=== PATIENT | male | born 1960 | race Caucasian/White ===

== ENCOUNTER 2022-05-19 11:29 | Outpatient (CLI) | payer OTHER, SELFPAY ==
--- NOTE | ~2022-05-19 | US_ITS ---
EXAMINATION: US venous doppler LE RT DATE: 05/19/2022 12:19 INDICATION: Right calf pain. TECHNIQUE: Grayscale ultrasound images without and with compression and Doppler ultrasound images of the right lower extremity veins were obtained. COMPARISON: None. FINDINGS: The visualized portions of right common femoral vein, profunda (deep) femoral vein, and greater saphe nous vein outflow are patent. There is thrombus in right femoral, popliteal, posterior tibial, and pe roneal veins. IMPRESSION: 1. Deep vein thrombosis involving right femoral, popliteal, posterior tibial, and peroneal veins. Reviewed, dictated and finalized at location A.
== END 2022-05-19 11:30 | disposition home or self-care (01) ==
PROVIDERS: PCP Internal Medicine; Visit Provider Nurse Practitioner
DX: I82.411 Acute embolism and thrombosis of right femoral vein (principal); I82.431 Acute embolism and thrombosis of right popliteal vein; I82.441 Acute embolism and thrombosis of right tibial vein; I82.451 Acute embolism and thrombosis of right peroneal vein
CPT/HCPCS: 93971

== ENCOUNTER 2024-09-23 10:22 | Emergency (ER) | payer OTHER, SELFPAY ==
--- NOTE | ~2024-09-23 | CT_ITS ---
CT of the Abdomen and Pelvis: Indication: Abdominal pain Technique: 2.5 mm axial scans were obtained through the abdomen and pelvis following intravenous adm inistration of 100 cc of Omnipaque 350. Dose reduction technique was used on this scan by utilizing a utomated exposure control and iterative reconstruction technique. The dose-length product (DLP) was 1 303.71 mGy-cm. Findings: Scans through the lung bases are unremarkable. Probable diffuse hepatic steatosis. The spleen, pancreas, gallbladder, adrenals and left kidney are w ithin normal limits. 12 mm nonobstructing right renal stone present. No evidence of aortic aneurysm. No lymphadenopathy. No bowel obstruction or bowel wall thickening. There are multiple significantly radiodense structures or material within small bowel loops, which could reflect ingested material versus ingested foreign bodies.. Images through the pelvis were performed. Urinary bladder unremarkable. No pelvic mass seen. No ascit es. Impression: Multiple markedly radiodense ingested materials versus possibly ingested foreign bodies in the proxim al small bowel. Correlate with relevant clinical history/ingestion history. Diffuse hepatic steatosis. Reviewed, dictated and finalized at location . HEDIS Impression: Multiple markedly radiodense ingested materials versus possibly ingested foreig n bodies in the proximal small bowel. Correlate with relevant clinical history/ ingestion history. Diffuse hepatic steatosis.
[2024-09-23 10:27] VITALS: BP 185/88; PULSE 63; RESP 18; TEMP 36.6; O2SAT 99
[2024-09-23 11:05] LABS: Basophils Absolute Auto 0.1 K/mm3 (0.0-0.1); Basophils Percent Auto 0.6 % (0.2-1.2); Eosinophils Absolute Auto 0.1 K/mm3 (0-0.3); Eosinophils Percent Auto 0.4 % (0-4.4); Hematocrit 55.3 % (42.0-52.0); Hemoglobin 18.9 g/dL (14.0-18.0); Immature Granulocyte Absolute 0.04 K/mm3 (0.00-0.031); Immature Granulocyte Percent A 0.4 % (0-0.5); Immature Platelet Fraction Pct 5.5 % (0.9-11.2); Lymphocytes Absolute Auto 1.17 K/mm3 (0.9-3.2); Lymphocytes Percent Auto 10.2 % (18.3-44.2); Mean Corpuscular HGB Conc 34.2 g/dl (32-36); Mean Corpuscular Hemoglobin 31.7 pg (26-34); Mean Corpuscular Volume 92.8 fl (80-100); Mean Platelet Volume 10.9 fl (7.4-10.4); Monocytes Absolute Auto 0.3 K/mm3 (0.1-0.6); Neutrophils Absolute Auto 9.8 K/mm3 (1.3-6.7); Neutrophils Percent Auto 85.4 % (45.5-73.1); Platelet Count Result 114 k/mm3 (150-375); Red Blood Count 5.96 M/mm3 (4.6-6.20); Red Cell Distribution Width 12.3 % (11.5-14.5); White Blood Count 11.4 K/mm3 (4.5-10.0)
[2024-09-23 11:13] LABS: Alanine Aminotransferase 42 U/L (6-50); Albumin Level 4.8 g/dL (3.5-5.1); Alkaline Phosphatase 86 U/L (38-126); Anion Gap 6 mmol/L (4-12); Aspartate Amino Transferase 29 U/L (17-59); Bilirubin,Total 0.6 mg/dL (0.2-1.3); Blood Urea Nitrogen 14 mg/dL (9-20); Calcium 9.9 mg/dL (8.4-10.2); Carbon Dioxide 28 mmol/L (22-30); Chloride 107 mmol/L (98-107); Estimated CRCL calculation 106 ml/min; Estimated Glomerular Filt Rate > 60; Glucose 156 mg/dL (65-110); Lipase 223 U/L (23-300); Potassium 4.7 mmol/L (3.4-5.0); Sodium 141 mmol/L (137-145)
--- NOTE | 2024-09-23 12:12 | ED.ABDPAIN ---
HPI - Abdominal Pain General Chief Complaint: Abdominal Pain <Ninoska Goldman PA-C - Last Filed: 09/23/24 12:15> Stated Complaint: abd pain and vomiting <Ninoska Goldman PA-C - Last Filed: 09/23/24 12:15> Time Seen by Provider: 09/23/24 14:58 <Ninoska Goldman PA-C - Last Filed: 09/23/24 12:15> Focused HPI: 64-year-old male with history of hypertension, diabetes, DVT several years ago on anticoagulant presents to the emergency department for upper abdominal pain, nausea and vomiting since 4:00 a.m. this morning. Denies fever, diarrhea, cough or congestion, chest pain or shortness of breath, dysuria or hematuria. Denies recent sick contacts. GENERAL: Well-appearing, well-nourished, and in no acute distress. HEAD: Normocephalic, atraumatic. CHEST: Clear to auscultation. ?No respiratory distress. ABD: Diffuse abdominal tenderness with no rebound or rigidity HEART: Regular rate and rhythm.? NEURO: ?Alert and oriented x3. Patient screened in triage and initial orders placed.? ?Additional care and disposition to be based upon?diagnostic testing and treatment. <Ninoska Goldman PA-C - Last Filed: 09/23/24 12:15> History of Present Illness HPI narrative: Agree with the above with the following additions/corrections: Patient had initially presented with epigastric abdominal pain and vomiting associated with chills that started approximately 4:00 a.m.. He did previously drink alcohol regularly, less so recently. Last bowel movement was this morning and he states that there was not diarrhea although he has been somewhat constipated. He denies bloody stools. No nausea. He denies any fevers, dysuria, or hematuria. Denies any penile discharge. He does use marijuana regularly. At the time of my exam he states he already feels better. Patient does have a primary care physician. <Lauren Owens MD - Last Filed: 09/25/24 06:34> Related Data Allergies/Adverse Reactions: Allergies Allergy/AdvReac Type Severity Reaction Status Date / Time No Known Allergies Allergy Mild Verified 09/23/24 16:19 <Ninoska Goldman PA-C - Last Filed: 09/23/24 12:15> [facility] Social History Social History: Social History Alcohol intake: current Alcohol use details: previously regular consumption Substance use type: marijuana Other substance usage details: regularly Living arrangements: with family Additional living arrangements comments: <Ninoska Goldman PA-C - Last Filed: 09/23/24 12:15> Exam Narrative: GENERAL: Well-appearing, well-nourished, and in no acute distress. HEAD: Normocephalic, atraumatic. EYES: Non injected, non icteric ENT: Nares clear, no rhinorrhea or epistaxis. NECK: Supple. CHEST: Speaking in full sentences. No respiratory distress. HEART: Regular rate and rhythm. . ABDOMEN: Soft, nondistended. No tenderness to palpation. No rigidity or guarding. Not peritoneal. EXTREMITIES: Normal range of motion. No lower extremity edema. SKIN: Warm, dry, no rash. NEURO: No focal deficits. Alert and oriented x3. PSYCH: Normal mood and affect. Pleasant. Engaged in care. <Lauren Owens MD - Last Filed: 09/25/24 06:34> Course Vital Signs Vital signs: Vital Signs Temperature 97.8 F 09/23/24 10:27 Pulse Rate 63 09/23/24 10:27 Respiratory Rate 18 09/23/24 10:27 Blood Pressure 185/88 H 09/23/24 10:27 Pulse Oximetry 99 09/23/24 10:27 Temperature 98.1 F 09/23/24 17:09 Pulse Rate 87 09/23/24 17:09 Respiratory Rate 16 09/23/24 17:09 Blood Pressure 121/82 09/23/24 17:09 Pulse Oximetry 95 09/23/24 17:09 <Ninoska Goldman PA-C - Last Filed: 09/23/24 12:15> Vital Signs Temperature 97.8 F 09/23/24 10:27 Pulse Rate 63 09/23/24 10:27 Respiratory Rate 18 09/23/24 10:27 Blood Pressure 185/88 H 09/23/24 10:27 Pulse Oximetry 99 12/31/24 10:27 Temperature 98.1 F 09/23/24 17:09 Pulse Rate 87 09/23/24 17:09 Respiratory Rate 16 09/23/24 17:09 Blood Pressure 121/82 09/23/24 17:09 Pulse Oximetry 95 09/23/24 17:09 <Lauren Owens MD - Last Filed: 09/25/24 06:34> MDM - Abdominal Pain MDM Narrative Medical decision making narrative: This is an exceedingly pleasant Patient who had presented with acute onset abdominal pain and vomiting associated chills starting approximately 4:00 a.m. He does he is somewhat constipated but rest review of systems is relatively unremarkable. In the emergency department he is afebrile vital signs notable for hypertension. MSE and work up started in triage. At the time of my exam he states that he is already feeling better. Labs show leukocytosis. His hemoglobin hematocrit are elevated, likely due to hemoconcentration although no prior for comparison. He also thrombocytopenia. Hyperglycemia without anion gap acidosis. CT imaging as below with radiodense material seen in small bowel. Patient reviewed multiple food items that he has ingested recently but all appear to be standard/typical. Denies any ingestion of non-food items. We discussed the relative uncertainty of his symptoms especially given that they have resolved. Discussed the fact that the material that is seen in his small-bowel should pass without complication. Patient discharged with prescriptions for ondansetron acetaminophen. He is advised to follow-up with his primary care physician and given strict emergency department return precautions with she and his verifies understanding. They are in agreement. Stable for discharge. <Lauren Owens MD - Last Filed: 09/25/24 06:34> Differential Diagnosis Differential diagnosis: Likely abdominal pain, acute appendicitis, calculus of kidney, constipation, diverticulitis, pancreatitis and small bowel obstruction <Lauren Owens MD - Last Filed: 09/25/24 06:34> Lab Data Attestation: I reviewed the patient's lab results. <Lauren Owens MD - Last Filed: 09/25/24 06:34> Lab results narrative: Trace ketonuria <Lauren Owens MD - Last Filed: 09/25/24 06:34> Result diagrams: 09/23/24 10:57 09/23/24 10:57 <Ninoska Goldman PA-C - Last Filed: 09/23/24 12:15> Labs: Lab Results 09/23/24 09/23/24 09/23/24 Range/Units 10:57 10:57 12:41 WBC 11.4 H (4.5-10.0) K/mm3 RBC 5.96 (4.6-6.20) M/mm3 Hgb 18.9 H (14.0-18.0) g/dL Hct 55.3 H (42.0-52.0) % MCV 92.8 (80-100) fl MCH 31.7 (26-34) pg MCHC 34.2 (32-36) g/dl RDW 12.3 (11.5-14.5) % Plt Count 114 L (150-375) k/mm3 MPV 10.9 H (7.4-10.4) fl Immature Gran % (Auto) 0.4 (0-0.5) % Neut % (Auto) 85.4 H (45.5-73.1) % Lymph % (Auto) 10.2 L (18.3-44.2) % [place] % (Auto) 3.0 (2.6-8.5) % Eos % (Auto) 0.4 (0-4.4) % Baso % (Auto) 0.6 (0.2-1.2) % Lymph # (Auto) 1.17 (0.9-3.2) K/mm3 [place] # (Auto) 0.3 (0.1-0.6) K/mm3 Eos # (Auto) 0.1 (0-0.3) K/mm3 Baso # (Auto) 0.1 (0.0-0.1) K/mm3 Abs Immat Gran (auto) 0.04 H (0.00-0.031) K/mm3 Absolute Neuts (auto) 9.8 H (1.3-6.7) K/mm3 Absolute Nucleated RBC 0.000 (0.0-0.012) K/mm3 Nucleated RBC % 0.0 (0.0-0.2) % % Immature Plt Fraction 5.5 (0.9-11.2) % Sodium 141 (137-145) mmol/L Potassium 4.7 (3.4-5.0) mmol/L Chloride 107 (98-107) mmol/L Carbon Dioxide 28 (22-30) mmol/L Anion Gap 6 (4-12) mmol/L BUN 14 (9-20) mg/dL Creatinine 0.70 (0.7-1.3) mg/dL Estim Creat Clear Calc 106 ml/min Estimated GFR > 60 (59 - ) Glucose 156 H (65-110) mg/dL Calcium 9.9 (8.4-10.2) mg/dL Total Bilirubin 0.6 (0.2-1.3) mg/dL AST 29 (17-59) U/L ALT 42 (6-50) U/L Alkaline Phosphatase 86 (38-126) U/L Total Protein 8.0 (6.3-8.2) g/dL Albumin 4.8 (3.5-5.1) g/dL Lipase 223 208 (23-300) U/L Urine Color Yellow (Yellow) Urine Appearance Clear (Clear) Urine pH 5.0 (5.0-9.0) Ur Specific [place] 1.024 (1.001-1.035) Urine Protein Negative (Negative) mg/dL Urine Glucose (UA) Negative (Negative) mg/dL Urine Ketones 1+ H (Negative) mg/dL Ur Blood (Man) Trace (Negative) Urine Nitrate Negative (Negative) Urine Bilirubin Negative (Negative) Urine Urobilinogen 0.2 (<2.0) mg/dL Leukocyte Esterase Rfl Negative (Negative) MANJTI/UL Urine RBC 0-2 (0-2) /hpf Urine WBC 0-5 (0-3) /hpf Ur Squamous Epith Cells None seen (Few) /hpf Urine Bacteria None seen /hpf Urine Casts 0-2 Influenza A (RT-PCR) Negative (Negative) Influenza B (RT-PCR) Negative (Negative) RSV (RT-PCR) Negative (Negative) SARS-CoV-2 RNA (RT-PCR) Negative (Negative) <Ninoska Goldman PA-C - Last Filed: 09/23/24 12:15> Lab Results 09/23/24 09/23/24 09/23/24 Range/Units 10:57 10:57 12:41 WBC 11.4 H (4.5-10.0) K/mm3 RBC 5.96 (4.6-6.20) M/mm3 Hgb 18.9 H (14.0-18.0) g/dL Hct 55.3 H (42.0-52.0) % MCV 92.8 (80-100) fl MCH 31.7 (26-34) pg MCHC 34.2 (32-36) g/dl RDW 12.3 (11.5-14.5) % Plt Count 114 L (150-375) k/mm3 MPV 10.9 H (7.4-10.4) fl Immature Gran % (Auto) 0.4 (0-0.5) % Neut % (Auto) 85.4 H (45.5-73.1) % Lymph % (Auto) 10.2 L (18.3-44.2) % [place] % (Auto) 3.0 (2.6-8.5) % Eos % (Auto) 0.4 (0-4.4) % Baso % (Auto) 0.6 (0.2-1.2) % Lymph # (Auto) 1.17 (0.9-3.2) K/mm3 [place] # (Auto) 0.3 (0.1-0.6) K/mm3 Eos # (Auto) 0.1 (0-0.3) K/mm3 Baso # (Auto) 0.1 (0.0-0.1) K/mm3 Abs Immat Gran (auto) 0.04 H (0.00-0.031) K/mm3 Absolute Neuts (auto) 9.8 H (1.3-6.7) K/mm3 Absolute Nucleated RBC 0.000 (0.0-0.012) K/mm3 Nucleated RBC % 0.0 (0.0-0.2) % % Immature Plt Fraction 5.5 (0.9-11.2) % Sodium 141 (137-145) mmol/L Potassium 4.7 (3.4-5.0) mmol/L Chloride 107 (98-107) mmol/L Carbon Dioxide 28 (22-30) mmol/L Anion Gap 6 (4-12) mmol/L BUN 14 (9-20) mg/dL Creatinine 0.70 (0.7-1.3) mg/dL Estim Creat Clear Calc 106 ml/min Estimated GFR > 60 (59 - ) Glucose 156 H (65-110) mg/dL Calcium 9.9 (8.4-10.2) mg/dL Total Bilirubin 0.6 (0.2-1.3) mg/dL AST 29 (17-59) U/L ALT 42 (6-50) U/L Alkaline Phosphatase 86 (38-126) U/L Total Protein 8.0 (6.3-8.2) g/dL Albumin 4.8 (3.5-5.1) g/dL Lipase 223 208 (23-300) U/L Urine Color Yellow (Yellow) Urine Appearance Clear (Clear) Urine pH 5.0 (5.0-9.0) Ur Specific [place] 1.024 (1.001-1.035) Urine Protein Negative (Negative) mg/dL Urine Glucose (UA) Negative (Negative) mg/dL Urine Ketones 1+ H (Negative) mg/dL Ur Blood (Man) Trace (Negative) Urine Nitrate Negative (Negative) Urine Bilirubin Negative (Negative) Urine Urobilinogen 0.2 (<2.0) mg/dL Leukocyte Esterase Rfl Negative (Negative) MANJIT/UL Urine RBC 0-2 (0-2) /hpf Urine WBC 0-5 (0-3) /hpf Ur Squamous Epith Cells None seen (Few) /hpf Urine Bacteria None seen /hpf Urine Casts 0-2 Influenza A (RT-PCR) Negative (Negative) Influenza B (RT-PCR) Negative (Negative) RSV (RT-PCR) Negative (Negative) SARS-CoV-2 RNA (RT-PCR) Negative (Negative) <Lauren Owens MD - Last Filed: 09/25/24 06:34> Imaging Data Attestation: I personally reviewed and interpreted this imaging study as follows: <Lauren Owens MD - Last Filed: 09/25/24 06:34> My impression: I do appreciate the presence of bright white matter in small bowel, not clearly a discretely identifiable object or with smooth well defined shape <Lauren Owens MD - Last Filed: 09/25/24 06:34> Radiologist's impression: ITS Impressions Abdomen/Pelvis CT 09/23/24 13:38 Impression: Multiple markedly radiodense ingested materials versus possibly ingested foreign bodies in the proximal small bowel. Correlate with relevant clinical history/ingestion history. Diffuse hepatic steatosis. <Ninoska Goldman PA-C - Last Filed: 09/23/24 12:15> ITS Impressions Abdomen/Pelvis CT 09/23/24 13:38 Impression: Multiple markedly radiodense ingested materials versus possibly ingested foreign bodies in the proximal small bowel. Correlate with relevant clinical history/ingestion history. Diffuse hepatic steatosis. <Lauren Owens MD - Last Filed: 09/25/24 06:34> Discharge Plan Discharge Clinical Impression: Vomiting, Leukocytosis, Elevated hemoglobin, Thrombocytopenia, Hyperglycemia, Hepatic steatosis, Abnormal CT of the abdomen, Epigastric abdominal pain <Ninoska Goldman PA-C - Last Filed: 09/23/24 12:15> Patient Disposition: Home, Self-Care <Ninoska Goldman PA-C - Last Filed: 09/23/24 12:15> Condition: Stable <Ninoska Goldman PA-C - Last Filed: 09/23/24 12:15> Instructions: Antibiotic Form, Acute Nausea and Vomiting (DC), Leukocytosis (ED), Thrombocytopenia (ED), Epigastric Pain (ED) <Ninoska Goldman PA-C - Last Filed: 09/23/24 12:15> Additional Instructions: As we discussed, unclear etiology for your symptoms. I am reassured the or feeling better. Follow-up with your primary care physician regarding the finding of the fatty liver/hepatic steatosis seen on CT. Is also unclear what the radio-opaque material seen on CT in the small intestine was. It is safe to take acetaminophen/Tylenol with the anti-medication also prescribed. Return to the emergency department any new or worsening symptoms. <Ninoska Goldman PA-C - Last Filed: 09/23/24 12:15> Patient Language: Wolof <Ninoska Goldman PA-C - Last Filed: 09/23/24 12:15> Prescriptions: New acetaminophen 500 mg capsule 1,000 mg PO Q6H PRN (Reason: pain) Qty: 20 0RF ondansetron 4 mg tablet,disintegrating 4 mg PO Q8H PRN (Reason: nausea and vomiting) Qty: 7 0RF <Ninoska Goldman PA-C - Last Filed: 09/23/24 12:15> Follow-up/Referrals: Omid,Ajay Booker MD [Primary Care Provider] - <Ninoska Goldman PA-C - Last Filed: 09/23/24 12:15> Stand Alone Forms: Work/School Release IP <Ninoska Goldman PA-C - Last Filed: 09/23/24 12:15> Time of Disposition: 16:57 <Ninoska Goldman PA-C - Last Filed: 09/23/24 12:15> 16:57 <Lauren Owens MD - Last Filed: 09/25/24 06:34>
[2024-09-23 12:54] LABS: Add Urine Microscopic? YES; Appearance Urine Clear (Clear); Bacteria Urine None Seen /hpf; Bilirubin Urine Negative (Negative); Blood Urine Trace (Negative); Color Urine Yellow (Yellow); Glucose Urine UA Negative (Negative); Ketones Urine 1+ mg/dL (Negative); Leukocyte Esterase Ur Negative LEU/UL (Negative); Nitrate Urine Negative (Negative); Non Pathogenic Casts 0-2; Protein Urine Negative (Negative); RBC Urine 0-2 /hpf (0-2); Specific Grav Ur 1.024 (1.001-1.035); Squamous Epithelial Cell Urine None Seen /hpf (Few); Urobilinogen Urine 0.2 mg/dL (<2.0); WBC Urine 0-5 /hpf (0-3)
[2024-09-23 12:59] LABS: Lipase 208 U/L (23-300)
[2024-09-23 13:25] LABS: Influenza A QL RT-PCR Negative (Negative); Influenza B QL RT-PCR Negative (Negative); RSV RNA, RT-PCR Negative (Negative); SARS-CoV-2 RNA PCR Negative (Negative)
[2024-09-23] MEDS: ONDANSETRON INJ 4 MG/2 ML VIAL IV PUSH (16:20)
[2024-09-23] MEDS: MORPHINE SULFATE (*CRX) 4 MG/ML INJ IV PUSH (16:21)
[2024-09-23 16:22] VITALS: BP 145/82; PULSE 94; RESP 16; O2SAT 96
[2024-09-23 17:09] VITALS: BP 121/82; PULSE 87; RESP 16; TEMP 36.7; O2SAT 95
--- OUTSIDE RECORDS SUMMARY | 2024-09-30 23:16 | XMS_ITS | Encounter Summary ---
Author Organization [facility] Address [address] [place] [address]. [place], [place] [id number] [place] [id number] Care Team Providers Care Territory Representative Name Role Phone Ajay Anne MD Primary Care Provider [phone] Reason for Visit * Reason Onset Date Comments Medication Problem 07/24/2024 Encounter Details Date Type Department Care Team (Late st Contact Info) Description 07/24/2024 Telephone [facility] Family & Internal Medicine [facility] [address] [place] [address] Ajay Anne MD [address] [place] [address] Medication Problem Social History Tobacco Use Types Packs/Day Years Used Date Smoking Tobacco: Never Smokeless Tobacco: Never Alcohol Use Standard Drinks/Week Comments Yes 5 (1 standard drink = 0.6 oz pur e alcohol) 3-4 drinks per week PHQ-2 Answer Date Recorded Patient Health Questionnaire-2 Score 0 12/18/2023 Sex and Gender Information Value Date Recorded Sex Assigned at Not on file Legal Sex Male 5:32 PM CDT Gender Identity Not on file Sexual Orientation Not on file documented as of this encounter Progress Notes * Latanya Lopez MA - 07/25/2024 10:03 AM CDT Rx sent to pharmacy. 07/25/2024 10:03 AM * Ajay Anne MD - 07/24/2024 4:41 PM CDT Okay to change. * Latanya Lopez MA - 07/24/2024 2:31 PM CDT Okay to change? * ROXANA Mcknight - 07/24/2024 12:42 PM CDT FREESTYLE MAX 3 SENSOR Hello! We're having a hard time getting the max 3 in, can we dispense the max 3 PLUS instead? Please let us know, thanks! documented in this encounter Plan of Treatment Not on file documented as of this encounter Visit Diagnoses Diagnosis Type 2 diabetes mellitus, without long-term current use of insulin ([facility])- Primary documented in this encounter Additional Health Concerns Assessment Noted Time PHQ-9 Depression Total Score: 0 12/18/19 24 10:55 AM CDT documented as of this encounter Care Teams Territory Representative Relationship Specialty Start Date End Date Ajay Anne MD [address] [place] [id number] PCP - General INTERNAL MEDICINE 10/07/18 documented as of this encounter
--- OUTSIDE RECORDS SUMMARY | 2024-09-30 23:16 | XMS_ITS | Encounter Summary ---
Author Organization [facility] Address [address] [place] [address]. [place], [place] [id number] [place] [id number] Care Team Providers Care Representative Personal Service Name Role Phone Ajay Anne MD Primary Care Provider [phone] Encounter Details Date Type Department Care Team (Latest Contact Info) Description 12/10/2023 Travel Social History Tobacco Use Types Packs/Day Years Used Date Smoking Tobacco: Never Smokeless Tobacco: Never Alcohol Use Standard Drinks/Week Comments Not Currently 0 (1 standard drink = 0.6 oz pure alcohol) not in the last couple of months PHQ-2 Answer Date Recorded PHQ-2 Score - If the patient scores above 3, please move on to questions 3-9 1 04/05/2022 Sex and Gender Information Value Date Recorded Sex Assigned at Not on file Legal Sex Male 5:32 PM CDT Gender Identity Not on file Sexual Orientation Not on file documented as of this encounter Plan of Treatment Not on file documented as of this encounter Visit Diagnoses Not on filedocumented in this encounter Additional Health Concerns Assessment Noted Time PHQ-9 Depression Total Score: 5 04/05/20 22 3:05 PM CDT documented as of this encounter Care Teams Representative Personal Service Relationship Specialty Start Date End Date Ajay Anne MD [address] [place] [id number] PCP - General INTERNAL MEDICINE 10/07/18 documented as of this encounter
--- OUTSIDE RECORDS SUMMARY | 2024-09-30 23:16 | XMS_ITS | Encounter Summary ---
Author Organization [facility] Address [address] [place] [address]. [place], [place] [id number] [place] [address] Care Team Providers Care Cash Register Balancer Name Role Phone Ajay Anne MD Primary Care Provider [phone] Reason for Visit * Reason Comments Follow Up Diabetes Encounter Details Date Type Department Care Team (Late st Contact Info) Description 01/30/2024 10:00 AM CDT Office Visit [facility] Family & Internal Medicine [facility] [address] [place] [address] Ajay Anne MD [address] [place] [address] [phone] Follow Up; Diabetes Social History Tobacco Use Types Packs/Day Years [...] on file documented as of this encounter Last Filed Vital Signs Vital Sign Reading Time Taken Comments Blood Pressure 134/82 01/30/2024 10:39 AM CDT Pulse 78 01/30/2024 10:39 AM CDT Temperature 37.1 ??C (98.8 ??F) 01/30/2024 1 0:39 AM CDT Respiratory Rate 18 01/30/2024 10:3 9 AM CDT Oxygen Saturation 95% 01/30/2024 10: 39 AM CDT Inhaled Oxygen Concentration - - Weight 108.6 kg (239 lb 6.4 oz) 024 10:39 AM CDT Height 167.6 cm (5' 6 ) 01/30/2024 10:3 9 AM CDT Body Mass Index 38.64 01/30/2024 10:39 AM CDT documented in this encounter Progress Notes * Ajay Anne MD - 01/30/2024 10:00 AM CDT Images from the original note were not included. Office Progress Note Reason for Visit: Follow Up and Diabetes History of Present Illness: He is here today for routine follow-up. Diabetes mellitus, type II: Doing well on Mounjaro 5 mg with hemoglobin A1c of 7.0%. He denies hypoglycemic episodes. He has been trying to watch his diet much more closely and feels that he is doingwell. He has lost about 10 pounds since his last visit. We discussed increasing Mounjaro and he would like to increase this if it would help with weight loss and also his blood sugars. Hypertension: Well-controlled on current medications. He is compliant with medication without medication side effects. He denies chest pain, shortness of breath, headaches, lightheadedness or dizziness. He does not check his blood sugar regularly at home. Obesity: Doing well with Mounjaro and continues to lose weight. He is trying to watch his diet moreclosely and exercise on a more regular basis. ROS: Review of Systems All other systems reviewed and are negative. Medications: Current Outpatient Medications on File Prior to Visit Medication Sig ARIPiprazole (ABILIFY) 2 MG tablet Take 1 tablet (2 mg total) by mouth every evening. buPROPion XL 150 MG 24 hr tablet Take 1 tablet (150 mg total) by mouth every morning. Continuous Blood Gluc Sensor (FREESTYLE LIAM 3 SENSOR) [facility] Monitor blood sugar before meals and as needed. fluticasone propionate 50 MCG/ACT nasal spray 2 sprays by Each Nostril route daily. hydrOXYzine (ATARAX) 25 MG tablet Take 1 tablet (25 mg total) by mouth 2 (two) times daily as needed. ipratropium 0.06 % nasal spray 2 sprays by Nasal route 4 (four) times daily. lisinopril (PRINIVIL) 20 MG tablet TAKE 1 TABLET(20 MG) BY MOUTH DAILY rivaroxaban (XARELTO) 20 MG Tab tablet Take 1 tablet (20 mg total) by mouth daily with breakfast. Take with food sildenafil 50 MG tablet Take 1 tablet (50 mg total) by mouth daily as needed. VIIBRYD 40 MG tablet Take 1 tablet (40 mg total) by mouth every evening. No current facility-administered medications on file prior to visit. Allergies: No Known Allergies Medical History: Past Medical History: Diagnosis Date Calf pain Depression Fatigue Headache Hip injury Hip pain Hypertension Insomnia Joint pain Left leg DVT (CMS/HCC HHS/HCC) Low vitamin D level Lower back pain Neck pain Onychomycosis Polyarthralgia Tinnitus Weight loss Surgical History: Past Surgical History: Procedure Laterality Date COLONOSCOPY STOMA DX INCLUDING COLLJ SPEC SPX Social History: Social History Socioeconomic History Marital status: Tobacco Use Smoking status: Never Smokeless tobacco: Never Vaping Use Vaping status: Never Used Substance and Sexual Activity Alcohol use: Yes Alcohol/week: 5.0 - 6.7 standard drinks of alcohol Types: 3 - 4 Cans of beer per week Comment: 3-4 drinks per week Drug use: Yes Frequency: 4.0 times per week Types: Marijuana Comment: 3-4 times per week Sexual activity: Yes Partners: Female control/protection: None Family History: Family History Problem Relation Name Age of Onset Cancer Mother Varsha roger Malignant neoplasm Hypertension Other Family History PE: Physical Exam Vitals and nursing note reviewed. Constitutional: Appearance: Normal appearance. He is well-developed. HENT: Head: Normocephalic and atraumatic. Eyes: Extraocular Movements: Extraocular movements intact. Conjunctiva/sclera: Conjunctivae normal. Pupils: Pupils are equal, round, and reactive to light. Neck: Vascular: Normal carotid pulses. No carotid bruit. Cardiovascular: Rate and Rhythm: Normal rate and regular rhythm. Heart sounds: Normal heart sounds. No murmur heard. No friction rub. No gallop. Pulmonary: Effort: Pulmonary effort is normal. No respiratory distress. Breath sounds: Normal breath sounds. No wheezing. Skin: General: Skin is warm and dry. Neurological: Mental Status: He is alert and oriented to person, place, and time. Psychiatric: Behavior: Behavior normal. Judgment: Judgment normal. Filed Vitals: 01/30/24 1039 BP: 134/82 Pulse: 78 Resp: 18 Temp: 98.8 ??F (37.1 ??C) TempSrc: Skin SpO2: 95% Weight: 108.6 kg (239 lb 6.4 oz) Height: 1.676 m (5' 6 ) Diagnoses/Impression: 1. Type 2 diabetes mellitus, without long-term current use of insulin ([facility]) Chronic HEMOGLOBIN, GLYCOSYLATED COLLECT.CAPILLARY (FNGR,HEEL,EAR) tirzepatide (MOUNJARO) 7.5 MG/0.5ML injection 2. Benign essential hypertension Chronic 3. Class 2 severe obesity due to excess calories with serious comorbidity and body mass index (BMI)of 38.0 to 38.9 in adult ([facility]) 4. Need for prophylactic vaccination against Streptococcus pneumoniae (pneumococcus) [85744] Prevnar 20 (Pneumococcal) Recommendations and Plan: 1. Type 2 diabetes mellitus, without long-term current use of insulin ([facility]) Increase Mounjaro to 7.5mg weekly encouraged diet and exercise. Follow up in 1 month. - HEMOGLOBIN, GLYCOSYLATED - COLLECT.CAPILLARY (FNGR,HEEL,EAR) - tirzepatide (MOUNJARO) 7.5 MG/0.5ML injection; Inject 1 Pen into the skin every 7 days. Dispense:2 mL; Refill: 3 2. Benign essential hypertension Well controlled, continue with present management. 3. Class 2 severe obesity due to excess calories with serious comorbidity and body mass index (BMI)of 38.0 to 38.9 in adult ([facility]) Doing well with mounjaro, diet and exercise. 4. Need for prophylactic vaccination against Streptococcus pneumoniae (pneumococcus) - [15830] Prevnar 20 (Pneumococcal) Orders Placed This Encounter COLLECT.CAPILLARY (FNGR,HEEL,EAR) HEMOGLOBIN, GLYCOSYLATED [21278] Prevnar 20 (Pneumococcal) tirzepatide (MOUNJARO) 7.5 MG/0.5ML injection PCP: AJAY ANNE MD 01/30/2024 documented in this encounter Plan of Treatment Not on file documented as of this encounter Procedures Procedure Name Priority Date/Time Associated Diagnosis Comments COLLECT.CAPILLARY (FNGR,HEEL,EAR) Routine 01/30/2024 10:39 AM CDT Type 2 diabetes mellitus with other circulatory complication, without long-term current use of insulin ([facility]) HEMOGLOBIN, GLYCOSYLATED Routine 01/30/2024 Type 2 diabetes mellitus with other circulatory complication, without long-term current use of insulin ([facility]) documented in this encounter Results * (ABNORMAL) HEMOGLOBIN, GLYCOSYLATED (01/30/2024) HGB A1C 7.0(A) % [facility] 01/30/2024 us Ajay Anne MD LABORATORY [place] [address], documented in this encounter Visit Diagnoses Diagnosis Type 2 diabetes mellitus with other circulatory complication, without long-term current use of insulin ([facility])- Primary Benign essential hypertension Essential hypertension, benign Class 2 severe obesity due to excess calories with serious comorbidity and body mass index (BMI) of 38.0 to 38.9 in adult ([facility]) Need for prophylactic vaccination against Streptococcus pneumoniae (pneumococcus) Need for prophylactic vaccination against streptococcus pneumoniae (pneumococcus) documented in this encounter Additional Health Concerns Assessment Noted Time PHQ-9 Depression Total Score: 0 12/18/19 24 10:55 AM CDT documented as of this encounter Care Teams Cash Register Balancer Relationship Specialty Start Date End Date Ajay Anne MD [address] [place] [address] PCP - General INTERNAL MEDICINE 10/07/18 documented as of this encounter
--- OUTSIDE RECORDS SUMMARY | 2024-09-30 23:16 | XMS_ITS | Encounter Summary ---
Author Organization [facility] Address [address] [place] [address]. [place], [place] [id number] [place] [address] Care Team Providers Care Floor Surfacer Name Role Phone Ajay Anne MD Primary Care Provider [phone] Reason for Visit * Reason Onset Date Comments Record Request 12/18/2023 Encounter Details Date Type Department Care Team (Late st Contact Info) Description 12/18/2023 Telephone [facility] Medical Group Family & Internal Medicine [facility] [address] [place] [address] Ajay Anne MD [address] [place] [address] Record Request Social History Tobacco Use Types Packs/Day Years Used Date Smoking Tobacco: Never Smokeless Tobacco: Never Alcohol Use Standard Drinks/Week Comments Not Currently 0 (1 standard drink = 0.6 oz pure alcohol) not in the last couple of months PHQ-2 Answer Date Recorded Patient Health Questionnaire-2 Score 0 12/18/2023 Sex and Gender Information Value Date Recorded Sex Assigned at Not on file Legal Sex Male 5:32 PM CDT Gender Identity Not on file Sexual Orientation Not on file documented as of this encounter Progress Notes * Tram Cash MA - 12/19/2023 3:13 PM CDT Received eye exam, dos: 09/21/22 and sent to PCP * Tram Cash MA - 12/18/2023 1:42 PM CDT I have faxed [facility] in [place] for DM eye exam report documented in this encounter Plan of Treatment Not on file documented as of this encounter Visit Diagnoses Not on filedocumented in this encounter Additional Health Concerns Assessment Noted Time PHQ-9 Depression Total Score: 0 12/18/19 24 10:55 AM CDT documented as of this encounter Care Teams Floor Surfacer Relationship Specialty Start Date End Date Ajay Anne MD [address] [place] [address] PCP - General INTERNAL MEDICINE 10/07/18 documented as of this encounter
--- OUTSIDE RECORDS SUMMARY | 2024-09-30 23:16 | XMS_ITS | Encounter Summary ---
Author Organization [facility] Address [address] [place] [address]. [place], [place] [address] [place] [address] Care Team Providers Care Lcac Operator Name Role Phone Ajay Anne MD Primary Care Provider [phone] Encounter Details Date Type Department Care Team (Latest Contact Info) Description 12/18/2023 Travel Social History Tobacco Use Types Packs/Day [...] documented as of this encounter Care Teams Lcac Operator Relationship Specialty Start Date End Date Ajay Anne MD [address] [place] [address] PCP - General INTERNAL MEDICINE 10/07/18 documented as of this encounter
--- OUTSIDE RECORDS SUMMARY | 2024-09-30 23:16 | XMS_ITS | Clinical Summary ---
Author Organization [facility] Address [facility] [facility] [place] [address] [place] [address] Care Team Providers Care Back Up Worker Name Role Phone Ajay Anne MD Primary Care Provider [phone] Allergies No known active allergies Medications VIIBRYD 40 MG tablet Take 1 tablet (40 mg total) by mouth every evening. 11/09/19 22 Active buPROPion XL 150 MG 24 hr tablet Take 1 tablet (150 mg total) by mouth every morning. 11/08/19 22 Active fluticasone propionate 50 MCG/ACT nasal spray 2 sprays by Each Nostril route daily. 10/31/19 22 Active sildenafil 50 MG tablet Take 1 tablet (50 mg total) by mouth daily as needed. 10/31/19 22 Active ipratropium 0.06 % nasal sprayIndication s:Smell disturbance 2 sprays by Nasal route 4 (four) times daily. 15 mL 2 11/24/19 22 Active ARIPiprazole (ABILIFY) 2 MG tablet Take 1 tablet (2 mg total) by mouth every evening. 10/03/19 24 Active hydrOXYzine (ATARAX) 25 MG tablet Take 1 tablet (25 mg total) by mouth 2 (two) times daily as needed. 12/05/19 23 Active rivaroxaban (XARELTO) 20 MG Tab tabletIndicatio ns:Acute deep vein thrombosis (DVT) of other specified vein of right lower extremity (CMS/HCC HHS/HCC) Take 1 tablet (20 mg total) by mouth daily with breakfast. Take with food 90 tablet 1 11/30/19 24 Active lisinopril (PRINIVIL) 20 MG tabletIndicatio ns:Benign essential hypertension TAKE 1 TABLET(20 MG) BY MOUTH DAILY 90 tablet 1 06/09/20 24 Active Continuous Glucose Sensor (FREESTYLE LIAM 3 PLUS SENSOR) MiscIndications :Type 2 diabetes mellitus, without long-term current use of insulin ([facility]) 1 Device by Does not apply route every 14 (fourteen) days. 2 each 12 07/25/20 24 Active tirzepatide (MOUNJARO) 7.5 MG/0.5ML injectionIndica tions:Type 2 diabetes mellitus with other circulatory complication, without long-term current use of insulin ([facility]) INJECT 7.5 MG SUBCUTANEOUS EVERY 7 DAYS 2 mL 09/23/20 24 Active MOUNJARO 7.5 MG/0.5ML injectionIndica tions:Type 2 diabetes mellitus with other circulatory complication, without long-term current use of insulin ([facility]) INJECT 7.5 MG SUBCUTANEOUS EVERY 7 DAYS 2 mL 3 05/27/20 24 2023 Discontinued Active Problems Problem Noted Date Diagnosed Date Type 2 diabetes mellitus, wi thout long-term current use of insulin ([facility]) 11/20/2023 Acute deep vein thrombosis ( DVT) of other specified vein of right lower extremity ([facility]) 05/19/2022 Left leg DVT ([facility]) 06/06/2018 Calf pain 05/08/2018 Low vitamin D level 02/05/2018 Class 2 severe obesity due t o excess calories with serious comorbidity and body mass index (BMI) of 38.0 to 38.9 in adult ([facility]) 01/31/2018 Severe depression ([facility]) 12/14/2016 Tinnitus 12/14/2016 Fatigue 10/25/2016 Hip injury 06/05/2016 Hip pain, acute, left 06/05/2016 Polyarthralgia 06/05/2016 Insomnia 12/30/2015 Onychomycosis 10/21/2012 Benign essential hypertension 05/20/2012 Resolved Problems Problem Noted Date Diagnosed Date Resolved Date Chronic pansinusitis 04/18/2021 024 Left leg swelling 05/08/2018 12/18/2023 Weight loss 12/14/2016 12/18/2023 Neck pain on right side 10/25/2016/02/2024 Lower back pain 08/28/2012 12/18/2023 Encounters Date Type Department Care Team Description 09/25/2024 Telephone [facility] Family & Internal [address] [address] Ajay Anne MD Information 09/25/2024 Telephone [facility] Family Internal [address] [address] Ajay Anne MD Prior Authorization (Mounjaro 7.5mg ) 07/24/2024 Telephone [facility] Family & Internal [address] [address] Ajay Anne MD Medication Problem from Last 3 Months Immunizations Name Administration Dates Next Due Fluzone 6 Months+ Quad (0.5 mL Prefilled Syringe ) 08/16/2020 Influenza Adult (Generic) 10/06/2021 Pneumococcal (Prevnar 20) 01/30/2024 Family History Medical History Relation Comments Cancer Mother Malignant neopla sm Hypertension Other Relation Status Comments Mother Other Alive Social History Tobacco Use Types Packs/Day Years Used Date Smoking Tobacco: Never Smokeless Tobacco: Never Tobacco Cessation:Counseling Given: Not Answered Alcohol Use Standard Drinks/Week Comments Yes 5 (1 standard drink = 0.6 oz pur e alcohol) 3-4 drinks per week PHQ-2 Answer Date Recorded Patient Health Questionnaire-2 Score 0 12/18/2023 Sex and Gender Information Value Date Recorded Sex Assigned at Not on file Legal Sex Male 5:32 PM CDT Gender Identity Not on file Sexual Orientation Not on file Last Filed Vital Signs Vital Sign Reading Time Taken Comments Blood Pressure 134/82 01/30/2024 10:39 AM CDT Pulse 78 01/30/2024 10:39 AM CDT Temperature 37.1 ??C (98.8 ??F) 01/30/2024 1 0:39 AM CDT Respiratory Rate 18 01/30/2024 10:3 9 AM CDT Oxygen Saturation 95% 01/30/2024 10: 39 AM CDT Inhaled Oxygen Concentration - - Weight 108.6 kg (239 lb 6.4 oz) 05/08/2 024 10:39 AM CDT Height 167.6 cm (5' 6 ) 01/30/2024 10:3 9 AM CDT Body Mass Index 38.64 01/30/2024 10:39 AM CDT Plan of Treatment Health Maintenance Due Date Last Done Comments Annual Physical 1965 Hepatitis C 1980 DTaP, Tdap and Td Vaccines (1 - Tdap) 1981 Zoster Vaccines (1 of 2) 2012 RSV Immunization or 60+ Years (1 - Risk 60-74 years 1-dose series) 2022 COVID-19 Vaccine ( - season) 2024 11/03/2021, 10/06/2021 Influenza Adult (#1) 2024 10/06/2021, 08/16/20 20 Hemoglobin A1C 08/01/2024 01/30/2024, 10/26, 04/05/2022, Additional history exists Diabetes: Retinopathy Eye Exam 09/21/2024 09/21/2022 Kidney Health Evaluation 12/09/2024 12/10/2023 Lipid Panel 12/09/2024 12/10/2023, 03/10/2021, 08/27/2020, Additional history exists Colorectal Cancer Screening Colonoscopy (10 Years) 11/21/2026 11/21/2016 Pneumococcal Vaccine: Pediatrics (0 to 5 Years) and At-Risk Patients (6 to 64 Years) Completed 01/30/2024 Meningococcal Vaccine Aged Out No mark dominga eligible based on patient's age to complete this topic RSV Immunizations Under 20 Months Aged Out No longer eligible based on patient's age to complete this topic Procedures Procedure Name Priority Date/Time Associated Diagnosis Comments HEMOGLOBIN, GLYCOSYLATED Routine 01/30/2024 Type 2 diabetes mellitus with other circulatory complication, without long-term current use of insulin ([facility]) LIPID PANEL Routine 12/10/2023 8:35 AM CDT Type 2 diabetes mellitus, without long-term current use of insulin ([facility]) Benign essential hypertension Obesity, morbid, BMI 40.0-49.9 ([facility]) DIABETIC RETINOPATHY EXAM (NEGATIVE)(SCAN ORDER) Routine 09/21/2022 COLONOSCOPY Routine 11/21/2016 12:00 AM HVAC SALES ENGINEER from Last 3 Months or Most Recently Relevant to Health Maintenance Results * (ABNORMAL) HEMOGLOBIN, GLYCOSYLATED (01/30/2024) HGB A1C 7.0(A) % [facility] 01/30/2024 Ajay Anne MD LABORATORY Final Result [facility] [address] [place] [address], * (ABNORMAL) LIPID PANEL (12/10/2023 8:35 AM CDT) CHOLESTEROL 176 <200 MG/DL 12/10/2023 3:44 PM CDT [facility] TRIGLYCERIDES 282(H) <150 MG/DL 12/10/2023 3:44 PM CDT [facility] HDL 47 >40 MG/DL 12/10/2023 3:44 PM CDT [facility] LDL-C 73 <100 MG/DL 12/10/2023 3:44 PM CDT [facility] VLDL CALCULATION 56(H) 5 - 28 MG/DL 12/10/2023 3:44 PM CDT [facility] CHOL/HDL RATIO 3.7 0.0 - 4.0 12/10/2023 3:44 PM CDT [facility] LDL/HDL 1.6 0.41 - 2.13 12/10/2023 3:44 PM CDT [facility] NON HDL CHOLESTEROL 129 <140 MG/DL 12/10/2023 3:44 PM CDT [facility] 12/10/2023 8:35 AM CDT Ajay Anne MD LABORATORY Final Result Performing Organization Address City/[facility] Co de Phone Number [facility] [address] [place] [address], [place] [phone] * DIABETIC RETINOPATHY EXAM (NEGATIVE) (09/21/2022) [facility] Scanned SCANNING Final Resu lt Performing Organization Address [facility] Co de Phone Number [facility] * Colonoscopy (11/21/2016 12:00 AM HVAC SALES ENGINEER) 11/21/2016 11/21/2016 Narrative [facility] TO EPIC CONVERSION - 11/21/2016 12:00 AM HVAC SALES ENGINEER Documented hx of procedure Procedure Note Duane Rodarte MD - 07/28/2018 Documented hx of procedure Generic Conversion Md RODARTE GI PROCEDURE ORDERABLES Final Result Performing Organization Address [facility] Co de Phone Number [facility] TO EPIC CONVERSION from Last 3 Months or Most Recently Relevant to Health Maintenance Insurance GENERIC - COMMERCIAL Care Teams Back Up Worker Relationship Specialty Start Date End Date Ajay Anne MD [address] [place], [place] [id number] PCP - General INTERNAL MEDICINE 10/07/18
--- OUTSIDE RECORDS SUMMARY | 2024-09-30 23:16 | XMS_ITS | Encounter Summary ---
Author Organization [facility] Address [address] [place] [address]. [place], [place] [id number] [place] [address] Care Team Providers Care Administrative Clerk Name Role Phone Ajay Anne MD Primary Care Provider [phone] Encounter Details Date Type Department Care Team (Latest Contact Info) Description 01/30/2024 Travel Social History Tobacco Use Types Packs/Day [...] documented as of this encounter Care Teams Administrative Clerk Relationship Specialty Start Date End Date Ajay Anne MD [address] [place] [address] PCP - General INTERNAL MEDICINE 10/07/18 documented as of this encounter
--- OUTSIDE RECORDS SUMMARY | 2024-09-30 23:16 | XMS_ITS | Encounter Summary ---
Author Organization [facility] Address [address] [place] [address]. [place], [place] [id number] [place] [address] Care Team Providers Care Care Advocate Name Role Phone Ajay Anne MD Primary Care Provider [phone] Encounter Details Date Type Department Care Team (Late st Contact Info) Description 12/10/2023 8:20 AM CDT Laboratory Only [facility] Medical [facility] [id number] [place] [address] Ajay Anne MD [facility] [place], [place] [id number] Social History Tobacco Use Types Packs/Day Years [...] as of this encounter Progress Notes * Ajay Anne MD - 12/10/2023 8:20 AM CDT Labs review, will review with the patient at his next appointment. Future Appointments 12/18/2023 9:20 AM Ajay Anne MD [facility] documented in this encounter Plan of Treatment Not on file documented as of this encounter Procedures Procedure Name Priority Date/Time Associated Diagnosis Comments URINALYSIS WI REFLEX TO CULTURE Routine 12/10/2023 8:35 AM CDT Type 2 diabetes mellitus, without long-term current use of insulin (CMS/HCC HHS/HCC) Benign essential hypertension Obesity, morbid, BMI 40.0-49.9 (CMS/HCC HHS/HCC) TSH W/REFLEX Routine 12/10/2023 8:35 AM CDT Type 2 diabetes mellitus, without long-term current use of insulin (CMS/HCC HHS/HCC) Benign essential hypertension Obesity, morbid, BMI 40.0-49.9 (CMS/HCC HHS/HCC) PROSTATE SPECIFIC ANTIGEN,SCREENING Routine 12/10/2023 8:35 AM CDT Screening for prostate cancer ALBUMIN URINE RANDOM W/CREATININE Routine 12/10/2023 8:35 AM CDT Type 2 diabetes mellitus, without long-term current use of insulin (CMS/HCC HHS/HCC) Benign essential hypertension Obesity, morbid, BMI 40.0-49.9 (CMS/HCC HHS/HCC) COMPREHENSIVE METABOLIC PANEL Routine 12/10/2023 8:35 AM CDT Type 2 diabetes mellitus, without long-term current use of insulin (CMS/HCC HHS/HCC) Benign essential hypertension Obesity, morbid, BMI 40.0-49.9 (CMS/HCC HHS/HCC) LIPID PANEL Routine 12/10/2023 8:35 AM CDT Type 2 diabetes mellitus, without long-term current use of insulin (CMS/HCC HHS/HCC) Benign essential hypertension Obesity, morbid, BMI 40.0-49.9 (CMS/HCC HHS/HCC) CBC W/DIFF AUTOMATED Routine 12/10/2023 8:35 AM CDT Type 2 diabetes mellitus, without long-term current use of insulin (CMS/HCC HHS/HCC) Benign essential hypertension Obesity, morbid, BMI 40.0-49.9 (CMS/HCC HHS/HCC) VITAMIN D, 25 OH Routine 12/10/2023 8:35 AM CDT Obesity, morbid, BMI 40.0-49.9 ([facility] HHS/HCC) Low vitamin D level URIC ACID BLOOD Routine 12/10/2023 8:35 AM CDT Type 2 diabetes mellitus, without long-term current use of insulin ([facility] HHS/HCC) Benign essential hypertension Obesity, morbid, BMI 40.0-49.9 ([facility] HHS/HCC) COLLECTION VENOUS BLOOD VENIPUNCTURE Routine 12/10/2023 8:23 AM CDT Type 2 diabetes mellitus, without long-term current use of insulin ([facility] HHS/HCC) Benign essential hypertension Obesity, morbid, BMI 40.0-49.9 ([facility] HHS/HCC) documented in this encounter Results * URIC ACID BLOOD (12/10/2023 8:35 AM CDT) URIC ACID 7.0 3.5 - 7.2 MG/DL 12/10/2023 2:27 PM CDT [facility] 12/10/2023 8:35 AM CDT us Ajay Anne MD LABORATORY Final Result Performing Organization Address [facility]/State/[facility] Co de Phone Number [facility] [address] [place] [address], * PROSTATE SPECIFIC ANTIGEN,SCREENING (12/10/2023 8:35 AM CDT) PSA 1.01 <4.00 NG/ML 12/10/2023 2:45 PM CDT [facility] Comment: ASSAY PERFORMED BY [employer] METHODOLOGY USING Mango DSP DIMENSION REAGENT. PATIENT RESULTS DETERMINED BY ASSAYS FROM DIFFERENT MANUFACTURERS AND/OR BY DIFFERENT METHODS MAY NOT BE COMPARABLE. 12/10/2023 8:35 AM CDT us Ajay Anne MD LABORATORY Final Result Performing Organization Address [facility] Co de Phone Number [facility] [address] [place] [address], * ALBUMIN URINE RANDOM (12/10/2023 8:35 AM CDT) MICROALBUMIN (U) 8.7 <20 MG/L 12/10/19 3:01 PM CDT [facility] CREATININE RANDOM (U) 95.7 MG/DL 12/10/2023 3:01 PM CDT [facility] ALBUMIN/CREAT RATIO 9.1 <30 MG/G 12/10/2023 3:01 PM CDT [facility] URINE SPECIMEN / Unknown 12/10/2023 8:35 AM CDT Ajay Anne MD URINE ORDERABLES Final Result Performing Organization Address [facility] de Phone Number [address] [address], * VITAMIN D, 25 OH (12/10/2023 8:35 AM CDT) VITAMIN D 25 HYDROXY TOTAL S/P/B 35.4 30 - 100 NG/ML 12/10/2023 3:44 PM CDT [facility] Comment: ? DEFICIENT ??<20 ?INSUFFICIENT 20-30 ?SUFFICIENT 30-100 12/10/2023 8:35 AM CDT Ajay Anne MD LABORATORY Final Result Performing Organization Address City/[facility] Co de Phone Number [facility] [address] [place] [address], * URINALYSIS WI REFLEX TO CULTURE (12/10/2023 8:35 AM CDT) COLOR (U) YELLOW 12/10/2023 3:42 PM CDT [facility] TRANSPARENCY CLEAR CLEAR 12/10/2023 3:42 PM CDT [facility] SPECIFIC GRAVITY (U) 1.025 1.003 - 1.040 12/10/2023 3:42 PM CDT [facility] U PH 6.0 5.0 - 9.0 12/10/2023 3:42 PM T [facility] PROTEIN RANDOM (U) NEGATIVE NEGATIVE 12/10/2023 3:42 PM T [facility] GLUCOSE (U) NEGATIVE NEGATIVE 12/10/2023 3:42 PM T [facility] KETONES MG/DL (U) NEGATIVE NEGATIVE 12/10/2023 3:42 PM CDT [facility] BILIRUBIN (U) NEGATIVE NEGATIVE 12/10/2023 3:42 PM T [facility] BLOOD (U) NEGATIVE NEGATIVE 12/10/2023 3:42 PM CDT [facility] UROBILINOGEN 0.2 0.0 - 2.0 EU/DL 12/10/2023 3:42 PM T [facility] NITRITES NEGATIVE NEGATIVE 12/10/2023 3:42 PM CDT [facility] LEUKOCYTES (U) NEGATIVE NEGATIVE 12/10/2023 3:42 PM CDT [facility] REFLEX URINE CULTURE: CULTURE IS NOT INDICATED 12/10/2023 3:42 PM [facility] RBC/HPF 0-3 0 - 3 /HPF 12/10/2023 3:42 PM CDT [facility] WBC/HPF 0-3 0 - 3 /HPF 12/10/2023 3:42 PM CDT [facility] EPI/HPF 0-3 /HPF 12/10/2023 3:42 PM CDT [facility] BACTERIA (U) NONE SEEN NONE SEEN 12/10/2023 3:42 PM CDT [facility] URINE SPECIMEN OBTAINED BY CLEAN CATCH PROCEDURE / Unknown 12/10/2023 8:35 AM CDT us Ajay Anne MD URINE ORDERABLES Final Result Performing Organization Address City/[facility]/ZIP Co de Phone Number [facility] [address] [place] [address], [place] [phone] * TSH W/REFLEX (12/10/2023 8:35 AM CDT) TSH 1.607 0.358 - 3.740 uIU/ML 12/10/2023 3:44 PM CDT [facility] 12/10/2023 8:35 AM CDT us Ajay Anne MD LABORATORY Final Result Performing Organization Address [facility]/ZIP Co de Phone Number [address] [place] [address], [place] [phone] * (ABNORMAL) LIPID PANEL (12/10/2023 8:35 AM CDT) CHOLESTEROL 176 <200 MG/DL 12/10/2023 3:44 PM CDT [facility] TRIGLYCERIDES 282(H) <150 MG/DL 12/10/2023 3:44 PM CDT [facility] HDL 47 >40 MG/DL 12/10/2023 3:44 PM CDT [facility] LDL-C 73 <100 MG/DL 12/10/2023 3:44 PM CDT [facility] VLDL CALCULATION 56(H) 5 - 28 MG/DL 12/10/2023 3:44 PM CDT [facility] CHOL/HDL RATIO 3.7 0.0 - 4.0 12/10/2023 3:44 PM CDT [facility] LDL/HDL 1.6 0.41 - 2.13 12/10/2023 3:44 PM CDT [facility] NON HDL CHOLESTEROL 129 <140 MG/DL 12/10/2023 3:44 PM CDT [facility] 12/10/2023 8:35 AM CDT Ajay Anne MD LABORATORY Final Result [facility] [place] [address] [place] [address], * (ABNORMAL) COMPREHENSIVE METABOLIC PANEL (12/10/2023 8:35 AM CDT) [facility] SODIUM S/P/B 140 136 - 145 MMOL/L 12/10/2023 3:44 PM CDT -[facility] POTASSIUM S/P/B 4.7 3.5 - 5.1 MMOL/L 12/10/2023 3:44 PM CDT [facility] CHLORIDE S/P/B 102 98 - 107 MMOL/L 12/10/2023 3:44 PM CDT -[facility] CO2 29.5 21 - 32 MMOL/L 12/10/2023 3:44 PM CDT [facility] GLUCOSE 170(H) 70 - 99 MG/DL 12/10/2023 3:44 PM CDT [facility] BUN 13 7 - 18 MG/DL 12/10/2023 3:44 PM CDT [facility] CREATININE S/P/B 0.87 0.70 - 1.30 MG/DL 12/10/2023 3:44 PM CDT [facility] CALCIUM S/P/B 9.5 8.4 - 10.5 MG/DL 12/10/2023 3:44 PM T [facility] BILIRUBIN TOTAL S/P/B 0.4 0.2 - 1.0 MG/DL 12/10/2023 3:44 PM CDT [facility] ALKALINE PHOSPHATASE S/P/B 78 45 - 115 U/L 12/10/2023 3:44 PM CDT [facility] [place] AST 19 15 - 37 U/L 12/10/2023 3:44 PM CDT [facility] [place] ALT 50 16 - 63 U/L 12/10/2023 3:44 PM T [facility] TOTAL PROTEIN S/P/B 6.8 6.4 - 8.2 G/DL 12/10/2023 3:44 PM T [facility] ALBUMIN S/P/B 3.8 3.4 - 5.0 G/DL 12/10/2023 3:44 PM T [facility] ANION GAP 8.5 5 - 15 MMOL/L 12/10/2023 3:44 PM T [facility] Comment:REFERENCE RANGE NOT ESTABLISHED OSMOLALITY (CALC) 294 MOSM/KG 024 3:44 PM T [facility] Comment:REFERENCE RANGE NOT ESTABLISHED GFR ESTIMATE >90 >90 ML/MIN/1. 73 M2 12/10/2023 3:44 PM T [facility] GFR NOTES GFR REFERENCE S: 12/10/2023 3:44 PM CDT [facility] Comment: THE ESTIMATED GFR IS CALCULATED USING THE 2020 CKD-EPI EQUATION. THE FOLLOWING CATEGORIES FOR GRADING RENAL FUNCTION ARE RECOMMENDED BY THE INTERNATIONAL SOCIETY OF NEPHROLOGY (KDIGO 2012 CLINICAL PRACTICE GUIDELINE). G1,NORMAL OR HIGH: >89 ml/min/1.73 m2 G2,MILDLY DECREASED: 60-89 ml/min/1.73 m2 G3A,MILDLY TO MODERATELY DECREASED: 45-59 ml/min/1.73 m2 G3B,MODERATELY TO SEVERELY DECREASED: 30-44 ml/min/1.73 m2 G4,SEVERELY DECREASED: 15-29 ml/min/1.73 m2 G5,KIDNEY FAILURE: <15 ml/min/1.73 m2 12/10/2023 8:35 AM CDT Ajay Anne MD LABORATORY Final Result [facility] [address] [place] [address], * (ABNORMAL) CBC W/DIFF AUTOMATED (12/10/2023 8:35 AM CDT) WBC 8.98 4.00 - 10.80 x10'3/uL 12/10/2023 3:11 PM CDT [facility] RBC 5.28 4.50 - 6.10 x10'6/uL 12/10/2023 3:11 PM CDT [facility] HGB 16.6 13.0 - 18.0 G/DL 12/10/2023 3:11 PM CDT [facility] HCT 49.5 37.0 - 52.0 % 12/10/2023 3:11 PM CDT [facility] MCV 93.8 78.0 - 100.0 FL 12/10/2023 3:11 PM CDT [facility] MCH 31.4(H) 27.0 - 31.0 PG 12/10/2023 3:11 PM CDT [facility] MCHC 33.5 33.0 - 36.0 G/DL 12/10/2023 3:11 PM CDT [facility] RDW 12.2 11.5 - 14.5 % 12/10/2023 3:11 PM CDT [facility] PLT 134(L) 150 - 350 x10'3/uL 12/10/2023 3:11 PM CDT [facility] MPV 11.8(H) 7.4 - 10.4 FL 12/10/2023 3:11 PM CDT -[facility] DIFFERENTIAL TYPE AUTOMATED DIFFERENTIAL 12/10/2023 3:12 PM CDT -[facility] NEUTROPHILS % 73.1 % 12/10/2023 3:12 PM CDT [facility] LYMPHOCYTES % 18.2 % 12/10/2023 3:12 PM CDT -[facility] MONOCYTES % 5.9 % 12/10/2023 3:12 PM CDT -[facility] EOSINOPHILS % 1.9 % 12/10/2023 3:12 PM CDT -[facility] BASOPHILS % 0.6 % 12/10/2023 3:12 PM CDT [facility] IMMATURE GRANS % 0.3 % 12/10/2023 3:12 PM CDT -[facility] ABS. NEUTROPHILS 6.57 1.60 - 8.30 x10'3/uL 12/10/2023 3:12 PM CDT -[facility] ABS. LYMPHOCYTES 1.63 0.80 - 4.70 x10'3/uL 12/10/2023 3:12 PM CDT -[facility] ABS. MONOCYTES 0.53 0.00 - 1.50 x10'3/uL 12/10/2023 3:12 PM CDT -[facility] ABS. EOSINOPHILS 0.17 0.00 - 0.40 x10'3/uL 12/10/2023 3:12 PM CDT [facility] ABS. BASOPHILS 0.05 0.00 - 0.20 x10'3/uL 12/10/2023 3:12 PM CDT [facility] ABS. IMMATURE GRANULOCYTES 0.03 0.00 - 0.03 x10'3/uL 12/10/2023 3:12 PM CDT [facility] 12/10/2023 8:35 AM CDT Ajay Anne MD LABORATORY Final Result [facility] [address] [place] [address], [place] [phone] documented in this encounter Visit Diagnoses Diagnosis Type 2 diabetes mellitus, without long-term current use of insulin ([facility])- Primary Benign essential hypertension Essential hypertension, benign Obesity, morbid, BMI 40.0-49.9 ([facility]) Screening for prostate cancer Special screening for malignant neoplasm of prostate Low vitamin D level documented in this encounter Additional Health Concerns Assessment Noted Time PHQ-9 Depression Total Score: 5 04/05/20 22 3:05 PM CDT documented as of this encounter Care Teams Care Advocate Relationship Specialty Start Date End Date Ajay Anne MD [address] [place] [address] PCP - General INTERNAL MEDICINE 10/07/18 documented as of this encounter
--- OUTSIDE RECORDS SUMMARY | 2024-09-30 23:16 | XMS_ITS | Encounter Summary ---
Author Organization [facility] Address [address] [place] [address]. [place], [place] [address] [place] [address] Care Team Providers Care Director Gift Name Role Phone Ajay Anne MD Primary Care Provider [phone] Reason for Visit * Reason Comments Follow Up Diabetes 2 days early for A1C . Encounter Details Date Type Department Care Team (Late st Contact Info) Description 12/18/2023 9:20 AM CDT Office Visit [facility] Family & Internal Medicine [address] [phone] Ajay Anne MD [address] [place] [address] Follow Up; Diabetes (2 days early for A1C.) Social History Tobacco Use Types Packs/Day Years [...] Sign Reading Time Taken Comments Blood Pressure 138/86 12/18/2023 9:40 AM CDT Pulse 80 12/18/2023 9:40 AM CDT Temperature 37.1 ??C (98.8 ??F) 12/18/2023 9:40 AM CD T Respiratory Rate 20 12/18/2023 9:40 AM CDT Oxygen Saturation 96% 12/18/2023 9:40 AM CDT Inhaled Oxygen Concentration - - Weight 113 kg (249 lb 1.6 oz) 12/18/2023 9:40 AM CDT Height 167.6 cm (5' 6 ) 12/18/2023 9:40 AM CDT Body Mass Index 40.21 12/18/2023 9:40 AM CDT documented in this encounter Progress Notes * Ajay Anne MD - 12/18/2023 9:20 AM CDT Office Progress Note Reason for Visit: Follow Up and Diabetes (2 days early for A1C.) History of Present Illness: He is here today for 1 month follow-up. Diabetes mellitus, type II: Doing well on Mounjaro 2.5 mg. He states that this really cut his appetite back and he has been watching his sugars more closely. He really likes using the radu monitor and has noticed foods that really send his sugars up and has been trying to avoid these. He denies hypoglycemic episodes. He has no nausea, vomiting or constipation. We discussed going up on medications and he would like to go up on the dosage if this will help him with weight loss. Hypertension: Well-controlled on current medications. He is compliant with medication no medicationside effects. He denies chest pain, shortness of breath, headaches, lightheadedness or dizziness. Depression: Doing well and following with psychiatry on a regular basis. He denies suicidal thoughts. ROS: Review of Systems All other systems reviewed and are negative. Medications: Current Outpatient Medications on File Prior to Visit Medication Sig ARIPiprazole (ABILIFY) 2 MG tablet Take 1 tablet (2 mg total) by mouth every evening. buPROPion XL 150 MG 24 hr tablet Take 1 tablet (150 mg total) by mouth every morning. Continuous Blood Gluc Sensor (FREESTYLE RADU 3 SENSOR) [facility] Monitor blood sugar before meals and as [...] Hypertension Insomnia Joint pain Left leg DVT ([facility]) Low vitamin D level Lower back pain Neck pain Onychomycosis Polyarthralgia Tinnitus Weight loss Surgical History: Past Surgical History: Procedure Laterality Date COLONOSCOPY Social History: Social History Socioeconomic History Marital status: Tobacco Use Smoking status: Never Smokeless tobacco: Never Vaping Use Vaping Use: Never used Substance and Sexual Activity Alcohol use: Not Currently Comment: not in the last couple of months Drug use: No Sexual activity: Yes Partners: Female control/protection: None Family History: Family History Problem Relation Name Age of Onset Cancer Mother Varsha roger Malignant neoplasm Hypertension Other Family History PE: Physical Exam Vitals and nursing note reviewed. Constitutional: General: He is awake. Appearance: Normal appearance. He is well-developed. HENT: Head: Normocephalic and atraumatic. Eyes: General: Lids are normal. Vision grossly intact. Extraocular Movements: Extraocular movements intact. Conjunctiva/sclera: Conjunctivae normal. Pupils: Pupils are equal, round, and reactive to light. Neurological: Mental Status: He is alert and oriented to person, place, and time. Psychiatric: Speech: Speech normal. Behavior: Behavior normal. Behavior is cooperative. Thought Content: Thought content normal. Judgment: Judgment normal. Filed Vitals: 12/18/23 0940 BP: 138/86 Pulse: 80 Resp: 20 Temp: 98.8 ??F (37.1 ??C) TempSrc: Skin SpO2: 96% Weight: 113 kg (249 lb 1.6 oz) Height: 1.676 m (5' 6 ) Diagnoses/Impression: 1. Type 2 diabetes mellitus without complication, without long-term current use of insulin ([facility]) Chronic tirzepatide (MOUNJARO) 5 MG/0.5ML injection 2. Benign essential hypertension Chronic 3. Severe depression (CMS/HCC HHS/HCC) Chronic Recommendations and Plan: 1. Type 2 diabetes mellitus without complication, without long-term current use of insulin (CMS/HCCHHS/HCC) Increase mounjaro to 5mg weekly Encouraged diet and exercise Continue with Radu monitor. - tirzepatide (MOUNJARO) 5 MG/0.5ML injection; Inject 1 Pen into the skin once a week. Dispense: 2 mL; Refill: 3 2. Benign essential hypertension Well controlled, continue with present management. 3. Severe depression (CMS/HCC HHS/HCC) Management as per psychiatry. Follow up in 1 month. Orders Placed This Encounter tirzepatide (MOUNJARO) 5 MG/0.5ML injection PCP: AJAY ANNE MD 12/18/2023 documented in this encounter Plan of Treatment Not on file documented as of this encounter Visit Diagnoses Diagnosis Type 2 diabetes mellitus without complication, without long-term current use of insulin (CMS/HCC HHS/HCC)- Primary Benign essential hypertension Essential hypertension, benign Severe depression (CMS/HCC HHS/HCC) Depressive disorder, not elsewhere classified documented in this encounter Additional Health Concerns Assessment Noted Time PHQ-9 Depression Total Score: 0 12/18/19 24 10:55 AM CDT documented as of this encounter Care Teams Director Gift Relationship Specialty Start Date End Date Ajay Anne MD [address] [place] [id number] PCP - General INTERNAL MEDICINE 10/07/18 documented as of this encounter
--- OUTSIDE RECORDS SUMMARY | 2024-09-30 23:17 | XMS_ITS | Encounter Summary ---
Author Organization [facility] Address [address] [place] [address]. [place], [place] [address] [place] [address] Care Team Providers Care Bundle Tier Name Role Phone Ajay Anne MD Primary Care Provider [phone] Reason for Visit * Reason Onset Date Comments Medication 11/22/2023 Encounter Details Date Type Department Care Team (Late st Contact Info) Description 11/22/2023 Telephone [facility] Family & Internal Medicine [facility] [address] [place] [address] [facility] [place] [address] Medication Social History Tobacco Use Types Packs/Day Years [...] as of this encounter Progress Notes * ROXANA Felton - 11/22/2023 9:25 AM CST ROCHELLE approved for [employer] documented in this encounter Plan of Treatment Not on file documented as of this encounter Visit Diagnoses Not on filedocumented in this encounter Additional Health Concerns Assessment Noted Time PHQ-9 Depression Total Score: 5 04/05/20 22 3:05 PM CDT documented as of this encounter Care Teams Bundle Tier Relationship Specialty Start Date End Date Ajay Anne MD [address] [place] [address] PCP - General INTERNAL MEDICINE 10/07/18 documented as of this encounter
--- OUTSIDE RECORDS SUMMARY | 2024-09-30 23:17 | XMS_ITS | Encounter Summary ---
Author Organization [facility] Address [address] [place] [address]. [place], [place] [address] [place] [address] Care Team Providers Care Mortgage Accounting Clerk Name Role Phone Ajay Anne MD Primary Care Provider [phone] Reason for Visit * Reason Onset Date Comments Medication Request 11/30/2023 Encounter Details Date Type Department Care Team (Late st Contact Info) Description 11/30/2023 Telephone [facility] Family & Internal Medicine [facility] [address] [place] [address] Ajay Anne MD [address] [place] [address] Medication Request Social History Tobacco Use Types Packs/Day [...] as of this encounter Progress Notes * Марина Cooney - 11/30/2023 10:28 AM CST Refill request received from Patient Medication: XARELTO 20 MG Tab tablet Pharmacy: [id number] - [place], [place] - [address] [facility] [address] Last visit with AJAY ANNE in FAMILY PRACTICE was on[facility] 11/20/2023 in [facility] Future Appointments Date Time Provider Department Center 12/[facility] 8[facility] 12/18/2023 9:20 AM Ajay Anne MD [facility] NSED PROSTHETIST/ORTHOTIST documented in this encounter Plan of Treatment Not on file documented as of this encounter Visit Diagnoses Diagnosis Acute deep vein thrombosis (DVT) of other specified vein of right lower extremity (CMS/HCC HHS/HCC) documented in this encounter Additional Health Concerns Assessment Noted Time PHQ-9 Depression Total Score: 5 04/05/20 22 3:05 PM CDT documented as of this encounter Care Teams Mortgage Accounting Clerk Relationship Specialty Start Date End Date Ajay Anne MD [address] [place] [address] PCP - General INTERNAL MEDICINE 10/07/18 documented as of this encounter
--- OUTSIDE RECORDS SUMMARY | 2024-09-30 23:17 | XMS_ITS | Encounter Summary ---
Author Organization [facility] Address [facility]. [place], [place] [id number] [place] [id number] Care Team Providers Care Cork Insulation Installer Name Role Phone Ajay Anne MD Primary Care Provider [phone] Reason for Visit * Reason Comments Rash B/L arms and legs. P atient has been apply antifungal cream BID x 6 months. Mouth Problem Patient can not tast e or smell. Patient saw ENT and was rx'ed Flonase, this has not helped. He is wondering if he can be referred to olfactory traning Blood Pressure Patient notes BP has been elevated the last few times he was seen by psychiatrist Encounter Details Date Type Department Care Team (Late st Contact Info) Description 11/23/2021 9:00 AM PRINT PRODUCER Office Visit [facility] Family & Internal Medicine [address] [phone] Ajay Anne MD [address] [place] [address] [id number] Rash (B/L arms and legs. Patient has been apply antifungal cream BID x 6 months. ); Mouth Problem (Patient can not taste or smell. Patient saw ENT and was rx'ed Flonase, this has not helped. He is wondering if he can be referred to olfactory traning); Blood Pressure (Patient notes BP has been elevated the last few times he was seen by psychiatrist) Social History Tobacco Use Types Packs/Day Years Used Date Smoking Tobacco: Never Smokeless Tobacco: Never Alcohol Use Standard Drinks/Week Comments Not Currently 0 (1 standard drink = 0.6 oz pure alcohol) not in the last couple of months PHQ-2 Answer Date Recorded PHQ-2 Score - If the patient scores above 3, please move on to questions 3-9 6 08/16/2020 Sex and Gender Information Value Date Recorded Sex Assigned at Not on file Legal Sex Male 5:32 PM CDT Gender Identity Not on file Sexual Orientation Not on file COVID-19 Exposure Response Date Recorded In the last 10 days, have yo u been in contact with someone who was confirmed or suspected to have Coronavirus/COVID-19? No / Unsure 11/23/2021 8:51 AM PRINT PRODUCER documented as of this encounter Last Filed Vital Signs Vital Sign Reading Time Taken Comments Blood Pressure 132/96 11/23/2021 9:44 AM PRINT PRODUCER Pulse 83 11/23/2021 9:44 AM PRINT PRODUCER Temperature 36.7 ??C (98.1 ??F) 11/23/2021 9:44 AM CS T Respiratory Rate 16 11/23/2021 9:44 AM PRINT PRODUCER Oxygen Saturation 96% 11/23/2021 9:44 AM PRINT PRODUCER Inhaled Oxygen Concentration - - Weight 109.8 kg (242 lb) 11/23/2021 9:44 AM PRINT PRODUCER Height 167.6 cm (5' 6 ) 11/23/2021 9:44 AM PRINT PRODUCER Body Mass Index 39.06 11/23/2021 9:44 AM PRINT PRODUCER documented in this encounter Progress Notes * Ajay Anne MD - 11/23/2021 9:00 AM CST Images from the original note were not included. Office Progress Note Reason for Visit: Rash (B/L arms and legs. Patient has been apply antifungal cream BID x 6 months. ), Mouth Problem (Patient can not taste or smell. Patient saw ENT and was rx'ed Flonase, this has not helped. He is wondering if he can be referred to olfactory traning), and Blood Pressure (Patient notes BP has been elevated the last few times he was seen by psychiatrist) History of Present Illness: He is here today for follow-up. He has had a rash on his upper and lower extremities that has been going on for approximately 6 months. He has been trying antifungal cream without resolution of his rash. He denies itching of the rash. He denies breakdown of skin. He has not noticed pustules or raised lesions. He denies shortness of breath. He has been having a decreased amount of smell that has been going on for a couple of years. He does not recall having Covid and has never tested positive. He has heard about olfactory training he iswondering how he goes about doing this. He was seen by ENT and was given Flonase which is not helped with his symptoms. Hypertension: Patient's blood pressure has been running high. He is compliant with medication no medication side effects. He denies chest pain, shortness of breath, headaches, lightheadedness or dizziness. ROS: Review of Systems Constitutional: Negative for malaise/fatigue and weight loss. HENT: Negative for congestion, ear pain, hearing loss, sore throat and tinnitus. Eyes: Negative for blurred vision. Respiratory: Negative for cough, shortness of breath and wheezing. Cardiovascular: Negative for chest pain, palpitations, claudication, leg swelling and PND. Gastrointestinal: Negative for abdominal pain, heartburn and vomiting. Genitourinary: Negative for dysuria and frequency. Musculoskeletal: Negative for back pain, joint pain and myalgias. Skin: Positive for rash. Negative for itching. Neurological: Negative for weakness and headaches. Psychiatric/Behavioral: Negative for depression. The patient does not have insomnia. Medications: Current Outpatient Medications on File Prior to Visit Medication Sig ??? buPROPion XL 150 MG 24 hr tablet Take 150 mg by mouth every morning. ??? fluticasone propionate 50 MCG/ACT nasal spray 2 sprays by Each Nostril route daily. ??? rivaroxaban (XARELTO) 20 MG Tab tablet Take 1 tablet (20 mg total) by mouth daily with supper. Patient must be seen for further refills ??? sildenafil 50 MG tablet Take 50 mg by mouth daily as needed. ??? VIIBRYD 40 MG tablet Take 40 mg by mouth every evening. No current facility-administered medications on file prior to visit. Allergies: No Known Allergies Medical History: Past Medical History: Diagnosis Date ??? Calf pain ??? Depression ??? Fatigue ??? Headache ??? Hip injury ??? Hip pain ??? Hypertension ??? Insomnia ??? Joint pain ??? Left leg DVT (CMS/HCC) ??? Low vitamin D level ??? Lower back pain ??? Neck pain ??? Onychomycosis ??? Polyarthralgia ??? Tinnitus ??? Weight loss Surgical History: Past Surgical History: Procedure Laterality Date ??? COLONOSCOPY Social History: Social History Socioeconomic History ??? Marital status: Spouse name: Not on file ??? Number of children: Not on file ??? Years of education: Not on file ??? Highest education level: Not on file Occupational History ??? Not on file Tobacco Use ??? Smoking status: Never Smoker ??? Smokeless tobacco: Never Used Vaping Use ??? Vaping Use: Never used Substance and Sexual Activity ??? Alcohol use: Not Currently Comment: not in the last couple of months ??? Drug use: No ??? Sexual activity: Not on file Other Topics Concern ??? Not on file Social History Narrative ??? Not on file Social Determinants of Health Financial Resource Strain: Not on file Food Insecurity: Not on file Transportation Needs: Not on file Physical Activity: Not on file Stress: Not on file Social Connections: Not on file Intimate Partner Violence: Not on file Family History: Family History Problem Relation Name Age of Onset ??? Cancer Mother Malignant neoplasm ??? Hypertension Other Family History PE: Physical Exam Constitutional: Appearance: He is well-developed. HENT: Head: Normocephalic and atraumatic. Eyes: Conjunctiva/sclera: Conjunctivae normal. Pupils: Pupils are equal, [...] Skin: General: Skin is warm and dry. Comments: Rash on bilateral upper and lower extremities, erythematous and easily blanches. No skin breakdown. Neurological: Mental Status: He is alert and oriented to person, place, and time. Psychiatric: Behavior: Behavior normal. Judgment: Judgment normal. Filed Vitals: 11/23/21 0944 BP: (!) 132/96 Pulse: 83 Resp: 16 Temp: 98.1 ??F (36.7 ??C) TempSrc: Skin SpO2: 96% Weight: 109.8 kg (242 lb) Height: 5' 6 (1.676 m) Diagnoses/Impression: 1. Benign essential hypertension amLODIPine 5 MG tablet CBC W/DIFF AUTOMATED LIPID PANEL TSH W/REFLEX VITAMIN D, 25 OH URINALYSIS WI REFLEX TO CULTURE URIC ACID BLOOD COMPREHENSIVE METABOLIC PANEL 2. Rash 3. Smell disturbance ipratropium 0.06 % nasal spray 4. Screening for prostate cancer PROSTATE SPECIFIC ANTIGEN,SCREENING Recommendations and Plan: 1. Benign essential hypertension Stop lisinopril and start amlodipine as prescribed. Rash possibly due to ACEI - amLODIPine 5 MG tablet; Take 1 tablet (5 mg total) by mouth daily. Dispense: 30 tablet; Refill: 2 - CBC W/DIFF AUTOMATED; Future - LIPID PANEL; Future - TSH W/REFLEX; Future - VITAMIN D, 25 OH; Future - URINALYSIS WI REFLEX TO CULTURE; Future - URIC ACID BLOOD; Future - COMPREHENSIVE METABOLIC PANEL; Future - COMPREHENSIVE METABOLIC PANEL - URIC ACID BLOOD - URINALYSIS WI REFLEX TO CULTURE - VITAMIN D, 25 OH - TSH W/REFLEX - LIPID PANEL - CBC W/DIFF AUTOMATED 2. Rash Likely secondary to ACEI Change medicationsas prescribed. 3. Smell disturbance Trial of ipratropium as prescribed. - ipratropium 0.06 % nasal spray; 2 sprays by Nasal route 4 (four) times daily. Dispense: 15 mL; Refill: 2 4. Screening for prostate cancer - PROSTATE SPECIFIC ANTIGEN,SCREENING; Future - PROSTATE SPECIFIC ANTIGEN,SCREENING I spent 35 minutes today reviewing the patient's medical record, obtaining history, performing an exam, ordering medications, tests, and/or procedures, documenting in the medical record and counseling and educating the patient/family/caregiver. Orders Placed This Encounter ??? CBC W/DIFF AUTOMATED ??? LIPID PANEL ??? TSH W/REFLEX ??? PROSTATE SPECIFIC ANTIGEN,SCREENING ??? VITAMIN D, 25 OH ??? URINALYSIS WI REFLEX TO CULTURE ??? URIC ACID BLOOD ??? COMPREHENSIVE METABOLIC PANEL ??? VIIBRYD 40 MG tablet ??? buPROPion XL 150 MG 24 hr tablet ??? fluticasone propionate 50 MCG/ACT nasal spray ??? sildenafil 50 MG tablet ??? amLODIPine 5 MG tablet ??? ipratropium 0.06 % nasal spray PCP: AJAY ANNE MD 11/26/2021 T PRODUCER * Ajay Anne MD - 11/23/2021 9:00 AM CST Glucose is elevated, check HgA1C. Cholesterol is slightly elevated, diet and exercise Rx. Other labs are good. T PRODUCER documented in this encounter Plan of Treatment Not on file documented as of this encounter Procedures Procedure Name Priority Date/Time Associated Diagnosis Comments URINALYSIS WI REFLEX TO CULTURE Routine 11/23/2021 10:23 AM PRINT PRODUCER Benign essential hypertension TSH W/REFLEX Routine 11/23/2021 10:23 AM PRINT PRODUCER Benign essential hypertension PROSTATE SPECIFIC ANTIGEN,SCREENING Routine 11/23/2021 10:23 AM PRINT PRODUCER Screening for prostate cancer COMPREHENSIVE METABOLIC PANEL Routine 11/23/2021 10:23 AM PRINT PRODUCER Benign essential hypertension LIPID PANEL Routine 11/23/2021 10:23 AM PRINT PRODUCER Benign essential hypertension CBC W/DIFF AUTOMATED Routine 11/23/2021 10:23 AM PRINT PRODUCER Benign essential hypertension VITAMIN D, 25 OH Routine 11/23/2021 10:2 3 AM PRINT PRODUCER Benign essential hypertension URIC ACID BLOOD Routine 11/23/2021 10:23 AM PRINT PRODUCER Benign essential hypertension documented in this encounter Results * (ABNORMAL) COMPREHENSIVE METABOLIC PANEL (11/23/2021 10:23 AM PRINT PRODUCER) SODIUM S/P/B 138 136 - 145 MMOL/L 11/23/2021 3:07 PM PRINT PRODUCER [facility] POTASSIUM S/P/B 4.7 3.5 - 5.1 MMOL/L 11/23/2021 3:07 PM PRINT PRODUCER [facility] CHLORIDE S/P/B 102 98 - 107 MMOL/L 11/23/2021 3:07 PM [facility] CO2 27.8 21 - 32 MMOL/L 11/23/2021 3:07 PM [facility] GLUCOSE 135(H) 70 - 99 MG/DL 11/23/2021 3:07 PM [facility] BUN 13 6 - 24 MG/DL 11/23/2021 3:07 PM [facility] CREATININE S/P/B 0.84 0.70 - 1.30 MG/DL 11/23/2021 3:07 PM [facility] CALCIUM S/P/B 9.2 8.4 - 10.5 MG/DL 11/23/2021 3:07 PM [facility] BILIRUBIN TOTAL S/P/B 0.5 0.2 - 1.0 MG/DL 11/23/2021 3:07 PM [facility] ALKALINE PHOSPHATASE S/P/B 85 45 - 115 U/L 11/23/2021 3:07 PM [facility] AST 27 15 - 37 U/L 11/23/2021 3:07 PM [facility] ALT 61 16 - 63 U/L 11/23/2021 3:07 PM [facility] TOTAL PROTEIN S/P/B 7.3 6.4 - 8.2 G/DL 11/23/2021 3:07 PM [facility] ALBUMIN S/P/B 4.2 3.4 - 5.0 G/DL 11/23/2021 3:07 PM [facility] ANION GAP 8.2 5 - 15 MMOL/L 11/23/2021 3:07 PM [facility] Comment:REFERENCE RANGE NOT ESTABLISHED OSMOLALITY (CALC) 288 MOSM/KG 11/23/2021 3:07 PM [facility] Comment:REFERENCE RANGE NOT ESTABLISHED EGFR NON-AFR. AMER. >90 >90 ML/MIN/1 .73 M2 11/23/2021 3:07 PM PRINT PRODUCER [facility] EGFR AFR. AMER. >90 >90 ML/MIN/1 .73 M2 11/23/2021 3:07 PM PRINT PRODUCER [facility] [place] GFR NOTES THE ESTIMATED GFR IS CALCULATED USING THE 2009 CKD-EPI EQUATION. THE FOLLOWING CATEGORIES FOR GRADING RENAL FUNCTION ARE RECOMMENDED BY THE INTERNATIONAL SOCIETY OF NEPHROLOGY (KDIGO 2012 CLINICAL PRACTICE GUIDELINE). 11/23/2021 3:07 PM PRINT PRODUCER [facility] Comment: G1,NORMAL OR HIGH: >89 ml/min/1.73 m2 G2,MILDLY DECREASED: 60-89 ml/min/1.73 m2 G3A,MILDLY TO MODERATELY DECREASED: 45-59 ml/min/1.73 m2 G3B,MODERATELY TO SEVERELY DECREASED: 30-44 ml/min/1.73 m2 G4,SEVERELY DECREASED: 15-29 ml/min/1.73 m2 G5,KIDNEY FAILURE: <15 ml/min/1.73 m2 11/23/2021 10:2 3 AM PRINT PRODUCER us Ajay Anne MD LABORATORY Final Result [facility] [address] [facility] [place] [address], [place] [phone] * URIC ACID BLOOD (11/23/2021 10:23 AM PRINT PRODUCER) URIC ACID 6.2 3.5 - 7.2 MG/DL 11/23/2021 10:39 PM PRINT PRODUCER [facility] 11/23/2021 10:2 3 AM PRINT PRODUCER us Ajay Anne MD LABORATORY Final Result [facility] [address] [place] [address], [place] [phone] [id number] * (ABNORMAL) URINALYSIS WI REFLEX TO CULTURE (11/23/2021 10:23 AM PRINT PRODUCER) [facility] Signature COLOR (U) YELLOW 11/23/2021 4:55 PM [facility] TRANSPARENCY CLEAR CLEAR 11/23/2021 4:55 PM [facility] SPECIFIC GRAVITY (U) 1.025 1.003 - 1.040 11/23/2021 4:55 PM [facility] U PH 6.0 5.0 - 9.0 11/23/2021 4:55 PM PRINT PRODUCER [facility] PROTEIN (U) NEGATIVE NEGATIVE 11/23/2021 4:55 PM [facility] URINE GLUCOSE NEGATIVE NEGATIVE 11/23/2021 4:55 PM [facility] KETONES MG/DL (U) NEGATIVE NEGATIVE 11/23/2021 4:55 PM [facility] BILIRUBIN (U) NEGATIVE NEGATIVE 11/23/2021 4:55 PM [facility] BLOOD (U) NEGATIVE NEGATIVE 11/23/2021 4:55 PM [facility] UROBILINOGEN 0.2 0.0 - 2.0 EU/DL 11/23/2021 4:55 PM [facility] NITRITES NEGATIVE NEGATIVE 11/23/2021 4:55 PM [facility] LEUKOCYTES (U) NEGATIVE NEGATIVE 11/23/2021 4:55 PM [facility] REFLEX URINE CULTURE: CULTURE IS NOT INDICATED 11/23/2021 4:55 PM [facility] RBC/HPF 0-3 0 - 3 /HPF 11/23/2021 4:55 PM [facility] WBC/HPF 0-3 0 - 3 /HPF 11/23/2021 4:55 PM [facility] EPI/HPF 0-3 /HPF 11/23/2021 4:55 PM [facility] BACTERIA (U) TRACE(A) NONE SEEN 11/23/2021 4:55 PM PRINT PRODUCER [facility] URINE SPECIMEN OBTAINED BY CLEAN CATCH PROCEDURE / Unknown 11/23/2021 10:23 AM PRINT PRODUCER us Ajay Anne MD URINE ORDERABLES Final Result Performing Organization Address City/[facility]/ZIP Co de Phone Number [facility] [address] [place] [address], * VITAMIN D, 25 OH (11/23/2021 10:23 AM PRINT PRODUCER) VITAMIN D 25 HYDROXY TOTAL S/P/B 41.8 20 - 50 NG/ML 11/23/2021 3:07 PM PRINT PRODUCER [facility] Comment: <10 ng/mL (Severe deficiency) 10 TO 19 ng/mL (Mild to Moderate deficiency) 20 TO 50 ng/mL (Optimum levels) 51 TO 80 ng/mL (Increased risk of hypercalciuria) >80 ng/mL (Toxicity possible) 11/23/2021 10:2 3 AM PRINT PRODUCER us Ajay Anne MD LABORATORY Final Result Performing Organization Address [facility] Co de Phone Number [address] [phone], * PROSTATE SPECIFIC ANTIGEN,SCREENING (11/23/2021 10:23 AM PRINT PRODUCER) PSA 1.30 <4.00 NG/ML 11/23/2021 4:18 PM PRINT PRODUCER [facility] Comment:Assay Method: Enzyme Immunoassay 11/23/2021 10:2 3 AM PRINT PRODUCER us Ajay Anne MD LABORATORY Final Result Performing Organization Address City/[facility]/ZIP Co de Phone Number [facility] [address] [place] [address], * TSH W/REFLEX (11/23/2021 10:23 AM PRINT PRODUCER) TSH 0.795 0.358 - 3.740 uIU/ML 11/23/2021 3:07 PM PRINT PRODUCER [facility] 11/23/2021 10:2 3 AM PRINT PRODUCER Ajay Anne MD LABORATORY Final Result [facility] [address] [place] [address], * (ABNORMAL) LIPID PANEL (11/23/2021 10:23 AM PRINT PRODUCER) CHOLESTEROL 199 <200 MG/DL 11/23/2021 3:07 PM [facility] TRIGLYCERIDES 151(H) <150 MG/DL 11/23/2021 3:07 PM [facility] HDL 57 >40 MG/DL 11/23/2021 3:07 PM [facility] LDL-C 112(H) <100 MG/DL 11/23/2021 3:07 PM [facility] VLDL CALCULATION 30(H) 5 - 28 MG/DL 11/23/2021 3:07 PM [facility] CHOL/HDL RATIO 3.5 0.0 - 4.0 11/23/2021 3:07 PM [facility] LDL/HDL 2.0 0.41 - 2.13 11/23/2021 3:07 PM [facility] NON HDL CHOLESTEROL 142(H) <140 MG/DL 11/23/2021 3:07 PM [facility] 11/23/2021 10:2 3 AM PRINT PRODUCER us Ajay Anne MD LABORATORY Final Result [facility] [place] [address] [place] [address], * (ABNORMAL) CBC W/DIFF AUTOMATED (11/23/2021 10:23 AM PRINT PRODUCER) [facility] Signature WBC 8.7 4.0 - 10.8 x10'3/uL 11/23/2021 2:03 PM [facility] RBC 5.57 4.50 - 6.10 x10'6/uL 11/23/2021 2:03 PM [facility] HGB 17.3 13.0 - 18.0 G/DL 11/23/2021 2:03 PM [facility] HCT 51.0 37.0 - 52.0 % 11/23/2021 2:03 PM [facility] MCV 91.6 78.0 - 100.0 FL 11/23/2021 2:03 PM [facility] MCH 31.1(H) 27.0 - 31.0 PG 11/23/2021 2:03 PM [facility] MCHC 33.9 33.0 - 36.0 G/DL 11/23/2021 2:03 PM [facility] RDW 12.5 11.5 - 14.5 % 11/23/2021 2:03 PM [facility] PLT 133(L) 150 - 350 x10'3/uL 11/23/2021 2:03 PM [facility] MPV 11.2(H) 7.4 - 10.4 FL 11/23/2021 2:03 PM [facility] DIFFERENTIAL TYPE AUTOMATED DIFFERENTIAL 11/23/2021 2:04 PM [facility] NEUTROPHILS % 59.8 % 11/23/2021 2:04 PM [facility] LYMPHOCYTES % 29.5 % 11/23/2021 2:04 PM PRINT PRODUCER [facility] MONOCYTES % 7.1 % 11/23/2021 2:04 PM PRINT PRODUCER [facility] EOSINOPHILS % 2.4 % 11/23/2021 2:04 PM PRINT PRODUCER [facility] BASOPHILS % 0.9 % 11/23/2021 2:04 PM PRINT PRODUCER [facility] IMMATURE GRANS % 0.3 % 11/23/2021 2:04 PM PRINT PRODUCER [facility] ABS. NEUTROPHILS 5.18 1.60 - 8.30 x10'3/uL 11/23/2021 2:04 PM PRINT PRODUCER [facility] ABS. LYMPHOCYTES 2.56 0.80 - 4.70 x10'3/uL 11/23/2021 2:04 PM PRINT PRODUCER [facility] ABS. MONOCYTES 0.62 0.00 - 1.50 x10'3/uL 11/23/2021 2:04 PM PRINT PRODUCER [facility] ABS. EOSINOPHILS 0.21 0.00 - 0.40 x10'3/uL 11/23/2021 2:04 PM PRINT PRODUCER [facility] ABS. BASOPHILS 0.08 0.00 - 0.20 x10'3/uL 11/23/2021 2:04 PM PRINT PRODUCER [facility] ABS. IMMATURE GRANULOCYTES 0.03 0.00 - 0.03 x10'3/uL 11/23/2021 2:04 PM PRINT PRODUCER [facility] 11/23/2021 10:2 3 AM PRINT PRODUCER us Ajay Anne MD LABORATORY Final Result [facility] [place] [address] [place] [address], [place] [phone] documented in this encounter Visit Diagnoses Diagnosis Benign essential hypertension- Primary Essential hypertension, benign Rash Rash and other nonspecific skin eruption Smell disturbance Disturbances of sensation of smell and taste Screening for prostate cancer Special screening for malignant neoplasm of prostate documented in this encounter Additional Health Concerns Assessment Noted Time PHQ-9 Depression Total Score: 25 020 2:57 PM PRINT PRODUCER documented as of this encounter Care Teams Cork Insulation Installer Relationship Specialty Start Date End Date Ajay Anne MD [address] [place] [id number] PCP - General INTERNAL MEDICINE 10/07/18 documented as of this encounter
--- OUTSIDE RECORDS SUMMARY | 2024-09-30 23:17 | XMS_ITS | Encounter Summary ---
Author Organization [facility] Address [address] [place] [address]. [place], [place] [address] [place] [address] Care Team Providers Care Fly Fishing Guide Name Role Phone Ajay Anne MD Primary Care Provider [phone] Reason for Visit * Reason Onset Date Comments Leg Pain 05/19/2022 Error 05/19/2022 Encounter Details Date Type Department Care Team (Late st Contact Info) Description 05/19/2022 Telephone [facility] Family & Internal Medicine [facility] [address] [place] [phone] Ajay Anne MD [facility] [place] [address] Leg Pain; Error Social History Tobacco Use Types Packs/Day Years [...] Progress Notes * Latanya Lopez MA - 05/19/2022 9:58 AM CDT This MA spoke to patient regarding leg pain. 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 He is having calf pain, no redness, swelling, SOB, or CP. Patient is scheduled with JAZMYNE Alvarado at [facility] at 11:40. * Amy Carr - 05/19/2022 9:49 AM CDT Encounter opened in error. documented in this encounter Plan of Treatment Not on file documented as of this encounter Visit Diagnoses Diagnosis ERRONEOUS ENCOUNTER--DISREGARD- Primary documented in this encounter Additional Health Concerns Assessment Noted Time PHQ-9 Depression Total Score: 5 04/05/20 22 3:05 PM CDT documented as of this encounter Care Teams Fly Fishing Guide Relationship Specialty Start Date End Date Ajay Anne MD [address] [place] [id number] PCP - General INTERNAL MEDICINE 10/07/18 documented as of this encounter
--- OUTSIDE RECORDS SUMMARY | 2024-09-30 23:17 | XMS_ITS | Encounter Summary ---
Author Organization [facility] Address [address] [place] [address]. [place], [place] [address] [place] [address] Care Team Providers Care Rn Manager Name Role Phone Ajay Anne MD Primary Care Provider [phone] Encounter Details Date Type Department Care Team (Latest Contact Info) Description 04/11/2021 Scan [facility] Scanned, Documents Social History Tobacco Use Types Packs/Day Years [...] Depression Total Score: 25 020 2:57 PM ASSOCIATE PROFESSOR OF COMMUNICATION documented as of this encounter Care Teams Rn Manager Relationship Specialty Start Date End Date Ajay Anne MD [address] [place] [id number] PCP - General INTERNAL MEDICINE 10/07/18 documented as of this encounter
--- OUTSIDE RECORDS SUMMARY | 2024-09-30 23:17 | XMS_ITS | Encounter Summary ---
Author Organization [facility] Address [address] [place] [address]. [place], [place] [address] [place] [address] Care Team Providers Care Home Care Chaplain Name Role Phone Ajay Anne MD Primary Care Provider [phone] Encounter Details Date Type Department Care Team (Latest Contact Info) Description 09/20/2020 Travel Social History Tobacco Use Types Packs/Day [...] Exposure Response Date Recorded In the last month, have you been in contact with someone who was confirmed or suspected to have Coronavirus / COVID-19? No / Unsure 09/20/2020 1:30 PM SENIOR ENERGY ANALYST documented as of this encounter Plan of Treatment Not on file documented as of this encounter Visit Diagnoses Not on filedocumented in this encounter Additional Health Concerns Assessment Noted Time PHQ-9 Depression Total Score: 25 020 2:57 PM SENIOR ENERGY ANALYST documented as of this encounter Care Teams Home Care Chaplain Relationship Specialty Start Date End Date Ajay Anne MD [address] [place] [address] PCP - General INTERNAL MEDICINE 10/07/18 documented as of this encounter
--- OUTSIDE RECORDS SUMMARY | 2024-09-30 23:17 | XMS_ITS | Encounter Summary ---
Author Organization [facility] Address [address] [place] [address]. [place], [place] [address] [place] [address] Care Team Providers Care Traffic Maintenance Officer Name Role Phone Ajay Anne MD Primary Care Provider [phone] Reason for Visit * Reason Comments Vascular Lab Study (SCAN) Encounter Details Date Type Department Care Team ([facility] Contact Info) Description 05/19/2022 Scan HEALTH INFO SRVCS Scanned, Documents Vascular Lab Study (SCAN) Social History Tobacco Use Types Packs/Day Years [...] suspected to have Coronavirus/COVID-19? No / Unsure 05/19/2022 10:26 AM CDT documented as of this encounter Plan of Treatment Not on file documented as of this encounter Procedures Procedure Name Priority Date/Time Associated Diagnosis Comments VASCULAR LAB GENERIC (SCAN ORDER) 05/19/2022 documented in this encounter Results * VASCULAR LAB GENERIC (05/19/2022) 05/19/2022 Narrative 05/19/2022 Ordered by an unspecified provider. us Documents Scanned SCANNING Final Result documented in this encounter Visit Diagnoses Not on filedocumented in this encounter Additional Health Concerns Assessment Noted Time PHQ-9 Depression Total Score: 5 04/05/20 22 3:05 PM CDT documented as of this encounter Care Teams Traffic Maintenance Officer Relationship Specialty Start Date End Date Ajay Anne MD [address] [place] [address] [id number] PCP - General INTERNAL MEDICINE 10/07/18 documented as of this encounter
--- OUTSIDE RECORDS SUMMARY | 2024-09-30 23:17 | XMS_ITS | Encounter Summary ---
Author Organization [facility] Address [address] [place] [address]. [place], [place] [address] [place] [address] Care Team Providers Care Cut Off Machine Operator Name Role Phone Ajay Anne MD Primary Care Provider Encounter Details Date Type Department Care Team (Latest Contact Info) Description 05/19/2022 Travel Social History Tobacco Use Types Packs/Day [...] documented as of this encounter Care Teams Cut Off Machine Operator Relationship Specialty Start Date End Date Ajay Anne MD [address] [place] [address] PCP - General INTERNAL MEDICINE 10/07/18 documented as of this encounter
--- OUTSIDE RECORDS SUMMARY | 2024-09-30 23:17 | XMS_ITS | Encounter Summary ---
Author Organization [facility] Address [address] [place] [address]. [place], [place] [address] [place] [address] Care Team Providers Care Sock Mender Name Role Phone Ajay Anne MD Primary Care Provider [phone] Reason for Referral * Consultation (Routine) - Closed Specialty Diagnoses / Procedures Referred By Contkrystle t Referred To Contact OTOLARYNGOLOGY Diagnoses Smell or taste problem Ajay Anne MD [address] [place] [address] Phone: tel: fax: Sj Mohamud MD [address] [place] [address] Phone: tel: fax: Referral ID Status Reason Start Date Expiration Date Visits Re quested Visits Authorized [id number] Closed 02/22/2021 03/24/2022 1 1 Reason for Visit * Reason Onset Date Comments Follow Up Call 02/22/2021 Encounter Details Date Type Department Care Team (Late st Contact Info) Description 02/22/2021 Telephone [facility] Family & Internal Medicine - [place] [address] [place] [address] Ajay Anne MD [address] [place], [place] [id number] Follow Up Call Social History Tobacco Use Types Packs/Day Years [...] Progress Notes * Latanya Lopez MA - 02/22/2021 5:18 PM CDT Patient informed and v/u. Referral ordered. * Ajay Anne MD - 02/22/2021 12:55 PM CDT Would refer to ENT for further evaluation. * Alyson Pang RN - 02/22/2021 12:13 PM CDT Patient called stating he is smelling and tasting something burnt. Patient stated this has been going on for 2 months now. Patient denies having covid. Patient also denies fever, chills, headache, orany other s/s of covid. Patient denies any known exposure to covid 19. Patient has not received theCovid vaccine. Patient is wondering if there is anything he can do or should do related to his taste or smell. Please advise. LL-02/22/21 * Keri Schmidt - 02/22/2021 10:35 AM CDT Patient called in asking to speak to a clinical logistics team leader, nobody was free. I advised the patientthat we would call him back. documented in this encounter Plan of Treatment Scheduled Referrals Name Type Priority Associated Diagnoses Orde r Schedule Ambulatory referral to ENT Referral Routine Smell or taste problem Ordered: 02/22/2021 documented as of this encounter Visit Diagnoses Diagnosis Smell or taste problem- Primary Problems with smell and taste documented in this encounter Additional Health Concerns Assessment Noted Time PHQ-9 Depression Total Score: 25 020 2:57 PM MANAGER ETL documented as of this encounter Care Teams Sock Mender Relationship Specialty Start Date End Date Ajay Anne MD [address] [place] [address] PCP - General INTERNAL MEDICINE 10/07/18 documented as of this encounter
--- OUTSIDE RECORDS SUMMARY | 2024-09-30 23:17 | XMS_ITS | Encounter Summary ---
Author Organization [facility] Address [address] [place] [address]. [place], [place] [address] [place] [address] Care Team Providers Care Vessel Builder Name Role Phone Ajay Anne MD Primary Care Provider [phone] Reason for Visit * Reason Onset Date Comments Medication Request 11/20/2023 Encounter Details Date Type Department Care Team (Late st Contact Info) Description 11/20/2023 Telephone [facility] Medical Group Family & Internal Medicine [facility] [address] [place] [address] Ajay Anne MD [address] [place] [address] Medication Request Social History Tobacco [...] as of this encounter Progress Notes * Alyson Pang RN - 11/22/2023 10:13 AM CST Patient will come up to the office to strip picker. Opportunity given for all questions to be answered, no further needs voiced at this time. LL-11/22/23 SITION RN * Ajay Anne MD - 11/21/2023 11:04 AM CST Can we get him sample of the Radu 3 SITION RN * Марина Cooney - 11/21/2023 8:01 AM CST Pt called stated he saw Dr Diaz 11/20/23 they spoke about getting started on the Freestyle Radu 3 sensors. Please advise. SITION RN documented in this encounter Plan of Treatment Not on file documented as of this encounter Visit Diagnoses Not on filedocumented in this encounter Additional Health Concerns Assessment Noted Time PHQ-9 Depression Total Score: 5 04/05/20 22 3:05 PM CDT documented as of this encounter Care Teams Vessel Builder Relationship Specialty Start Date End Date Ajay Anne MD [address] [place] [address] PCP - General INTERNAL MEDICINE 10/07/18 documented as of this encounter
--- OUTSIDE RECORDS SUMMARY | 2024-09-30 23:17 | XMS_ITS | Encounter Summary ---
Author Organization [facility] Address [address] [place] [address]. [place], [place] [address] [place] [address] Care Team Providers Care Automobile Or Truck Rental Dispatcher Name Role Phone Ajay Anne MD Primary Care Provider [phone] Reason for Referral * Consultation (Routine) - Closed Specialty Diagnoses / Procedures Referred By Contact Referred To Contact DIABETES EDUCATION / ENDOCRINOLOGY Diagnoses Diabetes mellitus ([facility]) Ajay Anne MD [address] [place] [address] Phone: tel:[phone] fax:[phone] [facility] Diabetes and Endocrinology [address] [address] Phone: tel: fax: Referral ID Status Reason Start Date Expiration Date V isits Requested Visits Authorized [id number] Closed Specialty Services 12/01/2021 12/01/2022 25 25 D CARE SUPERVISOR Reason for Visit * Reason Onset Date Comments Results 12/01/2021 Encounter Details Date Type Department Care Team (Late st Contact Info) Description 12/01/2021 Telephone [facility] Medical [facility] Family & Internal Medicine [place] [address] [place] [address] Ajay Anne MD [address] [place] [address] Results Social History Tobacco Use Types Packs/Day Years [...] Coronavirus/COVID-19? No / Unsure 11/23/2021 8:51 AM CHILD CARE SUPERVISOR documented as of this encounter Progress Notes * Clarita Leon MA - 12/01/2021 9:43 AM CST Patient notified and v/u D CARE SUPERVISOR * Clarita Leon MA - 12/01/2021 9:39 AM CST ----- Message from Ajay Anne MD sent at 11/30/2021 3:26 PM CHILD CARE SUPERVISOR ----- HgA1C is elevated. Recommend starting on metformin 500mg daily and refer to network lead at [facility]. Would have him follow up in 3 months D CARE SUPERVISOR documented in this encounter Plan of Treatment Scheduled Referrals Name Type Priority Associated Diagnoses Orde r Schedule Ambulatory Referral to Diabetes Education and/or Medical Nutrition Therapy Referral Routine Diabetes mellitus ([facility]) Ordered: 12/01/2021 documented as of this encounter Visit Diagnoses Diagnosis Diabetes mellitus ([facility])- Primary Type II or unspecified type diabetes mellitus without mention of complication, not stated as uncontrolled documented in this encounter Additional Health Concerns Assessment Noted Time PHQ-9 Depression Total Score: 25 020 2:57 PM CHILD CARE SUPERVISOR documented as of this encounter Care Teams Automobile Or Truck Rental Dispatcher Relationship Specialty Start Date End Date Ajay Anne MD [address] [place], [place] [id number] PCP - General INTERNAL MEDICINE 10/07/18 documented as of this encounter
--- OUTSIDE RECORDS SUMMARY | 2024-09-30 23:17 | XMS_ITS | Encounter Summary ---
Author Organization [facility] Address [address] [place] [address]. [place], [place] [address] [place] [address] Care Team Providers Care Manager Diabetes Name Role Phone Ajay Anne MD Primary Care Provider [phone] Reason for Visit * Reason Onset Date Comments Medication Problem 07/03/2022 Nail Fungus 07/03/2022 Encounter Details Date Type Department Care Team (Late st Contact Info) Description 07/03/2022 Telephone [facility] Medical Group Family & Internal Medicine [facility] [address] [place] [address] Ajay Anne MD [place] [facility] [place] [address] Medication Problem; Nail Fungus Social History Tobacco Use Types Packs/Day Years [...] Progress Notes * Latanya Lopez MA - 07/05/2022 9:43 AM CDT Patient informed and v/u. Patient is requesting a prescription for toenail fungus on big toe. Patient has not been using any OTC treatment, but states he has in the past which did not help. * Ajay Anne MD - 07/04/2022 5:31 PM CDT Okay to change to ER formulation, same dosage. * Clarita Leon MA - 07/03/2022 10:13 AM CDT Patient would like to switch metformin to the ER formulation , the one he takes now is giving him really bad diarrhea. maxwell cv belt line Cb#[phone] documented in this encounter Plan of Treatment Not on file documented as of this encounter Visit Diagnoses Diagnosis Type 2 diabetes mellitus without complication, with long-term current use of insulin ([facility])- Primary documented in this encounter Additional Health Concerns Assessment Noted Time PHQ-9 Depression Total Score: 5 04/05/20 22 3:05 PM CDT documented as of this encounter Care Teams Manager Diabetes Relationship Specialty Start Date End Date Ajay Anne MD [address] [place] [address] PCP - General INTERNAL MEDICINE 10/07/18 documented as of this encounter
--- OUTSIDE RECORDS SUMMARY | 2024-09-30 23:17 | XMS_ITS | Encounter Summary ---
Author Organization [facility] Address [address] [place] [address]. [place], [place] [address] [place] [address] Care Team Providers Care Banking Pin Adjuster Name Role Phone Ajay Anne MD Primary Care Provider [phone] Encounter Details Date Type Department Care Team (Latest Contact Info) Description 05/04/2021 - 05/04/2021 11:59 PM CDT Hospital Encounter [facility] [address] [facility] [place] [address] Ajay Anne MD [address] [place] [address] Discharge Disposition: Home or Self Care (Routine Discharge) Social History Tobacco Use Types Packs/Day Years [...] or suspected to have Coronavirus / COVID-19? Unable to assess 05/04/2021 1:18 PM CDT documented as of this encounter Medications at Time of Discharge DULoxetine 30 MG capsule Take 30 mg by mouth daily. 09/13/2020 11/23/2021 LISINOPRIL 10 MG tabletIndications: Benign essential hypertension TAKE 1 TABLET BY MOUTH EVERY DAY 90 tablet 3 11/01/2020 11/23/2021 XARELTO 20 MG Tab tabletIndications: Chronic deep vein thrombosis (DVT) of proximal vein of left lower extremity (CMS/HCC HHS/HCC) TAKE 1 TABLET BY MOUTH EVERY DAY WITH SUPPER 30 tablet 5 02/07/2021 09/07/2021 documented as of this encounter Plan of Treatment Not on file documented as of this encounter Visit Diagnoses Not on filedocumented in this encounter Additional Health Concerns Infection Onset Date Last Indicated Resolved Time COVID-19 Rule Out 05/04/2021 05/04/2021 05/04/2021 2:06 PM CDT COVID-19 Rule Out 05/04/2021 05/04/2021 05/06/2021 11:39 AM CDT Assessment Noted Time PHQ-9 Depression Total Score: 25 020 2:57 PM SENIOR CARE ASSISTANT documented as of this encounter Care Teams Banking Pin Adjuster Relationship Specialty Start Date End Date Ajay Anne MD [address] [place] [address] PCP - General INTERNAL MEDICINE 10/07/18 documented as of this encounter
--- OUTSIDE RECORDS SUMMARY | 2024-09-30 23:17 | XMS_ITS | Encounter Summary ---
Author Organization [facility] Address [address] [place] [address]. [place], [place] [address] [place] [address] Care Team Providers Care Turkish Line Attendant Name Role Phone Ajay Anne MD Primary Care Provider [phone] Encounter Details Date Type Department Care Team (Latest Contact Info) Description 11/23/2021 - 11/23/2021 11:59 PM AUDIO DIRECTOR Hospital [facility] [address] [place] [address] Ajay Anne MD [address] [place] [address] [id number] Discharge Disposition: Home or Self Care (Routine [...] Coronavirus/COVID-19? No / Unsure 11/23/2021 8:51 AM AUDIO DIRECTOR documented as of this encounter Medications at Time of Discharge buPROPion XL 150 MG 24 hr tablet Take 1 tablet (150 mg total) by mouth every morning. 11/08/2021 fluticasone propionate 50 MCG/ACT nasal spray 2 sprays by Each Nostril route daily. 10/31/2021 ipratropium 0.06 % nasal sprayIndications:S hermila disturbance 2 sprays by Nasal route 4 (four) times daily. 15 mL 2 11/23/2021 sildenafil 50 MG tablet Take 1 tablet (50 mg total) by mouth daily as needed. 10/31/2021 VIIBRYD 40 MG tablet Take 1 tablet (40 mg total) by mouth every evening. 11/09/2021 amLODIPine 5 MG tabletIndications: Benign essential hypertension Take 1 tablet (5 mg total) by mouth daily. 30 tablet 2 11/23/2021 2 rivaroxaban (XARELTO) 20 MG Tab tabletIndications: Chronic deep vein thrombosis (DVT) of proximal vein of left lower extremity (CMS/HCC HHS/HCC) Take 1 tablet (20 mg total) by mouth daily with supper. Patient must be seen for further refills 30 tablet 09/07/2021 2 documented as of this encounter Plan of Treatment Not on file documented as of this encounter Visit Diagnoses Not on filedocumented in this encounter Additional Health Concerns Assessment Noted Time PHQ-9 Depression Total Score: 25 020 2:57 PM AUDIO DIRECTOR documented as of this encounter Care Teams Turkish Line Attendant Relationship Specialty Start Date End Date Ajay Anne MD [address] [place] [address] PCP - General INTERNAL MEDICINE 10/07/18 documented as of this encounter
--- OUTSIDE RECORDS SUMMARY | 2024-09-30 23:17 | XMS_ITS | Encounter Summary ---
Author Organization [facility] Address [address] [place] [address]. [place], [place] [address] [place] [address] Care Team Providers Care Scientific Publications Editor Name Role Phone Ajay Anne MD Primary Care Provider [phone] Reason for Visit * Reason Comments Dilated Eye Exam (SCAN) Encounter Details Date Type Department Care Team ([facility] Contact Info) Description 09/21/2022 Scan HEALTH INFO SRVCS Scanned, Doc Med Group Dilated Eye Exam (SCAN) Social History Tobacco Use Types Packs/Day [...] Procedure Name Priority Date/Time Associated Diagnosis Comments DIABETIC RETINOPATHY EXAM (NEGATIVE)(SCAN ORDER) Routine 09/21/2022 documented in this encounter Results * DIABETIC RETINOPATHY EXAM (NEGATIVE) (09/21/2022) us Doc Med Group Scanned SCANNING Final Resu lt [facility] ON[facility] documented in this encounter Visit Diagnoses Not on filedocumented in this encounter Additional Health Concerns Assessment Noted Time PHQ-9 Depression Total Score: 5 04/05/20 22 3:05 PM CDT documented as of this encounter Care Teams Scientific Publications Editor Relationship Specialty Start Date End Date Ajay Anne MD [address] [place] [address] PCP - General INTERNAL MEDICINE 10/07/18 documented as of this encounter
--- OUTSIDE RECORDS SUMMARY | 2024-09-30 23:17 | XMS_ITS | Encounter Summary ---
Author Organization [facility] Address [address] [place] [address]. [place], [place] [address] [place] [address] Care Team Providers Care Direct Care Staffer Name Role Phone Ajay Anne MD Primary Care Provider [phone] Encounter Details Date Type Department Care Team (Latest Contact Info) Description 12/28/2021 Travel Social History Tobacco Use Types Packs/Day [...] suspected to have Coronavirus/COVID-19? No / Unsure 12/28/2021 10:00 AM CDT documented as of this encounter Plan of Treatment Not on file documented as of this encounter Visit Diagnoses Not on filedocumented in this encounter Additional Health Concerns Assessment Noted Time PHQ-9 Depression Total Score: 25 020 2:57 PM MUSIC GRAPHER documented as of this encounter Care Teams Direct Care Staffer Relationship Specialty Start Date End Date Ajay Anne MD [address] [place] [address] PCP - General INTERNAL MEDICINE 10/07/18 documented as of this encounter
--- OUTSIDE RECORDS SUMMARY | 2024-09-30 23:17 | XMS_ITS | Encounter Summary ---
Author Organization [facility] Address [address] [place] [address]. [place], [place] [address] [place] [address] Care Team Providers Care Bridge Construction Inspector Name Role Phone Ajay Anne MD Primary Care Provider [phone] Reason for Visit * Reason Comments Follow Up Hypertension Depression Diabetes Blood Clot Patient is wondering if he needs to continue taking Xarelto Encounter Details Date Type Department Care Team (Late st Contact Info) Description 11/20/2023 10:00 AM SIZE CUTTER Office Visit [facility] Family & Internal Medicine [address] [address] Ajay Anne MD [address] [place] [address] Follow Up; Hypertension; Depression; Diabetes; Blood Clot (Patient is wondering if he needs to continue taking Xarelto) Social History Tobacco Use Types Packs/Day Years Used Date Smoking Tobacco: Never Smokeless Tobacco: Never Tobacco Cessation:Counseling Given: Not Answered Alcohol Use Standard Drinks/Week Comments Not Currently [...] Sign Reading Time Taken Comments Blood Pressure 132/84 11/20/2023 10:38 AM SIZE CUTTER Pulse 83 11/20/2023 10:38 AM SIZE CUTTER Temperature 36.8 ??C (98.2 ??F) 11/20/2023 10:[address] Respiratory Rate 20 11/20/2023 10:38 AM SIZE CUTTER Oxygen Saturation 94% 11/20/2023 10:38 AM SIZE CUTTER Inhaled Oxygen Concentration - - Weight 115 kg (253 lb 8 oz) 11/20/2023 10:38 AM SIZE CUTTER Height 167.6 cm (5' 6 ) 11/20/2023 10:38 AM SIZE CUTTER Body Mass Index 40.92 11/20/2023 10:38 AM SIZE CUTTER documented in this encounter Progress Notes * Ajay Anne MD - 11/20/2023 10:00 AM CST Images from the original note were not included. Office Progress Note Reason for Visit: Follow Up, Hypertension, Depression, Diabetes, and Blood Clot (Patient is wondering if he needs to continue taking Xarelto) History of Present Illness: He is here today for routine follow-up. Diabetes mellitus, type II: Poorly controlled at this time. He states that he has not been taking metformin and has not been watching his diet closely. He does not check his blood sugars regularly. Hypertension: Well-controlled on current medications. He is compliant with medication no medicationside effects. He denies chest pain, shortness of breath, headaches, lightheadedness or dizziness. Obesity: Patient's not been watching his diet not been exercising on a regular basis. ROS: Review of Systems All other systems reviewed and are negative. Medications: Current Outpatient Medications on File Prior to Visit Medication Sig ARIPiprazole (ABILIFY) 2 MG tablet Take 1 tablet (2 mg total) by mouth every evening. buPROPion XL 150 MG 24 hr tablet Take 1 tablet (150 mg total) by mouth every morning. fluticasone propionate 50 MCG/ACT nasal spray 2 sprays by Each Nostril route daily. hydrOXYzine (ATARAX) 25 MG tablet Take 1 tablet (25 mg total) by mouth 2 (two) times daily as needed. ipratropium 0.06 % nasal spray 2 sprays by Nasal route 4 (four) times daily. lisinopril (PRINIVIL) 20 MG tablet TAKE 1 TABLET(20 MG) BY MOUTH DAILY sildenafil 50 MG tablet Take 1 tablet (50 mg total) by mouth daily as needed. VIIBRYD 40 MG tablet Take 1 tablet (40 mg total) by mouth every evening. XARELTO 20 MG Tab tablet TAKE 1 TABLET(20 MG) BY MOUTH DAILY WITH FOOD No current facility-administered medications on file prior to visit. Allergies: No Known Allergies Medical History: Past Medical History: Diagnosis Date Calf pain Depression Fatigue Headache Hip injury Hip pain Hypertension Insomnia Joint pain Left leg DVT ([facility]) ([facility]) Low vitamin D level Lower back pain [...] Behavior normal. Judgment: Judgment normal. Filed Vitals: 11/20/23 1038 BP: 132/84 Pulse: 83 Resp: 20 Temp: 98.2 ??F (36.8 ??C) TempSrc: Skin SpO2: 94% Weight: 115 kg (253 lb 8 oz) Height: 1.676 m (5' 6 ) Diagnoses/Impression: 1. Type 2 diabetes mellitus, without long-term current use of insulin ([facility]) ([facility]) HEMOGLOBIN, GLYCOSYLATED COLLECT.CAPILLARY (FNGR,HEEL,EAR) tirzepatide (MOUNJARO) 2.5 MG/0.5ML injection 2. Type 2 diabetes mellitus without complication, with long-term current use of insulin ([facility]) ([facility]) tirzepatide (MOUNJARO) 2.5 MG/0.5ML injection 3. Benign essential hypertension Chronic 4. Need for immunization against influenza CANCELED: [45122] FLU VACC QUAD 6 MONTHS+ 0.5 ML (SINGLEDOSE SYRINGE FLUZONE, FLUARIX, FLULAVAL OR SINGLE DOSE VIAL FLUZONE) 5. Obesity, morbid, BMI 40.0-49.9 ([facility]) Recommendations and Plan: 1. Type 2 diabetes mellitus, without long-term current use of insulin ([facility]) ([facility]) Start Mounjaro 2.5mg daily Discussed medication side effects. Discussed diet - low calorie higher protein Follow up in 1 month - HEMOGLOBIN, GLYCOSYLATED - COLLECT.CAPILLARY (FNGR,HEEL,EAR) - tirzepatide (MOUNJARO) 2.5 MG/0.5ML injection; Inject 2.5 mg into the skin every 7 days. Dispense: 2 mL; Refill: 1 2. Type 2 diabetes mellitus without complication, with long-term current use of insulin ([facility]) ([facility]) - tirzepatide (MOUNJARO) 2.5 MG/0.5ML injection; Inject 2.5 mg into the skin every 7 days. Dispense: 2 mL; Refill: 1 3. Benign essential hypertension Doing well, continue with same medications. 4. Need for immunization against influenza 5. Obesity, morbid, BMI 40.0-49.9 ([facility]) Start Mounjaro Discussed diet and exercise. Orders Placed This Encounter COLLECT.CAPILLARY (FNGR,HEEL,EAR) HEMOGLOBIN, GLYCOSYLATED ARIPiprazole (ABILIFY) 2 MG tablet hydrOXYzine (ATARAX) 25 MG tablet tirzepatide (MOUNJARO) 2.5 MG/0.5ML injection PCP: AJAY ANNE MD 11/20/2023 CUTTER * Ajay Anne MD - 11/20/2023 10:00 AM CST Labs reviewed with patient at the time of office visit. CUTTER documented in this encounter Plan of Treatment Not on file documented as of this encounter Procedures Procedure Name Priority Date/Time Associated Diagnosis Comments COLLECT.CAPILLARY (FNGR,HEEL,EAR) Routine 11/20/2023 10:37 AM SIZE CUTTER Type 2 diabetes mellitus without complication, without long-term current use of insulin ([facility]) HEMOGLOBIN, GLYCOSYLATED Routine 11/20/2023 Type 2 diabetes mellitus without complication, without long-term current use of insulin ([facility]) documented in this encounter Results * (ABNORMAL) HEMOGLOBIN, GLYCOSYLATED (11/20/2023) HGB A1C 9.4(A) % [facility] 11/20/2023 us Ajay Anne MD LABORATORY Final Result [address] [address], documented in this encounter Visit Diagnoses Diagnosis Type 2 diabetes mellitus without complication, without long-term current use of insulin ([facility])- Primary Benign essential hypertension Essential hypertension, benign Need for immunization against influenza Need for prophylactic vaccination and inoculation against influenza Obesity, morbid, BMI 40.0-49.9 ([facility]) documented in this encounter Additional Health Concerns Assessment Noted Time PHQ-9 Depression Total Score: 5 04/05/20 22 3:05 PM CDT documented as of this encounter Care Teams Bridge Construction Inspector Relationship Specialty Start Date End Date Ajay Anne MD [address] [place] [id number] PCP - General INTERNAL MEDICINE 10/07/18 documented as of this encounter
--- OUTSIDE RECORDS SUMMARY | 2024-09-30 23:17 | XMS_ITS | Encounter Summary ---
Author Organization [facility] Address [facility]. [place], [place] [address] [place] [address] Care Team Providers Care Patternmaker Helper Name Role Phone Ajay Anne MD Primary Care Provider [phone] Reason for Referral * Physical Medicine (Routine) - Closed Specialty Diagnoses / Procedures Referred By Contac t Referred To Contact PHYSICAL THERAPY Diagnoses Acute pain of left shoulder Ajay Anne MD [address] [place] [address] Phone: tel: fax: [facility] [address] [place] [address] Phone: tel: fax: Referral ID Status Reason Start Date Expiration Date V isits Requested Visits Authorized [id number] Closed Physical Therapy 04/05/2022 05/06/2023 99 99 * Consultation (Routine) - Closed Specialty Diagnoses / Procedures Referred By Contac t Referred To Contact DERMATOLOGY Diagnoses Rash Ajay Anne MD [address] [place] [address] Phone: tel: fax: [facility] [address] [place] [phone] Phone: tel: fax: Referral ID Status Reason Start Date Expiration Date V isits Requested Visits Authorized [id number] Closed Specialty Services 04/05/2022 05/05/2023 99 99 Reason for Visit * Reason Comments Follow Up Diabetes Hypertension Depression Shoulder Pain Left shoulder pain, Patient is wondering if he could get a trigger point injection Encounter Details Date Type Department Care Team (Late st Contact Info) Description 04/05/2022 12:00 PM CDT Office Visit [facility] Family & Internal Medicine [place] [id number] [place] [address] Ajay Anne MD [address] [place], [place] [id number] Follow Up; Diabetes; Hypertension; Depression; Shoulder Pain (Left shoulder pain, Patient is wondering if he could get a trigger point injection) Social History Tobacco Use Types Packs/Day Years [...] suspected to have Coronavirus/COVID-19? No / Unsure 04/05/2022 11:54 AM CDT documented as of this encounter Last Filed Vital Signs Vital Sign Reading Time Taken Comments Blood Pressure 128/84 04/05/2022 12:02 PM CDT Pulse 86 04/05/2022 12:02 PM CDT Temperature 37.1 ??C (98.7 ??F) 04/05/2022 12:02 PM C DT Respiratory Rate 16 04/05/2022 12:02 PM CDT Oxygen Saturation 97% 04/05/2022 12:02 PM CDT Inhaled Oxygen Concentration - - Weight 105.7 kg (233 lb) 04/05/2022 12:02 PM CDT Height 167.6 cm (5' 6 ) 04/05/2022 12:02 PM CDT Body Mass Index 37.61 04/05/2022 12:02 PM CDT documented in this encounter Progress Notes * Ajay Anne MD - 04/05/2022 12:00 PM CDTAssociated Order(s): Lesion Destruction Post-Procedure Diagnose(s): Acrochordon Images from the original note were not included. Office Progress Note Reason for Visit: Follow Up, Diabetes, Hypertension, Depression, and Shoulder Pain (Left shoulder pain, Patient is wondering if he could get a trigger point injection) History of Present Illness: He is here today for follow-up. Diabetes mellitus, type II: He has not been consistent with taking metformin but recently he has been on top of this more and has been taking this daily. He has noticed his blood sugars have improved. He states he is feeling better overall. He has been trying to watch his diet closely and has lost weight. He has not been exercising on a daily basis but he is active most of the day. Hypertension: Doing well on current medications. He is compliant with medication medication side effects. He denies chest pain, shortness of breath, headaches, lightheadedness or dizziness. He continues to have a rash over his entire body. He does not feel anything has helped with this including topical creams or oral medications. He has not seen dermatology. We will make a referral to dermatology. He is having pain in his left posterior shoulder. He states that he has had this injected with steroids in the past and this has helped. The pain is between his shoulder blade and his neck. No numbness or tingling. No radiation of his pain. He does have 2 skin tags that bother him 1 is on his rightposterior neck and the other is in his left inner thigh. They do get inflamed at times and catch onhis clothing. ROS: Review of Systems Constitutional: Negative for malaise/fatigue and weight loss. HENT: Negative for congestion, ear pain, hearing loss and tinnitus. Eyes: Negative for blurred vision. Respiratory: Negative for cough, shortness of breath and wheezing. Cardiovascular: Negative for chest pain, palpitations, claudication, leg swelling and PND. Gastrointestinal: Negative for abdominal pain, heartburn and vomiting. Genitourinary: Negative for dysuria and frequency. Musculoskeletal: Positive for joint pain. Negative for back pain and myalgias. Skin: Negative for itching and rash. Neurological: Negative for weakness and headaches. Psychiatric/Behavioral: Negative for depression. The patient does not have insomnia. Medications: Current Outpatient Medications on File Prior to Visit Medication Sig ??? buPROPion XL 150 MG 24 hr tablet Take 150 mg by mouth every morning. ??? fluticasone propionate 50 MCG/ACT nasal spray 2 sprays by Each Nostril route daily. ??? ipratropium 0.06 % nasal spray 2 sprays by Nasal route 4 (four) times daily. ??? lisinopril 20 MG tablet Take 1 tablet (20 mg total) by mouth daily. ??? METFORMIN 500 MG tablet TAKE 1 TABLET(500 MG) BY MOUTH DAILY WITH BREAKFAST ??? sildenafil 50 MG tablet Take 50 [...] Social History Socioeconomic History ??? Marital status: Tobacco Use ??? Smoking status: Never Smoker ??? Smokeless tobacco: Never Used Vaping Use ??? Vaping Use: Never used Substance and Sexual Activity ??? Alcohol use: Not Currently Comment: not in the last couple of months ??? Drug use: No Family History: Family History Problem Relation Name Age of Onset ??? Cancer Mother Malignant neoplasm ??? Hypertension Other Family History PE: Physical Exam Vitals and nursing note reviewed. Constitutional: Appearance: He is well-developed. HENT: Head: [...] Psychiatric: Behavior: Behavior normal. Judgment: Judgment normal. Lesion Destruction Date/Time: 04/05/2022 2:10 PM Performed by: Ajay Anne MD Authorized by: Ajay Anne MD Number of Lesions: 2 Lesion 1: Body area: head/neck Head/neck location: neck Initial size (mm): 3 Final defect size (mm): 3 Malignancy: benign lesion Destruction method: cryotherapy Lesion 2: Body area: lower extremity Lower extremity location: L upper leg Initial size (mm): 7 Final defect size (mm): 7 Malignancy: benign lesion Destruction method: cryotherapy Filed Vitals: 04/05/22 1202 BP: 128/84 Pulse: 86 Resp: 16 Temp: 98.7 ??F (37.1 ??C) TempSrc: Skin SpO2: 97% Weight: 105.7 kg (233 lb) Height: 5' 6 (1.676 m) Office Visit on 04/05/2022 Component Date Value Ref Range Status ??? HGB A1C 04/05/2022 7.1 (A) % Final ] Diagnoses/Impression: 1. Type 2 diabetes mellitus without complication, with long-term current use of insulin (CMS/HCC) A1C (BACK OFFICE) COLLECT.CAPILLARY (FNGR,HEEL,EAR) 2. Benign essential hypertension Chronic 3. Rash Ambulatory referral to Dermatology 4. Acute pain of left shoulder Ambulatory referral to Physical Therapy 5. Acrochordon Recommendations and Plan: 1. Type 2 diabetes mellitus without complication, with long-term current use of insulin (CMS/HCC) Doing well, continue with same medications Follow up in 3 months with A1C at time of visit. - A1C (BACK OFFICE) - COLLECT.CAPILLARY (FNGR,HEEL,EAR) 2. Benign essential hypertension Well controlled, continue with present management. 3. Rash Refer to Dermatology - Ambulatory referral to Dermatology 4. Acute pain of left shoulder Refer to physical therapy - Ambulatory referral to Physical Therapy 5. Acrochordon Treated in office as above. Follow up in 3 months. Orders Placed This Encounter ??? COLLECT.CAPILLARY (FNGR,HEEL,EAR) ??? A1C (BACK OFFICE) ??? Ambulatory referral to Dermatology ??? Ambulatory referral to Physical Therapy PCP: AJAY ANNE MD 04/05/2022 * Ajay Anne MD - 04/05/2022 12:00 PM CDT Labs reviewed with patient at the time of office visit. documented in this encounter Plan of Treatment Scheduled Referrals Name Type Priority Associated Diagnoses Orde r Schedule Ambulatory referral to Dermatology Referral Routine Rash Ordered: 04/05/2022 Ambulatory referral to Physical Therapy Referral Routine Acute pain of left shoulder Ordered: 04/05/2022 documented as of this encounter Procedures Procedure Name Priority Date/Time Associated Diagnosis Comments DESTRUCTION BY NEUROLYTIC AGENT Routine 04/05/2022 2:10 PM CDT Acrochordon COLLECT.CAPILLARY (FNGR,HEEL,EAR) Routine 04/05/2022 12:06 PM CDT Type 2 diabetes mellitus without complication, with long-term current use of insulin ([facility]) HEMOGLOBIN, GLYCOSYLATED Routine 04/05/2022 Type 2 diabetes mellitus without complication, with long-term current use of insulin ([facility]) documented in this encounter Results * Lesion Destruction (04/05/2022 2:10 PM CDT) Ajay Gaytan MD - 04/05/2022 2:10 PM CDT Ajay Anne MD ? 04/05/2022 ??2:12 PM Lesion Destruction Date/Time: 04/05/2022 2:10 PM Performed by: Ajay Anne MD Authorized by: Ajay Anne MD Number of Lesions: 2 Lesion 1: ??Body area: head/neck ??Head/neck location: neck ??Initial size (mm): 3 ??Final defect size (mm): 3 ??Malignancy: benign lesion ?Destruction method: cryotherapy ?? Lesion 2: ??Body area: lower extremity ??Lower extremity location: L upper leg ??Initial size (mm): 7 ??Final defect size (mm): 7 ??Malignancy: benign lesion ?Destruction method: cryotherapy ?? Ajay Anne MD NEUROLOGY ORDERABLES Final Res ult * (ABNORMAL) A1C (BACK OFFICE) (04/05/2022) HGB A1C 7.1(A) % [facility] 04/05/2022 Ajay Anne MD LABORATORY Final Result Performing Organization Address City/State/[facility] Co de Phone Number [address] documented in this encounter Visit Diagnoses Diagnosis Type 2 diabetes mellitus without complication, with long-term current use of insulin ([facility])- Primary Benign essential hypertension Essential hypertension, benign Rash Rash and other nonspecific skin eruption Acute pain of left shoulder Acrochordon Unspecified hypertrophic and atrophic condition of skin documented in this encounter Additional Health Concerns Assessment Noted Time PHQ-9 Depression Total Score: 5 04/05/20 22 3:05 PM CDT documented as of this encounter Care Teams Patternmaker Helper Relationship Specialty Start Date End Date Ajay Anne MD [address] [place] [address] PCP - General INTERNAL MEDICINE 10/07/18 documented as of this encounter
--- OUTSIDE RECORDS SUMMARY | 2024-09-30 23:17 | XMS_ITS | Encounter Summary ---
Author Organization [facility] Address [address] [place] [address]. [place], [place] [id number] [place] [address] Care Team Providers Care Riverboat Captain Name Role Phone Ajay Anne MD Primary Care Provider Reason for Visit * Reason Onset Date Comments Dental Problem 10/03/2021 Encounter Details Date Type Department Care Team (Late st Contact Info) Description 10/03/2021 Telephone [facility] Family & Internal Medicine [facility] [address] [place] [address] Ajay Anne MD [address] [place] [address] Dental Problem Social History Tobacco Use Types Packs/Day [...] Progress Notes * Latanya Lopez MA - 10/03/2021 3:45 PM CST Patient reached out to Dr. Anne c/o dental infection. Received a verbal order from Dr. Anne to Rx Keflex 500mg TID x 7 days. Rx sent to pharmacy RTS ANALYST documented in this encounter Plan of Treatment Not on file documented as of this encounter Visit Diagnoses Diagnosis Dental infection- Primary Acute apical periodontitis of pulpal origin documented in this encounter Additional Health Concerns Assessment Noted Time PHQ-9 Depression Total Score: 25 020 2:57 PM REPORTS ANALYST documented as of this encounter Care Teams Riverboat Captain Relationship Specialty Start Date End Date Ajay Anne MD [address] [place] [address] PCP - General INTERNAL MEDICINE 10/07/18 documented as of this encounter
--- OUTSIDE RECORDS SUMMARY | 2024-09-30 23:17 | XMS_ITS | Encounter Summary ---
Author Organization [facility] Address [address] [place] [address]. [place], [place] [address] [place] [address] Care Team Providers Care Board Member Name Role Phone Ajay Anne MD Primary Care Provider [phone] Reason for Visit * Reason Onset Date Comments Results 11/28/2021 Encounter Details Date Type Department Care Team (Late st Contact Info) Description 11/28/2021 Telephone [facility] Family & Internal Medicine [facility] [address] [place] [address] Ajay Anne MD [facility] [place] [address] Results Social History Tobacco Use Types [...] Coronavirus/COVID-19? No / Unsure 11/23/2021 8:51 AM BOTTLE BLOWING MACHINE TENDER documented as of this encounter Progress Notes * Clarita Leon MA - 11/28/2021 10:21 AM CST A1c added per Saurabh at lab. Patient notified and v/u LE BLOWING MACHINE TENDER * Clarita Leon MA - 11/28/2021 10:21 AM CST ----- Message from Ajay Anne MD sent at 11/27/2021 11:31 AM BOTTLE BLOWING MACHINE TENDER ----- Glucose is elevated, check HgA1C. Cholesterol is slightly elevated, diet and exercise Rx. Other labs are good. LE BLOWING MACHINE TENDER documented in this encounter Plan of Treatment Not on file documented as of this encounter Results * (ABNORMAL) HEMOGLOBIN, GLYCOSYLATED (11/23/2021 10:58 AM BOTTLE BLOWING MACHINE TENDER) HGB A1C 7.4(H) 3.80 - 5.60 % 11/29/2021 2:54 AM BOTTLE BLOWING MACHINE TENDER [facility] BRAD [place] ESTIMATED AVG GLUCOSE 166(H) 74 - 106 MG/DL 11/29/2021 2:54 AM BOTTLE BLOWING MACHINE TENDER [facility] [place] 11/23/2021 10:5 8 AM BOTTLE BLOWING MACHINE TENDER us Ajay Anne MD LABORATORY Final Result [facility] TONI [place] [address] [place] [address], documented in this encounter Visit Diagnoses Diagnosis Blood glucose elevated- Primary Other abnormal glucose documented in this encounter Additional Health Concerns Assessment Noted Time PHQ-9 Depression Total Score: 25 020 2:57 PM BOTTLE BLOWING MACHINE TENDER documented as of this encounter Care Teams Board Member Relationship Specialty Start Date End Date Ajay Anne MD [address] [place] [id number] PCP - General INTERNAL MEDICINE 10/07/18 documented as of this encounter
--- OUTSIDE RECORDS SUMMARY | 2024-09-30 23:17 | XMS_ITS | Encounter Summary ---
Author Organization [facility] Address [address] [place] [address]. [place], [place] [address] [place] [address] Care Team Providers Care Light Armored Vehicle Officer Name Role Phone Ajay Anne MD Primary Care Provider [phone] Reason for Visit * Reason Onset Date Comments Medication Problem 07/07/2022 Encounter Details Date Type Department Care Team (Late st Contact Info) Description 07/07/2022 Telephone [facility] Medical Group Family & Internal Medicine [facility] [address] [place] [address] Ajay Anne MD [address] [place] [address] Medication Problem Social History Tobacco [...] as of this encounter Progress Notes * Brenda Warner MA - 07/11/2022 4:12 PM CDT LM for patient to call the office * Elian Spear DO - 07/07/2022 3:49 PM CDT Pt was specifically changed away from IR metformin due to diarrhea. Will try to send out different ER version of metformin to see if this is better covered. * Amy Carr - 07/07/2022 1:29 PM CDT Pharmacy states that per patients insurance they will not cover the Modified version but they will cover the regular version. Ok to change? documented in this encounter Plan of Treatment Not on file documented as of this encounter Visit Diagnoses Diagnosis Type 2 diabetes mellitus without complication, with long-term current use of insulin ([facility])- Primary documented in this encounter Additional Health Concerns Assessment Noted Time PHQ-9 Depression Total Score: 5 04/05/20 22 3:05 PM CDT documented as of this encounter Care Teams Light Armored Vehicle Officer Relationship Specialty Start Date End Date Ajay Anne MD [address] [place] [address] PCP - General INTERNAL MEDICINE 10/07/18 documented as of this encounter
--- OUTSIDE RECORDS SUMMARY | 2024-09-30 23:17 | XMS_ITS | Encounter Summary ---
Author Organization [facility] Address [address] [place] [address]. [place], [place] [address] [place] [address] Care Team Providers Care Director Of Business Applications Name Role Phone Ajay Anne MD Primary Care Provider [phone] Encounter Details Date Type Department Care Team (Latest Contact Info) Description 04/05/2022 Travel Social History Tobacco Use Types Packs/Day [...] as of this encounter Care Teams Director Of Business Applications Relationship Specialty Start Date End Date Ajay Anne MD [address] [place] [address] PCP - General INTERNAL MEDICINE 10/07/18 documented as of this encounter
--- OUTSIDE RECORDS SUMMARY | 2024-09-30 23:17 | XMS_ITS | Encounter Summary ---
Author Organization [facility] Address [address] [place] [address]. [place], [place] [address] [place] [address] Care Team Providers Care Mud Mixer Operator Name Role Phone Ajay Anne MD Primary Care Provider [phone] Reason for Visit * Reason Onset Date Comments Refill Request 12/03/2023 FreeArcivre 3 Encounter Details Date Type Department Care Team (Late st Contact Info) Description 12/03/2023 Telephone [facility] Medical Group Family & Internal Medicine [facility] [address] [place] [address] Ajay Anne MD [facility] [place] [address] Refill Request ([employer] Radu 3) Social History Tobacco Use Types Packs/Day Years [...] Progress Notes * Alyson Pang RN - 12/03/2023 10:58 AM CDT RX sent. LL-12/03/23 * Oriana Edmond MA - 12/03/2023 10:41 AM CDT Refill request received from Patient- Patient stated was originally given samples and unsure if comes in to get more or needs a prescription. Patient told would need a prescription. Explained per Alyson will send out his prescription but insurance may not cover the Radu 3 since he is not using insulin. Kev-vz-ullpug cost could be around $75. May have to send to a medical supply pharmacy also. Patient verbalized understanding that these issues may arise/la,rma Medication: Freestyle Radu 3 Pharmacy: [id number] [place], [place] - [address] [place] [address] RD AT [facility] 159 [[id number]] Last visit with AJAY ANNE in FAMILY PRACTICE was on: 11/20/[address] [facility] Future Appointments Date Time Provider Department Center 12/10/2023 8:[address] [facility] 12/18/2023 9:20 AM Ajay Anne MD [facility] documented in this encounter Plan of Treatment Not on file documented as of this encounter Visit Diagnoses Diagnosis Type 2 diabetes mellitus, without long-term current use of insulin ([facility])- Primary documented in this encounter Additional Health Concerns Assessment Noted Time PHQ-9 Depression Total Score: 5 04/05/20 22 3:05 PM CDT documented as of this encounter Care Teams Mud Mixer Operator Relationship Specialty Start Date End Date Ajay Anne MD [address] [place] [address] PCP - General INTERNAL MEDICINE 10/07/18 documented as of this encounter
--- OUTSIDE RECORDS SUMMARY | 2024-09-30 23:17 | XMS_ITS | Encounter Summary ---
Author Organization [facility] Address [address] [place] [address]. [place], [place] [address] [place] [address] Care Team Providers Care Business Services Officer Name Role Phone Ajay Anne MD Primary Care Provider [phone] Encounter Details Date Type Department Care Team (Late st Contact Info) Description 11/28/2021 Orders Only [facility] Medical Group Family & Internal Medicine [place] [address] [place] [address] Ajay Anne MD [facility] [place], [place] [id number] Social History Tobacco Use Types Packs/Day Years [...] Coronavirus/COVID-19? No / Unsure 11/23/2021 8:51 AM PUMP OPERATOR documented as of this encounter Progress Notes * Ajay Anne MD - 11/30/2021 3:26 PM CST HgA1C is elevated. Recommend starting on metformin 500mg daily and refer to bulldozer mechanic at [facility]. Would have him follow up in 3 months OPERATOR documented in this encounter Plan of Treatment Not on file documented as of this encounter Procedures Procedure Name Priority Date/Time Associated Diagnosis Comments HEMOGLOBIN, GLYCOSYLATED Routine 11/23/2021 10:58 AM PUMP OPERATOR Blood glucose elevated documented in this encounter Results * (ABNORMAL) HEMOGLOBIN, GLYCOSYLATED (11/23/2021 10:58 AM PUMP OPERATOR) HGB A1C 7.4(H) 3.80 - 5.60 % 11/29/2021 2:54 AM PUMP OPERATOR [facility] TONI, [place] ESTIMATED AVG GLUCOSE 166(H) 74 - 106 MG/DL 11/29/2021 2:54 AM PUMP OPERATOR [facility] [place] 11/23/2021 10:5 8 AM PUMP OPERATOR us Ajay Anne MD LABORATORY Final Result [facility] [address] [place] [address], documented in this encounter Visit Diagnoses Diagnosis Blood glucose elevated Other abnormal glucose documented in this encounter Additional Health Concerns Assessment Noted Time PHQ-9 Depression Total Score: 25 020 2:57 PM PUMP OPERATOR documented as of this encounter Care Teams Business Services Officer Relationship Specialty Start Date End Date Ajay Anne MD [address] [place] [address] PCP - General INTERNAL MEDICINE 10/07/18 documented as of this encounter
--- OUTSIDE RECORDS SUMMARY | 2024-09-30 23:17 | XMS_ITS | Encounter Summary ---
Author Organization [facility] Address [address] [place] [address]. [place], [place] [address] [place] [address] Care Team Providers Care Asbestos Brake Lining Finisher Name Role Phone Ajay Anne MD Primary Care Provider [phone] Encounter Details Date Type Department Care Team (Latest Contact Info) Description 11/20/2023 Travel Social History Tobacco Use Types Packs/Day [...] documented as of this encounter Care Teams Asbestos Brake Lining Finisher Relationship Specialty Start Date End Date Ajay Anne MD [address] [place] [address] PCP - General INTERNAL MEDICINE 10/07/18 documented as of this encounter
--- OUTSIDE RECORDS SUMMARY | 2024-09-30 23:17 | XMS_ITS | Encounter Summary ---
Author Organization [facility] Address [address] [place] [address]. [place], [place] [address] [place] [address] Care Team Providers Care Towboat Operator Name Role Phone Ajay Anne MD Primary Care Provider [phone] Reason for Visit * Reason Comments COVID-19 Encounter Details Date Type Department Care Team (Late st Contact Info) Description 05/04/2021 1:40 PM CDT Allied Health/Nurse Visit [facility] Medical Group Family & Internal Medicine [address] [address] COVID-19 Social History Tobacco Use Types Packs/Day Years [...] PM CDT documented as of this encounter Progress Notes * Lisa Baltazar RRT - 05/04/2021 1:40 PM CDTAddended by: LISA BALTAZAR on: 05/04/2021 02:10 PM Modules accepted: Orders * Ajay Anne MD - 05/04/2021 1:40 PM CDT Negative COVID antigen documented in this encounter Plan of Treatment Not on file documented as of this encounter Procedures Procedure Name Priority Date/Time Associated Diagnosis Comments CORONAVIRUS (COVID 19) PCR Routine 05/04/2021 2:10 PM CDT Cough CORONAVIRUS (COVID-19) ANTIGEN Routine 05/04/2021 Cough documented in this encounter Results * CORONAVIRUS (COVID 19) PCR ([facility]) (05/04/2021 2:10 PM CDT) SPEC DESCRIPTION NASOPHARYNGEAL SWAB 05/04/2021 2:10 PM CDT [facility] CORONAVIRUS SARS COV 2 PCR (RESP) NEGATIVE NEGATIVE 05/06/2021 11:39 AM CDT [facility] Comment: THE SARS-CoV-2 TEST HAS BEEN AUTHORIZED BY THE FDA UNDER AN EUA FOR USE BY AUTHORIZED LABORATORIES. PERFORMED BY NUCLEIC ACID AMPLIFICATION PCR FIRST TEST YES 05/04/2021 2:10 PM CDT [facility] EMPLOYED IN HEALTHCARE NO 05/04/2021 2:10 PM CDT [facility] SYMPTOMATIC DEFINED BY CDC YES 05/04/2021 2:10 PM CDT [facility] DATE OF SYMPTOM ONSET [id number]/04/2021 2:10 PM CDT [facility] HOSPITALIZATION STATUS NO 05/04/2021 2:10 PM CDT [facility] PATIENT IN ICU NO 05/04/2021 2:10 PM CDT [facility] RESIDENT OF [facility] NO 05/04/2021 2:10 PM CDT [facility] NASOPHARYNGEAL SWAB / Unknown 05/04/2021 2:10 PM CDT Ajay Anne MD MICROBIOLOGY - GENERAL ORDERAB LES Final Result [facility] [address] [place] [address], * CORONAVIRUS (COVID-19) ANTIGEN (05/04/2021) CORONAVIRUS ANTIGEN IA NEGATIVE NEGATIVE [facility] Internal Control: VALID VALID [facility] Specimen from nose (specimen) NASAL STRUCTURE / Unknown 05/04/2021 Ajay Anne MD MICROBIOLOGY - GENERAL ORDERAB LES Final Result Performing Organization Address [facility] Co de Phone Number [facility] [address] [place] [address], documented in this encounter Visit Diagnoses Diagnosis Cough- Primary documented in this encounter Additional Health Concerns Infection Onset Date Last Indicated Resolved Time COVID-19 Rule Out 05/04/2021 05/04/2021 05/04/2021 2:06 PM CDT COVID-19 Rule Out 05/04/2021 05/04/2021 05/06/2021 11:39 AM CDT Assessment Noted Time PHQ-9 Depression Total Score: 25 020 2:57 PM LEATHER NOVELTY PARTS CUTTER documented as of this encounter Care Teams Towboat Operator Relationship Specialty Start Date End Date Ajay Anne MD [address] [place] [address] PCP - General INTERNAL MEDICINE 10/07/18 documented as of this encounter
--- OUTSIDE RECORDS SUMMARY | 2024-09-30 23:17 | XMS_ITS | Encounter Summary ---
Author Organization [facility] Address [address] [place] [address]. [place], [place] [address] [place] [address] Care Team Providers Care Clear Coat Sprayer Name Role Phone Ajay Anne MD Primary Care Provider [phone] Encounter Details Date Type Department Care Team (Latest Contact Info) Description 05/04/2021 Travel Social History Tobacco Use Types Packs/Day [...] PM CDT documented as of this encounter Plan [...] Depression Total Score: 25 020 2:57 PM FIELD HANDYMAN documented as of this encounter Care Teams Clear Coat Sprayer Relationship Specialty Start Date End Date Ajay Anne MD [address] [place] [address] PCP - General INTERNAL MEDICINE 10/07/18 documented as of this encounter
--- OUTSIDE RECORDS SUMMARY | 2024-09-30 23:17 | XMS_ITS | Encounter Summary ---
Author Organization [facility] Address [address] [place] [address]. [place] [address] [place] [address] Care Team Providers Care Editor Managing Newspaper Name Role Phone Ajay Anne MD Primary Care Provider [phone] Reason for Referral * Imaging (Emergency) - Closed Specialty Diagnoses / Procedures Referred By Sarmad caldwell Referred To Contact RADIOLOGY Diagnoses Right calf pain Procedures US TUAN DUPLEX LOW EXT RT US TUAN DUPLEX LOW EXT RT Jenny Bush NP [address] [place] [address] Phone: tel: fax: [facility] [address] [facility] [address] [place] [address] Phone: tel: fax: Referral ID Status Reason Start Date Expiration Date V isits Requested Visits Authorized [id number] Closed Ultrasound 05/19/2022 06/19/2023 1 1 Reason for Visit * Reason Comments Leg Pain Right leg pain was t aken off Xalralto 6 months. Encounter Details Date Type Department Care Team (Late st Contact Info) Description 05/19/2022 11:40 AM CDT Office Visit [facility] Medical Group Family Medicine - [place] [address] [facility] [address] [place], [place] [address] Jenny Bush NP [address] [place] [address] Leg Pain (Right leg pain was taken off Xalralto 6 months.) Social History Tobacco Use Types Packs/Day Years [...] Sign Reading Time Taken Comments Blood Pressure 122/90 05/19/2022 10:47 AM CDT Pulse 85 05/19/2022 10:29 AM CDT Temperature 37 ??C (98.6 ??F) 05/19/2022 10: 29 AM CDT Respiratory Rate 16 05/19/2022 10:2 9 AM CDT Oxygen Saturation 98% 05/19/2022 10: 29 AM CDT Inhaled Oxygen Concentration - - Weight 107.2 kg (236 lb 6.4 oz) 022 10:29 AM CDT Height 167.6 cm (5' 6 ) 05/19/2022 10:2 9 AM CDT Body Mass Index 38.16 05/19/2022 10:29 AM CDT documented in this encounter Progress Notes * Jenny Bush NP - 05/19/2022 11:40 AM CDT Reason for Visit: Leg Pain (Right leg pain was taken off Xalralto 6 months.) History of Present Illness: Sivakumar is a 61- year old male pt of Dr. Anne who presents to office with complaints of right calf pain for the past 4 to 5 days. Pt has hx of DVT in left lower extremity secondary too being very sedentary he tells me d/t severe depression. He tells me he did develop a cramp in his right calf a couple week ago so he initally thought that is why his calf was hurting but has not gotten any better. Previously had been taking Xaralto d/t left leg DVT but was taken off six months ago. Denies chest pain, palpitations, cough, shortness of breath, fever, chills, redness, or warmth to his right calf. Does report swelling States his right calf feels similar to his left lower extremity when he had a DVT but not as severe. 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 Medications: Current Outpatient Medications: ??? buPROPion XL 150 MG 24 hr tablet, Take 150 mg by mouth every morning., Disp: , Rfl: ??? fluticasone propionate 50 MCG/ACT nasal spray, 2 sprays by Each Nostril route daily., Disp: , Rfl: ??? ipratropium 0.06 % nasal spray, 2 sprays by Nasal route 4 (four) times daily., Disp: 15 mL, Rfl: 2 ??? lisinopril 20 MG tablet, Take 1 tablet (20 mg total) by mouth daily., Disp: 90 tablet, Rfl: 3 ??? metFORMIN (GLUCOPHAGE) 500 MG tablet, TAKE 1 TABLET(500 MG) BY MOUTH DAILY WITH BREAKFAST, Disp: 90 tablet, Rfl: 1 ??? sildenafil 50 MG tablet, Take 50 mg by mouth daily as needed., Disp: , Rfl: ??? VIIBRYD 40 MG tablet, Take 40 mg by mouth every evening., Disp: , Rfl: No Known Allergies Past Medical History: Diagnosis Date ??? Calf pain ??? Depression ??? Fatigue ??? Headache ??? Hip injury ??? Hip pain ??? Hypertension ??? Insomnia ??? Joint pain ??? Left leg DVT (CMS/HCC) ??? Low vitamin D level ??? Lower back pain ??? Neck pain ??? Onychomycosis ??? Polyarthralgia ??? Tinnitus ??? Weight loss Past Surgical History: Procedure Laterality Date ??? COLONOSCOPY Social History Tobacco Use ??? Smoking status: Never Smoker ??? Smokeless tobacco: Never Used Vaping Use ??? Vaping Use: Never used Substance Use Topics ??? Alcohol use: Not Currently Comment: not in the last couple of months ??? Drug use: No Family History Problem Relation Name Age of Onset ??? Cancer Mother Malignant neoplasm ??? Hypertension Other Family History ROS: Review of Systems Respiratory: Negative for shortness of breath. Cardiovascular: Negative for chest pain and palpitations. Musculoskeletal: Positive for joint pain (right calf pain and swelling ). Physical Exam Cardiovascular: Rate and Rhythm: Normal rate and regular rhythm. Pulses: Dorsalis pedis pulses are 1+ on the right side and 1+ on the left side. Posterior tibial pulses are 1+ on the right side and 1+ on the left side. Pulmonary: Effort: Pulmonary effort is normal. Breath sounds: Normal breath sounds. Musculoskeletal: Right lower leg: No edema. Left lower leg: No edema. Comments: Bilateral calfs measured and right calf is 1cm larger then left. Positive Matilde's sign. No redness or warmth noted to right calf. No pedal edema noted. Skin: General: Skin is warm and dry. Findings: No rash. Neurological: Mental Status: He is alert. Filed Vitals: 05/19/22 1029 05/19/22 1047 BP: (!) 144/90 (!) 122/90 Pulse: 85 Resp: 16 Temp: 98.6 ??F (37 ??C) TempSrc: Temporal SpO2: 98% Weight: 107.2 kg (236 lb 6.4 oz) Height: 5' 6 (1.676 m) Assessment/Recommendations/Plan Encounter Diagnose(s) ICD-10-CM ICD-9-CM SNOMED CT(R) 1. Right calf pain M79.661 729.5 PAIN OF RIGHT CALF US TUAN DUPLEX LOW EXT RT US TUAN DUPLEX LOW EXT RT STAT US of right lower extremity ordered. Pt sent to [facility] per his request. Instructed to hold and call Will notify pt once I receive his results. Follow up: with PCP next week JENNY BUSH NP 05/19/2022 10:54 AM Cosigned by Ajay Anne MD at 05/25/2022 8:08 AM CDT documented in this encounter Plan of Treatment Not on file documented as of this encounter Procedures Procedure Name Priority Date/Time Associated Diagnosis Comments US TUAN DUPLEX LOW EXT RT STAT 05/19/2022 12:00 AM CDT Right calf pain documented in this encounter Results * US TUAN DUPLEX LOW EXT RT (05/19/2022 12:00 AM CDT) Anatomical Region Laterality Modality NA Ultrasound 05/19/2022 us Jenny Bush SURVEY ASSOCIATE ULTRASOUND Final Res ult documented in this encounter Visit Diagnoses Diagnosis Right calf pain documented in this encounter Additional Health Concerns Assessment Noted Time PHQ-9 Depression Total Score: 5 04/05/20 22 3:05 PM CDT documented as of this encounter Care Teams Editor Managing Newspaper Relationship Specialty Start Date End Date Ajay Anne MD [address] [place] [address] PCP - General INTERNAL MEDICINE 10/07/18 documented as of this encounter
--- OUTSIDE RECORDS SUMMARY | 2024-09-30 23:17 | XMS_ITS | Encounter Summary ---
Author Organization [facility] Address [address] [place] [address]. [place], [place] [address] [place] [address] Care Team Providers Care Drill Instructor Name Role Phone Ajay Anne MD Primary Care Provider [phone] Encounter Details Date Type Department Care Team (Latest Contact Info) Description 04/14/2022 Scan [facility] Scanned, Documents [...] documented as of this encounter Care Teams Drill Instructor Relationship Specialty Start Date End Date Ajay Anne MD [address] [place] [address] PCP - General INTERNAL MEDICINE 10/07/18 documented as of this encounter
--- OUTSIDE RECORDS SUMMARY | 2024-09-30 23:17 | XMS_ITS | Encounter Summary ---
Author Organization [facility] Address [address] [place] [address]. 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
--- OUTSIDE RECORDS SUMMARY | 2024-09-30 23:17 | XMS_ITS | Encounter Summary ---
Author Organization [facility] Address [address] [place] [address]. [place], [place] [address] [place] [address] Care Team Providers Care Turntable Operator Name Role Phone Ajay Anne MD Primary Care Provider [phone] Reason for Visit * Reason Onset Date Comments Error 12/03/2023 Encounter Details Date Type Department Care Team (Late st Contact Info) Description 12/03/2023 Telephone [facility] Medical Group Family & Internal Medicine [facility] [address] [place] [address] Ajay Anne MD [address] [place] [address] Error Social History Tobacco Use Types Packs/Day [...] Notes * Alyson Pang RN - 12/03/2023 10:47 AM CDT Error LL-12/03/23 documented in this encounter Plan of Treatment Not on file documented as of this encounter Visit Diagnoses Not on filedocumented in this encounter Additional Health Concerns Assessment Noted Time PHQ-9 Depression Total Score: 5 04/05/20 22 3:05 PM CDT documented as of this encounter Care Teams Turntable Operator Relationship Specialty Start Date End Date Ajay Anne MD [address] [place] [address] PCP - General INTERNAL MEDICINE 10/07/18 documented as of this encounter
--- OUTSIDE RECORDS SUMMARY | 2024-09-30 23:17 | XMS_ITS | Encounter Summary ---
Author Organization [facility] Address [address] [place] [address]. [place], [place] [address] [place] [address] Care Team Providers Care Leather Stamper Name Role Phone Ajay Anne MD Primary Care Provider [phone] Reason for Visit * Reason Comments Follow Up Hypertension 1 [address] up af [address] changing Lisinopril to Amlodipine d/t rash Rash Patient reports rash is no better Encounter Details Date Type Department Care Team (Late st Contact Info) Description 12/28/2021 10:00 AM CDT Office Visit [facility] Family & Internal Medicine [address] [address] Ajay Anne MD [address] [place] [address] Follow Up; Hypertension (1 month follow up after changing Lisinopril to Amlodipine d/t rash); Rash (Patient reports rash is no better ) Social History Tobacco Use Types Packs/Day Years [...] Sign Reading Time Taken Comments Blood Pressure 162/104 12/28/2021 10:05 AM CDT Pulse 97 12/28/2021 10:05 AM CDT Temperature 36.9 ??C (98.5 ??F) 12/28/2021 10:05 AM C DT Respiratory Rate 12 12/28/2021 10:05 AM CDT Oxygen Saturation 97% 12/28/2021 10:05 AM CDT Inhaled Oxygen Concentration - - Weight 108.9 kg (240 lb) 12/28/2021 10:05 AM CDT Height 167.6 cm (5' 6 ) 12/28/2021 10:05 AM CDT Body Mass Index 38.74 12/28/2021 10:05 AM CDT documented in this encounter Progress Notes * Ajay Anne MD - 12/28/2021 10:00 AM CDT Images from the original note were not included. Office Progress Note Reason for Visit: Follow Up, Hypertension (1 month follow up after changing Lisinopril to Amlodipine d/t rash), and Rash (Patient reports rash is no better ) History of Present Illness: He is here today for 1 month follow-up. Hypertension: Patient was changed from lisinopril to amlodipine to see if his rash was potentially from KASEY inhibitor. Patient has not noticed a difference in his rash and has noticed that his blood pressure has been elevated since he changed to amlodipine. Patient denies chest pain, shortness of breath, headaches, lightheadedness or dizziness. He is compliant with medication without medication side effects. Rash: Patient continues to have a rash and has not made much of a difference with changing of medications from lisinopril to amlodipine. We also discussed that this could be due to his anticoagulation is there are reports of people having a rash from Xarelto. We discussed stopping these medicationsbeen over 12 months since he has been on this for a DVT. Patient is in agreement. DVT: Patient has been on Xarelto for over 12 months and is willing to stop this to see if this willhelp with the rash. Patient has no lower extremity swelling. He denies chest pains. ROS: Review of Systems Constitutional: Negative for [...] Nasal route 4 (four) times daily. ??? metFORMIN 500 MG tablet Take 1 tablet (500 mg total) by mouth daily with breakfast. ??? rivaroxaban (XARELTO) 20 MG Tab tablet [...] General: Skin is warm and dry. Comments: Diffuse circular rash on upper extremities and trunk. Neurological: Mental Status: He is alert and oriented to person, place, and time. Psychiatric: Behavior: Behavior normal. Judgment: Judgment normal. Filed Vitals: 12/28/21 1005 BP: (!) 162/104 Pulse: 97 Resp: 12 Temp: 98.5 ??F (36.9 ??C) TempSrc: Skin SpO2: 97% Weight: 108.9 kg (240 lb) Height: 5' 6 (1.676 m) Diagnoses/Impression: 1. Benign essential hypertension lisinopril 20 MG tablet 2. Chronic deep vein thrombosis (DVT) of proximal vein of left lower extremity (CMS/HCC) 3. Rash Recommendations and Plan: 1. Benign essential hypertension Stop amlodipine Restart Lisinopril Follow up in 1 month for blood pressure recheck. - lisinopril 20 MG tablet; Take 1 tablet (20 mg total) by mouth daily. Dispense: 90 tablet; Refill:3 2. Chronic deep vein thrombosis (DVT) of proximal vein of left lower extremity (CMS/HCC) Stop Xarelto as it has been over 12 months since his first DVT 3. Rash Stop Xarelto to see if his rash will respond If not improving we will refer to Dermatology. Orders Placed This Encounter ??? 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
--- OUTSIDE RECORDS SUMMARY | 2024-09-30 23:17 | XMS_ITS | Encounter Summary ---
Author Organization [facility] Address [address] [place] [address]. [place], [place] [address] [place] [address] Care Team Providers Care Military Personnel Specialist Name Role Phone Ajay Anne MD Primary Care Provider [phone] Reason for Visit * Reason Onset Date Comments Question 04/19/2021 Encounter Details Date Type Department Care Team (Late st Contact Info) Description 04/19/2021 Telephone [facility] Family & Internal Medicine [facility] [address] [place] [address] Ajay Anne MD [address] [place] [address] Question Social History Tobacco Use Types Packs/Day Years [...] as of this encounter Progress Notes * Ernestina Hay MA - 04/19/2021 11:53 AM CDT Just an FYI! Left ankle is swollen the pain is so bad he cant stand it. He did not twist it or anything. Pt said it started yesterday. Pt denies the swelling of starting at the ankle and does not extend above the knee. Pt denies sweeling in hot humid weather and senies it happening with certain medications. Pt voiced concern of a blood clot. I advised pt to go to ER or an urgent care. Informed pt that we do not have any slots open today or tomorrow. 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
--- OUTSIDE RECORDS SUMMARY | 2024-09-30 23:17 | XMS_ITS | Encounter Summary ---
Author Organization [facility] Address [address] [place] [address]. [place] [address] [place] [address] Care Team Providers Care Machine Container Washer Name Role Phone Ajay Anne MD Primary Care Provider [phone] Reason for Visit * Reason Onset Date Comments Results 05/19/2022 Called pt to inf orm of venous doppler result and plan. Positive for DVT's. Encounter Details Date Type Department Care Team (Late st Contact Info) Description 05/19/2022 Telephone [facility] Family Medicine - [place] [address] [id number] Jenny Bush NP [address] [place] [address] Results (Called pt to inform of venous doppler result and plan. Positive for DVT's.) Social History Tobacco Use Types Packs/Day Years [...] AM CDT documented as of this encounter Progress Notes * Meenakshi Crespo MA - 05/31/2022 1:06 PM CDTAddended by: MEENAKSHI CRESPO on: 05/31/2022 01:06 PM Modules accepted: Orders * Jenny Bush NP - 05/19/2022 12:56 PM CDT Called pt to inform that his venous doppler of RLE noted DVT involving the right femoral, popliteal, posterior tibial, and peroneal veins. For acute DVT will order xarelto 15mg to take twice a day for 21 days then pt will need to begin 20mg daily. Pt to avoid aspirin/NSAIDS with use of Xarelto. Pt may take Tylenol. Pt has been on Xarelto before and is aware of side effects that can occur. Pt to follow up with pcp next week. Further testing maybe warranted d/t recurrent DVT d/t unknown cause. I informed pt if he were to develop any chest pain or shortness of breath to call 911. I reached out to pt's PCP Dr. Anne On [facility] so he is aware of test results and treatment. documented in this encounter Plan of Treatment Not on file documented as of this encounter Visit Diagnoses Diagnosis Acute deep vein thrombosis (DVT) of other specified vein of right lower extremity ([facility])- Primary documented in this encounter Additional Health Concerns Assessment Noted Time PHQ-9 Depression Total Score: 5 04/05/20 22 3:05 PM CDT documented as of this encounter Care Teams Machine Container Washer Relationship Specialty Start Date End Date Ajay Anne MD [address] [place] [address] PCP - General INTERNAL MEDICINE 10/07/18 documented as of this encounter
--- OUTSIDE RECORDS SUMMARY | 2024-09-30 23:17 | XMS_ITS | Encounter Summary ---
Author Organization [facility] Address [address] [place] [address]. [place], [place] [address] [place] [address] Care Team Providers Care Cistern Room Operator Name Role Phone Ajay Anne MD Primary Care Provider [phone] Encounter Details Date Type Department Care Team (Latest Contact Info) Description 11/23/2021 Travel Social History Tobacco Use Types Packs/Day [...] Coronavirus/COVID-19? No / Unsure 11/23/2021 8:51 AM CUSTOMS COMPLIANCE MANAGER documented as of this encounter Plan of Treatment Not on file documented as of this encounter Visit Diagnoses Not on filedocumented in this encounter Additional Health Concerns Assessment Noted Time PHQ-9 Depression Total Score: 25 020 2:57 PM CUSTOMS COMPLIANCE MANAGER documented as of this encounter Care Teams Cistern Room Operator Relationship Specialty Start Date End Date Ajay Anne MD [address] [place] [address] PCP - General INTERNAL MEDICINE 10/07/18 documented as of this encounter
--- OUTSIDE RECORDS SUMMARY | 2024-09-30 23:17 | XMS_ITS | Encounter Summary ---
Author Organization [facility] Address [address] [place] [address]. [place], [place] [address] [place] [address] Care Team Providers Care Lottery Manager Name Role Phone Ajay Anne MD Primary Care Provider [phone] Reason for Visit * Reason Onset Date Comments Appointment Request 12/06/2021 Encounter Details Date Type Department Care Team (Late st Contact Info) Description 12/06/2021 Telephone [facility] Diabetes and Endocrinology - [address] Appointment Request Social History Tobacco Use Types Packs/Day [...] Coronavirus/COVID-19? No / Unsure 11/23/2021 8:51 AM CHIEF COMMUNICATIONS OFFICER documented as of this encounter Progress Notes * Candace Deluca RD - 12/06/2021 8:45 AM CDT Called patient to schedule an appt with me for diabetes education. 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 He wants to wait until after his nextappt with Dr. Anne, in December, to see if the medication is working. documented in this encounter Plan of Treatment Not on file documented as of this encounter Visit Diagnoses Not on filedocumented in this encounter Additional Health Concerns Assessment Noted Time PHQ-9 Depression Total Score: 25 020 2:57 PM CHIEF COMMUNICATIONS OFFICER documented as of this encounter Care Teams Lottery Manager Relationship Specialty Start Date End Date Ajay Anne MD [address] [place] [address] PCP - General INTERNAL MEDICINE 10/07/18 documented as of this encounter
--- OUTSIDE RECORDS SUMMARY | 2024-09-30 23:18 | XMS_ITS | Encounter Summary ---
Author Organization [facility] Address [address] [place] [address]. [place], [place] [address] [place] [address] Care Team Providers Care Director Of Home Health Services Name Role Phone Ajay Anne MD Primary Care Provider [phone] Reason for Visit * Reason Onset Date Comments Lab Results 09/06/2020 Encounter Details Date Type Department Care Team (Late st Contact Info) Description 09/06/2020 Telephone [facility] Family & Internal Medicine [facility] [address] [place] [address] Ajay Anne MD [facility] [place] [address] Lab Results Social History Tobacco Use Types Packs/Day [...] have Coronavirus / COVID-19? No / Unsure 08/16/2020 1:34 PM SWIMMING INSTRUCTOR documented as of this encounter Progress Notes * Meenakshi Crespo MA - 09/06/2020 11:17 AM CST Patient informed of results and Vitamin d recommendations. tn MING INSTRUCTOR * Meenakshi Crespo MA - 09/06/2020 11:16 AM CST ----- Message from Ajay Anne MD sent at 09/04/2020 10:10 PM SWIMMING INSTRUCTOR ----- Vitamin D is low, start on Vitamin D3 5000 IU daily. Other labs are good. MING INSTRUCTOR documented in this encounter Plan of Treatment Not on file documented as of this encounter Visit Diagnoses Not on filedocumented in this encounter Additional Health Concerns Assessment Noted Time PHQ-9 Depression Total Score: 25 020 2:57 PM SWIMMING INSTRUCTOR documented as of this encounter Care Teams Director Of Home Health Services Relationship Specialty Start Date End Date Ajay Anne MD [address] [place] [address] PCP - General INTERNAL MEDICINE 10/07/18 documented as of this encounter
--- OUTSIDE RECORDS SUMMARY | 2024-09-30 23:18 | XMS_ITS | Encounter Summary ---
Author Organization [facility] Address [address] [place] [address]. [place], [place] [phone] [place] [address] Care Team Providers Care Electromedical Equipment Repairer Name Role Phone Unavailable Primary Care Provider Unavailabl e Encounter Details Date Type Department Care Team (Latest Contact Info) Description 07/30/2018 Scan [facility] , Duane Spence MD Social History Tobacco Use Types Packs/Day Years Used Date Smoking Tobacco: Never Assessed Sex and Gender Information Value Date Recorded Sex Assigned at Not on file Legal Sex Male 5:32 PM CDT Gender Identity Not on file Sexual Orientation Not on file documented as of this encounter Plan of Treatment Not on file documented as of this encounter Visit Diagnoses Not on filedocumented in this encounter
--- OUTSIDE RECORDS SUMMARY | 2024-09-30 23:18 | XMS_ITS | Encounter Summary ---
Author Organization [facility] Address [address] [place] [address]. [place], [place] [id number] [place] [address] Care Team Providers Care Hydraulic Modeling Engineer Name Role Phone Ajay Anne MD Primary Care Provider [phone] Reason for Referral * (Routine) - Closed Specialty Diagnoses / Procedures Referred By Sarmad t Referred To Contact Diagnoses Acute bursitis of left shoulder Procedures Joint Aspiration/Injection Elian Spear DO [address] [place] [address] Phone: tel: fax: Referral ID Status Reason Start Date Expiration Date Visits Re quested Visits Authorized [id number] Closed 01/27/2019 02/28/2020 1 1 Reason for Visit * Reason Comments Shoulder Pain Injection Encounter Details Date Type Department Care Team (Late st Contact Info) Description 01/27/2019 1:00 PM CDT Office Visit [facility] Family & Internal Medicine [facility] [address] [place] [address] Elian Spear DO [address] [place], [place] [id number] Shoulder Pain (Injection) Social History Tobacco Use Types Packs/Day Years Used Date Smoking Tobacco: Never Smokeless Tobacco: Never Alcohol Use Standard Drinks/Week Comments Yes 1.7 (1 standard drink = 0.6 oz p ure alcohol) Occ Sex and Gender Information Value Date Recorded Sex Assigned at Not on file Legal Sex Male 5:32 PM CDT Gender Identity Not on file Sexual Orientation Not on file documented as of this encounter Last Filed Vital Signs Vital Sign Reading Time Taken Comments Blood Pressure 110/78 01/27/2019 1:21 PM CDT Pulse 98 01/27/2019 1:21 PM CDT Temperature - - Respiratory Rate 16 01/27/2019 1:21 PM CDT Oxygen Saturation 97% 01/27/2019 1:21 PM CDT Inhaled Oxygen Concentration - - Weight 113.4 kg (250 lb) 01/27/2019 1:21 PM CDT Height 165.1 cm (5' 5 ) 01/27/2019 1:21 PM CDT Body Mass Index 41.6 01/27/2019 1:21 PM CDT documented in this encounter Progress Notes * Elian Spear, - 01/27/2019 1:00 PM CDTAssociated Order(s): Joint Aspiration/Injection Post-Procedure Diagnose(s): Acute bursitis of left shoulder Images from the original note were not included. GENERAL OFFICE VISIT Encounter Date: 01/27/2019 Chief Complaint: 58-year-old male presents for Shoulder Pain (Injection) HPI: Pt presents for left shoulder injection. No other issues noted. Review of Systems Constitutional: Negative for fever. Musculoskeletal: See HPI Patient Active Problem List Diagnosis ??? Benign essential hypertension ??? Calf pain ??? Severe depression (CMS/HCC) ??? Fatigue ??? Hip injury ??? Hip pain, acute, left ??? Insomnia ??? Left leg DVT (CMS/HCC) ??? Left leg swelling ??? Low vitamin D level ??? Lower back pain ??? Neck pain on right side ??? Obesity, morbid, BMI 40.0-49.9 (CMS/HCC) ??? Onychomycosis ??? Polyarthralgia ??? Tinnitus ??? Weight loss Past Medical History: Diagnosis Date ??? Calf pain ??? Depression ??? Fatigue ??? Headache ??? Hip injury ??? Hip pain ??? Hypertension ??? Insomnia ??? Joint pain ??? Left leg DVT (CMS/HCC) ??? Low vitamin D level ??? Lower back pain ??? Neck pain ??? Onychomycosis ??? Polyarthralgia ??? Tinnitus ??? Weight loss Past Surgical History: Procedure Laterality Date ??? COLONOSCOPY Family History Problem Relation Name Age of Onset ??? Cancer Mother Malignant neoplasm ??? Hypertension Other Family History Social History Socioeconomic History ??? Marital status: Spouse name: Not on file ??? Number of children: Not on file ??? Years of education: Not on file ??? Highest education level: Not on file Occupational History ??? Not on file Social Needs ??? Financial resource strain: Not on file ??? Food insecurity: Worry: Not on file Inability: Not on file ??? Transportation needs: Medical: Not on file Non-medical: Not on file Tobacco Use ??? Smoking status: Never Smoker ??? Smokeless tobacco: Never Used Substance and Sexual Activity ??? Alcohol use: Yes Alcohol/week: 1.0 oz Types: 1 Cans of beer per week Comment: Occ ??? Drug use: No ??? Sexual activity: Not on file Lifestyle ??? Physical activity: Days per week: Not on file Minutes per session: Not on file ??? Stress: Not on file Relationships ??? Social connections: Talks on phone: Not on file Gets together: Not on file Attends mu-ism service: Not on file Active member of club or organization: Not on file Attends meetings of clubs or organizations: Not on file Relationship status: Not on file ??? Intimate partner violence: Fear of current or ex partner: Not on file Emotionally abused: Not on file Physically abused: Not on file Forced sexual activity: Not on file Other Topics Concern ??? Not on file Social History Narrative ??? Not on file There is no immunization history on file for this patient. Current Outpatient Medications Medication Sig Dispense Refill ??? ARIPIPRAZOLE 10 MG tablet TAKE 1 TABLET(10 MG) BY MOUTH DAILY 30 tablet 5 ??? cyclobenzaprine 5 MG tablet Take 1-2 tabs TID prn muscle spasm 60 tablet 0 ??? desvenlafaxine ER 50 MG 24 hr tablet Take 1 tablet by mouth daily. ??? lisinopril 10 MG tablet TK 1 T PO D 1 ??? rivaroxaban (XARELTO) 20 MG Tab tablet Take 1 tablet (20 mg total) by mouth daily. 30 tablet 5 ??? buPROPion 24 hr 300 MG 24 hr tablet TK 1 T PO D 3 ??? cholecalciferol (VITAMIN D3) 5000 units Tab Take by mouth daily. Current Facility-Administered Medications Medication Dose Route Frequency Provider Last Rate Last Dose ??? lidocaine (XYLOCAINE) 1 % injection SOLN 4 mL 4 mL Other Once Elian Spear DO ??? triamcinolone acetonide (KENALOG-40) injection 40 mg 40 mg Other Once Elian Spear DO Current Outpatient Medications on File Prior to Visit Medication Sig ??? ARIPIPRAZOLE 10 MG tablet TAKE 1 TABLET(10 MG) BY MOUTH DAILY ??? cyclobenzaprine 5 MG tablet Take 1-2 tabs TID prn muscle spasm ??? desvenlafaxine ER 50 MG 24 hr tablet Take 1 tablet by mouth daily. ??? lisinopril 10 MG tablet TK 1 T PO D ??? rivaroxaban (XARELTO) 20 MG Tab tablet Take 1 tablet (20 mg total) by mouth daily. ??? buPROPion 24 hr 300 MG 24 hr tablet TK 1 T PO D ??? cholecalciferol (VITAMIN D3) 5000 units Tab Take by mouth daily. No current facility-administered medications on file prior to visit. No Known Allergies Objective: Filed Vitals: 01/27/19 1321 BP: 110/78 Pulse: 98 Resp: 16 SpO2: 97% Weight: 113.4 kg (250 lb) Height: 5' 5 (1.651 m) Physical Exam Constitutional: He is well-developed, well-nourished, and in no distress. Cardiovascular: Normal rate, regular rhythm and normal heart sounds. Pulmonary/Chest: Effort normal and breath sounds normal. Joint Aspiration/Injection Date/Time: 01/27/2019 2:03 PM Performed by: Elian Spear DO Authorized by: Elian Spear DO Indications: pain Body area: shoulder Joint: left acromioclavicular joint Local anesthesia used: yes Anesthesia: Local anesthesia used: yes Local Anesthetic: topical anesthetic Sedation: Patient sedated: no Preparation: Patient was prepped and draped in the usual sterile fashion. Needle gauge: 25 G. Ultrasound guidance: no Approach: posterior Triamcinolone amount: 40 mg Lidocaine 1% amount: 4 mL Patient tolerance: Patient tolerated the procedure well with no immediate complications Comments: Written consent obtained. Reviewed risks and benefits prior to consent being obtained. Assessment & Plan: Sivakumar was seen today for shoulder pain. Diagnoses and all orders for this visit: Acute bursitis of left shoulder - triamcinolone acetonide (KENALOG-40) injection 40 mg - lidocaine (XYLOCAINE) 1 % injection SOLN 4 mL - DRAIN/INJECT LARGE JOINT/BURSA Other orders - Joint Aspiration/Injection Discussion/Summary: Procedure tolerated without complication. Will have pt f/u after PT. Expected management discussed.Pt f/u. Elian Spear DO documented in this encounter Plan of Treatment Scheduled Orders Name Type Priority Associated Diagnoses Orde r Schedule DRAIN/INJECT LARGE JOINT/BURSA Procedures Routine Acute bursitis of left shoulder Ordered: 01/27/2019 documented as of this encounter Procedures Procedure Name Priority Date/Time Associated Diagnosis Comments JOINT ASPIRATION/INJECTIO N Routine 01/27/2019 1:00 PM CDT Acute bursitis of left shoulder documented in this encounter Results * Joint Aspiration/Injection (01/27/2019 1:00 PM CDT) Narrative Elian Spear DO - 01/27/2019 1:00 PM CDT Elian Spear DO ? 01/27/2019 ??2:10 PM Joint Aspiration/Injection Date/Time: 01/27/2019 2:03 PM Performed by: Elian Spear DO Authorized by: Elian Spear DO Indications: pain Body area: shoulder Joint: left acromioclavicular joint Local anesthesia used: yes Anesthesia: Local anesthesia used: yes Local Anesthetic: topical anesthetic Sedation: Patient sedated: no Preparation: Patient was prepped and draped in the usual sterile fashion. Needle gauge: 25 G. Ultrasound guidance: no Approach: posterior Triamcinolone amount: 40 mg Lidocaine 1% amount: 4 mL Patient tolerance: Patient tolerated the procedure well with no immediate complications Comments: Written consent obtained. ??Reviewed risks and benefits prior to consent being obtained. ?? Elian Spear DO PROCEDURE/MINOR SURGICAL ORDERABLES Final Result documented in this encounter Visit Diagnoses Diagnosis Acute bursitis of left shoulder- Primary documented in this encounter Administered Medications Inactive Administered Medications - up to 3 most recent administrations Medication Order MAR Action Action Date Dose Rate Site lidocaine (XYLOCAINE) 1 % injection SOLN 4 mL 4 mL, Other, Once, 1 dose, On Sun01/27/19 at 1430Indications:Acute bursitis of left shoulder Given 01/27/2019 3:29 PM CDT 4 mLs triamcinolone acetonide (KENALOG-40) injection 40 mg 40 mg, Other, Once, 1 dose, On Sun01/27/19 at 1430, Isaiaske WellIndications:Acute bursitis of left shoulder Given 01/27/2019 3:31 PM CDT 40 mg documented in this encounter Care Teams Hydraulic Modeling Engineer Relationship Specialty Start Date End Date Ajay Anne MD [address] [place] [id number] PCP - General INTERNAL MEDICINE 10/07/18 documented as of this encounter
--- OUTSIDE RECORDS SUMMARY | 2024-09-30 23:18 | XMS_ITS | Encounter Summary ---
Author Organization [facility] Address [facility]. [place], [place] [address] [place] [address] Care Team Providers Care Seed Technician Name Role Phone Unavailable Primary Care Provider Unavailabl e Encounter Details Date Type Department Care Team (Late st Contact Info) Description 12/21/[address] [facility] Family & Internal Medicine [address] [phone] Ajay Anne MD [address] [place] [address] Social History Tobacco Use Types Packs/Day Years Used Date Smoking Tobacco: Never Assessed Sex and Gender Information Value Date Recorded Sex Assigned at Not on file Legal Sex Male 5:32 PM CDT Gender Identity Not on file Sexual Orientation Not on file documented as of this encounter Last Filed Vital Signs Vital Sign Reading Time Taken Comments Blood Pressure 130/86 12/21/2016 12:15 PM CDT Pulse 105 12/21/2016 12:15 PM CDT Temperature - - Respiratory Rate - - Oxygen Saturation - - Inhaled Oxygen Concentration - - Weight 93.4 kg (206 lb) 12/21/2016 12:15 PM CDT Height 165.1 cm (5' 5 ) 12/21/2016 12:15 PM CDT Body Mass Index 34.28 12/21/2016 12:15 PM CDT documented in this encounter Progress Notes * Ajay Anne MD - 12/21/2016 11:30 AM CDT Reason For Visit Chronic Recheck Visit Chief Complaint Patient is following up for severe depression History of Present Illness HPI Free Text: He is here for a one week follow up after increasing Wellbutrin and adding Pristiq. He has not noticed any side effects from the medications. He does note that he has had a couple of days in which hehas forced himself to get out and work and things have gone well when he did this. He was also given a prescription for Nuvigil which he has taken twice and it did seem to help him not feel as fatigued when he takes that medication. Review of Systems Constitutional, Eyes, ENT, Cardiovascular, Respiratory, Gastrointestinal, Genitourinary, Musculoskeletal, Integumentary, Neurological, Endocrine and Hematologic review of systems normal except as noted. Psychiatric: sleep disturbances and depression, but not suicidal. Active Problems 1. Benign essential hypertension (401.1) (I10) 2. Depression (311) (F32.9) 3. Fatigue (780.79) (R53.83) 4. Headache (784.0) (R51) 5. Hip injury (959.6) (S79.919A) 6. Hip pain, acute, left (719.45) (M25.552) 7. Insomnia (780.52) (G47.00) 8. Joint pain (719.40) (M25.50) 9. Lower back pain (724.2) (M54.5) 10. Neck pain on right side (723.1) (M54.2) 11. Onychomycosis (110.1) (B35.1) 12. Polyarthralgia (719.49) (M25.50) 13. Screening for endocrine, nutritional, metabolic and immunity disorder (V77.99) (Z13.29,Z13.0,Z13.21,Z13.228) 14. Screening for heart disease (V81.2) (Z13.6) 15. Screening for prostate cancer (V76.44) (Z12.5) 16. Severe depression (311) (F32.2) 17. Tinnitus (388.30) (H93.19) 18. Weight loss (783.21) (R63.4) Surgical History 1. History of Colonoscopy 2. Denied: History of Surgery Family History 1. Family history of malignant neoplasm (V16.9) (Z80.9) 2. Family history of hypertension (V17.49) (Z82.49) Social History ?? Never a smoker Current Meds 1. Armodafinil 150 MG Oral Tablet; TAKE 1 TABLET Every morning PRN; Therapy: 14Dec2016 to (Last Rx:14Dec2016) Ordered 2. Armodafinil 50 MG Oral Tablet; TAKE 2 TABLET Daily; Therapy: 12Dec2016 to (Evaluate:[id number]); Last Rx:12Dec2016 Ordered 3. Baclofen 10 MG Oral Tablet; TAKE 1 TABLET 3 TIMES DAILY NEEDED FOR MUSCLE SPASM; Therapy: 05Jun2016 to (Evaluate:[id number]) Requested for: 33Gnb2036; Last Rx:[id number] Ordered 4. BuPROPion HCl ER (XL) 300 MG Oral Tablet Extended Release 24 Hour; Take 1 tablet daily; Therapy: 14Dec2016 to (Last Rx:14Dec2016) Requested for: 14Dec2016 Ordered 5. Desvenlafaxine Succinate ER 50 MG Oral Tablet Extended Release 24 Hour; TAKE 1 TABLET BY MOUTH DAILY; Therapy: 14Dec2016 to (Evaluate:[id number]); Last Rx:14Dec2016 Ordered 6. Hydrocodone-Acetaminophen 5-325 MG Oral Tablet; TAKE 1 TABLET Every 6 hours; Therapy: 06Euu4220 to (Evaluate:81Ygm5622); Last Rx:[id number] Ordered 7. Lisinopril 10 MG Oral Tablet; TAKE 1 TABLET DAILY; Therapy: 14Dec2016 to (Evaluate:[id number]) Requested for: 14Dec2016; Last Rx:14Dec2016 Ordered 8. Zolpidem Tartrate 10 MG Oral Tablet; TAKE 1 TABLET BY MOUTH EVERY NIGHT AT BEDTIME NEEDED FOR INSOMNIA; Therapy: 30Dec2015 to (Evaluate:36Idv4123) Requested for: 03Aug2016; Last Rx:03Aug2016 Ordered Allergies 1. No Known Drug Allergies Vitals Recorded: 21Dec2016 12:15PM Heart Rate 105 Respiration 18 Systolic 130 Diastolic 86 O2 Saturation 94 Height 5 ft 5 in Weight 206 lb BMI Calculated 34.28 BSA Calculated 2 Physical Exam Constitutional General appearance: No acute distress, well appearing and well nourished. Pulmonary Respiratory effort: No increased work of breathing or signs of respiratory distress. Auscultation of lungs: Clear to auscultation. Cardiovascular Palpation of heart: Normal PMI, no thrills. Auscultation of heart: Normal rate and rhythm, normal S1 and S2, without murmurs. Results/Data QU-RPR ( DX ) W/REFL TITER AND CONFIRMATORY TESTING [id number] 18Dec2016 01:24PM Ajay Anne Test Name Result Flag Reference RPR (DX) W/REFL TITER AND CONFIRMATORY TESTING NON-REACTIVE NON-REACTIVE Test Performed at: [facility] [place] [address] [place] [address] REBEKAH MCPHERSON DO,MPH Assessment 1. Depression (311) (F32.9) Plan Benign essential hypertension, Depression 1. Follow-up visit in 3 weeks Outpatient Follow-up Status: Hold For - Scheduling Requested for: 21Dec2016 Ordered; For: Benign essential hypertension, Depression; Ordered By: Ajay Anne Performed: Due: 04Jan2017 Follow-up visit in 3 weeks Outpatient Follow-up Status: Hold For - Scheduling Requested for: 21Dec2016 Ordered; For: Health Maintenance; Ordered By: Ajay Anne Performed: Due: 04Jan2017; Last Updated By: Shawnee Jones; 12/21/2016 12:53:23 PM Signatures Electronically signed by : Ajay Anne M.D.; Dec 21 2016 9:06PM UX INFORMATION ARCHITECT (Author) * Generic Conversion MD Marquise - 12/21/2016 10:45 AM CDT Message Recorded as Task Date: 12/20/2016 02:28 PM, Created By: Myesha Alcantar Task Name: Referral Assigned To: [facility] [place] Patient: Sivakumar Kinsey, Status: Complete Comment: Myesha Alcantar - 20 Dec 2016 2:28 PM TASK CREATED Caller: Rodrigo anderson; Referral Request [facility] called and stated that the Brain MRI has to say MRI W and W/O for them to do scan. so a new order and referral is needed. Myesha Alcantar - 21 Dec 2016 8:43 AM TASK EDITED Марина from [facility] called and the pt appt is 12/22/2016 if we dont get the referral today we needto call justin and have them reschedule. CB: [phone] ext:[phone] Alcantar,Myesha - 21 Dec 2016 10:41 AM TASK EDITED Марина mixed it up and it is [facility]. auth is good just need new order. Brain w/without KatharineMyesha - 21 Dec 2016 10:42 AM TASK EDITED fax: [phone] KatharineMyesha - 21 Dec 2016 10:45 AM TASK COMPLETED Message: auth good. order updated Signatures Electronically signed by : Myesha Alcantar, ; Dec 21 2016 10:46AM UX INFORMATION ARCHITECT (Author) documented in this encounter Plan of Treatment Not on file documented as of this encounter Procedures Procedure Name Priority Date/Time Associated Diagnosis Comments RPR(MONITOR) RFLX TO TITER (QST) Routine 12/18/2016 1:24 PM CDT documented in this encounter Results * RPR(MONITOR) RFLX TO TITER (QST) (12/18/2016 1:24 PM CDT) RPR NON-REACT MANUEL NON-REACT MANUEL [facility] TO EPIC CONVERSION Comment: Result Comment: Test Performed at: [facility] [place] [id number] [place] [address] ??[id number] ? REBEKAH MCPHERSON DO,MPH 12/18/2016 1:24 PM CDT 12/18/2016 1:24 PM CDT Narrative [facility] TO EPIC CONVERSION - 12/19/2016 5:17 AM CDT Result Communication: Call patient with results us Ajay Anne MD LABORATORY Final Result [facility] TO EPIC CONVERSION documented in this encounter Visit Diagnoses Not on filedocumented in this encounter
--- OUTSIDE RECORDS SUMMARY | 2024-09-30 23:18 | XMS_ITS | Encounter Summary ---
Author Organization [facility] Address [address] [place] [address]. [place], [place] [address] [place] [address] Care Team Providers Care Door To Door Selling Distributor Name Role Phone Ajay Anne MD Primary Care Provider [phone] Reason for Referral * Physical Medicine (Routine) - Closed Specialty Diagnoses / Procedures Referred By Contkrystle t Referred To Contact PHYSICAL THERAPY / [facility] Physical Therapy Diagnoses Acute right-sided low back pain without sciatica Acute pain of left shoulder Elian Spear DO [address] [place] [address] Phone: tel: fax: [facility] [place] [address] Phone: tel: fax: Referral ID Status Reason Start Date Expiration Date V isits Requested Visits Authorized [id number] Closed Physical Therapy 01/15/2019 02/14/2020 12 12 Reason for Visit * Reason Comments Low Back Pain x 1 month no known i njury Shoulder Pain left x 1 month Encounter Details Date Type Department Care Team (Late st Contact Info) Description 01/15/2019 2:00 PM CDT Office Visit [facility] Medical Group Family & Internal Medicine [facility] [address] [place] [address] Elian Spear DO [address] [place] [address] Low Back Pain (x 1 month no known injury ); Shoulder Pain (left x 1 month ) Social History Tobacco Use Types Packs/Day [...] Sign Reading Time Taken Comments Blood Pressure 117/68 01/15/2019 2:02 PM CDT Pulse 84 01/15/2019 2:02 PM CDT Temperature 36.6 ??C (97.8 ??F) 01/15/2019 2:02 PM CD T Respiratory Rate 16 01/15/2019 2:02 PM CDT Oxygen Saturation 97% 01/15/2019 2:02 PM CDT Inhaled Oxygen Concentration - - Weight 112.5 kg (248 lb) 01/15/2019 2:02 PM CDT Height 165.1 cm (5' 5 ) 01/15/2019 2:02 PM CDT Body Mass Index 41.27 01/15/2019 2:02 PM CDT documented in this encounter Patient Instructions * Patient Instructions* Elian Spear DO - 01/15/2019 2:00 PM CDT [facility] Physical Therapy [address] [place] [address] documented in this encounter Progress Notes * Elian Spear DO - 01/15/2019 2:00 PM CDT Images from the original note were not included. GENERAL OFFICE VISIT Encounter Date: 01/15/2019 Chief Complaint: 58-year-old male presents for Low Back Pain (x 1 month no known injury ) and Shoulder Pain (left x 1 month ) HPI: Pt notes low back pain on the right side. It's worse with standing. The more active he is, the worse the pain is. No known injury. Saw the chiropractor for two weeks, but that seemed to make it worse. Some mild radiculopathy on the right. This has been a problem in the past but is worse today. Pt notes it as a stabbing pain. Doesn't hurt to sit. No saddle anesthesia; no bowel/bladder incontinence. No rash. Hasn't taken any meds. Notes left shoulder pain. Difficulty with ROM, overhead movement specifically. No new meds. Pt may have had shoulder pain in the past. No meds taken. No actual weakness. Review of Systems Constitutional: Negative for fever. HENT: Negative for congestion. Eyes: Negative for discharge. Respiratory: Negative for shortness of breath. Cardiovascular: Negative for chest pain. Gastrointestinal: Negative for abdominal pain, nausea and vomiting. Genitourinary: Negative for dysuria. Musculoskeletal: See HPI Skin: Negative for rash. Neurological: See HPI Endo/Heme/Allergies: Does not bruise/bleed easily. Patient Active Problem List Diagnosis ??? Benign [...] file Gets together: Not on file Attends rastafari service: Not on file Active member of [...] prn muscle spasm 60 tablet 0 ??? lisinopril 10 MG tablet TK 1 T PO D 1 ??? rivaroxaban (XARELTO) 20 MG Tab tablet Take 1 tablet (20 mg total) by mouth daily. 30 tablet 5 ??? buPROPion 24 hr 300 MG 24 hr tablet TK 1 T PO D 3 ??? cholecalciferol (VITAMIN D3) 5000 units Tab Take by mouth daily. ??? desvenlafaxine ER 50 MG 24 hr tablet Take 1 tablet by mouth daily. No current facility-administered medications for this visit. Current Outpatient Medications on File Prior to Visit Medication Sig ??? ARIPIPRAZOLE 10 MG tablet TAKE 1 TABLET(10 MG) BY MOUTH DAILY ??? lisinopril 10 MG tablet TK 1 T PO D ??? rivaroxaban (XARELTO) 20 MG Tab tablet Take 1 tablet (20 mg total) by mouth daily. ??? buPROPion 24 hr 300 MG 24 hr tablet TK 1 T PO D ??? cholecalciferol (VITAMIN D3) 5000 units Tab Take by mouth daily. ??? desvenlafaxine ER 50 MG 24 hr tablet Take 1 tablet by mouth daily. No current facility-administered medications on file prior to visit. No Known Allergies Objective: Filed Vitals: 01/15/19 1402 BP: 117/68 Pulse: 84 Resp: 16 Temp: 97.8 ??F (36.6 ??C) TempSrc: Oral SpO2: 97% Weight: 112.5 kg (248 lb) Height: 5' 5 (1.651 m) Physical Exam Constitutional: He is oriented to person, place, and time and well-developed, well-nourished, and in no distress. HENT: Head: Normocephalic and atraumatic. Right Ear: External ear normal. Left Ear: External ear normal. Eyes: Conjunctivae are normal. Neck: Neck supple. Cardiovascular: Normal rate, regular rhythm and normal heart sounds. Exam reveals no gallop and no friction rub. No murmur heard. Pulmonary/Chest: Effort normal and breath sounds normal. No respiratory distress. He has no wheezes. He has no rales. Abdominal: Soft. Bowel sounds are normal. There is no tenderness. Musculoskeletal: He exhibits no edema. Pain with palpation of paraspinal musculature on right lumbar spine, worse pain with flexion, straight leg negative, 2+ patellar b/l, 5/5 strength b/l Neurological: He is alert and oriented to person, place, and time. Gait normal. Skin: Skin is warm and dry. No rash noted. Psychiatric: Affect normal. Nursing note and vitals reviewed. Assessment & Plan: Sivakumar was seen today for low back pain and shoulder pain. Diagnoses and all orders for this visit: Acute right-sided low back pain without sciatica - AMB REFERRAL TO PHYSICAL THERAPY - cyclobenzaprine 5 MG tablet; Take 1-2 tabs TID prn muscle spasm Acute pain of left shoulder - AMB REFERRAL TO PHYSICAL THERAPY Discussion/Summary: Suspect back pain is more related to muscular origin; recommend tylenol, flexeril, and PT. Shoulderpain is likely bursitis; will have pt f/u next week for injection. Pt v/u. Elian Spear DO documented in this encounter Plan of Treatment Scheduled Referrals Name Type Priority Associated Diagnoses Orde r Schedule Ambulatory referral to Physical Therapy Referral Routine Acute right-sided low back pain without sciatica Acute pain of left shoulder Ordered: 01/15/2019 documented as of this encounter Visit Diagnoses Diagnosis Acute right-sided low back pain without sciatica- Primary Acute pain of left shoulder documented in this encounter Care Teams Door To Door Selling Distributor Relationship Specialty Start Date End Date Ajay Anne MD [address] [place] [address] PCP - General INTERNAL MEDICINE 10/07/18 documented as of this encounter
--- OUTSIDE RECORDS SUMMARY | 2024-09-30 23:18 | XMS_ITS | Encounter Summary ---
Author Organization [facility] Address [address] [place] [address]. [place], [place] [address] [place] [address] Care Team Providers Care Bowling Teacher Name Role Phone Unavailable Primary Care Provider Unavailabl e Encounter Details Date Type Department Care Team (Latest Contact Info) Description 12/27/2016 Abstract [facility] Medical Group Social History Tobacco Use Types Packs/Day Years Used Date Smoking Tobacco: Never Assessed Sex and Gender Information Value Date Recorded Sex Assigned at Not on file Legal Sex Male 5:32 PM CDT Gender Identity Not on file Sexual Orientation Not on file documented as of this encounter Progress Notes * Generic Conversion MD Marquise - 12/27/2016 8:39 AM CDT Message Recorded as Task Date: 12/26/2016 03:29 PM, Created By: Latanya Lopez Task Name: Medical Complaint Callback Assigned To: 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 would you like patient to remain on med, switch, or just D/C ( he will run out before appt on 01/11/17) Ajay Anne - 27 Dec 2016 7:08 AM TASK REASSIGNED: Previously Assigned To Ajay Anne I would recommend that he continue with the medication. Shawnee Jones - 27 Dec 2016 8:39 AM TASK IN PROGRESS Message: Pt updated by message left with -ivett Signatures Electronically signed by : Shawnee Jones R.N.; Dec 27 2016 8:42AM SHIFT PRODUCTION SUPERVISOR (Author) documented in this encounter Plan of Treatment Not on file documented as of this encounter Visit Diagnoses Not on filedocumented in this encounter
--- OUTSIDE RECORDS SUMMARY | 2024-09-30 23:18 | XMS_ITS | Encounter Summary ---
Author Organization [facility] Address [address] [place] [address]. [place], [place] [address] [place] [address] Care Team Providers Care Pen Maker Name Role Phone Ajay Anne MD Primary Care Provider [phone] Encounter Details Date Type Department Care Team (Latest Contact Info) Description 08/16/2020 Travel Social History Tobacco Use Types Packs/Day [...] COVID-19? 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
--- OUTSIDE RECORDS SUMMARY | 2024-09-30 23:18 | XMS_ITS | Encounter Summary ---
Author Organization [facility] Address formerly [facility]. [place], [place] [address] [place] [address] Care Team Providers Care Technology Professional Name Role Phone Unavailable Primary Care Provider Unavailabl e Encounter Details Date Type Department Care Team (Late st Contact Info) Description 11/30/2016 Abstract [facility] Medical Group Family & Internal Medicine [address] [phone] Ajay Anne MD [address] [place] [address] Social History Tobacco Use Types Packs/Day Years Used Date Smoking Tobacco: Never Assessed Sex and Gender Information Value Date Recorded Sex Assigned at Not on file Legal Sex Male 5:32 PM CDT Gender Identity Not on file Sexual Orientation Not on file documented as of this encounter Last Filed Vital Signs Vital Sign Reading Time Taken Comments Blood Pressure 114/82 11/30/2016 10:05 AM VIDEO GAMES MECHANIC Pulse 91 11/30/2016 10:05 AM VIDEO GAMES MECHANIC Temperature - - Respiratory Rate - - Oxygen Saturation - - Inhaled Oxygen Concentration - - Weight 96.2 kg (212 lb) 11/30/2016 10:05 AM VIDEO GAMES MECHANIC Height 165.1 cm (5' 5 ) 11/30/2016 10:05 AM VIDEO GAMES MECHANIC Body Mass Index 35.28 11/30/2016 10:05 AM VIDEO GAMES MECHANIC documented in this encounter Progress Notes * Ajay Anne MD - 11/30/2016 9:45 AM CST Reason For Visit Chronic Recheck Visit Chief Complaint Patient is following up after starting citalopram and adding Wellbutrin, he's not feeling much better History of Present Illness HPI Free Text: He is here today for followup of his depression. He comes in with his today. He reports that he is still not feeling better. His states that he had been in bed for 19 hours last Sunday. In the last 2 months, he had only been out of the house 2 times. He has no appetite. He does not feelsick. He just does not feel like eating. He had been crying endlessly at times. 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 He cannot focus at workand forgetting things which he has never had before. We started him on Celexa the last time he was here. He thinks that this is not helping so we added Wellbutrin the other day. He denies any side effects from the Celexa. He has noticed a little bit of difference while on this medication. He statesthat he is now able to eat. He worked all day yesterday. He does not necessarily feel like his moodis under control with this medication. He denies any headaches. There are no suicidal thoughts or homicidal ideations. He was on fluoxetine in the past but it did not help him. He is willing to switch to a different medication as long as it could help him. He does not want to see a counselor. I encouraged him that he needs to see a counselor as I think this will be helpful. Review of Systems Constitutional, Eyes, ENT, Cardiovascular, Respiratory, Gastrointestinal, Genitourinary, Musculoskeletal, Integumentary, Neurological, Psychiatric, Endocrine and Hematologic review of systems normal except as noted. Active Problems 1. Benign essential hypertension (401.1) (I10) 2. Depression (311) (F32.9) 3. Fatigue (780.79) (R53.83) 4. Hip injury (959.6) (S79.919A) 5. Hip pain, acute, left (719.45) (M25.552) 6. Insomnia (780.52) (G47.00) 7. Joint pain (719.40) (M25.50) 8. Lower back pain (724.2) (M54.5) 9. Neck pain on right side (723.1) (M54.2) 10. Onychomycosis (110.1) (B35.1) 11. Polyarthralgia (719.49) (M25.50) 12. Screening for endocrine, nutritional, metabolic and immunity disorder (V77.99) (Z13.29,Z13.0,Z13.21,Z13.228) 13. Screening for heart disease (V81.2) (Z13.6) 14. Screening for prostate cancer (V76.44) (Z12.5) Surgical History 1. History of Colonoscopy 2. Denied: History of Surgery Family History 1. Family history of malignant neoplasm (V16.9) (Z80.9) 2. Family history of hypertension (V17.49) (Z82.49) Social History ?? Never a smoker Current Meds 1. Baclofen 10 MG Oral Tablet; TAKE 1 TABLET 3 TIMES DAILY NEEDED FOR MUSCLE SPASM; Therapy: 22Xne0671 to (Evaluate:11Tjf4341) Requested for: 62Vdj0293; Last Rx:[id number] Ordered 2. BuPROPion HCl ER (XL) 150 MG Oral Tablet Extended Release 24 Hour; TAKE 1 TABLET BY MOUTH EVERY DAY; Therapy: 71Xrn0580 to (Evaluate:17Zfd0122) Requested for: 27Jgc8633; Last Rx:[id number] Ordered 3. Citalopram Hydrobromide 40 MG Oral Tablet; TAKE 1 TABLET BY MOUTH EVERY DAY; Therapy: 07Kve0743 to (Evaluate:72Yzv3653) Requested for: 36Tkj3961; Last Rx:[id number] Ordered 4. Hydrocodone-Acetaminophen 5-325 MG Oral Tablet; TAKE 1 TABLET Every 6 hours; Therapy: 13Nxk9825 to (Evaluate:67Cxm5566); Last Rx:[id number] Ordered 5. Lisinopril 20 MG Oral Tablet; TAKE 1 TABLET BY MOUTH DAILY; Therapy: 79Kki3906 to (Evaluate:39Nsv4074) Requested for: 43Xst9173; Last Rx:[id number] Ordered 6. Zolpidem Tartrate 10 MG Oral Tablet; TAKE 1 TABLET BY MOUTH EVERY NIGHT AT BEDTIME NEEDED FOR INSOMNIA; Therapy: 23Rtz4531 to (Evaluate:67Wju9335) Requested for: 06Haq2585; Last Rx:[id number] Ordered Allergies 1. No Known Drug Allergies Vitals Recorded: 30Nov2016 10:05AM Recorded: 61Lff7503 08:58AM Heart Rate 91 84 Respiration 18 16 Systolic 114 Diastolic 82 O2 Saturation 96 97 Height 5 ft 5 in 5 ft 5 in Weight 212 lb 219 lb BMI Calculated 35.28 36.44 BSA Calculated 2.03 2.06 Physical Exam Constitutional General appearance: No acute distress, well appearing and well nourished. patient was observed to be moderately obese. Eyes Conjunctiva and lids: No swelling, erythema, or discharge. Pupils and irises: Equal, round and reactive to light. Ears, Nose, Mouth, and Throat External inspection of ears and nose: Normal. Otoscopic examination: Tympanic membrane translucent with normal light reflex. Canals patent without erythema. Oropharynx: Normal with no erythema, edema, exudate or lesions. Pulmonary Respiratory effort: No increased work of breathing or signs of respiratory distress. Auscultation of lungs: Clear to auscultation. Cardiovascular Palpation of heart: Normal PMI, no thrills. Auscultation of heart: Normal rate and rhythm, normal S1 and S2, without murmurs. Examination of extremities for edema and/or varicosities: Normal. Musculoskeletal Gait and station: Normal. Neurologic Cranial nerves: Cranial nerves 2-12 intact. Psychiatric Orientation to person, place and time: Normal. Mood and affect: Normal. Counseling The patient and patient's family was counseled regarding prognosis, impressions and risks and benefits of treatment options. total time of encounter was 25 minutes and 20 minutes was spent counseling. Assessment 1. Depression (311) (F32.9) Plan Depression 1. Trintellix 10 MG Oral Tablet; Take one tablet daily Rx By: Ajay Anne; Dispense: 0 Days ; #:14 Tablet; Refill: 0; For: Depression; TERRI = N; Dispense Sample; Last Updated By: Latanya Lopez; 11/30/2016 10:46:31 AM Formulary Override Reason: Drug has been unsuccessful in the past Signatures Electronically signed by : Ajay Anne M.D.; Dec 03 2016 10:20PM VIDEO GAMES MECHANIC (Author) documented in this encounter Plan of Treatment Not on file documented as of this encounter Visit Diagnoses Not on filedocumented in this encounter
--- OUTSIDE RECORDS SUMMARY | 2024-09-30 23:18 | XMS_ITS | Encounter Summary ---
Author Organization [facility] Address [address] [place] [address]. [place], [place] [address] [place] [address] Care Team Providers Care Referral Rn Name Role Phone Unavailable Primary Care Provider Unavailabl e Encounter Details Date Type Department Care Team (Latest Contact Info) Description 03/26/2017 Abstract [facility] Medical Group Social History Tobacco Use Types Packs/Day Years Used Date Smoking Tobacco: Never Assessed Sex and Gender Information Value Date Recorded Sex Assigned at Not on file Legal Sex Male 5:32 PM CDT Gender Identity Not on file Sexual Orientation Not on file documented as of this encounter Progress Notes * Generic Conversion MD Marquise - 03/26/2017 10:57 AM CDT Message Recorded as Task Date: 03/22/2017 09:55 AM, Created By: Jannie Schaffer Task Name: Medical Complaint Callback Assigned To: [facility] Team Omid Regarding Patient: MorganprosperSivakumar navarro, Status: Active Comment: Jannie Schaffer - 22 Mar 2017 9:55 AM TASK CREATED Caller: Self; Medical Complaint; Patient requesting medicine refill: Armodafinil 150 mg. Patient is having issues with insurance the cost of this medicine cost too much. He has received a letter from his insurance company saying they will not cover. Patient wants to know if another medicine would work that his insurance would cover. #[phone] Pharmacy: [facility] Latanya Otto - 22 Mar 2017 9:59 AM TASK REASSIGNED: Previously Assigned To [facility] Team Ajay Lugo - 25 Mar 2017 8:14 PM TASK REASSIGNED: Previously Assigned To Ajay Anne There are no other medications which would work similar. He can check with his psychiatrist to see if they have any recommendations. Message: Pt updated - V/U-ivett Signatures Electronically signed by : Shawnee Jones R.N.; Mar 26 2017 10:57AM DENTAL ASSISTANT INSTRUCTOR (Author) documented in this encounter Plan of Treatment Not on file documented as of this encounter Visit Diagnoses Not on filedocumented in this encounter
--- OUTSIDE RECORDS SUMMARY | 2024-09-30 23:18 | XMS_ITS | Encounter Summary ---
Author Organization [facility] Address Formerly [facility] [place] [address] [place] [address] Care Team Providers Care Client Account Assistant Name Role Phone Unavailable Primary Care Provider Unavailabl e Encounter Details Date Type Department Care Team (Late st Contact Info) Description 10/25/2016 Abstract [facility] Family & Internal Medicine [address] [id number] Ajay Anne MD [address] [place] [id number] Social History Tobacco Use Types Packs/Day Years Used Date Smoking Tobacco: Never Assessed Sex and Gender Information Value Date Recorded Sex Assigned at Not on file Legal Sex Male 5:32 PM CDT Gender Identity Not on file Sexual Orientation Not on file documented as of this encounter Last Filed Vital Signs Vital Sign Reading Time Taken Comments Blood Pressure 106/72 10/25/2016 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 He also c/o poor appetite, hard time sleeping, fatigue, and left side neck/shoulder pain History of Present Illness HPI Free Text: He comes in today for followup routine visit. He has been having problems with sleep and fatigue. He has a poor appetite and had lost 32 pounds since June 2016. He forces himself to eat. He goes to bed at 10 PM and wakes up at 2 AM then he would not be able to sleep. Hypertension (Follow-Up): The patient presents for follow-up of primary hypertension. The patient states he has been doing well with his blood pressure control since the last visit. He has no comorbid illnesses. He has no significant interval events. Symptoms: The patient is currently asymptomatic. Associated symptoms include no headache, no focal neurologic deficits and no memory loss. Home monitoring: The patient checks his blood pressure sporadically. Blood pressure control has been good. Medications: the patient is adherent with his medication regimen. He denies medication side effects. Disease Management: the patient is doing well with his blood pressure goals. Depression (Follow-Up): The patient states his depression has worsened since the last visit. They have had recurrent episodes of major depression. He describes this as moderate in severity. He has nocomorbid illnesses. He has had no significant interval events. Interval Symptoms: worsened depression, worsened depressed mood, worsened loss of interest or pleasure in activities and worsened insomnia. Associated symptoms include:. No associated symptoms are reported. Medications: The patient is not currently on any medications for his depression. Medication(s): a SSRI (Fluoxetine) (The patient reports that the medication is partially effective, but no medication side effects ). Review of Systems Eyes, ENT, Cardiovascular, Respiratory, Gastrointestinal, Genitourinary, Integumentary, Neurological, Psychiatric, Endocrine and Hematologic review of systems normal except as noted. Constitutional: lethargy. . The patient presents with complaints of 30 - 39 pound recent weight loss (loss of appetite). Musculoskeletal: shoulder pain. Active Problems 1. Benign essential hypertension (401.1) (I10) 2. Hip injury (959.6) (S79.919A) 3. Hip pain, acute, left (719.45) (M25.552) 4. Insomnia (780.52) (G47.00) 5. Joint pain (719.40) (M25.50) 6. Lower back pain (724.2) (M54.5) 7. Onychomycosis (110.1) (B35.1) 8. Polyarthralgia (719.49) (M25.50) 9. Screening for endocrine, nutritional, metabolic and immunity disorder (V77.99) (Z13.29,Z13.0,Z13.21,Z13.228) 10. Screening for heart disease (V81.2) (Z13.6) 11. Screening for prostate cancer (V76.44) (Z12.5) Surgical History 1. History of Colonoscopy 2. Denied: History of Surgery Family History 1. Family history of malignant neoplasm (V16.9) (Z80.9) 2. Family history of hypertension (V17.49) (Z82.49) Social History ?? Never a smoker Current Meds 1. Baclofen 10 MG Oral Tablet; TAKE 1 TABLET 3 TIMES DAILY NEEDED FOR MUSCLE SPASM; Therapy: 88Yyk1165 to (Evaluate:90Wph1044) Requested for: 88Xrb8735; Last Rx:[id number] Ordered 2. Hydrocodone-Acetaminophen 5-325 MG Oral Tablet; TAKE 1 TABLET Every 6 hours; Therapy: 88Zfw2946 to (Evaluate:18Kje0428); Last Rx:[id number] Ordered 3. Lisinopril 20 MG Oral Tablet; TAKE 1 TABLET BY MOUTH DAILY; Therapy: 01Oay2404 to (Evaluate:89Fli9726) Requested for: 02Aap9753; Last Rx:[id number] Ordered 4. PredniSONE 20 MG Oral Tablet; Take 2 tablets daily for 4 days, then 1 tablet daily for 3 days; Therapy: 38Qzf5432 to (Last Rx:[id number]) Requested for: 14Fib0736 Ordered 5. Zolpidem Tartrate 10 MG Oral Tablet; TAKE 1 TABLET BY MOUTH EVERY NIGHT AT BEDTIME NEEDED FOR INSOMNIA; Therapy: 94How9868 to (Evaluate:83Yrb7852) Requested for: 03Aug2016; Last Rx:[id number] Ordered Allergies 1. No Known Drug Allergies Vitals Recorded: 25Oct2016 08:58AM Heart Rate 84 Respiration 16 Systolic 106 Diastolic 72 O2 Saturation 97 Height 5 ft 5 in Weight 229 lb BMI Calculated 38.11 BSA Calculated 2.1 Physical Exam Constitutional General appearance: No acute [...] and time: Normal. Mood and affect: Normal. Results/Data 25 Oct 2016 2:45 PM *LIPID/Glucose Cholestech In Office Total Cholesterol 130 HDL 55 Triglycerides 66 LDL 62 Non-HDL 75 T. Chol/HDL Ratio 2.4 Glucose 110 25 Oct 2016 2:45 PM *Urine dip auto In Office Color Yellow Clarity Clear Glucose Negative Bilirubin Negative Ketones 15 mg/dL-Small Specific K[place]ley 1.015 Blood Negative pH 5.5 Protein Negative Urobilinogen 0.2 E.U./dL Nitrites neg Leukocytes Negative Counseling The patient was counseled regarding. total time of encounter was 25 minutes and 20 minutes was spent counseling. Assessment 1. Benign essential hypertension (401.1) (I10) 2. Fatigue (780.79) (R53.83) 3. Depression (311) (F32.9) 4. Neck pain on right side (723.1) (M54.2) Plan Benign essential hypertension, Fatigue, Screening for endocrine, nutritional, metabolic and immunity disorder, Screening for heart disease, Screening for prostate cancer 1. QU-CBC ( INCLUDES DIFF/PLT ) 6399; Status:In Progress - Specimen/Data Collected; Done: 25Oct2016 Perform:[facility]; Due:24Nov2016; Last Updated By:Abiola De La Rosa; 10/25/2016 10:32:14 AM;Ordered; For:Benign essential hypertension, Fatigue, Screening for endocrine, nutritional, metabolic and immunity disorder, Screening for heart disease, Screening for prostate cancer; Ordered By:Ajay Anne; 2. QU-COMPREHENSIVE METABOLIC PANEL 12588; Status:In Progress - Specimen/Data Collected; Done: 25Oct2016 Perform:[facility]; Due:24Nov2016; Last Updated By:Abiola De La Rosa; 10/25/2016 10:32:14 AM;Ordered; For:Benign essential hypertension, Fatigue, Screening for endocrine, nutritional, metabolic and immunity disorder, Screening for heart disease, Screening for prostate cancer; Ordered By:Ajay Anne; 3. QU-PSA, TOTAL 5363; Status:In Progress - Specimen/Data Collected; Done: 25Oct2016 Perform:[facility]; Due:24Nov2016; Last Updated By:Abiola De La Rosa; 10/25/2016 10:32:14 AM;Ordered; For:Benign essential hypertension, Fatigue, Screening for endocrine, nutritional, metabolic and immunity disorder, Screening for heart disease, Screening for prostate cancer; Ordered By:Ajay Anne; 4. QU-TESTOSTERONE, FREE AND TOTAL, LC/MS/MS 79082; Status:In Progress - Specimen/Data Collected; Done: 25Oct2016 Perform:[facility]; Due:24Nov2016; Last Updated By:Abiola De La Rosa; 10/25/2016 10:32:14 AM;Ordered; For:Benign essential hypertension, Fatigue, Screening for endocrine, nutritional, metabolic and immunity disorder, Screening for heart disease, Screening for prostate cancer; Ordered By:Ajay Anne; 5. QU-TSH W/REFLEX TO FT4 50571; Status:In Progress - Specimen/Data Collected; Done: 25Oct2016 Perform:[facility]; Due:24Nov2016; Last Updated By:Abiola De La Rosa; 10/25/2016 10:32:14 AM;Ordered; For:Benign essential hypertension, Fatigue, Screening for endocrine, nutritional, metabolic and immunity disorder, Screening for heart disease, Screening for prostate cancer; Ordered By:Ajay Anne; 6. QU-URIC ACID 905; Status:In Progress - Specimen/Data Collected; Done: 25Oct2016 Perform:[facility]; Due:24Nov2016; Last Updated By:Abiola De La Rosa; 10/25/2016 10:32:14 AM;Ordered; For:Benign essential hypertension, Fatigue, Screening for endocrine, nutritional, metabolic and immunity disorder, Screening for heart disease, Screening for prostate cancer; Ordered By:Ajay Anne; 7. QU-VITAMIN D, 25-HYDROXY, LC/MS/MS 46883; Status:In Progress - Specimen/Data Collected; Done: 25Oct2016 Perform:[facility]; Due:24Nov2016; Last Updated By:Abiola De La Rosa; 10/25/2016 10:32:14 AM;Ordered; For:Benign essential hypertension, Fatigue, Screening for endocrine, nutritional, metabolic and immunity disorder, Screening for heart disease, Screening for prostate cancer; Ordered By:Ajay Anne; Depression 8. Citalopram Hydrobromide 20 MG Oral Tablet; TAKE 1 TABLET BY MOUTH EVERY DAY DIRECTED Rx By: Ajay Anne; Dispense: 30 Days ; #:30 Tablet; Refill: 0; For: Depression; TERRI = N; Verified Transmission to [facility]; Last Updated By: Neftali Boyer; 10/25/2016 9:54:31 AM 9. Follow-up visit in 1 month Outpatient Follow-up Status: Complete Done: 25Oct2016 Ordered; For: Depression; Ordered By: Ajay Anne Performed: Due: 08Nov2016; Last Updated By: Brenda Ortez; 10/25/2016 10:01:21 AM Health Maintenance 10. Fluarix Quadrivalent 0.5 ML Intramuscular Suspension For: Health Maintenance; Ordered By:Ajay Anne; Effective Date:25Oct2016; Administered by: Latanya Lopez: 10/25/2016 2:49:00 PM; Last Updated By: Latanya Lopez; 10/25/2016 2:50:05 PM Patient tolerated well, no s/sx of rxn//af Joint pain 11. PredniSONE 20 MG Oral Tablet Rx By: Ajay Anne; Dispense: 0 Days ; #:11 Tablet; Refill: 0; For: Joint pain; TERRI = N; [place]: [facility] [place] [address] Neck pain on right side 12. MethylPREDNISolone Acetate 80 MG/ML Injection Suspension (DEPO-Medrol) Rx By: Ajay Anne; For: Neck pain on right side; Dose of 1 ML; Intramuscular; TERRI = N; Administered by: Latanya Lopez: 10/25/2016 2:47:00 PM; Last Updated By: Latanya Lopez; 10/25/2016 2:48:43 PM Formulary Override Reason: No Formulary Equivalent Exists Signatures Electronically signed by : Ajay Anne M.D.; Oct 27 2016 8:37AM NEW CAR SALESPERSON (Author) documented in this encounter Plan of Treatment Not on file documented as of this encounter Procedures Procedure Name Priority Date/Time Associated Diagnosis Comments COLONOSCOPY Routine 11/21/2016 12:00 AM NEW CAR SALESPERSON CHOLESTECH W GLUCOSE Routine 10/25/2016 2:45 PM NEW CAR SALESPERSON URINALYSIS AUTO DIP Routine 10/25/2016 2 :45 PM NEW CAR SALESPERSON documented in this encounter Results * Colonoscopy (11/21/2016 12:00 AM NEW CAR SALESPERSON) 11/21/2016 11/21/2016 Narrative [facility] TO EPIC CONVERSION - 11/21/2016 12:00 AM NEW CAR SALESPERSON Documented hx of procedure Procedure Note , Duane Spence MD - 07/28/2018 Documented hx of procedure us Generic Conversion Md [facility] PROCEDURE ORDERABLES Final Result [facility] TO [facility] CONVERSION * (ABNORMAL) CHOLESTECH W GLUCOSE (10/25/2016 2:45 PM NEW CAR SALESPERSON) CHOLESTEROL 130 < 200 mg/dL [facility] TO [facility] CONVERSION HDL 55 40 - 60 mg/dL [facility] CONVERSION TRIGLYCERIDES 66 < 150 mg/dL [facility] CONVERSION LDL (CALCULATED) 62 0 - 130 mg/dL [facility] TO [facility]IC CONVERSION NON HDL CHOLESTEROL 75 [facility] TO [facility] CONVERSION CHOL/HDL RATIO 2.4 < or =? ? ? 4.5 [facility] TO [facility]IC CONVERSION GLUCOSE 110(A) Normal < 100 mg/dL [facility] TO EPIC CONVERSION 10/25/2016 2:45 PM NEW CAR SALESPERSON 10/25/2016 2:45 PM NEW CAR SALESPERSON Narrative [facility] TO EPIC CONVERSION - 10/25/2016 2:45 PM NEW CAR SALESPERSON Result Communication: No patient communication needed at this time us Ajay Anne MD LABORATORY Final Result [facility] TO [facility] CONVERSION * (ABNORMAL) URINALYSIS AUTO DIP (10/25/2016 2:45 PM NEW CAR SALESPERSON) COLOR (U) Yellow [facility] T O EPIC CONVERSION TRANSPARENCY Clear [facility] P TO EPIC CONVERSION GLUCOSE Negative [facility] T O EPIC CONVERSION BILIRUBIN (U) Negative [facility] UP TO EPIC CONVERSION KETONE (U) 15 mg/dL-Small( A) [facility] TO [facility]IC CONVERSION SPECIFIC GRAVITY (U) 1.015 [facility] TO [facility]IC CONVERSION BLOOD (U) Negative [facility] T O EPIC CONVERSION PH (U) 5.5 5.0 - 7.0 [facility] T O EPIC CONVERSION PROTEIN (ELP) (U) Negative [facility] TO EPIC CONVERSION UROBILINOGEN 0.2 E.U./dL [facility] OUP TO EPIC CONVERSION NITRITES neg [facility] T O EPIC CONVERSION LEUKOCYTES (U) Negative [facility] OUP TO EPIC CONVERSION 10/25/2016 2:45 PM NEW CAR SALESPERSON 10/25/2016 2:45 PM NEW CAR SALESPERSON Narrative [facility] TO EPIC CONVERSION - 10/25/2016 2:45 PM NEW CAR SALESPERSON Result Communication: No patient communication needed at this time Ajay Anne MD URINE ORDERABLES Final Result [facility] TO [facility]IC CONVERSION documented in this encounter Visit Diagnoses Not on filedocumented in this encounter
--- OUTSIDE RECORDS SUMMARY | 2024-09-30 23:18 | XMS_ITS | Encounter Summary ---
Author Organization [facility] Address [address] [place] [address]. [place], [place] [id number] [place] [id number] Care Team Providers Care Zumba Instructor Name Role Phone Unavailable Primary Care Provider Unavailabl e Encounter Details Date Type Department Care Team (Latest Contact Info) Description 12/15/2016 Abstract [facility] Medical [facility] Social History Tobacco Use Types [...]
--- OUTSIDE RECORDS SUMMARY | 2024-09-30 23:18 | XMS_ITS | Encounter Summary ---
Author Organization [facility] Address Formerly [facility], [facility]. [place], [place] [address] [place] [address] Care Team Providers Care Accounting Specialist Name Role Phone Unavailable Primary Care Provider Unavailabl e Encounter Details Date Type Department Care Team (Late st Contact Info) Description 01/31/2018 Abstract [facility] Family & Internal Medicine [address] [id number] Ajay Anne MD [address] [place] [address] Social History Tobacco Use Types Packs/Day Years Used Date Smoking Tobacco: Never Assessed Sex and Gender Information Value Date Recorded Sex Assigned at Not on file Legal Sex Male 5:32 PM CDT Gender Identity Not on file Sexual Orientation Not on file documented as of this encounter Last Filed Vital Signs Vital Sign Reading Time Taken Comments Blood Pressure 134/89 01/31/2018 10:41 AM CDT Pulse 85 01/31/2018 10:41 AM CDT Temperature - - Respiratory Rate - - Oxygen Saturation - - Inhaled Oxygen Concentration - - Weight 112.5 kg (248 lb) 01/31/2018 10:41 AM CDT Height 165.1 cm (5' 5 ) 01/31/2018 10:41 AM CDT Body Mass Index 41.27 01/31/2018 10:41 AM CDT documented in this encounter Progress Notes * Ajay Anne MD - 01/31/2018 10:20 AM CDT Reason For Visit Chronic Recheck Visit Chief Complaint Patient is following up for HTN, depression, and insomnia History of Present Illness Depression (Follow-Up): The patient states his depression has been stable since the last visit. They have had recurrent episodes of major depression. He describes this as moderate in severity. He hasno comorbid illnesses. He has had no significant interval events. Interval Symptoms: stable depression and stable depressed mood. Associated symptoms include:. No associated symptoms are reported.. Social Support: the patient has good social support. Medications: the patient is adherent with his medication regimen. He denies medication side effects.. Hypertension (Follow-Up): The patient presents for follow-up of primary hypertension. Symptoms: Review of Systems Constitutional, Eyes, ENT, Cardiovascular, [...] ?? Never a smoker Current Meds 1. ARIPiprazole 5 MG Oral Tablet; TAKE 1 TABLET BY MOUTH DAILY; Therapy: 29Rxm5416 to (Evaluate:79Vxe4678) Requested for: 03Dgb6195; Last Rx:93Hxw4499 Ordered 2. Armodafinil 150 MG Oral Tablet; TAKE 1 TABLET Every morning PRN; Therapy: 14Dec2016 to (Last Rx:14Dec2016) Ordered 3. Armodafinil 50 MG Oral Tablet; TAKE 2 TABLET Daily; Therapy: 12Dec2016 to (Evaluate:86Qrn1104); Last Rx:12Dec2016 Ordered 4. Baclofen 10 MG Oral Tablet; TAKE 1 TABLET 3 TIMES DAILY NEEDED FOR MUSCLE SPASM; Therapy: 80Piy3480 to (Evaluate:03Zxa7527) Requested for: 40Vwa2865; Last Rx:32Upt2901 Ordered 5. BuPROPion HCl ER (XL) 300 MG Oral Tablet Extended Release 24 Hour; Take 1 tablet daily; Therapy: 14Dec2016 to (Last Rx:25Jan2017) Requested for: 71Brk2532 Ordered 6. Desvenlafaxine Succinate ER 50 MG Oral Tablet Extended Release 24 Hour; TAKE 1 TABLET BY MOUTH EVERY DAY; Therapy: 14Dec2016 to (Evaluate:87Zpa4383) Requested for: 24Jul2017; Last Rx:01Unp9092 Ordered 7. Hydrocodone-Acetaminophen 5-325 MG Oral Tablet; TAKE 1 TABLET Every 6 hours; Therapy: 90Euh8631 to (Evaluate:16Vdt4683); Last Rx:21Aqi0300 Ordered 8. Lisinopril 10 MG Oral Tablet; TAKE 1 TABLET BY MOUTH DAILY; Therapy: 14Dec2016 to (Evaluate:34Uai2454) Requested for: 12Opw5327; Last Rx:66Njj6167 Ordered 9. Zolpidem Tartrate 10 MG Oral Tablet; TAKE 1 TABLET BY MOUTH EVERY NIGHT AT BEDTIME NEEDED FOR INSOMNIA; Therapy: 90Nvf9326 to (Evaluate:90Dvc7390) Requested for: 03Aug2016; Last Rx:03Aug2016 Ordered Allergies 1. No Known Drug Allergies Vitals Recorded: 31Jan2018 10:41AM Heart Rate 85 Respiration 16 Systolic 134 Diastolic 89 O2 Saturation 95 Height 5 ft 5 in Weight 248 lb BMI Calculated 41.27 BSA Calculated 2.17 Physical Exam right 2+, no bruit heard over the right carotid, left 2+ and no bruit heard over the left carotid. Constitutional General appearance: No acute distress, well appearing and well nourished. Assessment 1. Benign essential hypertension (401.1) (I10) 2. Depression (311) (F32.9) 3. Obesity, morbid, BMI 40.0-49.9 (278.01) (E66.01) 4. Insomnia (780.52) (G47.00) Plan Benign essential hypertension, Depression, Insomnia, Obesity, morbid, BMI 40.0-49.9, Screening for endocrine, nutritional, metabolic and immunity disorder, Screening for heart disease, Screening for prostate cancer 1. LC-CBC With Differential/Platelet [id number]; Status:Complete; Done: 31Jan2018 11:30AM Performed:[facility]; Due:02Mar2018;Ordered; For:Benign essential hypertension, Depression, Insomnia, Obesity, morbid, BMI 40.0-49.9, Screening for endocrine, nutritional, metabolic and immunity disorder, Screening for heart disease, Screening for prostate cancer; Ordered By:Ajay Anne; 2. LC-Comp. Metabolic Panel ( CMP ) [id number]; Status:Complete; Done: 31Jan2018 11:30AM Performed:[facility]; Due:02Mar2018;Ordered; For:Benign essential hypertension, Depression, Insomnia, Obesity, morbid, BMI 40.0-49.9, Screening for endocrine, nutritional, metabolic and immunity disorder, Screening for heart disease, Screening for prostate cancer; Ordered By:Ajay Anne; 3. LC-Lipid Panel With LDL/HDL Ratio 517383; Status:Complete; Done: 31Jan2018 11:30AM Performed:[facility]; Due:02Mar2018;Ordered; For:Benign essential hypertension, Depression, Insomnia, Obesity, morbid, BMI 40.0-49.9, Screening for endocrine, nutritional, metabolic and immunity disorder, Screening for heart disease, Screening for prostate cancer; Ordered By:Ajay Anne; 4. LC-PSA Total ( Reflex To Free ) 528884; Status:Complete; Done: 31Jan2018 11:30AM Performed:[facility]; Due:02Mar2018;Ordered; For:Benign essential hypertension, Depression, Insomnia, Obesity, morbid, BMI 40.0-49.9, Screening for endocrine, nutritional, metabolic and immunity disorder, Screening for heart disease, Screening for prostate cancer; Ordered By:Ajay Anne; 5. LC-TSH reflex to T4F 517697; Status:Complete; Done: 31Jan2018 11:30AM Performed:[facility]; Due:02Mar2018;Ordered; For:Benign essential hypertension, Depression, Insomnia, Obesity, morbid, BMI 40.0-49.9, Screening for endocrine, nutritional, metabolic and immunity disorder, Screening for heart disease, Screening for prostate cancer; Ordered By:Ajay Anne; 6. LC-Uric Acid, Serum 229106; Status:Complete; Done: 31Jan2018 11:30AM Performed:[facility]; Due:02Mar2018;Ordered; For:Benign essential hypertension, Depression, Insomnia, Obesity, morbid, BMI 40.0-49.9, Screening for endocrine, nutritional, metabolic and immunity disorder, Screening for heart disease, Screening for prostate cancer; Ordered By:Ajay Anne; 7. LC-Urine with reflex to Culture, Routine [id number]; Status:Canceled - Manual Activation; Perform:[facility]; Due:02Mar2018; Last Updated By:Latanya Lopez; 01/31/2018 12:06:14 PM;Ordered; For:Benign essential hypertension, Depression, Insomnia, Obesity, morbid, BMI 40.0-49.9, Screening for endocrine, nutritional, metabolic and immunity disorder, Screening for heart disease, Screening for prostate cancer; Ordered By:Ajay Anne; 8. LC-Vitamin D, 25-Hydroxy 217415; Status:Complete; Done: 31Jan2018 11:30AM Performed:[facility]; Due:02Mar2018;Ordered; For:Benign essential hypertension, Depression, Insomnia, Obesity, morbid, BMI 40.0-49.9, Screening for endocrine, nutritional, metabolic and immunity disorder, Screening for heart disease, Screening for prostate cancer; Ordered By:Ajay Anne; Depression 9. ARIPiprazole 10 MG Oral Tablet (Abilify); TAKE 1 TABLET DAILY Rx By: Ajya Anne; Dispense: 30 Days ; #:30 Tablet; Refill: 3; For: Depression; ETRRI = N; Verified Transmission to [facility]; Last Updated By: Neftali Boyer; 01/31/2018 11:16:52 AM Obesity, morbid, BMI 40.0-49.9 10. Begin or continue regular aerobic exercise. Gradually work up to at least 3 sessions of 30 minutes of exercise a week.; Status:Complete; Done: 31Jan2018 Last Updated By:Latanya Lopez; 01/31/2018 10:44:28 AM;Ordered; For:Obesity, morbid, BMI 40.0-49.9; Ordered By:Ajay Anne; 11. We recommend that you change your eating habits slowly.; Status:Complete; Done: 31Jan2018 Last Updated By:Latanya Lopez; 01/31/2018 10:44:28 AM;Ordered; For:Obesity, morbid, BMI 40.0-49.9; Ordered By:Ajay Anne; Signatures Electronically signed by : Ajay Anne M.D.; Feb 04 2018 9:42PM HEAD PACKAGER (Author) documented in this encounter Plan of Treatment Not on file documented as of this encounter Procedures Procedure Name Priority Date/Time Associated Diagnosis Comments URINALYSIS AUTO DIP Routine 01/31/2018 1 2:13 PM CDT T4 AND TSH Routine 01/31/2018 11:30 AM CDT COMPREHENSIVE METABOLIC PANEL Routine 01/31/2018 11:30 AM CDT LIPID PANEL Routine 01/31/2018 11:30 AM CDT PSA, TOTAL AND FREE Routine 01/31/2018 1 1:30 AM CDT CBC W/DIFF AUTOMATED Routine 01/31/2018 11:30 AM CDT VITAMIN D, 25 OH Routine 01/31/2018 11:3 0 AM CDT URIC ACID BLOOD Routine 01/31/2018 11:30 AM CDT documented in this encounter Results * URINALYSIS AUTO DIP (01/31/2018 12:13 PM CDT) COLOR (U) Yellow [facility] T O EPIC CONVERSION TRANSPARENCY Clear [facility] P TO EPIC CONVERSION GLUCOSE Negative [facility] EPIC CONVERSION BILIRUBIN (U) Negative [facility] UP TO EPIC CONVERSION KETONE (U) Negative [facility] TO [facility]IC CONVERSION SPECIFIC GRAVITY (U) 1.015 [facility] TO EPIC CONVERSION BLOOD (U) Negative [facility] EPIC CONVERSION PH (U) 6.0 5.0 - 7.0 [facility] T O EPIC CONVERSION PROTEIN (ELP) (U) Negative [facility] TO EPIC CONVERSION UROBILINOGEN 0.2 E.U./dL [facility] OUP TO EPIC CONVERSION NITRITES neg [facility] T O EPIC CONVERSION LEUKOCYTES (U) Negative [facility] OUP TO EPIC CONVERSION 01/31/2018 12:1 3 PM CDT 01/31/2018 12:13 PM CDT Narrative [facility] TO EPIC CONVERSION - 01/31/2018 12:13 PM CDT Result Communication: No patient communication needed at this time Ajay Anne MD URINE ORDERABLES Final Result [facility] TO EPIC CONVERSION * LIPID PANEL (01/31/2018 11:30 AM CDT) CHOLESTEROL 169 100 - 199 mg/dL [facility] TO EPIC CONVERSION TRIGLYCERIDES 98 0 - 149 mg/dL [facility] TO [facility]IC CONVERSION HDL 53 >39 mg/dL [facility] EPIC CONVERSION VLDL CALCULATION 20 5 - 40 mg/dL [facility] TO EPIC CONVERSION LDL (CALCULATED) 96 0 - 99 mg/dL [facility] TO EPIC CONVERSION LDL/HDL 1.8 0.0 - 3.6 ratio [facility] TO EPIC CONVERSION Comment: Result Comment: ?LDL/HDL Ratio ? Men ??Women ? 1/2 Avg.Risk ??1.0 ?1.5 ? Avg.Risk ??3.6 ?3.2 ?2X Avg.Risk ??6.2 ?5.0 ?3X Avg.Risk ??8.0 ?6.1 COMMENT [facility] T O EPIC CONVERSION 01/31/2018 11:3 0 AM CDT 01/31/2018 11:30 AM CDT Narrative [facility] TO EPIC CONVERSION - 02/01/2018 8:36 AM CDT Result Communication: Call patient with results us Ajay Anne MD LABORATORY Final Result [facility] TO EPIC CONVERSION * (ABNORMAL) VITAMIN D, 25 OH (01/31/2018 11:30 AM CDT) VITAMIN D 25 HYDROXY S/P/B 28.0(L) 30.0 - 100.0 ng/mL [facility] TO EPIC CONVERSION Comment: Result Comment: Vitamin D deficiency has been defined by the [place] of [employer] and an Endocrine Society practice guideline as a level of serum 25-OH vitamin D less than 20 ng/mL (1,2). The Endocrine Society went on to further define vitamin D insufficiency as a level between 21 and 29 ng/mL (2). 1. IOM ([place] of [employer]). 2010. Dietary reference ?? intakes for calcium and D. [place]: The ?? National [employer]. 2. Isabel MF, Bandar GUTIÉRREZ, Warren RANDHAWA, et al. ?? Evaluation, treatment, and prevention of vitamin D ?? deficiency: an Endocrine Society clinical practice ?? guideline. JCEM. 2010; 96(1):1911-30. 01/31/2018 11:3 0 AM CDT 01/31/2018 11:30 AM CDT Narrative [facility] TO EPIC CONVERSION - 02/01/2018 8:36 AM CDT Result Communication: Call patient with results Ajay Anne MD LABORATORY Final Result Performing Organization Address [facility] Phone Number [facility] TO EPIC CONVERSION * URIC ACID BLOOD (01/31/2018 11:30 AM CDT) URIC ACID 6.3 3.7 - 8.6 mg/dL [facility] TO EPIC CONVERSION Comment: Result Comment: ? Therapeutic target for gout patients: <6.0 01/31/2018 11:3 0 AM CDT 01/31/2018 11:30 AM CDT Narrative [facility] TO EPIC CONVERSION - 02/01/2018 8:36 AM CDT Result Communication: Call patient with results Ajay Anne MD LABORATORY Final Result Performing Organization Address [facility] de Phone Number [facility] TO EPIC CONVERSION * PSA, TOTAL AND FREE (01/31/2018 11:30 AM CDT) PSA 0.9 0.0 - 4.0 ng/mL [facility] TO EPIC CONVERSION Comment: Result Comment: Bjorn ECLIA methodology. ? . According to the [place] [employer], Serum PSA should decrease and remain at undetectable levels after radical prostatectomy. The AUA defines biochemical recurrence as an initial PSA value 0.2 ng/mL or greater followed by a subsequent confirmatory PSA value 0.2 ng/mL or greater. Values obtained with different assay methods or kits cannot be used interchangeably. Results cannot be interpreted as absolute evidence of the presence or absence of malignant disease. COMMENT [facility] T O EPIC CONVERSION Comment: Result Comment: The percent free PSA is performed on a reflex basis only when the total PSA is between 4.0 and 10.0 ng/mL. 01/31/2018 11:3 0 AM CDT 01/31/2018 11:30 AM CDT Narrative [facility] TO EPIC CONVERSION - 02/01/2018 8:36 AM CDT Result Communication: Call patient with results Ajay Anne MD LABORATORY Final Result Performing Organization Address [facility] Phone Number [facility] TO EPIC CONVERSION * T4 AND TSH (01/31/2018 11:30 AM CDT) TSH 0.834 0.450 - 4.500 uIU/mL [facility] TO EPIC CONVERSION 01/31/2018 11:3 0 AM CDT 01/31/2018 11:30 AM CDT Narrative [facility] TO EPIC CONVERSION - 02/01/2018 8:36 AM CDT Result Communication: Call patient with results Ajay Anne MD LABORATORY Final Result Performing Organization Address [facility] de Phone Number [facility] TO EPIC CONVERSION * (ABNORMAL) CBC W/DIFF AUTOMATED (01/31/2018 11:30 AM CDT) WBC 8.1 3.4 - 10.8 x10E3/uL [facility] TO EPIC CONVERSION RBC 5.53 4.14 - 5.80 x10E6/uL [facility] TO EPIC CONVERSION HEMOGLOBIN MIXED VENOUS 17.3 13.0 - 17.7 g/dL [facility] TO EPIC CONVERSION HCT 51.1(H) 37.5 - 51.0 % [facility] TO EPIC CONVERSION MCV 92 79 - 97 fL [facility] TO EPIC CONVERSION MCH 31.3 26.6 - 33.0 pg [facility] TO EPIC CONVERSION MCHC 33.9 31.5 - 35.7 g/dL [facility] TO EPIC CONVERSION RDW 13.6 12.3 - 15.4 % [facility] TO EPIC CONVERSION PLT 131(L) 150 - 379 x10E3/uL [facility] TO [facility]IC CONVERSION SEG NEUTROPHILS 68 Not Estab. % [facility] TO EPIC CONVERSION LYMPHOCYTES 22 Not Estab. % [facility] TO EPIC CONVERSION MONOCYTES 7 Not Estab. % [facility] TO EPIC CONVERSION EOSINOPHILS 2 Not Estab. % [facility] TO EPIC CONVERSION BASOPHILS % 1 Not Estab. % [facility] TO EPIC CONVERSION IMMATURE CELLS [facility] OUP TO EPIC CONVERSION ABS. NEUTROPHILS 5.6 1.4 - 7.0 x10E3/uL [facility] TO EPIC CONVERSION ABS. LYMPHOCYTES 1.8 0.7 - 3.1 x10E3/uL [facility] TO EPIC CONVERSION ABS. MONOCYTES 0.6 0.1 - 0.9 x10E3/uL [facility] TO EPIC CONVERSION ABS. EOSINOPHILS 0.1 0.0 - 0.4 x10E3/uL [facility] TO EPIC CONVERSION ABS. BASOPHILS 0.1 0.0 - 0.2 x10E3/uL [facility] TO EPIC CONVERSION IMMATURE CELLS 0 Not Estab. % [facility] TO EPIC CONVERSION ABS. IMMATURE GRANULOCYTES 0.0 0.0 - 0.1 x10E3/uL [facility] TO EPIC CONVERSION NRBC [facility] T O EPIC CONVERSION CBC COMMENT [facility] TO EPIC CONVERSION 01/31/2018 11:3 0 AM CDT 01/31/2018 11:30 AM CDT Narrative [facility] TO EPIC CONVERSION - 02/01/2018 8:36 AM CDT Result Communication: Call patient with results us Ajay Anne MD LABORATORY Final Result [facility] TO EPIC CONVERSION * (ABNORMAL) COMPREHENSIVE METABOLIC PANEL (01/31/2018 11:30 AM CDT) Pathologist [facility] GLUCOSE 103(H) 65 - 99 mg/dL [facility] TO EPIC CONVERSION BUN 11 6 - 24 mg/dL [facility] TO EPIC CONVERSION CREATININE S/P/B 0.92 0.76 - 1.27 mg/dL [facility] TO EPIC CONVERSION EGFR NON-AFR. AMER. 93 >59 mL/min/1.7 3 [facility] TO EPIC CONVERSION EGFR AFR. AMER. 108 >59 mL/min/1.7 3 [facility] TO EPIC CONVERSION BUN CREATININE RATIO 12 9 - 20 [facility] TO EPIC CONVERSION SODIUM S/P/B 143 134 - 144 mmol/L [facility] TO EPIC CONVERSION POTASSIUM S/P/B 4.6 3.5 - 5.2 mmol/L [facility] TO EPIC CONVERSION CHLORIDE S/P/B 101 96 - 106 mmol/L [facility] TO EPIC CONVERSION TCO2 23 18 - 29 mmol/L [facility] TO EPIC CONVERSION CALCIUM S/P/B 9.8 8.7 - 10.2 mg/dL [facility] TO EPIC CONVERSION PROTEIN 7.3 6.0 - 8.5 g/dL [facility] TO EPIC CONVERSION ALBUMIN S/P/B 4.8 3.5 - 5.5 g/dL [facility] TO EPIC CONVERSION GLOBULIN 2.5 1.5 - 4.5 g/dL [facility] TO EPIC CONVERSION A/G RATIO 1.9 1.2 - 2.2 [facility] T O EPIC CONVERSION BILIRUBIN TOTAL (FLUID) 0.3 0.0 - 1.2 mg/dL [facility] TO EPIC CONVERSION ALKALINE PHOSPHATASE S/P/B 73 39 - 117 IU/L [facility] TO EPIC CONVERSION AST 25 0 - 40 IU/L [facility] TO EPIC CONVERSION ALT 44 0 - 44 IU/L [facility] TO EPIC CONVERSION 01/31/2018 11:3 0 AM CDT 01/31/2018 11:30 AM CDT Narrative [facility] TO EPIC CONVERSION - 02/01/2018 8:36 AM CDT Result Communication: Call patient with results us Ajay Anne MD LABORATORY Final Result [facility] TO EPIC CONVERSION documented in this encounter Visit Diagnoses Not on filedocumented in this encounter
--- OUTSIDE RECORDS SUMMARY | 2024-09-30 23:18 | XMS_ITS | Encounter Summary ---
Author Organization [facility] Address [address] [place] [address]. [place], [place] [address] [place] [address] Care Team Providers Care Actuary Name Role Phone Ajay Anne MD Primary Care Provider [phone] Encounter Details Date Type Department Care Team (Latest Contact Info) Description 09/13/2020 Scan HEALTH INFO SRVCS Scanned, Documents Social History [...] COVID-19? 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
--- OUTSIDE RECORDS SUMMARY | 2024-09-30 23:18 | XMS_ITS | Encounter Summary ---
Author Organization [facility] Address [address] [place] [address]. [place], [place] [address] [place] [address] Care Team Providers Care Utilities Operator Name Role Phone Ajay Anne MD Primary Care Provider [phone] Encounter Details Date Type Department Care Team (Latest Contact Info) Description 01/27/2019 Scan HEALTH INFO SRVCS Scanned, Documents Social [...] Diagnoses Not on filedocumented in this encounter Care Teams Utilities Operator Relationship Specialty Start Date End Date Ajay Anne MD [address] [place] [id number] PCP - General INTERNAL MEDICINE 10/07/18 documented as of this encounter
--- OUTSIDE RECORDS SUMMARY | 2024-09-30 23:18 | XMS_ITS | Encounter Summary ---
Author Organization [facility] Address [address] [place] [address]. [place], [place] [address] [place] [id number] Care Team Providers Care Casino Cage Supervisor Name Role Phone Ajay Anne MD Primary Care Provider [phone] Reason for Visit * Reason Comments Follow Up Depression Encounter Details Date Type Department Care Team (Late st Contact Info) Description 09/20/2020 1:40 PM HAND DEICER ELEMENT WINDER Office Visit [facility] Family & Internal Medicine [id number] [place] [address] Ajay Anne MD [address] [place] [address] Follow Up; Depression Social History Tobacco Use Types Packs/Day Years [...] COVID-19? No / Unsure 09/20/2020 1:30 PM HAND DEICER ELEMENT WINDER documented as of this encounter Last Filed Vital Signs Vital Sign Reading Time Taken Comments Blood Pressure 134/89 09/20/2020 1:42 PM HAND DEICER ELEMENT WINDER Pulse 101 09/20/2020 1:42 PM HAND DEICER ELEMENT WINDER Temperature 36.9 ??C (98.4 ??F) 09/20/2020 1:42 PM CS T Respiratory Rate 16 09/20/2020 1:42 PM HAND DEICER ELEMENT WINDER Oxygen Saturation 96% 09/20/2020 1:42 PM HAND DEICER ELEMENT WINDER Inhaled Oxygen Concentration - - Weight 114.8 kg (253 lb) 09/20/2020 1:42 PM HAND DEICER ELEMENT WINDER Height 167.6 cm (5' 6 ) 09/20/2020 1:42 PM HAND DEICER ELEMENT WINDER Body Mass Index 40.84 09/20/2020 1:42 PM HAND DEICER ELEMENT WINDER documented in this encounter Progress Notes * Ajay Anne MD - 09/20/2020 1:40 PM CST Images from the original note were not included. Office Progress Note Reason for Visit: Follow Up and Depression History of Present Illness: He is here today for 1 month follow-up. Depression: Patient was started on Vraylar and then was subsequently seen by psychiatry. Vraylar was stopped at that time and he was transitioned to Cymbalta. States that he is doing well on this dosage and no longer is having suicidal thoughts or even suicidal ideations. He has no side effects from the medication. He has not yet started therapy but does have plans to start this after the first of the year. Hypertension: Well-controlled on current medications. He is compliant with medication no medicationside effects. He denies chest pain, shortness of breath, headaches, lightheadedness or dizziness. He has having problems with erectile function. He is able to obtain an erection but not to sustain the erection. He is wondering if he is a candidate to use medication to help with erectile function.We discussed pluses and minuses of medication no prescriptions written for sildenafil. ROS: Review of Systems Constitutional: Negative for [...] back pain, joint pain and myalgias. Skin: Negative for itching and rash. Neurological: Negative for weakness and headaches. Psychiatric/Behavioral: Positive for depression. Negative for substance abuse and suicidal ideas. The patient does not have insomnia. Medications: Current Outpatient Medications on File Prior to Visit Medication Sig ??? DULoxetine 30 MG capsule Take 30 mg by mouth daily. ??? lisinopril 10 MG tablet Take 1 tablet (10 mg total) by mouth daily. Patient must be seen for further refills. Virtual Visits now available ??? rivaroxaban (XARELTO) 20 MG Tab tablet Take 1 tablet (20 mg total) by mouth daily with supper. Administer with food Patient must be seen for further refills, virtual visits now available No current facility-administered medications on file prior [...] resource strain: Not on file ??? Food insecurity Worry: Not on file Inability: Not on file ??? Transportation needs Medical: Not on file Non-medical: Not on file Tobacco Use ??? Smoking status: Never Smoker ??? Smokeless tobacco: Never Used Substance and Sexual Activity ??? Alcohol use: Not Currently Comment: not in the last couple of months ??? Drug use: No ??? Sexual activity: Not on file Lifestyle ??? Physical activity Days per week: Not on file Minutes per session: Not on file ??? Stress: Not on file Relationships ??? Social connections Talks on phone: Not on file Gets together: Not on file Attends episcopal service: Not on file Active member of club or organization: Not on file Attends meetings of clubs or organizations: Not on file Relationship status: Not on file ??? Intimate partner violence Fear of current or ex partner: Not on file Emotionally abused: Not on file Physically abused: Not on file Forced sexual activity: Not on file Other Topics Concern ??? Not on file Social History Narrative ??? Not on file Family History: Family History Problem Relation Name Age of Onset ??? Cancer Mother Malignant neoplasm ??? Hypertension Other Family History PE: Physical Exam Constitutional: He is oriented to person, place, and time. He appears well- developed and well-nourished. HENT: Head: Normocephalic and atraumatic. Eyes: Pupils are equal, round, and reactive to light. Conjunctivae and EOM are normal. Cardiovascular: Normal rate, regular rhythm and normal heart sounds. Exam reveals no gallop and no friction rub. No murmur heard. Pulmonary/Chest: Effort normal and breath sounds normal. No respiratory distress. He has no wheezes. Neurological: He is alert and oriented to person, place, and time. Skin: Skin is warm and dry. Psychiatric: He has a normal mood and affect. His behavior is normal. Judgment normal. Filed Vitals: 09/20/20 1342 BP: 134/89 Pulse: 101 Resp: 16 Temp: 98.4 ??F (36.9 ??C) TempSrc: Skin SpO2: 96% Weight: 114.8 kg (253 lb) Height: 5' 6 (1.676 m) Diagnoses/Impression: 1. Erectile dysfunction, unspecified erectile dysfunction type sildenafil (VIAGRA) 50 MG tablet 2. Benign essential hypertension 3. Severe depression (CMS/HCC) Recommendations and Plan: 1. Erectile dysfunction, unspecified erectile dysfunction type Trial of Viagra on a prn basis - sildenafil (VIAGRA) 50 MG tablet; Take 1 tablet (50 mg total) by mouth daily as needed for Erectile Dysfunction. Dispense: 30 tablet; Refill: 3 2. Benign essential hypertension Well controlled, continue with the same medications. 3. Severe depression (CMS/HCC) Doing better on Cymbalta, keep follow up appointment with psychiatry Encouraged him to follow through with counseling. Orders Placed This Encounter ??? DULoxetine 30 MG capsule ??? sildenafil (VIAGRA) 50 MG tablet Cannot display discharge medications since this is not an admission. PCP: AJAY ANNE MD 09/20/2020 DEICER ELEMENT WINDER documented in this encounter Plan of Treatment Not on file documented as of this encounter Visit Diagnoses Diagnosis Erectile dysfunction, unspecified erectile dysfunction type- Primary Benign essential hypertension Essential hypertension, benign Severe depression ([facility]) Depressive disorder, not elsewhere classified documented in this encounter Additional Health Concerns Assessment Noted Time PHQ-9 Depression Total Score: 25 020 2:57 PM HAND DEICER ELEMENT WINDER documented as of this encounter Care Teams Casino Cage Supervisor Relationship Specialty Start Date End Date Ajay Anne MD [address] [place] [address] PCP - General INTERNAL MEDICINE 10/07/18 documented as of this encounter
--- OUTSIDE RECORDS SUMMARY | 2024-09-30 23:18 | XMS_ITS | Encounter Summary ---
Author Organization [facility] Address [address] [place] [address]. [place], [place] [id number] [place] [address] Care Team Providers Care College Sports Coach Name Role Phone Unavailable Primary Care Provider Unavailabl e Encounter Details Date Type Department Care Team (Latest Contact Info) Description 02/04/2018 Abstract [facility] Social History Tobacco Use Types Packs/Day Years Used Date Smoking Tobacco: Never Assessed Sex and Gender Information Value Date Recorded Sex Assigned at Not on file Legal Sex Male 5:32 PM CDT Gender Identity Not on file Sexual Orientation Not on file documented as of this encounter Progress Notes * Ajay Anne MD - 02/04/2018 5:19 PM CDT Message Vitamin D is low, start on Vitamin D3 5000 IU daily Other labs are good. patient informed - DX updated and recorded Rx- nw Verified Results LC-CBC With Differential/Platelet [id number] 11:30AM Ajay Anne Test Name Result Flag Reference WBC 8.1 x10E3/uL 3.4-10.8 RBC 5.53 x10E6/uL 4.14-5.80 Hemoglobin 17.3 g/dL 13.0-17.7 Hematocrit 51.1 % H 37.5-51.0 MCV 92 fL 79-97 MCH 31.3 pg 26.6-33.0 MCHC 33.9 g/dL 31.5-35.7 RDW 13.6 % 12.3-15.4 Platelets 131 x10E3/uL L 150-379 Neutrophils 68 % Not Estab. Lymphs 22 % Not Estab. Monocytes 7 % Not Estab. Eos 2 % Not Estab. Basos 1 % Not Estab. Immature Cells Neutrophils (Absolute) 5.6 x10E3/uL 1.4-7.0 Lymphs (Absolute) 1.8 x10E3/uL 0.7-3.1 Monocytes(Absolute) 0.6 x10E3/uL 0.1-0.9 Eos (Absolute) 0.1 x10E3/uL 0.0-0.4 Baso (Absolute) 0.1 x10E3/uL 0.0-0.2 Immature Granulocytes 0 % Not Estab. Immature Grans (Abs) 0.0 x10E3/uL 0.0-0.1 NRBC Hematology Comments: LC-Comp. Metabolic Panel ( CMP ) [id number] 31Jan2018 11:30AM Ajay Anne Test Name Result Flag Reference Glucose, Serum 103 mg/dL H 65-99 BUN 11 mg/dL 6-24 Creatinine, Serum 0.92 mg/dL 0.76-1.27 eGFR If NonAfricn Am 93 mL/min/1.73 >59 eGFR If Africn Am 108 mL/min/1.73 >59 BUN/Creatinine Ratio 12 9-20 Sodium, Serum 143 mmol/L 134-144 Potassium, Serum 4.6 mmol/L 3.5-5.2 Chloride, Serum 101 mmol/L 96-106 Carbon Dioxide, Total 23 mmol/L 18-29 Calcium, Serum 9.8 mg/dL 8.7-10.2 Protein, Total, Serum 7.3 g/dL 6.0-8.5 Albumin, Serum 4.8 g/dL 3.5-5.5 Globulin, Total 2.5 g/dL 1.5-4.5 A/G Ratio 1.9 1.2-2.2 Bilirubin, Total 0.3 mg/dL 0.0-1.2 Alkaline Phosphatase, S 73 IU/L 39-117 AST (SGOT) 25 IU/L 0-40 ALT (SGPT) 44 IU/L 0-44 LC-Lipid Panel With LDL/HDL Ratio [id number] 31Jan2018 11:30AM Ajay Anne Test Name Result Flag Reference Cholesterol, Total 169 mg/dL 100-199 Triglycerides 98 mg/dL 0-149 HDL Cholesterol 53 mg/dL >39 VLDL Cholesterol Miquel 20 mg/dL 5-40 LDL Cholesterol Calc 96 mg/dL 0-99 LDL/HDL Ratio 1.8 ratio 0.0-3.6 LDL/HDL Ratio Men Women 1/2 Avg.Risk 1.0 1.5 Avg.Risk 3.6 3.2 2X Avg.Risk 6.2 5.0 3X Avg.Risk 8.0 6.1 Comment: LC-PSA Total ( Reflex To Free ) [id number] 31Jan2018 11:30AM Ajay Anne Test Name Result Flag Reference Prostate Specific Ag, Serum 0.9 ng/mL 0.0-4.0 Bjorn ECLIA methodology. . According to the [place] [employer], Serum PSA should decrease and [...] the presence or absence of malignant disease. Reflex Criteria The percent free PSA is performed on a reflex basis only when the total PSA is between 4.0 and 10.0 ng/mL. LC-TSH reflex to [id number] [id number] 31Jan2018 11:30AM ElianeshirafreddyAjay Test Name Result Flag Reference TSH 0.834 uIU/mL 0.450-4.500 LC-Uric Acid, Serum [id number] 31Jan2018 11:30AM Ajay Anne Test Name Result Flag Reference Uric Acid, Serum 6.3 mg/dL 3.7-8.6 Therapeutic target for gout patients: <6.0 LC-Vitamin D, 25-Hydroxy [id number] 31Jan2018 11:30AM Ajay Anne Test Name Result Flag Reference Vitamin D, 25-Hydroxy 28.0 ng/mL L 30.0-100.0 Vitamin D deficiency has been defined by the [place] of [employer] and an Endocrine Society practice guideline as a level of serum 25-OH vitamin D less than 20 ng/mL (1,2). The Endocrine Society went on to further define vitamin D insufficiency as a level between 21 and 29 ng/mL (2). 1. IOM ([place] of [employer]). 2010. Dietary reference intakes for calcium and D. [place]: The National Academies Press. 2. Isabel MF, Bandar GUTIÉRREZ, Warren RANDHAWA, et al. Evaluation, treatment, and prevention of vitamin D deficiency: an Endocrine Society clinical practice guideline. JCEM. 2010; 96(7):1911-30. Plan Low vitamin D level ?? Vitamin D3 5000 UNIT Oral Tablet; Take 1 po qd documented in this encounter Plan of Treatment Not on file documented as of this encounter Visit Diagnoses Not on filedocumented in this encounter
--- OUTSIDE RECORDS SUMMARY | 2024-09-30 23:18 | XMS_ITS | Encounter Summary ---
Author Organization [facility] Address [address] [place] [address]. [place], [place] [address] [place] [address] Care Team Providers Care Production Graphic Designer Name Role Phone Unavailable Primary Care Provider Unavailabl e Encounter Details Date Type Department Care Team (Latest Contact Info) Description 03/07/2017 Abstract [facility] Social History Tobacco Use Types [...]
--- OUTSIDE RECORDS SUMMARY | 2024-09-30 23:18 | XMS_ITS | Encounter Summary ---
Author Organization [facility] Address [address] [place] [address]. [place], [place] [address] [place] [address] Care Team Providers Care Vault Installer Name Role Phone Unavailable Primary Care Provider Unavailabl e Encounter Details Date Type Department Care Team (Latest Contact Info) Description 12/13/2016 Abstract [facility] Social History Tobacco Use Types Packs/Day Years Used Date Smoking Tobacco: Never Assessed Sex and Gender Information Value Date Recorded Sex Assigned at Not on file Legal Sex Male 5:32 PM CDT Gender Identity Not on file Sexual Orientation Not on file documented as of this encounter Progress Notes * Ajay Anne MD - 12/13/2016 2:23 PM CDT Message Recorded as Task Date: 12/12/2016 01:28 PM, Created By: Myesha Alcantar Task Name: Medical Complaint Callback Assigned To: [facility] Team Omid Regarding Patient: Sivakumar Kinsey, Status: In Progress Comment: Myesha Alcantar - 12 Dec 2016 1:28 PM TASK CREATED Caller: Self; Medical Complaint; pt has a constant ringing in his ear for a few weeks afer he started trintellix and Bupropion and he wants to know if this could be a side effect is there any thing he can do? He also said he has no appetite at all. Pt does have an appointment on . Ajay Anne - 13 Dec 2016 8:46 AM TASK REASSIGNED: Previously Assigned To Ajay Anne Could be a side effect from the medications, not really sure what to do about this, we can discuss on . Shawnee Jones 13 Dec 2016 2:22 PM TASK IN PROGRESS Message: Pt updated-ivett Signatures Electronically signed by : Shawnee Jones R.N.; Dec 13 2016 2:24PM FOSTER CARE WORKER (Author) documented in this encounter Plan of Treatment Not on file documented as of this encounter Visit Diagnoses Not on filedocumented in this encounter
--- OUTSIDE RECORDS SUMMARY | 2024-09-30 23:18 | XMS_ITS | Encounter Summary ---
Author Organization [facility] Address [facility]. [place], [place] [address] [place] [id number] Care Team Providers Care Educational Therapy Teacher Name Role Phone Ajay Anne MD Primary Care Provider [phone] Reason for Referral * Consultation (Routine) - Closed Specialty Diagnoses / Procedures Referred By Contac t Referred To Contact Neurology Psychiatry Diagnoses Severe episode of recurrent major depressive disorder, without psychotic features ([facility]) Ajay Anne MD [address] [place] [address] Phone: tel: fax: Saw Dyer MD Phone: tel: fax: Referral ID Status Reason Start Date Expiration Date V isits Requested Visits Authorized [id number] Closed Specialty Services 08/16/2020 09/15/2021 100 100 Scheduling Instructions Refer to Dr. Saw Dyer in [place] [facility] Reason for Visit * Reason Comments Depression mood fluctuates freq uently. Patient was previously on aripiprazole, bupropion, and desvenlafaxin which were not effective. PHQ9 score: 25/30 Anxiety JACK 7 score: Encounter Details Date Type Department Care Team (Latest Contact Info) Description 08/16/2020 1:40 PM [facility] Office Visit [facility] Family [facility] Internal Medicine [address] [phone] Ajay Anne MD [address] [place] [phone] Depression (mood fluctuates frequently. Patient was previously on aripiprazole, bupropion, and desvenlafaxin which were not effective. PHQ9 score: 25/30); Anxiety (JACK 7 score: 19/21) Social History Tobacco Use Types Packs/Day Years [...] COVID-19? No / Unsure 08/16/2020 1:34 PM [facility] documented as of this encounter Last Filed Vital Signs Vital Sign Reading Time Taken Comments Blood Pressure 165/107 08/16/2020 1:49 PM [facility] Patient hasn't had BP medication in a few days Pulse 83 08/16/2020 1:49 PM [facility] Temperature 36.7 ??C (98.1 ??F) 08/16/2020 1 :49 PM [facility] Respiratory Rate 16 08/16/2020 1:49 PM [facility] Oxygen Saturation 96% 08/16/2020 1:4 9 PM [facility] Inhaled Oxygen Concentration - - Weight 111.1 kg (245 lb) 08/16/2020 1:4 9 PM [facility] Height 167.6 cm (5' 6 ) 08/16/2020 1:49 PM [facility] Body Mass Index 39.54 08/16/2020 1:49 PM [facility] documented in this encounter Progress Notes * Latanya Lopez MA - 08/16/2020 1:40 PM CSTSummary: Injection Note Injection Note: Patient was seated and procedure explained. After receiving informed consent, Fluzone Quadrivalent 0.5ml injected intramuscularly at left deltoid using aseptic technique. Site is clean and dry. Patient waited an appropriate amount of time, no s/sx of reaction observed, bandage applied. Patient tolerated well and voiced no concerns. Verified by [place]. [facility] * Ajay Anne MD - 08/16/2020 1:40 PM CST Images from the original note were not included. Office Progress Note Reason for Visit: Depression (mood fluctuates frequently. Patient was previously on aripiprazole, bupropion, and desvenlafaxin which were not effective. PHQ9 score: 25/30) and Anxiety (JACK 7 score: 19/21) History of Present Illness: He is here today accompanied by his who is helping with history. He has been much more jackson over the past few months and also has been very. He states that he has been off of medications for quite some time and he did not feel that his symptoms had improved even with medications. He has tried multiple different medications and was following with a psychiatrist but he did not feel the psychiatrist was helping much with his symptoms. He has not been seeing a c ounselor and have not seen a counselor in the past. Recently he has been very irritable and has hadmany confrontations with his . They have bordered on being physical but have not gotten to thatpoint. 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 He states that he has thought about suicide and at times has threatened his that he was going to kill himself but has never acted on this. His was concerned enough that they had the guns removed from their house so that nothing would be there and tempting him. He states that today he is not suicidal but on Sunday he was having thoughts of suicide and was threatening this to his . ROS: Review of Systems Constitutional: Negative for [...] for weakness and headaches. Psychiatric/Behavioral: Positive for depression and suicidal ideas. Negative for substance abuse. The patient is nervous/anxious and has insomnia. Medications: Current Outpatient Medications on File Prior to Visit Medication Sig ??? lisinopril 10 MG tablet Take 1 tablet (10 mg total) by mouth daily. Patient must be seen for further refills. Virtual Visits now available No current facility-administered medications on [...] file Gets together: Not on file Attends latter-day service: Not on file Active member of [...] behavior is normal. Judgment normal. Filed Vitals: 08/16/20 1349 BP: (!) 165/107 Pulse: 83 Resp: 16 Temp: 98.1 ??F (36.7 ??C) TempSrc: Skin SpO2: 96% Weight: 111.1 kg (245 lb) Height: 5' 6 (1.676 m) Diagnoses/Impression: 1. Severe episode of recurrent major depressive disorder, without psychotic features (CMS/HCC) cariprazine (VRAYLAR) 1.5 MG capsule Ambulatory Referral to Psychiatry CBC W/DIFF AUTOMATED COMPREHENSIVE METABOLIC PANEL LIPID PANEL TESTOSTERONE, FREE & TOTAL TSH W/REFLEX URIC ACID BLOOD URINALYSIS WI REFLEX TO CULTURE VITAMIN D, 25 OH CANCELED: CBC W/DIFF AUTOMATED CANCELED: LIPID PANEL CANCELED: TSH W/REFLEX CANCELED: VITAMIN D, 25 OH CANCELED: URINALYSIS WI REFLEX TO CULTURE CANCELED: URIC ACID BLOOD CANCELED: COMPREHENSIVE METABOLIC PANEL CANCELED: TESTOSTERONE, FREE & TOTAL 2. Screening for prostate cancer PROSTATE SPECIFIC ANTIGEN,SCREENING CANCELED: PROSTATE SPECIFIC ANTIGEN,SCREENING 3. Left leg DVT (CMS/HCC) rivaroxaban (XARELTO) 20 MG Tab tablet 4. Need for immunization against influenza [22005] FLU VACC QUAD 6 MONTHS+ 0.5 ML (SINGLE DOSE SYRINGE FLUZONE, FLUARIX, FLULAVAL OR SINGLE DOSE VIAL FLUZONE) Recommendations and Plan: 1. Severe episode of recurrent major depressive disorder, without psychotic features (CMS/HCC) Start on Vraylar to help with depression and possible bipolar disorder Refer to psychiatry - Dr. Dyer Patient advised to call if worsening, if he becomes suicidal he should proceed to the ER immediately. - cariprazine (VRAYLAR) 1.5 MG capsule; Take 1 capsule (1.5 mg total) by mouth daily. Dispense: 28 capsule; Refill: 0 - Ambulatory Referral to Psychiatry - CBC W/DIFF AUTOMATED; Future - COMPREHENSIVE METABOLIC PANEL; Future - LIPID PANEL; Future - TESTOSTERONE, FREE & TOTAL; Future - TSH W/REFLEX; Future - URIC ACID BLOOD; Future - URINALYSIS WI REFLEX TO CULTURE; Future - VITAMIN D, 25 OH; Future - CBC W/DIFF AUTOMATED - COMPREHENSIVE METABOLIC PANEL - LIPID PANEL - TESTOSTERONE, FREE & TOTAL - TSH W/REFLEX - URIC ACID BLOOD - URINALYSIS WI REFLEX TO CULTURE - VITAMIN D, 25 OH 2. Screening for prostate cancer - PROSTATE SPECIFIC ANTIGEN,SCREENING; Future - PROSTATE SPECIFIC ANTIGEN,SCREENING 3. Left leg DVT (CMS/HCC) Continue with Xarelto at this time - rivaroxaban (XARELTO) 20 MG Tab tablet; Take 1 tablet (20 mg total) by mouth daily with supper. Administer with food Patient must be seen for further refills, virtual visits now available Dispense: 30 tablet; Refill:0 4. Need for immunization against influenza - [64357] FLU VACC QUAD 6 MONTHS+ 0.5 ML (SINGLE DOSE SYRINGE FLUZONE, FLUARIX, FLULAVAL OR SINGLE DOSE VIAL FLUZONE) Time Spent: Over 25 minutes was spent in direct patient consultation and the majority of that time (>50%) was spent on counseling and coordination of care. Orders Placed This Encounter ??? CBC W/DIFF AUTOMATED ??? COMPREHENSIVE METABOLIC PANEL ??? LIPID PANEL ??? PROSTATE SPECIFIC ANTIGEN,SCREENING ? ? TESTOSTERONE, FREE & TOTAL ??? TSH W/REFLEX ??? URIC ACID BLOOD ??? URINALYSIS WI REFLEX TO CULTURE ??? VITAMIN D, 25 OH ??? Ambulatory Referral to Psychiatry ??? [35761] FLU VACC QUAD 6 MONTHS+ 0.5 ML (SINGLE DOSE SYRINGE FLUZONE, FLUARIX, FLULAVAL OR SINGLE DOSE VIAL FLUZONE) ??? rivaroxaban (XARELTO) 20 MG Tab tablet ??? cariprazine (VRAYLAR) 1.5 MG capsule Cannot display discharge medications since this is not an admission. PCP: AJAY ANNE MD 08/16/2020 [facility] * Ajay Anne MD - 08/16/2020 1:40 PM CST Vitamin D is low, start on Vitamin D3 5000 IU daily. Other labs are good. [facility] documented in this encounter Plan of Treatment Scheduled Referrals Name Type Priority Associated Diagnoses Orde r Schedule Ambulatory Referral to Psychiatry Referral Routine Severe episode of recurrent major depressive disorder, without psychotic features (CMS/HCC HHS/HCC) Ordered: 08/16/2020 documented as of this encounter Procedures Procedure Name Priority Date/Time Associated Diagnosis Comments URINALYSIS WI REFLEX TO CULTURE Routine 08/27/2020 9:35 AM [facility] TSH W/REFLEX Routine 08/27/2020 9:35 AM [facility] Severe episode of recurrent major depressive disorder, without psychotic features (CMS/HCC HHS/HCC) TESTOSTERONE, FREE & TOTAL Routine 08/27/2020 9:35 AM [facility] Severe episode of recurrent major depressive disorder, without psychotic features (CMS/HCC HHS/HCC) PROSTATE SPECIFIC ANTIGEN,SCREENING Routine 08/27/2020 9:35 AM [facility] Screening for prostate cancer COMPREHENSIVE METABOLIC PANEL Routine 08/27/2020 9:35 AM [facility] Severe episode of recurrent major depressive disorder, without psychotic features (CMS/HCC HHS/HCC) LIPID PANEL Routine 08/27/2020 9:35 AM [facility] Severe episode of recurrent major depressive disorder, without psychotic features (CMS/HCC HHS/HCC) CBC W/DIFF AUTOMATED Routine 08/27/2020 9:35 AM [facility] Severe episode of recurrent major depressive disorder, without psychotic features (CMS/HCC HHS/HCC) VITAMIN D, 25 OH Routine 08/27/2020 9:35 AM [facility] URIC ACID BLOOD Routine 08/27/2020 9:35 AM [facility] Severe episode of recurrent major depressive disorder, without psychotic features (CMS/HCC HHS/HCC) documented in this encounter Results * (ABNORMAL) VITAMIN D, 25 OH (08/27/2020 9:35 AM [facility]) VITAMIN D 25 HYDROXY TOTAL S/P/B 18(L) 30 - 100 ng/mL [facility] Comment: Vitamin D, 25-Hydroxy reports concentrations of two common forms, 25-OHD2 and 25-OHD3. 25-OHD3 indicates both endogenous production and supplementation. 25-OHD2 is an indicator of exogenous sources, such as diet or supplementation. Therapy is based on measurement of Total 25-OHD, with levels <20 ng/mL indicative of Vitamin D deficiency, while levels between 20 ng/mL and 30 ng/mL suggest insufficiency. Optimal levels are > or = 30 ng/mL. Vitamin D is fat-soluble and therefore inadvertent or intentional ingestion of excessively high amounts could be toxic. Studies in children and adults suggest blood levels would need to exceed 150 ng/mL before there is any concern. Isabel MF, Bandar GUTIÉRREZ, Scotty RANDHAWA, et al., Evaluation, treatment, and prevention of vitamin D deficiency: an Endocrine Society clinical practice guideline. J Clin. Endocrinol. Metab. 2011;96(7):1911-30. VITAMIN D 25 HYDROXY D3 S/P/B 18 See Note: ng/mL [facility] Comment: Reference Range: Reference Range Not established This test was developed and its analytical performance characteristics have been determined by [facility]. It has not been cleared or approved by the FDA. This assay has been validated pursuant to the CLIA regulations and is used for clinical purposes. VITAMIN D 25 HYDROXY D2 S/P/B <4 See Note: ng/mL [facility] Comment: Reference Range: Reference Range Not established This test was developed and its analytical performance characteristics have been determined by [facility]. It has not been cleared or approved by the FDA. This assay has been validated pursuant to the CLIA regulations and is used for clinical purposes. See Note 1 Note 1 For additional information, please refer to http://education.GERS/faq/VWZ992 (This link is being provided for informational/ educational purposes only.) 08/27/2020 9:35 AM [facility] 08/27/2020 9:36 AM [facility] Narrative [facility] - 09/01/2020 1:38 PM [facility] FASTING:YES FASTING: YES us Ajay Anne MD LABORATORY Final Result [facility] [address] [place] [address] * URINALYSIS WI REFLEX TO CULTURE (08/27/2020 9:35 AM [facility]) COLOR (U) YELLOW YELLOW [facility] APPEARANCE SEMEN CLEAR CLEAR [facility] SPECIFIC GRAVITY (U) 1.019 1.001 - 1.035 [facility] PH (U) < OR = 5.0 5.0 - 8.0 [facility] URINE GLUCOSE NEGATIVE NEGATIVE [facility] BILIRUBIN (U) NEGATIVE NEGATIVE [facility] KETONE (U) NEGATIVE NEGATIVE [facility] BLOOD (U) NEGATIVE NEGATIVE [facility] PROTEIN (U) NEGATIVE NEGATIVE [facility] NITRITES NEGATIVE NEGATIVE [facility] LEUKOCYTES (U) NEGATIVE NEGATIVE [facility] WBC/HPF NONE SEEN < OR = 5 /HPF [facility] RBC/HPF NONE SEEN < OR = 2 /HPF [facility] SQUAMOUS EPITHELIAL (U) NONE SEEN < OR = 5 /HPF [facility] BACTERIA (U) NONE SEEN NONE SEEN /HPF [facility] HYALINE CASTS NONE SEEN NONE SEEN /LPF [facility] REFLEX URINE CULTURE: [facility] Comment:NO CULTURE INDICATED 08/27/2020 9:35 AM [facility] 08/27/2020 9:36 AM [facility] Narrative [facility] - 09/01/2020 1:38 PM [facility] FASTING:YES FASTING: YES Ajay Anne MD URINE ORDERABLES Final Result Performing Organization Address [facility] de Phone Number [facility] [address] [place] [address] * URIC ACID BLOOD (08/27/2020 9:35 AM [facility]) Pathologist [facility] URIC ACID 6.2 4.0 - 8.0 mg/dL [facility] Comment: Therapeutic target for gout patients: <6.0 mg/dL ?? 08/27/2020 9:35 AM [facility] 08/27/2020 9:36 AM [facility] Narrative [facility] - 09/01/2020 1:38 PM [facility] FASTING:YES FASTING: YES Ajay Anne MD LABORATORY Final Result Performing Organization Address [facility] de Phone Number [facility] [address] [place] [address] * TSH W/REFLEX (08/27/2020 9:35 AM [facility]) Pathologist [facility] TSH 1.43 0.40 - 4.50 mIU/L [facility] 08/27/2020 9:35 AM [facility] 08/27/2020 9:36 AM [facility] Narrative [facility] - 09/01/2020 1:38 PM [facility] FASTING:YES FASTING: YES Ajay Anne MD LABORATORY Final Result Performing Organization Address [facility] de Phone Number [facility] [address] [place] [address] * TESTOSTERONE, FREE & TOTAL (08/27/2020 9:35 AM [facility]) Pathologist [facility] TESTOSTERONE TOTAL 291 250 - 1,100 ng/dL [facility] Comment: Men with clinically significant hypogonadal symptoms and testosterone values repeatedly in the range (Note) For additional information, please refer to http://education.Aethon.S3Bubble/faq/TotalTestosteroneLCMSMS (This link is being provided for informational/educational purposes only.) This test was developed and its analytical performance characteristics have been determined by [facility]. It has not been cleared or approved by the FDA. This assay has been validated pursuant to the CLIA regulations and is used for clinical purposes. TESTOSTERONE FREE 46 35.0 - 155.0 pg/mL [facility] Comment: (Note) This test was developed and its analytical performance characteristics have been determined by [facility]. It has not been cleared or approved by the FDA. This assay has been validated pursuant to the CLIA regulations and is used for clinical purposes. [facility] [address] [address],[address] [place] [id number] Pablo Rahman MD 08/27/2020 9:35 AM [facility] 08/27/2020 9:36 AM [facility] Narrative [facility] - 09/01/2020 1:38 PM [facility] FASTING:YES FASTING: YES Ajay Anne MD LABORATORY Final Result [facility] [address] [place] [address], [address] [place] [phone] * PROSTATE SPECIFIC ANTIGEN,SCREENING (08/27/2020 9:35 AM [facility]) PSA TOTAL 1.3 < OR = 2.5 ng/mL [facility] Comment: The total PSA value from this assay system is standardized against the WHO standard. The test result will be approximately 20% lower when compared to the equimolar-standardized total PSA (Vinny Neptune). Comparison of serial PSA results should be interpreted with this fact in mind. This test was performed using the Siemens chemiluminescent method. Values obtained from different assay methods cannot be used interchangeably. PSA levels, regardless of value, should not be interpreted as absolute evidence of the presence or absence of disease. 08/27/2020 9:35 AM [facility] 08/27/2020 9:36 AM [facility] Narrative [facility] - 09/01/2020 1:38 PM [facility] FASTING:YES FASTING: YES Ajay Anne MD LABORATORY Final Result [facility] [address] [phone] * LIPID PANEL (08/27/2020 9:35 AM [facility]) CHOLESTEROL 156 <200 mg/dL [facility] HDL 41 > OR = 40 mg/dL [facility] TRIGLYCERIDES 115 <150 mg/dL [facility] LDL (CALCULATED) 94 mg/dL (calc) [facility] Comment: Reference range: <100 Desirable range <100 mg/dL for primary prevention; ?? <70 mg/dL for patients with CHD or diabetic patients with > or = 2 CHD risk factors. LDL-C is now calculated using the Ava calculation, which is a validated novel method providing better accuracy than the Friedewald equation in the estimation of LDL-C. Ben MARTI et al. MARLENA. 2013;310(19): 3556-2816 (http://education.GERS/faq/TQR902) CHOL/HDL RATIO 3.8 <5.0 (calc) [facility] NON HDL CHOLESTEROL 115 <130 mg/dL (calc) [facility] Comment: For patients with diabetes plus 1 major ASCVD risk factor, treating to a non-HDL-C goal of <100 mg/dL (LDL-C of <70 mg/dL) is considered a therapeutic option. 08/27/2020 9:35 AM [facility] 08/27/2020 9:36 AM [facility] Narrative [facility] - 09/01/2020 1:38 PM [facility] FASTING:YES FASTING: YES Ajay Anne MD LABORATORY Final Result [facility] [address] [address] * (ABNORMAL) COMPREHENSIVE METABOLIC PANEL (08/27/2020 9:35 AM [facility]) GLUCOSE 106(H) 65 - 99 mg/dL [facility] Comment: ? Fasting reference interval For someone without known diabetes, a glucose value between 100 and 125 mg/dL is consistent with prediabetes and should be confirmed with a follow-up test. BUN 13 7 - 25 mg/dL [facility] CREATININE S/P/B 0.89 0.70 - 1.33 mg/dL [facility] Comment: For patients >49 years of age, the reference limit for Creatinine is approximately 13% higher for people identified as -Ethiopian. EGFR NON-AFR. AMER. 94 > OR = 60 mL/min/1 .73m2 [facility] EGFR AFR. AMER. 109 > OR = 60 mL/min/1 .73m2 [facility] BUN CREATININE RATIO NOT APPLICABLE 6 - 22 (calc) [facility] SODIUM S/P/B 139 135 - 146 mmol/L [facility] POTASSIUM S/P/B 4.7 3.5 - 5.3 mmol/L [facility] CHLORIDE S/P/B 101 98 - 110 mmol/L [facility] CO2 29 20 - 32 mmol/L [facility] CALCIUM S/P/B 9.1 8.6 - 10.3 mg/dL [facility] TOTAL PROTEIN S/P/B 6.4 6.1 - 8.1 g/dL [facility] ALBUMIN S/P/B 4.2 3.6 - 5.1 g/dL [facility] GLOBULIN 2.2 1.9 - 3.7 g/dL (calc) [facility] ALBUMIN/GLOBULIN RATIO 1.9 1.0 - 2.5 (calc) [facility] BILIRUBIN TOTAL S/P/B 0.5 0.2 - 1.2 mg/dL [facility] ALKALINE PHOSPHATASE S/P/B 70 35 - 144 U/L [facility] AST 20 10 - 35 U/L [facility] ALT 36 9 - 46 U/L [facility] 08/27/2020 9:35 AM [facility] 08/27/2020 9:36 AM [facility] Narrative [facility] - 09/01/2020 1:38 PM [facility] FASTING:YES FASTING: YES us Ajay Anne MD LABORATORY Final Result [facility] [address] [address] * (ABNORMAL) CBC W/DIFF AUTOMATED (08/27/2020 9:35 AM [facility]) WBC 7.9 3.8 - 10.8 Thousand/u L [facility] RBC 5.49 4.20 - 5.80 Million/uL [facility] HGB 17.1 13.2 - 17.1 g/dL [facility] HCT 50.6(H) 38.5 - 50.0 % [facility] MCV 92.2 80.0 - 100.0 fL [facility] MCH 31.1 27.0 - 33.0 pg [facility] MCHC 33.8 32.0 - 36.0 g/dL [facility] RDW 12.3 11.0 - 15.0 % [facility] PLT 133(L) 140 - 400 Thousand/u L [facility] MPV 11.1 7.5 - 12.5 fL [facility] ABS. NEUTROPHILS 5,064 1,500 - 7,800 cells/uL [facility] ABS. LYMPHOCYTES 1,880 850 - 3,900 cells/uL [facility] ABS. MONOCYTES 679 200 - 950 cells/uL [facility] ABS. EOSINOPHILS 198 15 - 500 cells/uL [facility] ABS. BASOPHILS 79 0 - 200 cells/uL [facility] SEG NEUTROPHILS 64.1 % [facility] LYMPHOCYTES 23.8 % [facility] MONOCYTES 8.6 % [facility] EOSINOPHILS 2.5 % [facility] BASOPHILS 1.0 % [facility] 08/27/2020 9:35 AM [facility] 08/27/2020 9:36 AM [facility] Narrative [facility] - 09/01/2020 1:38 PM [facility] FASTING:YES FASTING: YES Ajay Anne MD LABORATORY Final Result [facility] [address] [place] [address] documented in this encounter Visit Diagnoses Diagnosis Severe episode of recurrent major depressive disorder, without psychotic features ([facility] HHS/HCC)- Primary Screening for prostate cancer Special screening for malignant neoplasm of prostate Chronic deep vein thrombosis (DVT) of proximal vein of left lower extremity ([facility] HHS/HCC) Need for immunization against influenza Need for prophylactic vaccination and inoculation against influenza documented in this encounter Additional Health Concerns Assessment Noted Time PHQ-9 Depression Total Score: 25 020 2:57 PM UPHOLSTERER LIMOUSINE AND HEARSE documented as of this encounter Care Teams Educational Therapy Teacher Relationship Specialty Start Date End Date Ajay Anne MD [address] [place] [address] PCP - General INTERNAL MEDICINE 10/07/18 documented as of this encounter
--- OUTSIDE RECORDS SUMMARY | 2024-09-30 23:18 | XMS_ITS | Encounter Summary ---
Author Organization [facility] Address [address] [place] [address]. [place], [place] [address] [place] [address] Care Team Providers Care Offline Cutter Name Role Phone Unavailable Primary Care Provider Unavailabl e Encounter Details Date Type Department Care Team (Latest Contact Info) Description 11/02/2016 Abstract [facility] , Duane Spence MD Social History Tobacco Use Types Packs/Day Years Used Date Smoking Tobacco: Never Assessed Sex and Gender Information Value Date Recorded Sex Assigned at Not on file Legal Sex Male 5:32 PM CDT Gender Identity Not on file Sexual Orientation Not on file documented as of this encounter Progress Notes * Ajay Anne MD - 11/02/2016 5:07 PM CST Message Recorded as Task Date: 11/02/2016 03:11 PM, Created By: Aisha Cooney Task Name: Medical Complaint Callback Assigned To: [facility] Omid Regarding Patient: Sivakumar Kinsey, Status: Active Comment: Aisha Cooney - 02 Nov 2016 3:11 PM TASK CREATED Caller: Self; Medical Complaint; [phone] (Home) pt stated that he started the new meds for depression a week ago, pt feels like his depression has worsened since. Has no appetite (usually has good appetite), no energy, no motivation, is not havingsuicidal thoughts though. Asking for advice on if he should stay same does, increase or try something else nkda, uses [facility] [place] [facility] Ajay Anne - 02 Nov 2016 4:54 PM TASK REASSIGNED: Previously Assigned To Ajay Anne I would have him continue on the medication, initially things can seem to worsen slightly but should improve soon Message: Pt updated, U/V-ivett Signatures Electronically signed by : Shawnee Jones R.N.; Nov 02 2016 5:07PM WEB UI SOFTWARE ENGINEER (Author) * Ajay Anne MD - 11/02/2016 2:06 PM CST Message Labs are good. Pt updated my mail-ivett Verified Results QU-URIC ACID 905 25Oct2016 10:31AM Ajay Anne Test Name Result Flag Reference URIC ACID 7.7 mg/dL 4.0-8.0 Therapeutic target for gout patients: <6.0 mg/dL Test Performed at: [facility] [address] [place] [address] REBEKAH MCPHERSON DO,MPH QU-COMPREHENSIVE METABOLIC PANEL [id number] 25Oct2016 10:31AM Ajay Anne Test Name Result Flag Reference GLUCOSE 95 mg/dL 65-99 Fasting reference interval UREA NITROGEN (BUN) 13 mg/dL 7-25 CREATININE 0.85 mg/dL 0.70-1.33 For patients >49 years of age, the reference limit for Creatinine is approximately 13% higher for people identified as -Somali. eGFR NON-AFR. ANGOLAN 99 > OR = 60 UNITS: mL/min/1.73m2 eGFR 114 > OR = 60 UNITS: mL/min/1.73m2 BUN/CREATININE RATIO 6-22 NOT APPLICABLE (calc) SODIUM 140 mmol/L 135-146 POTASSIUM 4.3 mmol/L 3.5-5.3 CHLORIDE 104 mmol/L 98-110 CARBON DIOXIDE 27 mmol/L 20-31 CALCIUM 10.1 mg/dL 8.6-10.3 PROTEIN, TOTAL 7.3 g/dL 6.1-8.1 ALBUMIN 4.9 g/dL 3.6-5.1 GLOBULIN 2.4 1.9-3.7 UNITS: g/dL (calc) ALBUMIN/GLOBULIN RATIO 2.0 (calc) 1.0-2.5 BILIRUBIN, TOTAL 0.6 mg/dL 0.2-1.2 ALKALINE PHOSPHATASE 62 U/L 40-115 AST 16 U/L 10-35 ALT 25 U/L 9-46 Test Performed at: [facility] [address] [address] REBEKAH MCPHERSON DO,MPH QU-CBC ( INCLUDES DIFF/PLT ) [id number] 25Oct2016 10:31AM Ajay Anne Test Name Result Flag Reference WHITE BLOOD CELL COUNT 9.0 3.8-10.8 UNITS: Thousand/uL RED BLOOD CELL COUNT 5.59 Million/uL 4.20-5.80 HEMOGLOBIN 17.2 g/dL H 13.2-17.1 HEMATOCRIT 52.4 % H 38.5-50.0 MCV 93.8 fL 80.0-100.0 MCH 30.9 pg 27.0-33.0 MCHC 32.9 g/dL 32.0-36.0 RDW 12.8 % 11.0-15.0 PLATELET COUNT 125 L 140-400 UNITS: Thousand/uL MPV 10.8 fL 7.5-12.5 ABSOLUTE NEUTROPHILS 7371 cells/uL 9330-4307 ABSOLUTE LYMPHOCYTES 1170 cells/uL 850-3900 ABSOLUTE MONOCYTES 360 cells/uL 200-950 ABSOLUTE EOSINOPHILS 81 cells/uL 15-500 ABSOLUTE BASOPHILS 18 cells/uL 0-200 NEUTROPHILS 81.9 % LYMPHOCYTES 13.0 % MONOCYTES 4.0 % EOSINOPHILS 0.9 % BASOPHILS 0.2 % Test Performed at: [facility] [address] [address] REBEKAH MCPHERSON DO,MPH QU-PSA, TOTAL 5363 25Oct2016 10:31AM Ajay Anne Test Name Result Flag Reference PSA, TOTAL 1.0 ng/mL < OR = 4.0 This test was performed using the Siemens chemiluminescent method. Values obtained from different assay methods cannot be used interchangeably. PSA levels, regardless of value, should not be interpreted as absolute evidence of the presence or absence of disease. Test Performed at: [facility] [address] [address] REBEKAH MCPHERSON DO,MPH QU-TSH W/REFLEX TO FT4 [id number] 25Oct2016 10:31AM Ajay Anne Test Name Result Flag Reference TSH W/REFLEX TO FT4 0.65 mIU/L 0.40-4.50 Test Performed at: [facility] [place] [address] REBEKAH MCPHERSON DO,MPH QU-VITAMIN D, 25-HYDROXY, LC/MS/MS [id number] 25Oct2016 10:31AM Ajay Anne Test Name Result Flag Reference VITAMIN D,25-OH, TOTAL, IA 59 ng/mL 30-100 Vitamin D Status 25-OH Vitamin D: Deficiency: <20 ng/mL Insufficiency: 20 - 29 ng/mL Optimal: > or = 30 ng/mL For 25-OH Vitamin D testing on patients on D2-supplementation and patients for whom quantitation of D2 and D3 fractions is required, the QuestAssureD(TM) 25-OH VIT D, (D2,D3), LC/MS/MS is recommended: order code 40893 (patients >2yrs). For more information on this test, go to: http://education.[employer]/faq/UYE907 (This link is being provided for informational/educational purposes only.) Test Performed at: [facility] [address] [place] [address] REBEKAH MCPHERSON DO,MPH QU-TESTOSTERONE, FREE AND TOTAL, LC/MS/MS [id number] 25Oct2016 10:31AM Ajay Anne Test Name Result Flag Reference TESTOSTERONE, TOTAL, LC/MS/MS 428 ng/dL 250-1100 FREE TESTOSTERONE 45.0 pg/mL 35.0-155.0 NO COLLECTION DATE RECEIVED. WE HAVE USED THE DATE THE SPECIMEN WAS RECEIVED BY THIS LABORATORY THE COLLECTION DATE. IF THIS IS INCORRECT, PLEASE CONTACT CLIENT SERVICES. PHONE NUMBER: [phone] Test Performed at: [facility] [address] [address] JOLYNN FAULKNER MD,FCAP Signatures Electronically signed by : Shawnee Jones RNavarroNNavarro; Nov 02 2016 3:27PM WEB UI SOFTWARE ENGINEER (Author) documented in this encounter Plan of Treatment Not on file documented as of this encounter Visit Diagnoses Not on filedocumented in this encounter
--- OUTSIDE RECORDS SUMMARY | 2024-09-30 23:18 | XMS_ITS | Encounter Summary ---
Author Organization [facility] Address [address] [place] [address]. [place], [place] [address] [place] [address] Care Team Providers Care Body Design Checker Name Role Phone Unavailable Primary Care Provider Unavailabl e Encounter Details Date Type Department Care Team (Latest Contact Info) Description 06/06/2018 Abstract [facility] , Generic ConversionMD Social History Tobacco Use Types Packs/Day Years Used Date Smoking Tobacco: Never Assessed Sex and Gender Information Value Date Recorded Sex Assigned at Not on file Legal Sex Male 5:32 PM CDT Gender Identity Not on file Sexual Orientation Not on file documented as of this encounter Progress Notes * Generic Conversion MD Marquise - 06/06/2018 4:06 PM CDT Message Recorded as Task Date: 06/06/2018 01:26 PM, Created By: Estelle Acosta Task Name: Medical Complaint Callback Assigned To: [facility] Team Omid Regarding Patient: Sivakumar Kinsey, Status: In Progress Comment: Estelle Acosta - 06 Jun 2018 1:26 PM TASK CREATED Patient had to reschedule his 06/13 apt due to work and he wants to know if he is to continue to take the zarelto.. he states he is out now and wants to know if it should be refilled. Call back [phone]. Thanks Kadie Padilla - 06 Jun 2018 2:58 PM TASK IN PROGRESS Kadie Whittaker - 06 Jun 2018 2:59 PM TASK REASSIGNED: Previously Assigned To [facility] Team Ajay Lugo - 06 Jun 2018 3:01 PM TASK REASSIGNED: Previously Assigned To Ajay Anne Yes we need to continue this for 6 months. Kadie Whittaker - 06 Jun 2018 4:08 PM TASK EDITED pt informed. rx sent to pharmacy Plan 1. Xarelto 20 MG Oral Tablet; Take 1 tablet daily Rx By: Ajay Anne; Dispense: 30 Days ; #:30 Tablet; Refill: 3; For: Left leg DVT; TERRI = N; Sent To: [facility] [id number]; Last Updated By: Kadie Whittaker; 06/06/2018 4:08:39 PM Signatures Electronically signed by : Kadie Whittaker, ; Jun 06 2018 4:09PM INVENTORY REPRESENTATIVE (Author) documented in this encounter Plan of Treatment Not on file documented as of this encounter Visit Diagnoses Not on filedocumented in this encounter
--- OUTSIDE RECORDS SUMMARY | 2024-09-30 23:18 | XMS_ITS | Encounter Summary ---
Author Organization [facility] Address [address] [place] [address]. [place], [place] [address] [place] [address] Care Team Providers Care Furnace Combustion Tester Name Role Phone Unavailable Primary Care Provider Unavailabl e Encounter Details Date Type Department Care Team (Latest Contact Info) Description 01/02/2017 Abstract [facility] Social History Tobacco [...]
--- OUTSIDE RECORDS SUMMARY | 2024-09-30 23:18 | XMS_ITS | Encounter Summary ---
Author Organization [facility] Address [address] [place] [address]. [place], [place] [address] [place] [address] Care Team Providers Care Tailer In Name Role Phone Unavailable Primary Care Provider Unavailabl e Encounter Details Date Type Department Care Team (Latest Contact Info) Description 06/20/2016 Abstract [facility] Medical [facility] Social History Tobacco Use Types Packs/Day Years Used Date Smoking Tobacco: Never Assessed Sex and Gender Information Value Date Recorded Sex Assigned at Not on file Legal Sex Male 5:32 PM CDT Gender Identity Not on file Sexual Orientation Not on file documented as of this encounter Progress Notes * Generic Conversion MD Marquise - 06/20/2016 11:23 AM CDT Message Recorded as Task Date: 06/19/2016 11:15 AM, Created By: Kaylah Mccain Task Name: Medical Complaint Callback Assigned To: [facility] Team Omid Regarding Patient: Sivakumar Kinsey, Status: In Progress Comment: Kaylah Mccain - 19 Jun 2016 11:15 AM TASK CREATED Caller: Self; Medical Complaint; pt states pain in elbows and knees so bad taht he can hardly move, is requesting soemthing for hte pain states he had a shot previously for back pain Ajay Anne - 19 Jun 2016 1:41 PM TASK REASSIGNED: Previously Assigned To Ajay Anne Trial of prednisone 40mg daily x 4 days, then 20mg daily x 3 days. Shawnee Jones - 19 Jun 2016 2:09 PM TASK IN PROGRESS Shawnee Jones - 19 Jun 2016 2:10 PM TASK EDITED NO answer no VM- also need pharm-ks Abiola De La Rosa - 20 Jun 2016 11:12 AM TASK EDITED no answer no [id number] Clarita Leon - 20 Jun 2016 11:23 AM TASK EDITED [facility] Message: patient notified, rx sent to pharmacy -sjs Plan 1. PredniSONE 20 MG Oral Tablet; Take 2 tablets daily for 4 days, then 1 tablet daily for 3 days Rx By: Ajay Anne; Dispense: 0 Days ; #:11 Tablet; Refill: 0; For: Joint pain; TERRI = N; Sent To: [facility] [id number]; Last Updated By: Clarita Leon; 06/20/2016 11:24:30 AM Signatures Electronically signed by : Clarita Leon MA; Jun 20 2016 11:24AM AUTO BODY SHOP MANAGER (Author) documented in this encounter Plan of Treatment Not on file documented as of this encounter Visit Diagnoses Not on filedocumented in this encounter
--- OUTSIDE RECORDS SUMMARY | 2024-09-30 23:18 | XMS_ITS | Encounter Summary ---
Author Organization [facility] Address [facility] [facility] [place] [address] [place] [address] Care Team Providers Care Repack Room Worker Name Role Phone Unavailable Primary Care Provider Unavailabl e Encounter Details Date Type Department Care Team (Latest Contact Info) Description 10/25/2016 Abstract [facility] Medical Group Ajay Anne MD [address] [place] [address] Social History Tobacco Use Types Packs/Day Years [...] Procedure Name Priority Date/Time Associated Diagnosis Comments TSH W/REFLEX Routine 10/25/2016 10:31 AM PRIVACY SPECIALIST TESTOSTERONE, FREE & TOTAL Routine 10/25/2016 10:31 AM PRIVACY SPECIALIST PROSTATE SPECIFIC ANTIGEN,TOTAL Routine 10/25/2016 10:31 AM PRIVACY SPECIALIST COMPREHENSIVE METABOLIC PANEL Routine 10/25/2016 10:31 AM PRIVACY SPECIALIST CBC W/DIFF AUTOMATED Routine 10/25/2016 10:31 AM PRIVACY SPECIALIST VITAMIN D, 25 OH Routine 10/25/2016 10:3 1 AM PRIVACY SPECIALIST URIC ACID BLOOD Routine 10/25/2016 10:31 AM PRIVACY SPECIALIST documented in this encounter Results * (ABNORMAL) CBC W/DIFF AUTOMATED (10/25/2016 10:31 AM PRIVACY SPECIALIST) WBC 9.0 3.8 - 10.8 [facility] TO EPIC CONVERSION Comment:Result Comment: UNIT S: Thousand/uL Red Blood Cell Count 5.59 4.20 - 5.80 Million/uL [facility] TO EPIC CONVERSION HGB 17.2(H) 13.2 - 17.1 g/dL [facility] TO EPIC CONVERSION HCT 52.4(H) 38.5 - 50.0 % [facility] TO EPIC CONVERSION MCV 93.8 80.0 - 100.0 fL [facility] TO EPIC CONVERSION MCH (QHPE) 30.9 27.0 - 33.0 pg [facility] TO EPIC CONVERSION MCHC 32.9 32.0 - 36.0 g/dL [facility] TO EPIC CONVERSION RDW (QHPE) 12.8 11.0 - 15.0 % [facility] TO EPIC CONVERSION PLT 125(L) 140 - 400 [facility] T O EPIC CONVERSION Comment:Result Comment: UNIT S: Thousand/uL MPV 10.8 7.5 - 12.5 fL [facility] TO EPIC CONVERSION ABS. NEUTROPHILS 7371 1500 - 7800 cells/uL [facility] TO EPIC CONVERSION ABS. LYMPHOCYTES 1170 850 - 3900 cells/uL [facility] TO EPIC CONVERSION ABS. MONOCYTES 360 200 - 950 cells/uL [facility] TO EPIC CONVERSION ABS. EOSINOPHILS 81 15 - 500 cells/uL [facility] TO EPIC CONVERSION ABS. BASOPHILS 18 0 - 200 cells/uL [facility] TO EPIC CONVERSION SEG NEUTROPHILS 81.9 % [facility] ROUP TO EPIC CONVERSION LYMPHOCYTES 13.0 % [facility] TO EPIC CONVERSION MONOCYTES 4.0 % [facility] T O EPIC CONVERSION EOSINOPHILS 0.9 % [facility] TO EPIC CONVERSION BASOPHILS 0.2 % [facility] T O EPIC CONVERSION Comment: Result Comment: Test Performed at: [facility] [address] [place] [address] ??[phone] ? REBEKAH MCPHERSON DO,MPH 10/25/2016 10:3 1 AM PRIVACY SPECIALIST 10/25/2016 10:31 AM PRIVACY SPECIALIST Narrative [facility] TO EPIC CONVERSION - 10/26/2016 9:25 AM PRIVACY SPECIALIST Result Communication: Call patient with results Ajay Anne MD LABORATORY Final Result [facility] TO [facility]IC CONVERSION * URIC ACID BLOOD (10/25/2016 10:31 AM PRIVACY SPECIALIST) URIC ACID 7.7 4.0 - 8.0 mg/dL [facility] TO EPIC CONVERSION Comment: Result Comment: Therapeutic target for gout patients: <6.0 mg/dL ?? Test Performed at: [facility] [address] [place], [place] ??[phone] ? REBEKAH MCPHERSON DO,MPH 10/25/2016 10:3 1 AM PRIVACY SPECIALIST 10/25/2016 10:31 AM PRIVACY SPECIALIST Narrative [facility] TO EPIC CONVERSION - 10/26/2016 9:25 AM PRIVACY SPECIALIST Result Communication: Call patient with results Ajay Anne MD LABORATORY Final Result Performing Organization Address [facility]/ZIP Co de Phone Number [facility] TO EPIC CONVERSION * COMPREHENSIVE METABOLIC PANEL (10/25/2016 10:31 AM PRIVACY SPECIALIST) GLUCOSE 95 65 - 99 mg/dL [facility] TO EPIC CONVERSION Comment: Result Comment: ? Fasting reference interval BUN 13 7 - 25 mg/dL [facility] TO EPIC CONVERSION CREATININE S/P/B 0.85 0.70 - 1.33 mg/dL [facility] TO EPIC CONVERSION Comment: Result Comment: For patients >49 years of age, the reference limit for Creatinine is approximately 13% higher for people identified as -Cymraes. EGFR NON-AFR. AMER. 99 > OR = 60 [facility] TO EPIC CONVERSION Comment:Result Comment: UNIT S: mL/min/1.73m2 EGFR AFR. AMER. 114 > OR = 60 [facility] TO EPIC CONVERSION Comment:Result Comment: UNIT S: mL/min/1.73m2 BUN CREATININE RATIO NOT APPLICABLE 6 - 22 (calc) [facility] TO EPIC CONVERSION SODIUM S/P/B 140 135 - 146 mmol/L [facility] TO EPIC CONVERSION POTASSIUM S/P/B 4.3 3.5 - 5.3 mmol/L [facility] TO EPIC CONVERSION CHLORIDE S/P/B 104 98 - 110 mmol/L [facility] TO EPIC CONVERSION CO2 27 20 - 31 mmol/L [facility] TO EPIC CONVERSION CALCIUM S/P/B 10.1 8.6 - 10.3 mg/dL [facility] TO EPIC CONVERSION PROTEIN 7.3 6.1 - 8.1 g/dL [facility] TO EPIC CONVERSION ALBUMIN S/P/B 4.9 3.6 - 5.1 g/dL [facility] TO EPIC CONVERSION GLOBULIN 2.4 1.9 - 3.7 [facility] TO [facility]IC CONVERSION Comment:Result Comment: UNIT S: g/dL (calc) ALBUMIN/GLOBULIN RATIO 2.0 1.0 - 2.5 (calc) [facility] TO [facility]IC CONVERSION BILIRUBIN TOTAL (FLUID) 0.6 0.2 - 1.2 mg/dL [facility] TO EPIC CONVERSION ALK PHOS 62 40 - 115 U/L [facility] TO EPIC CONVERSION AST 16 10 - 35 U/L [facility] TO EPIC CONVERSION ALT 25 9 - 46 U/L [facility] TO EPIC CONVERSION Comment: Result Comment: Test Performed at: [facility] ??[phone] ? REBEKAH MCPHERSON DO,MPH 10/25/2016 10:3 1 AM PRIVACY SPECIALIST 10/25/2016 10:31 AM PRIVACY SPECIALIST Narrative [facility] TO EPIC CONVERSION - 10/26/2016 9:25 AM PRIVACY SPECIALIST Result Communication: Call patient with results us Ajay Anne MD LABORATORY Final Result [facility] TO EPIC CONVERSION * TESTOSTERONE, FREE & TOTAL (10/25/2016 10:31 AM PRIVACY SPECIALIST) TESTOSTERONE TOTAL 428 250 - 1100 ng/dL [facility] TO EPIC CONVERSION TESTOSTERONE FREE 45.0 35.0 - 155.0 pg/mL [facility] TO EPIC CONVERSION Comment: Result Comment: NO COLLECTION DATE RECEIVED. WE HAVE USED THE DATE THE SPECIMEN WAS RECEIVED BY THIS LABORATORY THE COLLECTION DATE. IF THIS IS INCORRECT, PLEASE CONTACT CLIENT SERVICES. PHONE NUMBER: [phone] Test Performed at: [facility] [facility] [address] [place], [place] ??[phone] ? JOLYNN FAULKNER MD,FCAP 10/25/2016 10:3 1 AM PRIVACY SPECIALIST 10/25/2016 10:31 AM PRIVACY SPECIALIST Narrative [facility] TO EPIC CONVERSION - 10/26/2016 9:25 AM PRIVACY SPECIALIST Result Communication: Call patient with results Ajay Anne MD LABORATORY Final Result Performing Organization Address [facility] Co de Phone Number [facility] TO EPIC CONVERSION * VITAMIN D, 25 OH (10/25/2016 10:31 AM PRIVACY SPECIALIST) Pathologist [facility] VITAMIN D 25 HYDROXY TOTAL S/P/B 59 30 - 100 ng/mL [facility] TO EPIC CONVERSION Comment: Result Comment: Vitamin D Status ? 25-OH Vitamin D: Deficiency: ?<20 ng/mL Insufficiency: ? 20 - 29 ng/mL Optimal: ? > or = 30 ng/mL For 25-OH Vitamin D testing on patients on D2-supplementation and patients for whom quantitation of D2 and D3 fractions is required, the QuestAssureD(TM) 25-OH VIT D, (D2,D3), LC/MS/MS is recommended: order code 38358 (patients >2yrs). For more information on this test, go to: http://education.[employer] Y[employer] network/faq/DGE290 (This link is being provided for informational/educational purposes only.) Test Performed at: [facility] [address] [place] [address] ??[phone] ? REBEKAH MCPHERSON DO,MPH 10/25/2016 10:3 1 AM PRIVACY SPECIALIST 10/25/2016 10:31 AM PRIVACY SPECIALIST Narrative [facility] TO EPIC CONVERSION - 10/26/2016 9:25 AM PRIVACY SPECIALIST Result Communication: Call patient with results Ajay Anne MD LABORATORY Final Result Performing Organization Address [facility]/ZIP Co de Phone Number [facility] TO EPIC CONVERSION * PROSTATE SPECIFIC ANTIGEN,TOTAL (10/25/2016 10:31 AM PRIVACY SPECIALIST) Pathologist [facility] PSA 1.0 < OR = 4.0 ng/mL [facility] TO EPIC CONVERSION Comment: Result Comment: ?? This test was performed using the Siemens chemiluminescent method. Values obtained from different assay methods cannot be used interchangeably. PSA levels, regardless of value, should not be interpreted as absolute evidence of the presence or absence of disease. Test Performed at: [facility] [facility] [address] [place], [place] ??[phone] ? REBEKAH MCPHERSON DO,MPH 10/25/2016 10:3 1 AM PRIVACY SPECIALIST 10/25/2016 10:31 AM PRIVACY SPECIALIST Narrative [facility] TO EPIC CONVERSION - 10/26/2016 9:25 AM PRIVACY SPECIALIST Result Communication: Call patient with results Ajay Anne MD LABORATORY Final Result Performing Organization Address City/[facility]/ZIP Co de Phone Number [facility] TO EPIC CONVERSION * TSH W/REFLEX (SNS) (10/25/2016 10:31 AM PRIVACY SPECIALIST) Pathologist [facility] TSH 0.65 0.40 - 4.50 mIU/L [facility] TO EPIC CONVERSION Comment: Result Comment: Test Performed at: [employer] [address] [place], [place] ??[phone] ? REBEKAH MCPHERSON DO,MPH 10/25/2016 10:3 1 AM PRIVACY SPECIALIST 10/25/2016 10:31 AM PRIVACY SPECIALIST Narrative [facility] TO EPIC CONVERSION - 10/26/2016 9:25 AM PRIVACY SPECIALIST Result Communication: Call patient with results Ajay Anne MD LABORATORY Final Result [facility] TO [facility]IC CONVERSION documented in this encounter Visit Diagnoses Not on filedocumented in this encounter
--- OUTSIDE RECORDS SUMMARY | 2024-09-30 23:18 | XMS_ITS | Encounter Summary ---
Author Organization [facility] Address [address] [place] [address]. [place], [place] [address] [place] [address] Care Team Providers Care Exchange Consultant Name Role Phone Unavailable Primary Care Provider Unavailabl e Encounter Details Date Type Department Care Team (Latest Contact Info) Description 12/12/2016 Abstract [facility] Medical Group Social History Tobacco Use Types Packs/Day Years Used Date Smoking Tobacco: Never Assessed Sex and Gender Information Value Date Recorded Sex Assigned at Not on file Legal Sex Male 5:32 PM CDT Gender Identity Not on file Sexual Orientation Not on file documented as of this encounter Progress Notes * Generic Conversion MD Marquise - 12/12/2016 1:29 PM CDT Message Recorded as Task Date: 12/11/2016 11:07 AM, Created By: Shawnee Jones Task Name: Medical Complaint Callback Assigned To: [facility] Team Omid Regarding Patient: Sivakumar Kinsey, Status: In Progress Comment: Shawnee Jones - 11 Dec 2016 11:07 AM TASK CREATED Pt started on trintellix last thrday for depression. States its not working yet. I explained that it could take 2-4 weeks before the full effect. He responded that you told him that too, but he can't wait that long. Recommendations? [phone] Ajay Anne - 12 Dec 2016 12:25 PM TASK REASSIGNED: Previously Assigned To Ajay Anne Not really sure what to try to help to make the effect faster. We could try Nuvigil 100mg daily to see if that will give him some enrgy. Shawnee Jones - 12 Dec 2016 1:16 PM TASK IN PROGRESS Shawnee Jones - 12 Dec 2016 1:16 PM TASK EDITED [facility] Message: pt informed. He does want to try the Nuvigil. RX ordered. Signatures Electronically signed by : Myesha Alcantar, ; Dec 12 2016 1:30PM SENIOR PRINCIPAL (Author) documented in this encounter Plan of Treatment Not on file documented as of this encounter Visit Diagnoses Not on filedocumented in this encounter
--- OUTSIDE RECORDS SUMMARY | 2024-09-30 23:18 | XMS_ITS | Encounter Summary ---
Author Organization [facility] Address [facility] [place] [address] [place] [address] Care Team Providers Care School Plant Consultant Name Role Phone Unavailable Primary Care Provider Unavailabl e Encounter Details Date Type Department Care Team (Late st Contact Info) Description 07/04/2018 Abstract [facility] Medical Group Family & Internal Medicine [address] [phone] Ajay Anne MD [address] [place] [address] Social History Tobacco Use Types Packs/Day Years Used Date Smoking Tobacco: Never Assessed Sex and Gender Information Value Date Recorded Sex Assigned at Not on file Legal Sex Male 5:32 PM CDT Gender Identity Not on file Sexual Orientation Not on file documented as of this encounter Last Filed Vital Signs Vital Sign Reading Time Taken Comments Blood Pressure 140/94 07/04/2018 11:11 AM CDT Pulse 75 07/04/2018 11:11 AM CDT Temperature - - Respiratory Rate - - Oxygen Saturation - - Inhaled Oxygen Concentration - - Weight 111.1 kg (245 lb) 07/04/2018 11:11 AM CDT Height 165.1 cm (5' 5 ) 07/04/2018 11:11 AM CDT Body Mass Index 40.77 07/04/2018 11:11 AM CDT documented in this encounter Progress Notes * Ajay Anne MD - 07/04/2018 10:40 AM CDT Reason For Visit Acute Visit Chief Complaint Patient is following up for leg swelling History of Present Illness He is here today to follow up on the swelling in his lower extremity after being diagnosed with a DVT in his lower leg. He does feel the swelling is significantly improved. He is taking Eliquis on a daily basis. He is having no side effects. He denies any bleeding or any other effects. He does not have any pain in his leg. He is questioning how long we need to continue on Eliquis. PHQ-9 Depression Questionnaire: Over the past 2 weeks, how often have you been bothered by the following problems^2 1.) Little interest or pleasure in doing things^2 Several days. 2.) Feeling down, depressed or hopeless^2 Several days. 3.) Trouble falling asleep or sleeping too much^2 Not at all. 4.) Feeling tired or having little energy^2 Several days. 5.) Poor appetite or overeating^2 Not at all. 6.) Feeling bad about yourself, or that you are a failure, or have let yourself or your family down^2 Several days. 7.) Trouble concentrating on things, such as reading a newspaper or watching television^2 Several days. 8.) Moving or speaking so slowly that other people could have noticed, or the opposite, moving or speaking faster than usual^2 Not at all. 9.) Thoughts that you would be off or of hurting yourself in some way^2 Not at all. TOTAL SCORE: 5, severity of depression is mild. How difficult have these problems made it for you to do your work, take care of things at home, or get along with people^2 Somewhat difficult. Review of Systems Constitutional, Eyes, ENT, Cardiovascular, Respiratory, Gastrointestinal, Genitourinary, Musculoskeletal, Integumentary, Neurological, Psychiatric, Endocrine and Hematologic review of systems normal except as noted. Active Problems 1. Benign essential hypertension (401.1) (I10) 2. Calf pain (729.5) (M79.669) 3. Depression (311) (F32.9) 4. Fatigue (780.79) (R53.83) 5. Headache (784.0) (R51) 6. Hip injury (959.6) (S79.919A) 7. Hip pain, acute, left (719.45) (M25.552) 8. Insomnia (780.52) (G47.00) 9. Joint pain (719.40) (M25.50) 10. Left leg DVT (453.40) (I82.402) 11. Left leg swelling (729.81) (M79.89) 12. Low vitamin D level (790.6) (R79.89) 13. Lower back pain (724.2) (M54.5) 14. Neck pain on right side (723.1) (M54.2) 15. Obesity, morbid, BMI 40.0-49.9 (278.01) (E66.01) 16. Onychomycosis (110.1) (B35.1) 17. Polyarthralgia (719.49) (M25.50) 18. Screening for endocrine, nutritional, metabolic and immunity disorder (V77.99) (Z13.29,Z13.0,Z13.21,Z13.228) 19. Screening for heart disease (V81.2) (Z13.6) 20. Screening for prostate cancer (V76.44) (Z12.5) 21. Severe depression (311) (F32.2) 22. Tinnitus (388.30) (H93.19) 23. Weight loss (783.21) (R63.4) Surgical History 1. History of Colonoscopy 2. Denied: History of Surgery Family History Mother 1. Family history of malignant neoplasm (V16.9) (Z80.9) Family History 2. Family history of hypertension (V17.49) (Z82.49) Social History ?? Never a smoker Immunizations Influenza --- Series1: 30-Sep-2012; Series2: 08-Jul-2014; Series3: 25-Oct-2016 Current Meds 1. ARIPiprazole 10 MG Oral Tablet; TAKE 1 TABLET DAILY; Therapy: 75Vnx7366 to (Evaluate:46Red2285) Requested for: 89Nof8491; Last Rx:31Jan2018 Ordered 2. Baclofen 10 MG Oral Tablet; TAKE 1 TABLET 3 TIMES DAILY NEEDED FOR MUSCLE SPASM; Therapy: 78Kdd5006 to (Evaluate:45Bwr6917) Requested for: 68Zvp1914; Last Rx:36Nsq2573 Ordered 3. BuPROPion HCl ER (XL) 300 MG Oral Tablet Extended Release 24 Hour; TAKE 1 TABLET BY MOUTH DAILY; Therapy: 14Dec2016 to (Evaluate:22Eul1066) Requested for: 21Qaf4167; Last Rx:90Isp2458 Ordered 4. Desvenlafaxine Succinate ER 50 MG Oral Tablet Extended Release 24 Hour; TAKE 1 TABLET BY MOUTH EVERY DAY; Therapy: 14Dec2016 to (Evaluate:02Tpf8920) Requested for: 32Cwl9559; Last Rx:23Xlg3881 Ordered 5. Hydrocodone-Acetaminophen 5-325 MG Oral Tablet; TAKE 1 TABLET Every 6 hours; Therapy: 55Kfw0528 to (Evaluate:08Udg8704); Last Rx:47Yya8767 Ordered 6. Lisinopril 10 MG Oral Tablet; TAKE 1 TABLET BY MOUTH DAILY; Therapy: 14Dec2016 to (Evaluate:60Jwg9336) Requested for: 61Dwi7063; Last Rx:06Arb7509 Ordered 7. Vitamin D3 5000 UNIT Oral Tablet; Take 1 po qd; Therapy: 77Rzo8758 to (Last Rx:93Tca6644) Ordered 8. Xarelto 20 MG Oral Tablet; Take 1 tablet daily; Therapy: 11Bge6300 to (Evaluate:04Oct2018) Requested for: 31Mpg9421; Last Rx:15Eoy5359 Ordered 9. Zolpidem Tartrate 10 MG Oral Tablet; TAKE 1 TABLET BY MOUTH EVERY NIGHT AT BEDTIME NEEDED FOR INSOMNIA; Therapy: 30Dec2015 to (Evaluate:30Jan2017) Requested for: 03Aug2016; Last Rx:03Aug2016 Ordered Allergies 1. No Known Drug Allergies Vitals Recorded: 04Jul2018 11:11AM Heart Rate 75 Respiration 16 Systolic 140 Diastolic 94 O2 Saturation 96 Height 5 ft 5 in Weight 245 lb BMI Calculated 40.77 BSA Calculated 2.16 Physical Exam Constitutional General appearance: No acute distress, well appearing and well nourished. Pulmonary Respiratory effort: No increased work of breathing or signs of respiratory distress. Auscultation of lungs: Clear to auscultation. Cardiovascular Palpation of heart: Normal PMI, no thrills. Auscultation of heart: Normal rate and rhythm, normal S1 and S2, without murmurs. Examination of extremities for edema and/or varicosities: Normal. Psychiatric Mood and affect: Normal. Assessment 1. Left leg DVT (453.40) (I82.402) Plan Health Maintenance 1. Flulaval Quadrivalent 0.5 ML Intramuscular Suspension Prefilled Syringe For: Health Maintenance; Ordered By:Ajay Anne; Effective Date:04Jul2018; Administered by: Latanya Lopez: 07/04/2018 4:52:00 PM; Last Updated By: Latanya Lopez; 07/04/2018 4:53:23 PM Patient tolerated well, no s/sx of rxn/af Discussion/Summary Positive adult depression screening.. Tobacco use screening completed. PHQ-9 Completed (Score 5). Signatures Electronically signed by : Ajay Anne M.D.; 2018 6:12AM PARCEL POST CARRIER (Author) documented in this encounter Plan of Treatment Not on file documented as of this encounter Visit Diagnoses Not on filedocumented in this encounter
--- OUTSIDE RECORDS SUMMARY | 2024-09-30 23:18 | XMS_ITS | Encounter Summary ---
Author Organization [facility] Address [address] [place] [address]. [place], [place] [address] [place] [address] Care Team Providers Care Petroleum Terminal Plant Operator Name Role Phone Unavailable Primary Care Provider Unavailabl e Encounter Details Date Type Department Care Team (Latest Contact Info) Description 12/16/2016 Abstract [facility] Medical Group Social History Tobacco Use Types [...]
--- OUTSIDE RECORDS SUMMARY | 2024-09-30 23:18 | XMS_ITS | Encounter Summary ---
Author Organization [facility] Address [address] [place] [address]. [place], [place] [address] [place] [address] Care Team Providers Care Burlap Roll Coverer Name Role Phone Unavailable Primary Care Provider Unavailabl e Encounter Details Date Type Department Care Team (Late st Contact Info) Description 12/18/2016 Abstract [facility] Medical Group Family & Internal Medicine [address] [phone] Ajay Anne MD [address] [place] [address] Social History Tobacco Use Types Packs/Day Years [...]
--- OUTSIDE RECORDS SUMMARY | 2024-09-30 23:18 | XMS_ITS | Encounter Summary ---
Author Organization [facility] Address [facility]6 [facility]. [place], [place] [address] [place] [address] Care Team Providers Care Immersion Metalcleaner Name Role Phone Unavailable Primary Care Provider Unavailabl e Encounter Details Date Type Department Care Team (Latest Contact Info) Description 05/08/2018 Abstract [facility] Medical Group Mitzy Muir FNP [address] [place], [place] [id number] Social History Tobacco Use Types Packs/Day Years Used Date Smoking Tobacco: Never Assessed Sex and Gender Information Value Date Recorded Sex Assigned at Not on file Legal Sex Male 5:32 PM CDT Gender Identity Not on file Sexual Orientation Not on file documented as of this encounter Last Filed Vital Signs Vital Sign Reading Time Taken Comments Blood Pressure 128/82 05/08/2018 10:47 AM CDT Pulse 87 05/08/2018 10:47 AM CDT Temperature - - Respiratory Rate - - Oxygen Saturation - - Inhaled Oxygen Concentration - - Weight 111.6 kg (246 lb) 05/08/2018 10:47 AM CDT Height 165.1 cm (5' 5 ) 05/08/2018 10:47 AM CDT Body Mass Index 40.94 05/08/2018 10:47 AM CDT documented in this encounter Progress Notes * JEANETTE Sutton - 05/08/2018 10:40 AM CDT Reason For Visit Reason For Visit: Acute Visit Chief Complaint Patient c/o left lower leg pain and swelling x 1 week History of Present Illness HPI Free Text: Sivakumar presents to the office for left calf pain and swelling for about one week withno injury. He states that it feels like he has a constant cramp in it. He reports that he did travel to [place] and was moving his daughter into her college dorm prior to the pain starting but denies any known injury. He denies CP or SOB at this time. Review of Systems See HPI for pertinent positives. Cardiovascular: lower extremity edema. Active Problems 1. Benign essential hypertension (401.1) (I10) 2. Depression (311) (F32.9) 3. Fatigue (780.79) (R53.83) 4. Headache (784.0) (R51) 5. Hip injury (959.6) (S79.919A) 6. Hip pain, acute, left (719.45) (M25.552) 7. Insomnia (780.52) (G47.00) 8. Joint pain (719.40) (M25.50) 9. Low vitamin D level (268.9) (E55.9) 10. Lower back pain (724.2) (M54.5) 11. Neck pain on right side (723.1) (M54.2) 12. Obesity, morbid, BMI 40.0-49.9 (278.01) (E66.01) 13. Onychomycosis (110.1) (B35.1) 14. Polyarthralgia (719.49) (M25.50) 15. Screening for endocrine, nutritional, metabolic and immunity disorder (V77.99) (Z13.29,Z13.0,Z13.21,Z13.228) 16. Screening for heart disease (V81.2) (Z13.6) 17. Screening for prostate cancer (V76.44) (Z12.5) 18. Severe depression (311) (F32.2) 19. Tinnitus (388.30) (H93.19) 20. Weight loss (783.21) (R63.4) Surgical History 1. History of Colonoscopy 2. Denied: History of Surgery Family History Mother 1. Family history of malignant neoplasm (V16.9) (Z80.9) Family History 2. Family history of hypertension (V17.49) (Z82.49) Social History ?? Never a smoker Immunizations Influenza --- Series1: 30-Sep-2012; Series2: 15-Oct-2014; Series3: 25-Oct-2016 Current Meds 1. ARIPiprazole 10 MG Oral Tablet; TAKE 1 TABLET DAILY; Therapy: 42Jgw3828 to (Evaluate:80Zcs8492) Requested for: 58Ish7349; Last Rx:31Jan2018 Ordered Rx By: Ajay Anne; Dispense: 30 Days ; #:30 Tablet; Refill: 3; For: Depression; TERRI = N; Verified Transmission to [facility] [address]18; Last Updated By: 2degreesmobile; 01/31/2018 11:16:52 AM 2. Armodafinil 150 MG Oral Tablet; TAKE 1 TABLET Every morning PRN; Therapy: 14Dec2016 to (Last Rx:14Dec2016) Ordered Rx By: Ajay Anne; Dispense: 0 Days ; #:30 Tablet; Refill: 3; For: Depression, Fatigue; TERRI = N; Print Rx 3. Armodafinil 50 MG Oral Tablet; TAKE 2 TABLET Daily; Therapy: 12Dec2016 to (Evaluate:27Dec2016); Last Rx:12Dec2016 Ordered Rx By: Ajay Anne; Dispense: 15 Days ; #:30 Tablet; Refill: 0; For: Fatigue; TERRI = N; Print Rx; Msg to Pharmacy: 2 once a day in am 4. Baclofen 10 MG Oral Tablet; TAKE 1 TABLET 3 TIMES DAILY NEEDED FOR MUSCLE SPASM; Therapy: 19Qjf8382 to (Evaluate:32Jxz2036) Requested for: 25Qhx2462; Last Rx:64Inx8189 Ordered Rx By: Mitzy Muir; Dispense: 10 Days ; #:30 Tablet; Refill: 0; For: Lower back pain; TERRI = N; Verified Transmission to [facility] 47304; Last Updated By: 2degreesmobile; 06/05/2016 11:51:09 AM 5. BuPROPion HCl ER (XL) 300 MG Oral Tablet Extended Release 24 Hour; TAKE 1 TABLET BY MOUTH DAILY; Therapy: 14Dec2016 to (Evaluate:89Qru7112) Requested for: 35Ibz0079; Last Rx:06Feb2018 Ordered Rx By: Ajay Anne; Dispense: 90 Days ; #:90 Tablet; Refill: 3; For: Severe depression; TERRI = N; Verified Transmission to [facility] 66057; Last Updated By: 2degreesmobile; 02/06/2018 9:27:27 AM 6. Desvenlafaxine Succinate ER 50 MG Oral Tablet Extended Release 24 Hour; TAKE 1 TABLET BY MOUTH EVERY DAY; Therapy: 14Dec2016 to (Evaluate:44Jkz8316) Requested for: 94Jir4939; Last Rx:67Scm8004 Ordered Rx By: Ajay Anne; Dispense: 90 Days ; #:90 Tablet; Refill: 3; For: Severe depression; TERRI = N; Verified Transmission to [facility] 83653; Last Updated By: 2degreesmobile; 02/06/2018 9:27:22 AM 7. Hydrocodone-Acetaminophen 5-325 MG Oral Tablet; TAKE 1 TABLET Every 6 hours; Therapy: 66Hhr2722 to (Evaluate:60Gqq2759); Last Rx:02Vef8439 Ordered Rx By: Mitzy Muir; Dispense: 5 Days ; #:20 Tablet; Refill: 0; For: Lower back pain; TERRI = N; Print Rx 8. Lisinopril 10 MG Oral Tablet; TAKE 1 TABLET BY MOUTH DAILY; Therapy: 14Dec2016 to (Evaluate:78Nxq9580) Requested for: 96Tfs9244; Last Rx:79Mib2423 Ordered Rx By: Ajay Anne; Dispense: 90 Days ; #:90 Tablet; Refill: 3; For: Benign essential hypertension; TERRI = N; Verified Transmission to [facility] 23496; Last Updated By: 2degreesmobile; 02/06/2018 9:27:19 AM 9. Vitamin D3 5000 UNIT Oral Tablet; Take 1 po qd; Therapy: 66Nmz3065 to (Last Rx:32Pem0214) Ordered Rx By: Ajay Anne; Dispense: 0 Days ; #:30 Tablet; Refill: 0; For: Low vitamin D level; TERRI = N; Record; Last Updated By: Abiola De La Rosa; 02/05/2018 1:30:02 PM 10. Zolpidem Tartrate 10 MG Oral Tablet; TAKE 1 TABLET BY MOUTH EVERY NIGHT AT BEDTIME NEEDED FOR INSOMNIA; Therapy: 30Dec2015 to (Evaluate:98Lvh5085) Requested for: 03Aug2016; Last Rx:03Aug2016 Ordered Rx By: Ajay Anne; Dispense: 30 Days ; #:30 TAB; Refill: 5; For: Insomnia; TERRI = N; Print Rx; Msg to Pharmacy: call [phone]; Last Updated By: Neftali Boyer; 08/03/2016 4:53:05 PM Allergies 1. No Known Drug Allergies Recorded By: Serene Wesley; 07/08/2014 11:17:40 AM Vitals Recorded: 08May2018 10:47AM Heart Rate 87 Respiration 18 Systolic 128 Diastolic 82 O2 Saturation 95 Height 5 ft 5 in Weight 246 lb BMI Calculated 40.94 BSA Calculated 2.16 Physical Exam Constitutional General appearance: Abnormal. well developed and well nourished. Pulmonary Respiratory effort: No increased work of breathing or signs of respiratory distress. Auscultation of lungs: Clear to auscultation. Cardiovascular Auscultation of heart: Normal rate and rhythm, normal S1 and S2, without murmurs. Examination of extremities for edema and/or varicosities: Abnormal. left lower leg swelling, tightness and tenderness to palpate. left calf 7.5 inches Right calf 6 inches.. Neurologic Sensation: No sensory loss. Psychiatric Orientation to person, place and time: Normal. Mood and affect: Normal. Posterior tibialis pulse was 1+ on the left. Dorsalis pedis pulse was 1+ on the left. Counseling The patient was counseled regarding instructions for management, risk factor reductions, prognosis,patient and family education, impressions, risks and benefits of treatment options and importance of compliance with treatment. total time of encounter was 25 minutes and 15 minutes was spent counseling. Assessment 1. Left leg swelling (729.81) (M79.89) 2. Calf pain (729.5) (M79.669) Plan Calf pain, Left leg swelling 1. US DUPLEX VENOUS LOWER EXT LT; Status:Active; Requested for:00Sgl2150; Perform:Other Radiology; Order Comments:STAT HOLD AND CALL [phone] BACKLINE REG # [id number]; Due:08May2018; Last Updated By:Mine Gomes; 05/08/2018 11:13:08 AM;Ordered; Stat; For:Calf pain, Left legswelling; Ordered By:Mitzy Muir; see referral flow sheet Discussion/Summary He is going to get a STAT doppler of his left lower leg. If he has any new S/S, he will call or return. We will call with results as soon as we get the call back. At that time, we will discuss further treatment and POC. Signatures Electronically signed by : Mitzy Muir CNP; May 08 2018 12:03PM DAY CARE ATTENDANT (Author) documented in this encounter Plan of Treatment Not on file documented as of this encounter Visit Diagnoses Not on filedocumented in this encounter
--- OUTSIDE RECORDS SUMMARY | 2024-09-30 23:18 | XMS_ITS | Encounter Summary ---
Author Organization [facility] Address [address] [place] [address]. [place], [place] [address] [place] [address] Care Team Providers Care Stamp Mounter Name Role Phone Unavailable Primary Care Provider Unavailabl e Encounter Details Date Type Department Care Team (Latest Contact Info) Description 12/26/2016 Abstract [facility] Medical Group Social History Tobacco Use Types Packs/Day Years Used Date Smoking Tobacco: Never Assessed Sex and Gender Information Value Date Recorded Sex Assigned at Not on file Legal Sex Male 5:32 PM CDT Gender Identity Not on file Sexual Orientation Not on file documented as of this encounter Progress Notes * Generic Conversion MD Marquise - 12/26/2016 3:17 PM CDT Message Recorded as Task Date: 12/22/2016 10:08 AM, Created By: Shawnee Jones Task Name: Medical Complaint Callback Assigned To: [facility] Team Omid Regarding Patient: Sivakumar Kinsey, Status: In Progress Comment: Shawnee Jones - 22 Dec 2016 10:08 AM TASK CREATED Armodafinil PA denied because medication is concidered experimental in the treatment of depression.No formulary alt. Ajay Anne - 26 Dec 2016 11:47 AM TASK REASSIGNED: Previously Assigned To Ajay Anne I think he was able to get a free 30 day trial. We can see how it works. Latanya Lopez - 26 Dec 2016 3:16 PM TASK IN PROGRESS Latanya Lopez 26 Dec 2016 3:17 PM TASK EDITED Patient wasn't able to get medication and has not been taking it//af Signatures Electronically signed by : Latanya Lopez, ; Dec 26 2016 3:17PM MONEY EXAMINER (Author) documented in this encounter Plan of Treatment Not on file documented as of this encounter Visit Diagnoses Not on filedocumented in this encounter
--- OUTSIDE RECORDS SUMMARY | 2024-09-30 23:18 | XMS_ITS | Encounter Summary ---
Author Organization [facility] Address [address] [place] [address]. [place], [place] [address] [place] [address] Care Team Providers Care Traffic And Transport Planner Name Role Phone Unavailable Primary Care Provider Unavailabl e Encounter Details Date Type Department Care Team (Latest Contact Info) Description 12/22/2016 Abstract [facility] Medical Group Social History Tobacco [...]
--- OUTSIDE RECORDS SUMMARY | 2024-09-30 23:18 | XMS_ITS | Encounter Summary ---
Author Organization [facility] Address [address] [place] [address]. [place], [place] [address] [place] [address] Care Team Providers Care Volleyball Coach Name Role Phone Unavailable Primary Care Provider Unavailabl e Encounter Details Date Type Department Care Team (Latest Contact Info) Description 11/20/2016 Abstract [facility] Medical Group Social History Tobacco Use Types Packs/Day Years Used Date Smoking Tobacco: Never Assessed Sex and Gender Information Value Date Recorded Sex Assigned at Not on file Legal Sex Male 5:32 PM CDT Gender Identity Not on file Sexual Orientation Not on file documented as of this encounter Progress Notes * Generic Conversion MD Marquise - 11/20/2016 3:07 PM CST Message Recorded as Task Date: 11/20/2016 01:54 PM, Created By: Aisha Cooney Task Name: Medical Complaint Callback Assigned To: RODDYAlvarado Nurse Team Regarding Patient: Sivakumar Kinsey, Status: In Progress Comment: Aisha Cooney - 20 Nov 2016 1:54 PM TASK CREATED Caller: Self; Medical Complaint; pt on new antidepressant and was supposed to be seen this week but we had to reschedule to next week. Only has four left, asking for increased dose as it is helping only a little so far, uses Mitzy Gay - 20 Nov 2016 2:59 PM TASK EDITED we can increase this to 40mg citalopram daily Shawnee Jones - 20 Nov 2016 3:06 PM TASK IN PROGRESS Message: Rx to pharm- pt updated by phone message-ivett Plan 1. From Citalopram Hydrobromide 20 MG Oral Tablet TAKE 1 TABLET BY MOUTH EVERY DAY DIRECTED To Citalopram Hydrobromide 40 MG Oral Tablet TAKE 1 TABLET BY MOUTH EVERY DAY Rx By: Ajay Anne; Dispense: 30 Days ; #:30 Tablet; Refill: 6; For: Depression; TERRI = N; Sent To: [facility] [address]; Last Updated By: Shawnee Jones; 10/25/2016 9:54:31 AM Signatures Electronically signed by : Shawnee Jones, RKrissy; Nov 20 2016 3:08PM TREE TRIMMER (Author) documented in this encounter Plan of Treatment Not on file documented as of this encounter Visit Diagnoses Not on filedocumented in this encounter
--- OUTSIDE RECORDS SUMMARY | 2024-09-30 23:18 | XMS_ITS | Encounter Summary ---
Author Organization [facility] Address [address] [place] [address]. [place], [place] [address] [place] [address] Care Team Providers Care After School Counselor Name Role Phone Unavailable Primary Care Provider Unavailabl e Encounter Details Date Type Department Care Team (Latest Contact Info) Description 01/17/2017 Abstract [facility] Medical Group Social History Tobacco Use [...]
--- OUTSIDE RECORDS SUMMARY | 2024-09-30 23:18 | XMS_ITS | Encounter Summary ---
Author Organization [facility] Address [address] [place] [address]. [place], [place] [address] [place] [address] Care Team Providers Care Lot Associate Name Role Phone Unavailable Primary Care Provider Unavailabl e Encounter Details Date Type Department Care Team (Latest Contact Info) Description 12/20/2016 Abstract [facility] Medical Group Social History Tobacco Use Types Packs/Day Years Used Date Smoking Tobacco: Never Assessed Sex and Gender Information Value Date Recorded Sex Assigned at Not on file Legal Sex Male 5:32 PM CDT Gender Identity Not on file Sexual Orientation Not on file documented as of this encounter Progress Notes * Ajay Anne MD - 12/20/2016 7:10 AM CDT Message Negative, patient notified of result by me. Verified Results QU-RPR ( DX ) W/REFL TITER AND CONFIRMATORY TESTING [id number] 01:24PM Ajay Anne Test Name Result Flag Reference RPR (DX) W/REFL TITER AND CONFIRMATORY TESTING NON-REACTIVE NON-REACTIVE Test Performed at: [facility] [address] [place] [address] REBEKAH MCPHERSON DO,MPH Discussion/Summary pt aware Signatures Electronically signed by : Larry Hubbard MA; Dec 20 2016 2:42PM TIMBER APPRAISER (Author) documented in this encounter Plan of Treatment Not on file documented as of this encounter Visit Diagnoses Not on filedocumented in this encounter
--- OUTSIDE RECORDS SUMMARY | 2024-09-30 23:18 | XMS_ITS | Encounter Summary ---
Author Organization [facility] Address Formerly [facility]. [place], [place] [address] [place] [address] Care Team Providers Care Heel Finisher Name Role Phone Unavailable Primary Care Provider Unavailabl e Encounter Details Date Type Department Care Team (Late st Contact Info) Description 12/14/2016 [facility] Family & Internal Medicine [address] [phone] Ajay Anne MD [address] [place] [address] Social History Tobacco Use Types Packs/Day Years Used Date Smoking Tobacco: Never Assessed Sex and Gender Information Value Date Recorded Sex Assigned at Not on file Legal Sex Male 5:32 PM CDT Gender Identity Not on file Sexual Orientation Not on file documented as of this encounter Last Filed Vital Signs Vital Sign Reading Time Taken Comments Blood Pressure 102/78 12/14/2016 9:56 AM CDT Pulse 111 12/14/2016 9:56 AM CDT Temperature - - Respiratory Rate - - Oxygen Saturation - - Inhaled Oxygen Concentration - - Weight 94.3 kg (208 lb) 12/14/2016 9:56 AM CDT Height 165.1 cm (5' 5 ) 12/14/2016 9:56 AM CDT Body Mass Index 34.61 12/14/2016 9:56 AM CDT documented in this encounter Progress Notes * Ajay Anne MD - 12/14/2016 9:45 AM CDT Reason For Visit Chronic Recheck Visit Chief Complaint Patient is following up for depression History of Present Illness PHQ-9 Depression Questionnaire: Over the past 2 weeks, how often have you been bothered by the following problems? 1.) Little interest or pleasure in doing things? Nearly every day. 2.) Feeling down, depressed or hopeless? Nearly every day. 3.) Trouble falling asleep or sleeping too much? Nearly every day. 4.) Feeling tired or having little energy? Nearly every day. 5.) Poor appetite or overeating? Nearly every day. 6.) Feeling bad about yourself, or that you are a failure, or have let yourself or your family down? Half the days or more. 7.) Trouble concentrating on things, such as reading a newspaper or watching television? Nearly every day. 8.) Moving or speaking so slowly that other people could have noticed, or the opposite, moving or speaking faster than usual? Not at all. 9.) Thoughts that you would be off or of hurting yourself in some way? Not at all. TOTAL SCORE: 20, severity of depression is severe. [facility]: Date: 12/14/16 Examiner: MICHELLE Grade Completed: Reading Level: 12+ Can Pronounce: Menopause, Antibiotics, Exercise, Jaundice, Rectal, Anemia, Behavior Unable to Pronounce: HPI Free Text: He returns today for followup. We had seen him 2 weeks ago for depression. He was started on Trintellix at that time. He states that he does not feel generally better. He developed tinnitus. He notesthat he does not have headaches but had funny head feeling after starting that medication. We prescribed him Nuvigil but was not able to get that due to insurance reasons. He feels miserable. He has no energy. 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 There are days where he has no appetite. He hasa hard time sleeping. He could sleep for no more than 2 hours and would wake up feeling as if he was going to have a heart attack. This started probably about a month ago. His states that he hassome kind of an energy spurt daily at about 7 PM or so and he does not know why he does this. He also complains of neck numbness that would sometimes keep him from sleeping. Leg and hip pain bothers him if he sleeps on it. He does not report any suicidal thoughts or homicidal thoughts. Review of Systems Constitutional, Eyes, ENT, Cardiovascular, [...] Never a smoker Current Meds 1. Armodafinil 50 MG Oral Tablet; TAKE 2 TABLET Daily; Therapy: 12Dec2016 to (Evaluate:27Dec2016); Last Rx:12Dec2016 Ordered 2. Baclofen 10 MG Oral Tablet; TAKE 1 TABLET 3 TIMES DAILY NEEDED FOR MUSCLE SPASM; Therapy: 25Tpl2436 to (Evaluate:07Lar2166) Requested for: 17Pyr8898; Last Rx:[id number] Ordered 3. BuPROPion HCl ER (XL) 150 MG Oral Tablet Extended Release 24 Hour; TAKE 1 TABLET BY MOUTH EVERY DAY; Therapy: 28Nov2016 to (Evaluate:47Isb2735) Requested for: 28Nov2016; Last Rx:28Nov2016 Ordered 4. Citalopram Hydrobromide 40 MG Oral Tablet; TAKE 1 TABLET BY MOUTH EVERY DAY; Therapy: 67Nig9556 to (Evaluate:82Gmp4328) Requested for: 59Fuu6278; Last Rx:[id number] Ordered 5. Hydrocodone-Acetaminophen 5-325 MG Oral Tablet; TAKE 1 TABLET Every 6 hours; Therapy: 28Zby8210 to (Evaluate:61Hvc1469); Last Rx:[id number] Ordered 6. Lisinopril 20 MG Oral Tablet; TAKE 1 TABLET BY MOUTH DAILY; Therapy: 89Wei1793 to (Evaluate:14Jan2017) Requested for: 18Jul2016; Last Rx:[id number] Ordered 7. Trintellix 10 MG Oral Tablet; Take one tablet daily; Therapy: 30Nov2016 to (Last Rx:30Nov2016) Ordered 8. Zolpidem Tartrate 10 MG Oral Tablet; TAKE 1 TABLET BY MOUTH EVERY NIGHT AT BEDTIME NEEDED FOR INSOMNIA; Therapy: 30Dec2015 to (Evaluate:04Zem6105) Requested for: 03Aug2016; Last Rx:[id number] Ordered Allergies 1. No Known Drug Allergies Vitals Recorded: 14Dec2016 09:56AM Heart Rate 111 Respiration 18 Systolic 102 Diastolic 78 O2 Saturation 98 Height 5 ft 5 in Weight 208 lb BMI Calculated 34.61 BSA Calculated 2.01 Physical Exam Constitutional General appearance: No acute distress, well appearing and well nourished. patient was observed to be mildly obese. Pulmonary Respiratory effort: No increased work of breathing or signs of respiratory distress. Auscultation of lungs: Clear to auscultation. Cardiovascular Palpation of heart: Normal PMI, no thrills. Auscultation of heart: Normal rate and rhythm, normal S1 and S2, without murmurs. Neurologic Cranial nerves: Cranial nerves 2-12 intact. Psychiatric Orientation to person, place and time: Normal. Mood and affect: Normal. Counseling The patient and patient's family was counseled regarding instructions for management, patient and family education and impressions. total time of encounter was 25 minutes and 20 minutes was spent counseling. Assessment 1. Depression (311) (F32.9) 2. Tinnitus (388.30) (H93.19) 3. Headache (784.0) (R51) 4. Severe depression (311) (F32.2) 5. Weight loss (783.21) (R63.4) Plan Benign essential hypertension 1. Lisinopril 20 MG Oral Tablet Rx By: Ajay Anne; Dispense: 30 Days ; #:30 TAB; Refill: 5; For: Benign essential hypertension; TERRI = N; Verified Transmission to [facility]; Last Updated By: Latanya Lopez; 12/14/2016 4:33:04 PM 2. Lisinopril 10 MG Oral Tablet; TAKE 1 TABLET DAILY Rx By: Ajay Anne; Dispense: 30 Days ; #:30 Tablet; Refill: 0; For: Benign essential hypertension; TERRI = N; Verified Transmission to [facility]; Last Updated By: Neftali Boyer; 12/14/2016 4:34:19 PM Depression 3. BuPROPion HCl ER (XL) 150 MG Oral Tablet Extended Release 24 Hour (Wellbutrin XL) Rx By: Ajay Anne; Dispense: 30 Days ; #:30 Tablet Extended Release 24 Hour; Refill: 5; For: Depression; TERRI = N; Verified Transmission to [facility]; Last Updated By: Latanya Lopez; 12/14/2016 4:33:04 PM 4. Citalopram Hydrobromide 40 MG Oral Tablet Rx By: Ajay Anne; Dispense: 30 Days ; #:30 Tablet; Refill: 6; For: Depression; TERRI = N; Sent To: [facility] 5. Trintellix 10 MG Oral Tablet Rx By: Ajay Anne; Dispense: 0 Days ; #:14 Tablet; Refill: 0; For: Depression; TERRI = N; Dispense Sample Formulary Override Reason: Drug has been unsuccessful in the past Depression, Fatigue 6. Armodafinil 150 MG Oral Tablet (Nuvigil); TAKE 1 TABLET Every morning PRN Rx By: Ajay Anne; Dispense: 0 Days ; #:30 Tablet; Refill: 3; For: Depression, Fatigue; TERRI = N; Print Rx Formulary Override Reason: No Formulary Equivalent Exists Depression, Headache 7. MRI BRAIN W; Status:Need Information - Financial Authorization; Requested for:14Dec2016; Perform:Other Radiology; Order Comments:including IAC; Due:13Jan2017; Last Updated By:Latanya Lopez; 12/14/2016 10:53:44 AM;Ordered; For:Depression, Headache; Ordered By:Ajay Anne; Severe depression 8. BuPROPion HCl ER (XL) 300 MG Oral Tablet Extended Release 24 Hour; Take 1 tablet daily Rx By: Ajay Anne; Dispense: 0 Days ; #:30 Tablet Extended Release 24 Hour; Refill: 0; For: Severe depression; TERRI = N; Verified Transmission to [facility]; Last Updated By: Neftali Boyer; 12/14/2016 4:34:18 PM 9. Desvenlafaxine Succinate ER 50 MG Oral Tablet Extended Release 24 Hour (Pristiq); TAKE 1 TABLET BY MOUTH DAILY Rx By: Ajay Anne; Dispense: 30 Days ; #:28 Tablet Extended Release 24 Hour; Refill: 0; For: Severe depression; TERRI = N; Dispense Sample; Last Updated By: Latanya Lopez; 12/14/2016 4:30:43 PM Formulary Override Reason: Drug has been unsuccessful in the past 10. Psychiatry Referral Outpatient For: Severe depression Status: Need Information - Financial Authorization Requested for: 14Dec2016 Ordered; For: Severe depression; Ordered By: Ajay Anne Performed: Due: 28Dec2016; Last Updated By: Latanya Lopez; 12/14/2016 10:49:[address] House 02/06/16 at 8:00 for now Weight loss 11. XR CHEST 2 VIEW ( Routine ); Status:Active; Requested for:14Dec2016; Perform:Other Radiology; Due:13Jan2017; Last Updated By:Latanya Lopez; 12/14/2016 10:49:54 AM;Ordered;For:Weight loss; Ordered By:Ajay Anne; Follow-up visit in 1 week Outpatient Follow-up Status: Hold For - Scheduling Requested for: 14Dec2016 Ordered; For: Severe depression; Ordered By: Ajay Anne Performed: Due: [id number]; Last Updated By: Latanya Lopez; 12/15/2016 8:26:13 AM Signatures Electronically signed by : Ajay Anne M.D.; Dec 17 2016 4:42PM TERMITE CONTROL REPRESENTATIVE (Author) documented in this encounter Plan of Treatment Not on file documented as of this encounter Visit Diagnoses Not on filedocumented in this encounter
--- OUTSIDE RECORDS SUMMARY | 2024-09-30 23:18 | XMS_ITS | Encounter Summary ---
Author Organization [facility] Address [address] [place] [address]. [place], [place] [address] [place] [address] Care Team Providers Care Photograph Developer Name Role Phone Unavailable Primary Care Provider Unavailabl e Encounter Details Date Type Department Care Team (Latest Contact Info) Description 01/16/2017 Abstract [facility] Social History Tobacco Use Types Packs/Day Years Used Date Smoking Tobacco: Never Assessed Sex and Gender Information Value Date Recorded Sex Assigned at Not on file Legal Sex Male 5:32 PM CDT Gender Identity Not on file Sexual Orientation Not on file documented as of this encounter Progress Notes * Generic Conversion MD Marquise - 01/16/2017 12:32 PM CDT Message Recorded as Task Date: 01/16/2017 08:41 AM, Created By: Shawnee Jones Task Name: Medical Complaint Callback Assigned To: [facility] Team Omid Regarding Patient: Sivakumar Kinsey, Status: In Progress Comment: Shawnee Jones - 16 Jan 2017 8:41 AM TASK CREATED Pt saw phychiatrist and they added aripiproazole to his pristiq requesting more samples of pristiq or a priscription. Is feeling beter. #[phone] Ajay Anne - 16 Jan 2017 11:00 AM TASK REASSIGNED: Previously Assigned To Ajay Anne for samples or Rx, not sure if we have samples. Shawnee Jones - 16 Jan 2017 12:32 PM TASK IN PROGRESS Message: Pt updated, rx to pharm- savings card mailed-ivett Plan 1. Desvenlafaxine Succinate ER 50 MG Oral Tablet Extended Release 24 Hour (Pristiq); TAKE 1 TABLET BY MOUTH DAILY Rx By: Ajay Anne; Dispense: 30 Days ; #:30 Tablet Extended Release 24 Hour; Refill: 5; For: Severe depression; TERRI = N; Sent To: [facility] [id number]; Last Updated By: Shawnee Jones; 12/14/2016 4:30:43 PM Formulary Override Reason: Drug has been unsuccessful in the past Signatures Electronically signed by : Shawnee Jones RKrissy; Jan 16 2017 12:34PM PULPWOOD BUYER (Author) documented in this encounter Plan of Treatment Not on file documented as of this encounter Visit Diagnoses Not on filedocumented in this encounter
--- OUTSIDE RECORDS SUMMARY | 2024-09-30 23:18 | XMS_ITS | Encounter Summary ---
Author Organization [facility] Address [address] [place] [address]. [place], [place] [address] [place] [address] Care Team Providers Care Leasing Agent Name Role Phone Unavailable Primary Care Provider Unavailabl e Encounter Details Date Type Department Care Team (Latest Contact Info) Description 11/28/2016 Abstract [facility] Social History Tobacco Use Types Packs/Day Years Used Date Smoking Tobacco: Never Assessed Sex and Gender Information Value Date Recorded Sex Assigned at Not on file Legal Sex Male 5:32 PM CDT Gender Identity Not on file Sexual Orientation Not on file documented as of this encounter Progress Notes * Generic Conversion MD Marquise - 11/28/2016 1:11 PM CST Message Recorded as Task Date: 11/27/2016 02:31 PM, Created By: Abiola De La Rosa Task Name: Medical Complaint Callback Assigned To: [facility] Team Omid Regarding Patient: Sivakumar Kinsey, Status: In Progress Comment: Abiola De La Rosa - 27 Nov 2016 2:31 PM TASK CREATED pt is calling c/o depression- stated he does not know what is really going on- he does not feel bad- but he has not gone out of the house 2 times in 6 week. He is not sure if the medication is reallyhelping. 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 Shawnee Jones - 27 Nov 2016 4:34 PM TASK IN PROGRESS Shawnee Jones - 27 Nov 2016 4:35 PM TASK EDITED [facility] Message: pt notified, rx sent--nk Plan 1. BuPROPion HCl ER (XL) 150 MG Oral Tablet Extended Release 24 Hour (Wellbutrin XL); TAKE 1 TABLET BY MOUTH EVERY DAY Rx By: Ajay Anne; Dispense: 30 Days ; #:30 Tablet Extended Release 24 Hour; Refill: 5; For: Depression; TERRI = N; Sent To: [facility] [id number]; Last Updated By: Brenda Ortez; 11/28/20161:12:15 PM Signatures Electronically signed by : Brenda Ortez MA; Nov 28 2016 1:12PM BRIGHT CUTTER (Author) documented in this encounter Plan of Treatment Not on file documented as of this encounter Visit Diagnoses Not on filedocumented in this encounter
--- OUTSIDE RECORDS SUMMARY | 2024-09-30 23:18 | XMS_ITS | Encounter Summary ---
Author Organization [facility] Address [address] [place] [address]. [place], [place] [address] [place] [address] Care Team Providers Care Programmer Or Analyst Name Role Phone Unavailable Primary Care Provider Unavailabl e Encounter Details Date Type Department Care Team (Latest Contact Info) Description 03/08/2017 Abstract [facility] Social History Tobacco Use [...]
--- OUTSIDE RECORDS SUMMARY | 2024-09-30 23:19 | XMS_ITS | Encounter Summary ---
Author Organization [facility] Address [address] [place] [address]. [place], [place] [address] [place] [address] Care Team Providers Care Director Of Financial Planning Name Role Phone Unavailable Primary Care Provider Unavailabl e Encounter Details Date Type Department Care Team (Latest Contact Info) Description 11/30/2011 Abstract [facility] Social History Tobacco Use [...]
--- OUTSIDE RECORDS SUMMARY | 2024-09-30 23:19 | XMS_ITS | Encounter Summary ---
Author Organization [facility] Address [address] [place] [address]. [place], [place] [address] [place] [address] Care Team Providers Care Yield Clerk Name Role Phone Unavailable Primary Care Provider Unavailabl e Encounter Details Date Type Department Care Team (Latest Contact Info) Description 11/17/2010 Abstract [facility] Social History [...]
--- OUTSIDE RECORDS SUMMARY | 2024-09-30 23:19 | XMS_ITS | Encounter Summary ---
Author Organization [facility] Address [address] [place] [address]. [place], [place] [address] [place] [address] Care Team Providers Care Medical Driver Name Role Phone Unavailable Primary Care Provider Unavailabl e Encounter Details Date Type Department Care Team (Latest Contact Info) Description 07/25/2014 Abstract [facility] Social History Tobacco Use Types Packs/Day Years Used Date Smoking Tobacco: Never Assessed Sex and Gender Information Value Date Recorded Sex Assigned at Not on file Legal Sex Male 5:32 PM CDT Gender Identity Not on file Sexual Orientation Not on file documented as of this encounter Progress Notes * Generic Conversion MD Marquise - 07/25/2014 2:53 PM CDT Message Labs are normal LETTER MAILED NOTIFYING PATIENT Verified Results QU-CBC ( INCLUDES DIFF/PLT ) [id number] 08:53AM Ajay Anne Test Name Result Flag Reference WHITE BLOOD CELL COUNT 9.0 3.8-10.8 UNITS: Thousand/uL RED BLOOD CELL COUNT 5.05 Million/uL 4.20-5.80 HEMOGLOBIN 15.8 g/dL 13.2-17.1 HEMATOCRIT 47.8 % 38.5-50.0 MCV 94.8 fL 80.0-100.0 MCH 31.3 pg 27.0-33.0 MCHC 33.1 g/dL 32.0-36.0 RDW 12.9 % 11.0-15.0 PLATELET COUNT 131 L 140-400 UNITS: Thousand/uL ABSOLUTE NEUTROPHILS 6048 cells/uL 9824-7780 ABSOLUTE LYMPHOCYTES 1989 cells/uL 850-3900 ABSOLUTE MONOCYTES 531 cells/uL 200-950 ABSOLUTE EOSINOPHILS 369 cells/uL 15-500 ABSOLUTE BASOPHILS 63 cells/uL 0-200 NEUTROPHILS 67.2 % LYMPHOCYTES 22.1 % MONOCYTES 5.9 % EOSINOPHILS 4.1 % BASOPHILS 0.7 % Test Performed at: [facility] [id number] [place] [phone] REBEKAH MCPHERSON DO,MPH QU-COMPREHENSIVE METABOLIC PANEL [id number] 17Jul2014 08:53AM Ajay Anne Test Name Result Flag Reference GLUCOSE 90 mg/dL 65-99 Fasting reference interval UREA NITROGEN (BUN) 18 mg/dL 7-25 CREATININE 0.90 mg/dL 0.70-1.33 For patients >49 years of age, the reference limit for Creatinine is approximately 13% higher for people identified as -[place]. eGFR NON-AFR. BELARUSIAN 98 > OR = 60 UNITS: mL/min/1.73m2 eGFR 113 > OR = 60 UNITS: mL/min/1.73m2 BUN/CREATININE RATIO 6-22 NOT APPLICABLE (calc) SODIUM 140 mmol/L 135-146 POTASSIUM 4.6 mmol/L 3.5-5.3 CHLORIDE 103 mmol/L 98-110 CARBON DIOXIDE 28 mmol/L 19-30 CALCIUM 9.4 mg/dL 8.6-10.3 PROTEIN, TOTAL 6.6 g/dL 6.1-8.1 ALBUMIN 4.2 g/dL 3.6-5.1 GLOBULIN 2.4 1.9-3.7 UNITS: g/dL (calc) ALBUMIN/GLOBULIN RATIO 1.8 (calc) 1.0-2.5 BILIRUBIN, TOTAL 0.3 mg/dL 0.2-1.2 ALKALINE PHOSPHATASE 63 U/L 40-115 AST 24 U/L 10-35 ALT 36 U/L 9-46 Test Performed at: [facility] [id number] [place] [phone] REBEKAH MCPHERSON DO,MPH QU-CREATINE KINASE, TOTAL 374 17Jul2014 08:53AM Ajay Anne Test Name Result Flag Reference CREATINE KINASE, TOTAL 54 U/L 44-196 Test Performed at: [facility] [address] [address] REBEKAH MCPHERSON DO,MPH QU-LIPID PANEL 7600 17Jul2014 08:53AM Ajay Anne Test Name Result Flag Reference CHOLESTEROL, TOTAL 182 mg/dL 125-200 HDL CHOLESTEROL 56 mg/dL > OR = 40 TRIGLYCERIDES 139 mg/dL <150 LDL-CHOLESTEROL 98 <130 UNITS: mg/dL (calc) Desirable range <100 mg/dL for patients with CHD or diabetes and <70 mg/dL for diabetic patients with known heart disease. CHOL/HDLC RATIO 3.3 (calc) < OR = 5.0 NON HDL CHOLESTEROL 126 UNITS: mg/dL (calc) Target for non-HDL cholesterol is 30 mg/dL higher than LDL cholesterol target. Test Performed at: [place] [address] REBEKAH MCPHERSON DO,MPH QU-TSH 899 17Jul2014 08:53AM Ajay Anne Test Name Result Flag Reference TSH 0.96 mIU/L 0.40-4.50 Test Performed at: [facility] [address] [place] [phone] REBEKAH MCPHERSON DO,MPH QU-URINALYSIS, COMPLETE W/REFLEX TO CULTURE 3020 17Jul2014 08:53AM Ajay Anne Test Name Result Flag Reference COLOR YELLOW YELLOW APPEARANCE CLEAR CLEAR SPECIFIC GRAVITY 1.019 1.001-1.035 PH 6.0 5.0-8.0 GLUCOSE NEGATIVE NEGATIVE BILIRUBIN NEGATIVE NEGATIVE KETONES NEGATIVE NEGATIVE OCCULT BLOOD NEGATIVE NEGATIVE PROTEIN NEGATIVE NEGATIVE NITRITE NEGATIVE NEGATIVE LEUKOCYTE ESTERASE NEGATIVE NEGATIVE WBC NONE SEEN /HPF < OR = 5 RBC NONE SEEN /HPF < OR = 3 SQUAMOUS EPITHELIAL CELLS NONE SEEN /HPF < OR = 5 BACTERIA NONE SEEN /HPF NONE SEEN HYALINE CAST NONE SEEN /LPF NONE SEEN Test Performed at: [facility] [address] [place] [phone] REBEKAH MCPHERSON DO,MPH QU-VITAMIN D, 25-HYDROXY, LC/MS/MS [id number] 17Jul2014 08:53AM Ajay Anne Test Name Result Flag Reference VITAMIN D, 25-OH, TOTAL 47 ng/mL 30-100 25-OHD3 indicates both endogenous production and supplementation. 25-OHD2 is an indicator of exogenous sources, such as diet or supplementation. Therapy is based on measurement of Total 25-OHD, with levels <20 ng/mL indicative of Vitamin D deficiency, while levels between 20 ng/mL and 30 ng/mL suggest insufficiency. Optimal levels are > or = 30 ng/mL. VITAMIN D, 25-OH, D3 47 ng/mL See Below Reference Range: Not established VITAMIN D, 25-OH, D2 <4 ng/mL See Below Reference Range: Not established Test Performed at: [facility] [id number] [place] [phone] HARSHIL WINTER MD,FCAP QU-REFLEXIVE URINE CULTURE %[id number] 17Jul2014 08:53AM Ajay Anne Test Name Result Flag Reference REFLEXIVE URINE CULTURE NO CULTURE INDICATED Test Performed at: [facility] [address] [place] [address] REBEKAH MCPHERSON DO,MPH Signatures Electronically signed by : Brenda Ortez, ; Jul 27 2014 10:04AM MUTUAL FUND SALES AGENT (Author) documented in this encounter Plan of Treatment Not on file documented as of this encounter Visit Diagnoses Not on filedocumented in this encounter
--- OUTSIDE RECORDS SUMMARY | 2024-09-30 23:19 | XMS_ITS | Encounter Summary ---
Author Organization [facility] Address [facility] [place] [address] [place] [address] Care Team Providers Care Editor In Chief Name Role Phone Unavailable Primary Care Provider Unavailabl e Encounter Details Date Type Department Care Team (Late st Contact Info) Description 06/09/2016 Abstract [facility] Medical Group Family & Internal Medicine [address] [phone] Ajay Anne MD [address] [place] [address] Social History Tobacco Use Types Packs/Day Years [...] Procedure Name Priority Date/Time Associated Diagnosis Comments SANDY IFA SCRN, [place] REFLEX TO TITER Routine 06/09/2016 7:35 AM CDT RHEUMATOID FACTOR QUAL Routine 06/09/2016 7:35 AM CDT SED RATE, ERYTHROCYTE (ESR) Routine 06/09/2016 7:35 AM CDT C-REACTIVE PROTEIN Routine 06/09/2016 7: 35 AM CDT documented in this encounter Results * C-REACTIVE PROTEIN (06/09/2016 7:35 AM CDT) C-REACTIVE PROTEIN 0.57 <0.80 mg/dL [facility] TO EPIC CONVERSION Comment: Result Comment: Please be advised that patients taking Carboxypenicillins may exhibit falsely decreased C-Reactive Protein levels due to an analytical interference in this assay. Test Performed at: [facility] ??[phone] ? REBEKAH MCPHERSON DO,MPH 06/09/2016 7:35 AM CDT 06/09/2016 7:35 AM CDT Narrative [facility] TO EPIC CONVERSION - 06/10/2016 7:59 AM CDT Result Communication: Call patient with results Ajay Anne MD LABORATORY Final Result Performing Organization Address [facility] Co de Phone Number [facility] TO EPIC CONVERSION * SED RATE, ERYTHROCYTE (ESR) (06/09/2016 7:35 AM CDT) SED RATE 2 < OR = 20 mm/h [facility] TO EPIC CONVERSION Comment: Result Comment: Test Performed at: [facility] [address] ??[address] ? REBEKAH MCPHERSON DO,MPH 06/09/2016 7:35 AM CDT 06/09/2016 7:35 AM CDT Narrative [facility] TO EPIC CONVERSION - 06/10/2016 7:59 AM CDT Result Communication: Call patient with results Ajay Anne MD LABORATORY Final Result Performing Organization Address [facility] de Phone Number [facility] TO EPIC CONVERSION * RHEUMATOID FACTOR QUAL (06/09/2016 7:35 AM CDT) RHEUMATOID FACTOR 5 <14 IU/mL [facility] TO EPIC CONVERSION Comment: Result Comment: Test Performed at: [facility] ??[phone] ? REBEKAH MCPHERSON DO,MPH 06/09/2016 7:35 AM CDT 06/09/2016 7:35 AM CDT Narrative [facility] TO EPIC CONVERSION - 06/10/2016 7:59 AM CDT Result Communication: Call patient with results Ajay Anne MD LABORATORY Final Result [facility] TO EPIC CONVERSION * SANDY IFA SCRN, [place] REFLEX TO TITER (06/09/2016 7:35 AM CDT) SANDY NEGATIVE NEGATIVE [facility] T O EPIC CONVERSION Comment: Result Comment: Test Performed at: [facility] ??[phone] ? REBEKAH MCPHERSON DO,MPH 06/09/2016 7:35 AM CDT 06/09/2016 7:35 AM CDT Narrative [facility] TO EPIC CONVERSION - 06/10/2016 7:59 AM CDT Result Communication: Call patient with results Ajay Anne MD LABORATORY Final Result [facility] TO EPIC CONVERSION documented in this encounter Visit Diagnoses Not on filedocumented in this encounter
--- OUTSIDE RECORDS SUMMARY | 2024-09-30 23:19 | XMS_ITS | Encounter Summary ---
Author Organization [facility] Address [address] [place] [address]. [place], [place] [address] [place] [address] Care Team Providers Care Senior Android Software Engineer Name Role Phone Unavailable Primary Care Provider Unavailabl e Encounter Details Date Type Department Care Team (Latest Contact Info) Description 12/10/2012 Abstract [facility] Medical Group Social History Tobacco Use [...]
--- OUTSIDE RECORDS SUMMARY | 2024-09-30 23:19 | XMS_ITS | Encounter Summary ---
Author Organization [facility] Address [address] [place] [address]. [place], [place] [address] [place] [address] Care Team Providers Care Medical Records Supervisor Name Role Phone Unavailable Primary Care Provider Unavailabl e Encounter Details Date Type Department Care Team (Latest Contact Info) Description 06/08/2011 Abstract [facility] Medical Group Social History Tobacco Use [...]
--- OUTSIDE RECORDS SUMMARY | 2024-09-30 23:19 | XMS_ITS | Encounter Summary ---
Author Organization [facility] Address [address] [place] [address]. [place], [place] [address] [place] [address] Care Team Providers Care Palliative Care Coordinator Name Role Phone Unavailable Primary Care Provider Unavailabl e Encounter Details Date Type Department Care Team (Latest Contact Info) Description 06/12/2016 Abstract [facility] Medical Group Social History Tobacco Use Types Packs/Day Years Used Date Smoking Tobacco: Never Assessed Sex and Gender Information Value Date Recorded Sex Assigned at Not on file Legal Sex Male 5:32 PM CDT Gender Identity Not on file Sexual Orientation Not on file documented as of this encounter Progress Notes * Ajay Anne MD - 06/12/2016 4:38 PM CDT Message Labs are normal. letter mailed notifying pt--nk Verified Results QU-RHEUMATOID FACTOR 4418 [id number] 07:35AM Ajay Anne Test Name Result Flag Reference RHEUMATOID FACTOR 5 IU/mL <14 Test Performed at: [facility] [address] [place] [address] REBEKAH MCPHERSON DO,MPH QU-SANDY IFA SCREEN W/REFL TO TITER AND PATTERN, IFA 249 [id number] 07:35AM Ajay Anne Test Name Result Flag Reference SANDY SCREEN, IFA NEGATIVE NEGATIVE Test Performed at: [facility] [address] [place] [address] REBEKAH MCPHERSON DO,MPH [id number] PROTEIN 4420 09Jun2016 07:35AM Ajay Anne Test Name Result Flag Reference C-REACTIVE PROTEIN 0.57 mg/dL <0.80 Please be advised that patients taking Carboxypenicillins may exhibit falsely decreased C-Reactive Protein levels due to an analytical interference in this assay. Test Performed at: [facility] [address] [facility] [place] [address] REBEKAH MCPHERSON DO,MPH QU-SED RATE BY MODIFIED WESTERGREN 809 [id number] 07:35AM Ajay Anne Test Name Result Flag Reference SED RATE BY MODIFIED WESTERGREN 2 mm/h < OR = 20 Test Performed at: [facility] [address] [place] [address] REBEKAH MCPHERSON DO,MPH Signatures Electronically signed by : Brenda Ortez MA; Jun 13 2016 11:15AM CERTIFIED FORKLIFT OPERATOR (Author) documented in this encounter Plan of Treatment Not on file documented as of this encounter Visit Diagnoses Not on filedocumented in this encounter
--- OUTSIDE RECORDS SUMMARY | 2024-09-30 23:19 | XMS_ITS | Encounter Summary ---
Author Organization [facility] Address [address] [place] [address]. [place], [place] [address] [place] [address] Care Team Providers Care Buyer Name Role Phone Unavailable Primary Care Provider Unavailabl e Encounter Details Date Type Department Care Team (Latest Contact Info) Description 11/21/2010 Abstract [facility] Medical Group Social History Tobacco Use Types [...]
--- OUTSIDE RECORDS SUMMARY | 2024-09-30 23:19 | XMS_ITS | Encounter Summary ---
Author Organization [facility] Address [address] [place] [address]. [place], [place] [address] [place] [address] Care Team Providers Care Daycare Teacher Name Role Phone Unavailable Primary Care Provider Unavailabl e Encounter Details Date Type Department Care Team (Latest Contact Info) Description 05/10/2011 Abstract [facility] Medical Group Social History Tobacco Use [...]
--- OUTSIDE RECORDS SUMMARY | 2024-09-30 23:19 | XMS_ITS | Encounter Summary ---
Author Organization [facility] Address [facility] [place] [address] [place] [address] Care Team Providers Care Boilermaker'S Assistant Name Role Phone Unavailable Primary Care Provider Unavailabl e Encounter Details Date Type Department Care Team (Late st Contact Info) Description 06/05/2016 Abstract [facility] Medical Group Family & Internal Medicine [address] [phone] Ajay Anne MD [address] [place] [address] Social History Tobacco Use Types Packs/Day Years Used Date Smoking Tobacco: Never Assessed Sex and Gender Information Value Date Recorded Sex Assigned at Not on file Legal Sex Male 5:32 PM CDT Gender Identity Not on file Sexual Orientation Not on file documented as of this encounter Last Filed Vital Signs Vital Sign Reading Time Taken Comments Blood Pressure 158/98 06/05/2016 11:14 AM CDT Pulse 108 06/05/2016 11:14 AM CDT Temperature - - Respiratory Rate - - Oxygen Saturation - - Inhaled Oxygen Concentration - - Weight 109.8 kg (242 lb) 06/05/2016 11:14 AM CDT Height 165.1 cm (5' 5 ) 06/05/2016 11:14 AM CDT Body Mass Index 40.27 06/05/2016 11:14 AM CDT documented in this encounter Progress Notes * JEANETTE [place] - 06/05/2016 11:00 AM CDT Reason For Visit Acute Visit Chief Complaint Back injury with pain. History of Present Illness Back Pain Lumbar, Acute (Brief): The patient is being seen for an initial evaluation of this episode of acute low back pain. This condition is injury related. The injury 3 days ago, occurred at home,resulted from a fall, resulted from a trauma and hit the side of pool. Symptoms: back pain The patient presents with complaints of sudden onset of constant episodes of moderate left lower back back pain, described as dull and aching, non-radiating. The symptoms resulted from a fall and direct blow. The injury occurred at home. Episodes started June 02, 2016. He is currently experiencing back pain. Symptoms are improved by rest. Symptoms are made worse by prolonged standing, prolonged sitting, lifting and bending. Symptoms are unchanged. Previous Evaluation: Sivakumar states that Sunday he fell and hit his left lower back/buttock on the side of his pool. He states that he does not want an Xray at this time but wants something to help him with pain during ADLs and working. He denies hitting his head or any LOC at time of fall.. Pain is made worse when going from sitting to standing and made worse with bending. Symptom Cluster Details: he reports the symptoms are unchanged. Associated symptoms: no leg weakness, no leg numbness, no saddle paresthesia, no fecal incontinence, no urinary incontinence, no urinary frequency and no urinary retention. Current Treatment: Current treatment includes acetaminophen. By report, there is good tolerance of treatment and poor symptom control. Evaluation and Treatment History:. he has not been previously evaluated for this problem. Review of Systems See HPI for pertinent positives. Active Problems 1. Benign essential hypertension (401.1) (I10) 2. Insomnia (780.52) (G47.00) 3. Lower back pain (724.2) (M54.5) 4. Onychomycosis (110.1) (B35.1) 5. Screening for endocrine, nutritional, metabolic and immunity disorder (V77.99) (Z13.29,Z13.0,Z13.21,Z13.228) 6. Screening for heart disease (V81.2) (Z13.6) 7. Screening for prostate cancer (V76.44) (Z12.5) Surgical History 1. Denied: History of Surgery Family History Mother 1. Family history of malignant neoplasm (V16.9) (Z80.9) Family History 2. Family history of hypertension (V17.49) (Z82.49) Social History ?? Never a smoker Immunizations Influenza --- Series1: 30Sep2012; Series2: 08Jul2014 Current Meds 1. Lisinopril 20 MG Oral Tablet; TAKE 1 TABLET BY MOUTH DAILY; Therapy: [id number] to (Evaluate:17Jul2016) Requested for: [id number]; Last Rx:[id number] Ordered 2. Zolpidem Tartrate 10 MG Oral Tablet; TAKE 1 TABLET AT BEDTIME NEEDED FOR INSOMNIA; Therapy: 30Dec2015 to (Evaluate:03May2016); Last Rx:[id number] Ordered 3. Ciprofloxacin HCl - 500 MG Oral Tablet; Therapy: 26Feb2016 to Recorded Allergies 1. No Known Drug Allergies Vitals Recorded: 05Jun2016 11:14AM Heart Rate 108 Respiration 18 Systolic 158 Diastolic 98 O2 Saturation 99 Height 5 ft 5 in Weight 242 lb BMI Calculated 40.27 BSA Calculated 2.15 Physical Exam Constitutional General appearance: No acute distress, well appearing and well nourished. Eyes Conjunctiva and lids: No swelling, erythema, or discharge. Pupils and irises: Equal, round and reactive to light. Ears, Nose, Mouth, and Throat External inspection of ears and nose: Normal. Pulmonary Respiratory effort: No increased work of breathing or signs of respiratory distress. Auscultation of lungs: Clear to auscultation. Cardiovascular Palpation of heart: Normal PMI, no thrills. Auscultation of heart: Normal rate and rhythm, normal S1 and S2, without murmurs. Examination of extremities for edema and/or varicosities: Normal. Abdomen Abdomen: Non-tender, no masses. Liver and spleen: No hepatomegaly or splenomegaly. Lymphatic Palpation of lymph nodes in neck: No lymphadenopathy. Musculoskeletal Gait and station: Normal. Digits and nails: Normal without clubbing or cyanosis. Inspection/palpation of joints, bones, and muscles: Abnormal. Appearance - left buttock, left lumbar, left lower lumbar, left sacral, left upper sacral and left mid-sacral ecchymosis, but no swelling, no erythema, no amputations, no deformity, no asymmetry, no contractures and normal spinal curvature. Palpation - left buttock, left lumbar, left lower lumbar, left sacral, left upper sacral and left mid-sacral tenderness, but no increased warmth, no masses, no click and no crepitus. Skin Skin and subcutaneous tissue: Normal without rashes or lesions. Neurologic Cranial nerves: Cranial nerves 2-12 intact. Reflexes: 2+ and symmetric. Sensation: No sensory loss. Psychiatric Orientation to person, place and time: Normal. Mood and affect: Abnormal. Mood and Affect: appropriate mood, appropriate affect, calm and in pain. Counseling The patient was counseled regarding instructions for management, risk factor reductions, prognosis,patient and family education, impressions, risks and benefits of treatment options and importance of compliance with treatment. total time of encounter was 15 minutes and 12 minutes was spent counseling. Assessment 1. Hip injury (959.6) (S79.919A) 2. Hip pain, acute, left (719.45) (M25.552) 3. Lower back pain (724.2) (M54.5) Plan Hip pain, acute, left 1. Ketorolac Tromethamine 60 MG/2ML Injection Solution Rx By: Mitzy Muir; For: Hip pain, acute, left; Dose of 60 MG; Intramuscular; TERRI = N; Administered by: Shawnee Jones RNavarroN.: 06/05/2016 12:06:00 PM; Last Updated By: Shawnee Jones; 06/05/2016 12:09:16 PM Formulary Override Reason: Drug is not indicated for Patient condition Joint pain, Polyarthralgia 2. QU-RHEUMATOID FACTOR 4418; Status:Hold For - Manual Activation; Requested for:[id number]; Perform:[facility]; Due:05Jul2016; Last Updated By:Shawnee Jones; 06/05/2016 12:09:16 PM;Ordered; For:Joint pain, Polyarthralgia; Ordered By:Mitzy Muir; Lower back pain 3. Baclofen 10 MG Oral Tablet; TAKE 1 TABLET 3 TIMES DAILY NEEDED FOR MUSCLE SPASM Rx By: Mitzy Muir; Dispense: 10 Days ; #:30 Tablet; Refill: 0; For: Lower back pain; TERRI = N; Verified Transmission to [facility] [id number]; Last Updated By: Neftali Boyer; 06/05/2016 11:51:09 AM 4. Hydrocodone-Acetaminophen 5-325 MG Oral Tablet; TAKE 1 TABLET Every 6 hours Rx By: Mitzy Muir; Dispense: 5 Days ; #:20 Tablet; Refill: 0; For: Lower back pain; TERRI = N; Print Rx Polyarthralgia 5. QU-SANDY, IFA RHEUMATOID ARTHRITIS DIAGNOSTIC PANEL WITH REFLEX TITER/PATTERN 16594; Status:Hold For - Manual Activation; Requested for:05Jun2016; Perform:[facility]; Due:05Jul2016; Last Updated By:Shawnee Jones; 06/05/2016 12:09:16 PM;Ordered; For:Polyarthralgia; Ordered By:Mitzy Muir; 6. [id number] PROTEIN 4420; Status:Hold For - Manual Activation; Requested for:05Jun2016; Perform:[facility]; Due:05Jul2016; Last Updated By:Shawnee Jones; 06/05/2016 12:09:16 PM;Ordered; For:Polyarthralgia; Ordered By:Mitzy Muir; 7. QU-SED RATE BY MODIFIED WESTPARI 809; Status:Hold For - Manual Activation; Requested for:05Jun2016; Perform:[facility]; Due:05Jul2016; Last Updated By:Shawnee Jones; 06/05/2016 12:09:16 PM;Ordered; For:Polyarthralgia; Ordered By:Mitzy Muir; Continue Ibuprofen 800mg three times a day with food. Take prescribed medication as directed Follow up next week if your not having an improvement of your pain Go to the ER for any loss of bladder or bowl control Signatures Electronically signed by : Mitzy Muir, ; Jun 05 2016 2:53PM PROJECT ANALYST (Author) documented in this encounter Plan of Treatment Not on file documented as of this encounter Visit Diagnoses Not on filedocumented in this encounter
--- OUTSIDE RECORDS SUMMARY | 2024-09-30 23:19 | XMS_ITS | Encounter Summary ---
Author Organization [facility] Address [facility] [place]. [place], [place] [address] [place] [address] Care Team Providers Care Floral Department Specialist Name Role Phone Unavailable Primary Care Provider Unavailabl e Encounter Details Date Type Department Care Team (Late st Contact Info) Description 07/08/2014 Abstract [facility] Family & Internal Medicine [address] [phone] Ajay Anne MD [address] [place] [address] Social History Tobacco Use Types Packs/Day Years Used Date Smoking Tobacco: Never Assessed Sex and Gender Information Value Date Recorded Sex Assigned at Not on file Legal Sex Male 5:32 PM CDT Gender Identity Not on file Sexual Orientation Not on file documented as of this encounter Last Filed Vital Signs Vital Sign Reading Time Taken Comments Blood Pressure 145/94 07/08/2014 11:37 AM CDT Pulse 84 07/08/2014 11:37 AM CDT Temperature - - Respiratory Rate - - Oxygen Saturation - - Inhaled Oxygen Concentration - - Weight 118.4 kg (261 lb) 07/08/2014 11:37 AM CDT Height 165.1 cm (5' 5 ) 07/08/2014 11:37 AM CDT Body Mass Index 43.43 07/08/2014 11:37 AM CDT documented in this encounter Progress Notes * Ajay Anne MD - 07/08/2014 10:45 AM CDT Reason For Visit Reason For Visit: Chronic Recheck Visit Chief Complaint Chief Complaint Free Text: f/u HTN History of Present Illness Hypertension (Follow-Up): The patient presents for follow-up [...] Blood pressure control has been good. Medications: The patient is adherent with his medication regimen. He denies medication side effects. Disease Management: The patient is doing well with his blood pressure goals. Review of Systems Focused-Male: Constitutional: Normal. ENT: normal. Cardiovascular: Normal. Respiratory: Normal. Gastrointestinal: Normal. Genitourinary: Normal. Integumentary: Normal. Musculoskeletal: Normal. Neurological: Normal. Psychiatric: Normal. Active Problems 1. Benign essential hypertension (401.1) (I10) 2. Lower back pain (724.2) (M54.5) 3. Onychomycosis (110.1) (B35.1) Surgical History 1. Denied: History of Surgery Family History 1. Family history of malignant neoplasm (V16.9) (Z80.9) 2. Family history of hypertension (V17.49) (Z82.49) Social History ?? Never a smoker (V49.89) (Z78.9) Current Meds 1. Lisinopril 20 MG Oral Tablet; TAKE 1 TABLET BY MOUTH DAILY; Therapy: [id number] to (Last Rx:26Jun2014) Requested for: 26Jun2014 Ordered Allergies 1. No Known Drug Allergies Vitals Vital Signs [Data Includes: Current Encounter] Recorded by : Serene Wesley at 08Jul2014 11:37AM Heart Rate 84 Respiration 16 Systolic 145 Diastolic 94 Height 5 ft 5 in Weight 261 lb BMI Calculated 43.43 BSA Calculated 2.22 Physical Exam Constitutional General appearance: No acute [...] No lymphadenopathy. Musculoskeletal Gait and station: Normal. Neurologic Cranial nerves: Cranial nerves 2-12 intact. Psychiatric Mood and affect: Normal. Assessment 1. Benign essential hypertension (401.1) (I10) Plan 1. QU-CBC ( INCLUDES DIFF/PLT ) 6399 Status: Active Requested for: 08Jul2014 Perform: [facility] Due: 07Aug2014; Last Updated By: Serene Wesley; 07/08/2014 12:07:05 PM; Ordered; For: Benign essential hypertension, Screening for endocrine, nutritional, metabolic and immunity disorder, Screening for heart disease, Screening for prostate cancer; Ordered By: Ajay Anne 2. QU-COMPREHENSIVE METABOLIC PANEL 08061 Status: Active Requested for: 08Jul2014 Perform: [facility] Due: 07Aug2014; Last Updated By: Serene Wesley; 07/08/2014 12:07:05 PM; Ordered; For: Benign essential hypertension, Screening for endocrine, nutritional, metabolic and immunity disorder, Screening for heart disease, Screening for prostate cancer; Ordered By: Ajay nAne 3. QU-CREATINE KINASE, TOTAL 374 Status: Active Requested for: 08Jul2014 Perform: [facility] Due: 07Aug2014; Last Updated By: Serene Wesley; 07/08/2014 12:07:05 PM; Ordered; For: Benign essential hypertension, Screening for endocrine, nutritional, metabolic and immunity disorder, Screening for heart disease, Screening for prostate cancer; Ordered By: Ajay Anne 4. QU-LIPID PANEL 7600 Status: Active Requested for: 08Jul2014 Perform: [facility] Due: 07Aug2014; Last Updated By: Serene Wesley; 07/08/2014 12:07:05 PM; Ordered; For: Benign essential hypertension, Screening for endocrine, nutritional, metabolic and immunity disorder, Screening for heart disease, Screening for prostate cancer; Ordered By: Ajay Anne 5. QU-TSH 899 Status: Active Requested for: 08Jul2014 Perform: [facility] Due: 07Aug2014; Last Updated By: Serene Wesley; 07/08/2014 12:07:05 PM; Ordered; For: Benign essential hypertension, Screening for endocrine, nutritional, metabolic and immunity disorder, Screening for heart disease, Screening for prostate cancer; Ordered By: Ajay Anne 6. QU-URINALYSIS, COMPLETE W/REFLEX TO CULTURE 3020 Status: Active Requested for: 08Jul2014 Perform: [facility] Due: 07Aug2014; Last Updated By: Serene Wesley; 07/08/2014 12:07:05 PM; Ordered; For: Benign essential hypertension, Screening for endocrine, nutritional, metabolic and immunity disorder, Screening for heart disease, Screening for prostate cancer; Ordered By: Ajay Anne 7. QU-VITAMIN D, 25-HYDROXY, LC/MS/MS 63848 Status: Active Requested for: 08Jul2014 Perform: [facility] Due: 07Aug2014; Last Updated By: Serene Wesley; 07/08/2014 12:07:05 PM; Ordered; For: Benign essential hypertension, Screening for endocrine, nutritional, metabolic and immunity disorder, Screening for heart disease, Screening for prostate cancer; Ordered By: Ajay Anne 8. Administered: Fluarix Quadrivalent 0.5 ML Intramuscular Suspension For: Health Maintenance; Ordered By:Ajay Anne; Effective Date:08Jul2014; Administered by: Serene Wesley: 07/08/2014 11:18:00 AM; Last Updated By: Serene Wesley; 07/08/2014 11:18:45 AM Signatures Electronically signed by : Ajay Anne M.D.; Jul 09 2014 9:30PM GARAGE HELPER (Author) documented in this encounter Plan of Treatment Not on file documented as of this encounter Procedures Procedure Name Priority Date/Time Associated Diagnosis Comments URINALYSIS COMPLETE W/RFX TO CULTURE Routine 07/17/2014 8:53 AM CDT URINALYSIS WI REFLEX TO CULTURE Routine 07/17/2014 8:53 AM CDT COMPREHENSIVE METABOLIC PANEL Routine 07/17/2014 8:53 AM CDT LIPID PANEL Routine 07/17/2014 8:53 AM CDT CBC W/DIFF AUTOMATED Routine 07/17/2014 8:53 AM CDT THYROID STIM HORMONE TSH Routine 07/17/2014 8:53 AM CDT VITAMIN D, 25 OH Routine 07/17/2014 8:53 AM CDT CK (CPK) Routine 07/17/2014 8:53 AM CDT documented in this encounter Results * (ABNORMAL) CBC W/DIFF AUTOMATED (07/17/2014 8:53 AM CDT) WBC 9.0 3.8 - 10.8 [facility] TO EPIC CONVERSION Comment:Result Comment: UNIT S: Thousand/uL Red Blood Cell Count 5.05 4.20 - 5.80 Million/uL [facility] TO EPIC CONVERSION HGB 15.8 13.2 - 17.1 g/dL [facility] TO [facility]IC CONVERSION HCT 47.8 38.5 - 50.0 % [facility] TO [facility]IC CONVERSION MCV 94.8 80.0 - 100.0 fL [facility] TO EPIC CONVERSION MCH (QHPE) 31.3 27.0 - 33.0 pg [facility] TO EPIC CONVERSION MCHC 33.1 32.0 - 36.0 g/dL [facility] TO EPIC CONVERSION RDW (QHPE) 12.9 11.0 - 15.0 % [facility] TO [facility]IC CONVERSION PLT 131(L) 140 - 400 [facility] T O EPIC CONVERSION Comment:Result Comment: UNIT S: Thousand/uL ABS. NEUTROPHILS 6048 1500 - 7800 cells/uL [facility] TO EPIC CONVERSION ABS. LYMPHOCYTES 1989 850 - 3900 cells/uL [facility] TO EPIC CONVERSION ABS. MONOCYTES 531 200 - 950 cells/uL [facility] TO EPIC CONVERSION ABS. EOSINOPHILS 369 15 - 500 cells/uL [facility] TO EPIC CONVERSION ABS. BASOPHILS 63 0 - 200 cells/uL [facility] TO EPIC CONVERSION SEG NEUTROPHILS 67.2 % [facility] ROUP TO EPIC CONVERSION LYMPHOCYTES 22.1 % [facility] TO EPIC CONVERSION MONOCYTES 5.9 % [facility] T O EPIC CONVERSION EOSINOPHILS 4.1 % [facility] TO EPIC CONVERSION BASOPHILS 0.7 % [facility] T O EPIC CONVERSION Comment: Result Comment: Test Performed at: [facility] [address] [address] [place] ??[phone] ? REBEKAH MCPHERSON DO,MPH 07/17/2014 8:53 AM CDT 07/17/2014 8:53 AM CDT Narrative [facility] TO [facility] CONVERSION - 07/18/2014 7:35 AM CDT Result Communication: Call patient with results Ajay Anne MD LABORATORY Final Result Performing Organization Address City/[facility]/ZIP Co de Phone Number [facility] TO EPIC CONVERSION * THYROID STIM HORMONE, TSH (07/17/2014 8:53 AM CDT) Pathologist [facility] TSH 0.96 0.40 - 4.50 mIU/L [facility] TO [facility]IC CONVERSION Comment: Result Comment: Test Performed at: [facility] [address] [place] [address] ??[phone] ? REBEKAH MCPHERSON DO,MPH 07/17/2014 8:53 AM CDT 07/17/2014 8:53 AM CDT Narrative [facility] CONVERSION - 07/18/2014 7:35 AM CDT Result Communication: Call patient with results Ajay Anne MD LABORATORY Final Result [facility] CONVERSION * LIPID PANEL (07/17/2014 8:53 AM CDT) CHOLESTEROL 182 125 - 200 mg/dL [facility] CONVERSION HDL 56 > OR = 40 mg/dL [facility] TO [facility] CONVERSION TRIGLYCERIDES 139 <150 mg/dL [facility] OUP TO EPIC CONVERSION LDL (CALCULATED) 98 <130 [facility] CONVERSION Comment: Result Comment: UNITS: mg/dL (calc) Desirable range <100 mg/dL for patients with CHD or diabetes and <70 mg/dL for diabetic patients with known heart disease. CHOL/HDL RATIO 3.3 < OR = 5.0 (calc) [facility] TO [facility] CONVERSION NON HDL CHOLESTEROL 126 [facility] CONVERSION Comment: Result Comment: UNITS: mg/dL (calc) Target for non-HDL cholesterol is 30 mg/dL higher than LDL cholesterol target. Test Performed at: [facility] [address] [place], [place] ??[phone] ? REBEKAH MCPHERSON DO,MPH 07/17/2014 8:53 AM CDT 07/17/2014 8:53 AM CDT Narrative [facility] CONVERSION - 07/18/2014 7:35 AM CDT Result Communication: Call patient with results Ajay Anne MD LABORATORY Final Result Performing Organization Address City/[facility]/ZIP Co de Phone Number [facility] TO EPIC CONVERSION * CK (CPK) (07/17/2014 8:53 AM CDT) TOTAL CK 54 44 - 196 U/L [facility] TO EPIC CONVERSION Comment: Result Comment: Test Performed at: [facility] [address] [place] [address] ??[phone] ? REBEKAH MCPHERSON DO,MPH 07/17/2014 8:53 AM CDT 07/17/2014 8:53 AM CDT Narrative [facility] TO [facility] CONVERSION - 07/18/2014 7:35 AM CDT Result Communication: Call patient with results Ajay Anne MD LABORATORY Final Result [facility] TO [facility] CONVERSION * URINALYSIS COMPLETE W/RFX TO CULTURE (07/17/2014 8:53 AM CDT) COLOR (U) YELLOW YELLOW [facility] T O EPIC CONVERSION APPEARANCE SEMEN CLEAR CLEAR [facility] TO [facility] CONVERSION SPECIFIC GRAVITY (U) 1.019 1.001 - 1.035 [facility] TO [facility] CONVERSION PH (U) 6.0 5.0 - 8.0 [facility] T O EPIC CONVERSION URINE GLUCOSE NEGATIVE NEGATIVE [facility] UP TO EPIC CONVERSION BILIRUBIN (U) NEGATIVE NEGATIVE [facility] UP TO EPIC CONVERSION KETONE (U) NEGATIVE NEGATIVE [facility] CONVERSION OCCULT BLOOD FECAL NEGATIVE NEGATIVE [facility] CONVERSION PROTEIN (U) NEGATIVE NEGATIVE [facility] CONVERSION NITRITES NEGATIVE NEGATIVE [facility] T O EPIC CONVERSION LEUKOCYTES (U) NEGATIVE NEGATIVE [facility] OUP TO EPIC CONVERSION WBC NONE SEEN < OR = 5 /HPF [facility] CONVERSION RBC/HPF NONE SEEN < OR = 3 /HPF [facility] TO [facility] CONVERSION SQUAMOUS EPITHELIALS NONE SEEN < OR = 5 /HPF [facility] TO [facility] CONVERSION BACTERIA (U) NONE SEEN NONE SEEN /HPF [facility] TO [facility] CONVERSION HYALINE CASTS NONE SEEN NONE SEEN /LPF [facility] TO [facility] CONVERSION Comment: Result Comment: Test Performed at: [facility] [address] ??[phone] ? REBEKAH MCPHERSON DO,MPH 07/17/2014 8:53 AM CDT 07/17/2014 8:53 AM CDT Narrative [facility] TO [facility] CONVERSION - 07/18/2014 7:35 AM CDT Result Communication: Call patient with results Ajay Anne MD URINE ORDERABLES Final Result [facility] TO [facility] CONVERSION * COMPREHENSIVE METABOLIC PANEL (07/17/2014 8:53 AM CDT) [facility] GLUCOSE 90 65 - 99 mg/dL [facility] TO [facility]IC CONVERSION Comment: Result Comment: ? Fasting reference interval BUN 18 7 - 25 mg/dL [facility] TO [facility]IC CONVERSION CREATININE S/P/B 0.90 0.70 - 1.33 mg/dL [facility] TO [facility]IC CONVERSION Comment: Result Comment: For patients >49 years of age, the reference limit for Creatinine is approximately 13% higher for people identified as -[place]. EGFR NON-AFR. AMER. 98 > OR = 60 [facility] TO [facility]IC CONVERSION Comment:Result Comment: UNIT S: mL/min/1.73m2 EGFR AFR. AMER. 113 > OR = 60 [facility] TO [facility]IC CONVERSION Comment:Result Comment: UNIT S: mL/min/1.73m2 BUN CREATININE RATIO NOT APPLICABLE 6 - 22 (calc) [facility] TO [facility]IC CONVERSION SODIUM S/P/B 140 135 - 146 mmol/L [facility] TO EPIC CONVERSION POTASSIUM S/P/B 4.6 3.5 - 5.3 mmol/L [facility] TO EPIC CONVERSION CHLORIDE S/P/B 103 98 - 110 mmol/L [facility] TO EPIC CONVERSION CO2 28 19 - 30 mmol/L [facility] TO EPIC CONVERSION CALCIUM S/P/B 9.4 8.6 - 10.3 mg/dL [facility] TO EPIC CONVERSION PROTEIN 6.6 6.1 - 8.1 g/dL [facility] TO EPIC CONVERSION ALBUMIN S/P/B 4.2 3.6 - 5.1 g/dL [facility] TO [facility]IC CONVERSION GLOBULIN 2.4 1.9 - 3.7 [facility] TO [facility] CONVERSION Comment:Result Comment: UNIT S: g/dL (calc) ALBUMIN/GLOBULIN RATIO 1.8 1.0 - 2.5 (calc) [facility] TO [facility]IC CONVERSION BILIRUBIN TOTAL (FLUID) 0.3 0.2 - 1.2 mg/dL [facility] TO EPIC CONVERSION ALK PHOS 63 40 - 115 U/L [facility] TO [facility] CONVERSION AST 24 10 - 35 U/L [facility] TO EPIC CONVERSION ALT 36 9 - 46 U/L [facility] TO EPIC CONVERSION Comment: Result Comment: Test Performed at: [facility] [address] ??[phone] ? REBEKAH MCPHERSON DO,MPH 07/17/2014 8:53 AM CDT 07/17/2014 8:53 AM CDT Narrative [facility] TO [facility] CONVERSION - 07/18/2014 7:35 AM CDT Result Communication: Call patient with results Ajay Anne MD LABORATORY Final Result [facility] TO [facility]IC CONVERSION * VITAMIN D, 25 OH (07/17/2014 8:53 AM CDT) VITAMIN D 25 HYDROXY TOTAL S/P/B 47 30 - 100 ng/mL [facility] TO EPIC CONVERSION Comment: Result Comment: ?? 25-OHD3 indicates both endogenous production and supplementation. 25-OHD2 is an indicator of exogenous sources, such as diet or supplementation. Therapy is based on measurement of Total 25-OHD, with levels <20 ng/mL indicative of Vitamin D deficiency, while levels between 20 ng/mL and 30 ng/mL suggest insufficiency. Optimal levels are > or = 30 ng/mL. VITAMIN D 25 HYDROXY D3 S/P/B 47 See Below ng/mL [facility] TO EPIC CONVERSION Comment:Result Comment: Refe rence Range: Not established VITAMIN D 25 HYDROXY D2 S/P/B <4 See Below ng/mL [facility] TO EPIC CONVERSION Comment: Result Comment: Reference Range: Not established Test Performed at: [facility] [address] ??[phone] ? HARSHIL WINTER MD,FCAP 07/17/2014 8:53 AM CDT 07/17/2014 8:53 AM CDT Narrative [facility] TO [facility] CONVERSION - 07/18/2014 7:35 AM CDT Result Communication: Call patient with results Ajay Anne MD LABORATORY Final Result [facility] TO [facility] CONVERSION * URINALYSIS WI REFLEX TO CULTURE (07/17/2014 8:53 AM CDT) REFLEX URINE CULTURE: NO CULTURE INDICATED [facility] TO [facility]IC CONVERSION Comment: Result Comment: Test Performed at: [facility] [address] ??[phone] ? REBEKAH MCPHERSON DO,MPH 07/17/2014 8:53 AM CDT 07/17/2014 8:53 AM CDT Narrative [facility] TO [facility] CONVERSION - 07/18/2014 7:35 AM CDT Result Communication: Call patient with results Ajay Anne MD URINE ORDERABLES Final Result Performing Organization Address City/[facility]/ZIP Co de Phone Number [facility] TO EPIC CONVERSION documented in this encounter Visit Diagnoses Not on filedocumented in this encounter
--- OUTSIDE RECORDS SUMMARY | 2024-09-30 23:19 | XMS_ITS | Encounter Summary ---
Author Organization [facility] Address [address] [place] [address]. [place], [place] [address] [place] [address] Care Team Providers Care Cargo Surveyor Name Role Phone Unavailable Primary Care Provider Unavailabl e Encounter Details Date Type Department Care Team (Latest Contact Info) Description 10/19/2010 Abstract [facility] Social History Tobacco Use Types [...]
--- OUTSIDE RECORDS SUMMARY | 2024-09-30 23:19 | XMS_ITS | Encounter Summary ---
Author Organization [facility] Address [address] [place] [address]. [place], [place] [address] [place] [address] Care Team Providers Care Electrician Apprentice Powerhouse Name Role Phone Unavailable Primary Care Provider Unavailabl e Encounter Details Date Type Department Care Team (Latest Contact Info) Description 12/04/2013 Abstract [facility] Social History Tobacco Use Types Packs/Day Years Used Date Smoking Tobacco: Never Assessed Sex and Gender Information Value Date Recorded Sex Assigned at Not on file Legal Sex Male 5:32 PM CDT Gender Identity Not on file Sexual Orientation Not on file documented as of this encounter Progress Notes * Generic Conversion MD Marquise - 12/04/2013 10:31 AM CDT Message Recorded as Task Date: 12/04/2013 09:22 AM, Created By: Rosi Farr Task Name: Medical Complaint Callback Assigned To: [facility] [place] Team Omid Regarding Patient: Sivakumar Kinsey, Status: Active Comment: Rosi Farr - 04 Dec 2013 9:22 AM TASK CREATED Caller: Self; Medical Complaint; Pt c/o sore throat for over a week, runny nose, some coughing, drainage, no fever. Would like something called out for these symptoms. CHELSEY Flowers [place] Call pt Ajay Anne - 04 Dec 2013 9:47 AM TASK REASSIGNED: Previously Assigned To Ajay Anne Amoxicillin 875mg bid x 7 days Plan 1. Start: Amoxicillin 875 MG Oral Tablet; TAKE 1 TABLET EVERY 12 HOURS DAILY Signatures Electronically signed by : Serene Wesley, ; Dec 04 2013 10:32AM WASTE RECLAIMER (Author) documented in this encounter Plan of Treatment Not on file documented as of this encounter Visit Diagnoses Not on filedocumented in this encounter
--- OUTSIDE RECORDS SUMMARY | 2024-09-30 23:19 | XMS_ITS | Encounter Summary ---
Author Organization [facility] Address [address] [place] [address]. [place], [place] [address] [place] [address] Care Team Providers Care Rehabilitation Nurse Name Role Phone Unavailable Primary Care Provider Unavailabl e Encounter Details Date Type Department Care Team (Late st Contact Info) Description 10/19/2010 Abstract [facility] [place] [address] Ajay Anne MD [address] [place] [id number] Social History Tobacco Use Types Packs/Day Years Used Date Smoking Tobacco: Never Assessed Sex and Gender Information Value Date Recorded Sex Assigned at Not on file Legal Sex Male 5:32 PM CDT Gender Identity Not on file Sexual Orientation Not on file documented as of this encounter Plan of Treatment Not on file documented as of this encounter Visit Diagnoses Diagnosis Constipation Unspecified constipation documented in this encounter
== END 2024-09-23 17:12 | disposition home or self-care (01) ==
PROVIDERS: Physician Assistant; Emergency Provider Student in an Organized Health Care Education/Training Program; PCP Internal Medicine
DX: R11.10 Vomiting, unspecified (principal); D72.829 Elevated white blood cell count, unspecified; E11.65 Type 2 diabetes mellitus with hyperglycemia; D69.6 Thrombocytopenia, unspecified; K76.0 Fatty (change of) liver, not elsewhere classified; R10.13 Epigastric pain; Z20.822 Contact with and (suspected) exposure to COVID-19; I10 Essential (primary) hypertension; Z86.718 Personal history of other venous thrombosis and embolism; Z79.01 Long term (current) use of anticoagulants
CPT/HCPCS: 36415; 74177; 80053; 81001; 83690; 85025; 85055; 87637; 96374; 96375; 99284; J2270; J2405; Q9967